=== PATIENT | male | born 1950 | race Caucasian/White ===

== ENCOUNTER 2020-05-04 22:19 | Emergency (ER) | payer MEDICARE, SELFPAY ==
[2020-05-04 22:25] VITALS: BP 181/92; PULSE 68; RESP 18; TEMP 36.5; O2SAT 94; BMI 33.0
--- NOTE | 2020-05-04 22:42 | XRR_ITS ---
PROCEDURE INFORMATION: Exam: XR Left Shoulder Exam date and time: 05/04/2020 11:21 PM Age: 69 years old Clinical indication: Injury or trauma; Injury history: Fell off horse; Initial encounter; Blunt trauma (contusions or hematomas; Shoulder; Left; Additional info: Trauma, pain TECHNIQUE: Imaging protocol: XR Left shoulder. Views: 2 or more views. COMPARISON: No relevant prior studies available. FINDINGS: Bones/joints: Moderate degenerative changes of the acromioclavicular joint. Glenohumeral joint normal Scapula normal Visualized ribs and visualized pulmonary parenchyma normal Coracoid process normal Fracture mid/distal aspect of the left clavicle with a full shaft with displacement. Soft tissues: Normal. XR/XR shoulder LT min 2V* [id number] IMPRESSION: 1. Moderate degenerative changes of the acromioclavicular joint. 2. Fracture mid/distal aspect of the left clavicle with a full shaft with displacement.
--- NOTE | 2020-05-04 22:43 | ED_ITS ---
HPI - Fall General: Chief Complaint: Fall Stated Complaint: fell off horse Time Seen by Provider: 05/04/20 22:37 Source: patient Mode of arrival: ambulatory Limitations: no limitations History of Present Illness: HPI Narrative: Patient is a very nice 69-year-old gentleman who presents to the ED today for evaluation following a fall from a horse that occurred just prior to arrival. Patient tells me he was trying to break a todd when it got spooked by a dog and bucked him off. Patient states he landed onto his left side. He reports abrasions and a laceration to his left elbow. He complains of pain to his left collarbone. He is also complaining of left-sided back and chest pains. He denies striking his head, LOC, or neck pain. Tetanus is UTD MD complaint: fall Onset (ago): hour(s) Fall from: other (from horse) Fall witnessed: yes, by bystander Place fall occurred: street Associated symptoms-after fall: Reports chest pain (pain to L posterior chest); Denies abdominal pain, headache(s), lightheadedness or neck pain Review of Systems Eyes: Denies: change in vision, blurry vision, photophobia, floaters or seeing flashes ENMT: Denies: throat pain or odynophagia Card: Reports: chest pain (pain to L posterior chest); Denies: palpitations, irregular heart rhythm, edema, lightheadedness, syncope, pre-syncope, dyspnea on exertion, orthopnea or acrocyanosis Resp: Denies: dyspnea, productive cough, non-productive cough, hemoptysis or chest congestion GI: Denies: abdominal pain, nausea or vomiting : Denies: flank pain Musc: Reports: back pain, extremity pain (L upper extremity ), joint pain (L shoulder) and joint swelling (L clavicle region); Denies: neck pain or extremity swelling Skin/Breast: Reports: other (abrasions) Neuro: Denies: headache(s), numbness in extremities, weakness in extremities or sensory changes PFSH ED PFSH: Social History Smoking and tobacco status: former smoker Physical Exam Const: COMMON NORMALS: no acute distress, patient oriented x3, no limitations and alert ORIENTATION/CONSCIOUSNESS: Yes oriented to person, Yes oriented to place and Yes oriented to time HENMT: COMMON NORMALS: normocephalic and atraumatic HEAD & SCALP: normocephalic and atraumatic FACE & SINUS: normal facial exam and sinuses nontender Eye: COMMON NORMALS: Equal, round and reactive pupils present and EOMs intact bilaterally PUPIL: Yes Equal, round and reactive pupils present Neck/C-Spine: COMMON NORMALS: full ROM CERVICAL SPINE: Yes cervical ROM normal, No pain with cervical ROM, No Cervical spine tenderness and No Paracervical muscle tenderness Chest: COMMONS NORMALS: normal inspection of the chest OTHER: TTP L posterior chest wall Resp: COMMON NORMALS: normal respiratory effort and clear to auscultation bilaterally AUSCULTATION: clear to auscultation bilaterally Cardio: COMMON NORMALS: regular rate and regular rhythm RATE: regular rate RHYTHM: regular rhythm GI: COMMON NORMALS: Normal to inspection, nondistended, normoactive bowel sounds present, Soft to palpation, non-tender, No hepatosplenomegaly present and no masses PALPATION: Yes Soft to palpation and Yes No hepatosplenomegaly present Back/Pelvis: THORACIC SPINE/UPPER BACK: Yes thoracic spinal tenderness (mid thoracic spine/between scapula and transverse processes) LUMBAR SPINE/LOWER BACK: Yes normal to inspection and Yes lumbar ROM normal Extremity: GENERAL: Yes normal exam except as noted OTHER: abrasions noted throughout L UE, 2.0 laceration to L elbow-full ROM, TTP/swelling/deformity noted over L midshaft clavicle Neuro: LORNA COMA SCALE: document GCS findings Lorna coma scale eye opening: Spontaneous Lorna coma scale verbal response: Orientated [place] coma scale motor response: Obey commands [place] coma scale total score: 15 COMMON NORMALS: patient oriented x3, CN's II-XII intact bilaterally, moves all extremities, no focal motor deficits, no sensory deficits noted and gait normal SENSORIUM/ORIENTATION: Yes alert, Yes oriented to person, Yes oriented to place and Yes oriented to time Skin: OTHER: superficial abrasions, L elbow laceration Procedures Laceration Laceration 1: Site: upper extremity (L elbow) Side (If applicable): left Size (cm): 2.0 Description: stellate and flap Depth: simple, single layer Local Anesthetic: lidocaine 1% and with epi Amount of anesthesia used (mL): 2.0 Pre-repair: wound explored and irrigated extensively Skin layer closed with: nylon Size (cm): 4-0 Number of sutures: 6 Technique: simple, interrupted Course Vital Signs: Vital signs: Vital Signs Temperature 97.7 F 05/04/20 22:25 Pulse Rate 69 05/05/20 00:53 Respiratory Rate 18 05/05/20 01:07 Blood Pressure 182/89 05/05/20 00:53 Pulse Oximetry 97 05/05/20 01:07 MDM - Fall MDM Narrative: Medical decision making narrative: laceration repaired as documented; XRs of elbow neg; L shoulder shows displaced clavicular fx; he will be placed in a sling and will have CM set him up with orthopedics; initially not complaining of much back/chest pain so plain films of thoracic spine were obtained and neg however while I was suturing him he tells me he was really starting to be in some discomfort throughout L posterior chest/ribs/back and seemingly did not wish to take deep breaths due to pain; due to high impact injury I did go ahead elect to CT his chest/t spine to rule out further injuries-these were negative. Imaging Data^: XR thoracic: Radiologist's impression: [address] [address] XRay Report Signed Patient: Zay Vaughan Unit #: [id number] : 1950 Age/Sex: 69 / M ADM Date: 05/04/20 Loc: ER Room/Bed: Attending Dr: Ordering Provider/Ordering MD: Kitty Acuna Date of Service: 05/04/20 Procedure(s): XR thoracic spine 3V* [id number] Accession Number(s): [id number] Report Number: [id number] PROCEDURE INFORMATION: Exam: XR Thoracic Spine, 3 Views Exam date and time: 05/04/2020 11:21 PM Age: 69 years old Clinical indication: Injury or trauma; Initial encounter; Blunt trauma (contusions or hematomas); Injury details: Fall off horse TECHNIQUE: Imaging protocol: XR of the thoracic spine, 3 views. COMPARISON: No relevant prior studies available. FINDINGS: Vertebrae: Multilevel productive degenerative endplate changes disc space narrowing throughout the spine without fracture or dislocation. Soft tissues: Unremarkable. XR/XR thoracic spine 3V* [id number] IMPRESSION: Multilevel productive degenerative endplate changes disc space narrowing throughout the spine without fracture or dislocation. Dictated By: Marquis Stevens MD Signed By: Marquis Stevens MD Signed Date/Time: 05/04/20 2337 XR L elbow: My impression: NAD XR L shoulder: My impression: displaced midshaft clavicular fracture CT thoracic: Radiologist's impression: [facility] [address] [facility] [place] [address] CT Scan Report Signed Patient: Zay Vaughan Unit #: [id number] : 1950 Age/Sex: 69 / M ADM Date: 05/04/20 Loc: ER Room/Bed: Attending Dr: Ordering Provider/Ordering MD: Kitty Acuna Date of Service: 05/04/20 Procedure(s): CT thoracic spin wo con* [id number] Accession Number(s): [id number] Report Number: [id number] PROCEDURE INFORMATION: Exam: CT Thoracic Spine Without Contrast Exam date and time: 05/04/2020 1:06 AM Age: 69 years old Clinical indication: Injury or trauma; Initial encounter; Blunt trauma (contusions or hematomas); Injury details: Fall off horse; Additional info: Fall from horse; Pain TECHNIQUE: Imaging protocol: Computed tomography images of the thoracic spine without contrast. Radiation optimization: All CT scans at this facility use at least one of these dose optimization techniques: automated exposure control; mA and/or kV adjustment per patient size (includes targeted exams where dose is matched to clinical indication); or iterative reconstruction. COMPARISON: CR XR thoracic spine 3V* [id number] 05/04/2020 10:50 PM RADIATION DOSE METRICS: Total DLP (mGy-cm): 2764.26 FINDINGS: Vertebrae: No acute fracture. Normal alignment. T1-T2: No significant disc protrusion. No severe spinal canal stenosis. No significant neural foraminal narrowing. T2-T3: No significant disc protrusion. No severe spinal canal stenosis. No significant neural foraminal narrowing. T3-T4: No significant disc protrusion. No severe spinal canal stenosis. No significant neural foraminal narrowing. T4-T5: No significant disc protrusion. No severe spinal canal stenosis. No significant neural foraminal narrowing. T5-T6: No significant disc protrusion. No severe spinal canal stenosis. No significant neural foraminal narrowing. T6-T7: No significant disc protrusion. No severe spinal canal stenosis. No significant neural foraminal narrowing. T7-T8: No significant disc protrusion. No severe spinal canal stenosis. No significant neural foraminal narrowing. T8-T9: No significant disc protrusion. No severe spinal canal stenosis. No significant neural foraminal narrowing. T9-T10: No significant disc protrusion. No severe spinal canal stenosis. No significant neural foraminal narrowing. T10-T11: No significant disc protrusion. No severe spinal canal stenosis. No significant neural foraminal narrowing. T11-T12: No significant disc protrusion. No severe spinal canal stenosis. No significant neural foraminal narrowing. T12-L1: No significant disc protrusion. No severe spinal canal stenosis. No significant neural foraminal narrowing. CT/CT thoracic spin wo con* [id number] IMPRESSION: Negative for fracture or dislocation. Radiation Dose CTDIVOL = (mGy): DLP = 2764.26 (mGy-cm) Dictated By: Marquis Stevens MD Signed By: Marquis Stevens MD Signed Date/Time: 05/05/20151 DD/ 9 Discharge Plan Discharge Patient Disposition: Home, Self-Care Clinical Impression: Fall from horse Qualifiers: Encounter type: initial encounter Qualified Code(s): V80.010A - Animal-rider injured by fall from or being thrown from horse in noncollision accident, initial encounter Laceration of elbow, left Qualifiers: Encounter type: initial encounter Qualified Code(s): S51.012A - Laceration without foreign body of left elbow, initial encounter Closed fracture of left clavicle Qualifiers: Encounter type: initial encounter Clavicle location: shaft Fracture alignment: displaced Qualified Code(s): S42.022A - Displaced fracture of shaft of left clavicle, initial encounter for closed fracture Condition: Stable Prescriptions: New hydrocodone-acetaminophen 5-325 mg tablet 1 tab PO Q4H PRN (Reason: pain) Qty: 15 RF: 0 Discharge Orders: Discharge Order (Routine); Ordered 05/05/20 Ordered By: Kitty Acuna Referrals: Eliu Shea [Primary Care Provider] - Patient Instructions: Fractures - Clavicle (Adult) Activity Restrictions/Additional Instructions: As discussed case management should contact you to set you up with orthopedic follow-up. He may return to the emergency department for any concerns you may have. I hope you begin to feel better soon. Keep your laceration clean with warm soapy water several times daily. Monitor for signs of infection such as redness, swelling, drainage. Sutures may be cut out in 7 to 10 days. Coding Level of Care Code ED Lot Porter for Israel Vitale Exam Comprehensive
--- NOTE | 2020-05-04 22:43 | XRR_ITS ---
PROCEDURE INFORMATION: Exam: XR Left Elbow Exam date and time: 05/04/2020 11:21 PM Age: 69 years old Clinical indication: Injury or trauma; Injury history: Fell off horse; Initial encounter; Blunt trauma (contusions or hematomas; Elbow; Left; Additional info: Injury, pain TECHNIQUE: Imaging protocol: XR Left elbow. Views: 3 or more views. COMPARISON: No relevant prior studies available. FINDINGS: Bones/joints: Radial head and proximal ulna are without fracture. No joint effusion. Degenerative changes within the olecranon. Degenerative changes at the radial capitellar articulation Soft tissues: Medial and lateral columns are without fracture. XR/XR elbow LT min 3V* [id number] IMPRESSION: 1. No acute process. 2. Degenerative changes within the olecranon. Moderate.
--- NOTE | 2020-05-04 23:43 | PC.NURSE ---
pt has abrasion on L arm extending from L shoulder to elbow. Pt has 2in lac on L elbow area and 1in lac below elbow. Pt tolerated irrigation procedure well
--- NOTE | 2020-05-04 23:54 | CTR_ITS ---
PROCEDURE INFORMATION: Exam: CT Chest With Contrast Exam date and time: 05/04/2020 1:06 AM Age: 69 years old Clinical indication: Injury or trauma; Initial encounter; Blunt trauma (contusions or hematomas); Injury details: Fall from horse; Additional info: Fall from horse; L sided back/chest pain TECHNIQUE: Imaging protocol: Computed tomography of the chest with intravenous contrast. Radiation optimization: All CT scans at this facility use at least one of these dose optimization techniques: automated exposure control; mA and/or kV adjustment per patient size (includes targeted exams where dose is matched to clinical indication); or iterative reconstruction. Contrast material: VISI; Contrast volume: 95 ml; Contrast route: INTRAVENOUS (IV); COMPARISON: No relevant prior studies available. RADIATION DOSE METRICS: Total DLP (mGy-cm): 1107.37 FINDINGS: Lungs: Unremarkable. No consolidation. No masses. Pleural space: Unremarkable. No pneumothorax. No pleural effusion. Heart: Unremarkable. No cardiomegaly. No pericardial effusion. Aorta: Unremarkable. No aortic aneurysm. Lymph nodes: Unremarkable. No enlarged lymph nodes. Kidneys and ureters: Left kidney demonstrates several parapelvic renal cysts. Bones/joints: Left mid clavicle displaced fracture. Soft tissues: Unremarkable. CT/CT chest w con* [id number] IMPRESSION: 1. Left mid clavicle displaced fracture. 2. Left kidney demonstrates several parapelvic renal cysts, no follow-up recommended. Radiation Dose CTDIVOL = (mGy): DLP = 1107.37 (mGy-cm)
--- NOTE | 2020-05-04 23:54 | CTR_ITS ---
PROCEDURE INFORMATION: Exam: CT Thoracic Spine Without Contrast Exam date and time: 05/04/2020 1:06 AM Age: 69 years old Clinical indication: Injury or trauma; Initial encounter; Blunt trauma (contusions or hematomas); Injury details: Fall off horse; Additional info: Fall from horse; Pain TECHNIQUE: Imaging protocol: Computed tomography images of the thoracic spine without contrast. Radiation optimization: All CT scans at this facility use at least one of these dose optimization techniques: automated exposure control; mA and/or kV adjustment per patient size (includes targeted exams where dose is matched to clinical indication); or iterative reconstruction. COMPARISON: CR XR thoracic spine 3V* [id number] 05/04/2020 10:50 PM RADIATION DOSE METRICS: Total DLP (mGy-cm): 2764.26 FINDINGS: Vertebrae: No acute fracture. Normal alignment. T1-T2: No significant disc protrusion. No severe spinal canal stenosis. No significant neural foraminal narrowing. T2-T3: No significant disc protrusion. No severe spinal canal stenosis. No significant neural foraminal narrowing. T3-T4: No significant disc protrusion. No severe spinal canal stenosis. No significant neural foraminal narrowing. T4-T5: No significant disc protrusion. No severe spinal canal stenosis. No significant neural foraminal narrowing. T5-T6: No significant disc protrusion. No severe spinal canal stenosis. No significant neural foraminal narrowing. T6-T7: No significant disc protrusion. No severe spinal canal stenosis. No significant neural foraminal narrowing. T7-T8: No significant disc protrusion. No severe spinal canal stenosis. No significant neural foraminal narrowing. T8-T9: No significant disc protrusion. No severe spinal canal stenosis. No significant neural foraminal narrowing. T9-T10: No significant disc protrusion. No severe spinal canal stenosis. No significant neural foraminal narrowing. T10-T11: No significant disc protrusion. No severe spinal canal stenosis. No significant neural foraminal narrowing. T11-T12: No significant disc protrusion. No severe spinal canal stenosis. No significant neural foraminal narrowing. T12-L1: No significant disc protrusion. No severe spinal canal stenosis. No significant neural foraminal narrowing. CT/CT thoracic spin wo con* [id number] IMPRESSION: Negative for fracture or dislocation. Radiation Dose CTDIVOL = (mGy): DLP = 2764.26 (mGy-cm)
[2020-05-05 00:53] VITALS: BP 182/89; PULSE 69; RESP 18; O2SAT 95
[2020-05-05 01:07] VITALS: RESP 18; O2SAT 97
[2020-05-05] MEDS: morphine 4 mg/mL SDV 1 mL IM (01:07)
[2020-05-05] MEDS: ondansetron 2 mg/ML SDV 2 mL 4 MG IM (01:07)
[2020-05-05] MEDS: iodixanol 320 mg/mL 100mL Btl IV (01:32)
[2020-05-05] MEDS: HYDROcodone-acetaminophen 5-325 mg Tablet 2 TAB PO (02:07)
[2020-05-05 02:29] VITALS: BP 175/106; PULSE 73; RESP 18; O2SAT 96
--- NOTE | 2020-05-05 10:18 | DCPLANNER ---
janitorial account manager had message to schedule a follow up appointment for patient with ortho. janitorial account manager called ortho, spoke with Phuong, gave clinic patients information. janitorial account manager was told that the patients information would be printed and reviewed. Clinic will call patient with appointment information.
--- NOTE | 2020-05-06 15:36 | DCPLANNER ---
Patient has a follow up appointment scheduled for Saturday, May 09, 2020 at 1:[address] Leblanc. Clinic will call patient with appointment information.
--- NOTE | 2020-05-11 14:43 | DCPLANNER ---
Patient did attend appointment scheduled for 05.09.20 with ortho.
== END 2020-05-05 02:10 | disposition home or self-care (01) ==
PROVIDERS: Emergency Provider Physician Assistant; PCP Physician Assistant Medical
DX: S51.012A Laceration without foreign body of left elbow, initial encounter (principal); S42.022A Displaced fracture of shaft of left clavicle, initial encounter for closed fracture; V80.010A Animal-rider injured by fall from or being thrown from horse in noncollision accident, initial encounter; Z87.891 Personal history of nicotine dependence
CPT/HCPCS: 12001; 12345; 71260; 72072; 72128; 73030; 73080; 96372; 99282; 99283; J2001; J2270; J2405; Q9967

== ENCOUNTER 2020-05-07 12:50 | Emergency (ER) | payer MEDICARE, SELFPAY ==
[2020-05-07 12:58] VITALS: BP 151/82; PULSE 69; RESP 16; TEMP 36.4; O2SAT 98; BMI 33.0
[2020-05-07 13:08] VITALS: RESP 18
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
[2020-05-07] MEDS: cephALEXin 500 mg Capsule PO (13:36)
[2020-05-07 13:41] VITALS: RESP 18; TEMP 36.4; O2SAT 98
== END 2020-05-07 13:42 | disposition home or self-care (01) ==
PROVIDERS: Emergency Provider Nurse Practitioner Family; PCP Physician Assistant Medical
DX: L98.9 Disorder of the skin and subcutaneous tissue, unspecified (principal)
CPT/HCPCS: 12345; 99281; 99283

== ENCOUNTER → 2020-05-09 13:27 | Outpatient (BNVA) | payer MEDICARE, SELFPAY | PROVIDERS: PCP Physician Assistant Medical; Visit Provider Specialist | DX: S42.022A Displaced fracture of shaft of left clavicle, initial encounter for closed fracture (principal); X58.XXXA Exposure to other specified factors, initial encounter | CPT/HCPCS: 73000 ==

== ENCOUNTER 2020-05-10 09:50 | Day surgery (SDC) | payer MEDICARE, SELFPAY ==
[2020-05-10] VITALS (10 sets, daily range): BP systolic 111–160; BP diastolic 65–87; PULSE 53–71; RESP 17–22; TEMP 36.3–36.6; O2SAT 93–98
--- NOTE | 2020-05-10 | SCC_ITS ---
Procedure Done: Open reduction internal fixation left clavicle fracture 25.8 seconds of fluoroscopic guidance, for a cumulative dose of 3.31 mGy, was provided to Dr. Leblanc by the radiology department. C-arm images of the LEFT clavicle were saved for the patient's permanent record. [facility]
--- NOTE | 2020-05-10 | XR_ITS ---
WS: [id number] LEFT CLAVICLE TECHNIQUE: 2 views of the left clavicle. CLINICAL INFORMATION: ORIF LT CLAVICLE Fluoroscopy time 25.8 seconds COMPARISON: None. FINDINGS: Intraoperative changes left clavicular fracture with plate and screw fixation. Normal alignment. Frac ture has been reduced. XR/[place] [id number] IMPRESSION: Images obtained for intraoperative purposes
--- NOTE | 2020-05-10 10:37 | P.HPUD_ITS ---
Surgery/Procedure H&P Update DATE OF PROCEDURE: May 10, 2020 DATE H&P PERFORMED: 05/09/20 H&P UPDATE INFORMATION: I have reviewed H&P completed within last 30 days, I have examined patient prior to procedure and H&P is in [facility] EMR on date indicated PREOP DIAGNOSIS: Displaced left clavicle fracture PLANNED PROCEDURE: Operation Date: 05/10/20 11:15 Proposed Procedures p ORIF Clavicle 01983 S42.022A(Left) - Sienna Leblanc MD Related Problem List Diagnoses (1) Closed fracture of left clavicle: Qualifiers: Clavicle location: shaft Encounter type: initial encounter Fracture alignment: displaced Qualified Code(s): S42.022A - Displaced fracture of shaft of left clavicle, initial encounter for closed fracture
--- NOTE | 2020-05-10 10:38 | ANES.PREANE2 ---
Pre-Anesthetic Assessment Pre-Anesthetic Assessment: Height/Weight: Height 1.78 m Temp Pulse Resp BP Pulse Ox 97.8 F 60 18 160/87 97 05/10/20 10:20 05/10/20 10:20 05/10/20 10:20 05/10/20 10:20 05/10/20 10:20 Preop Diagnosis: Displaced left clavicle fracture Proposed Procedure: Operation Date: 05/10/20 11:15 Proposed Procedures p ORIF Clavicle [id number] S42.022A(Left) - Sienna Leblanc MD Familial anesthetic complications: None Was Beta Mony taken within 24 hours: Yes Last intake: Intake Last Liquid Date 05/09/20 Last Liquid Time 19:00 Last Solid Date 05/09/20 Last Solid Time 19:00 Social: Social History: No alcohol and No tobacco Exam: Pre-Anes Outpt Exam: alert, oriented x 3, clear to auscultation bilaterally and regular rate & rhythm Airway: Cervical ROM: WNL MP: 3 Dentition: Full Pulmonary: Pulmonary: None reported CV/HEM: CV/HEM: HTN : : None reported Hepatic: Hepatic: None reported GI: GI: GERD and None reported Metabolic: Metabolic: Morbid obesity Musc/skel: Musc/skel: None reported Neuropsych: Neuropsych: None reported Anesthetic Plan: ASA status: 2 Anesthesia: General and Regional (specify below) Risk of > 500 ml blood loss (7ml/kg in children): No PFSH Anesthesia PFSH: Medical History Accelerated essential hypertension Arthritis Stomach ulcer Family History Denies family history of Diabetes CAD (coronary artery disease) Hypertension Stroke Social History Smoking and tobacco status: never smoked Alcohol intake: never Data Anesthesia Cardiac Studies: No Data to Display
[2020-05-10] MEDS: sodium chloride 0.9% 1,000 ML 30 ML IV (10:45)
--- NOTE | 2020-05-10 10:56 | PM.OP ---
Operative Report Date of procedure: May 10, 2020 Pre-op Diagnosis: Displaced left clavicle fracture Post-op diagnosis: same Post-op Findings: Anatomic reduction of midshaft clavicle fracture Procedure Done: Open reduction internal fixation left clavicle fracture with dressing change to left upper arm wounds Implants: Laurens reduced curvature clavicle plate, 8 holes Specimens removed/disposition: None Pathology: none sent Surgeon: Sienna Leblanc Industrial Refrigeration Mechanic: Radha Mackey Anesthesia: General (Intubated ASA 2 with interscalene block preoperatively) Estimated blood loss (mL): 25 IV fluids (mL): 1,000 Urine output: 0 cc, no Oden Complications: None Findings: Displaced midshaft clavicle fracture with anatomic reduction Condition: stable Disposition: PACU (Then home) Brief History: This 70-year-old gentleman was in his usual state of health when he was riding a 2-year-old quarter horse. The horse had been drained, his daughter had written it, and he was riding the horse when a dog frightened it and he went to the ground. He suffered significant abrasions and a laceration over his elbow. He also suffered this midshaft displaced clavicle fracture. Patient was seen in the office and discussion was undertaken regarding appropriate treatment. We elected to proceed with open reduction internal fixation. The patient was in agreement. Procedure: The patient was brought to the operating theater and underwent general intubated anesthesia with preoperative regional block, ASA 2. The patient was placed in a beachchair position and subsequently the left upper extremity was prepped and draped in the usual fashion utilizing DuraPrep. The arm was draped free. A surgical pause was performed prior to commencement of the surgical procedure. At the time of the surgical pause, we confirmed the site and side of surgery as well as administration of appropriate preoperative antibiotics Ancef 2 g. X-ray images were also reviewed at that time. Following the surgical pause, an incision was made centering over the midshaft clavicle fracture. Fluoroscopy was used throughout the procedure. The incision was marked on the skin based upon the findings on images. Additionally, a plate was chosen with 8 holes. The center 2 holes were to be over the oblique fracture. These were nonlocking holes. The plate is a Blossom reduced curvature plate. The plate was attached with standard technique utilizing both locking and nonlocking screws. Imaging demonstrated that the fracture was reduced anatomically and the plate was in excellent position. The wound was irrigated and closure was accomplished with 0 Vicryl in the fascial tissues. The wound was copiously irrigated prior to closure. We then used 2-0 Monocryl in the subcutaneous tissues after vancomycin powder was placed in the wound. The skin was closed with a running 3-0 Monocryl. This was followed by Exofin Steri-Strips. The wound was then covered with Telfa and a Tegaderm. Following this, the patient's wounds along his arm were cleaned and dressed. The elbow wound which has a laceration was dressed with an OpSite. Over the larger wounds on the superior lateral aspect of the patient's arm, a Telfa was utilized followed by a large Tegaderm. The patient was placed in a sling and was returned to the recovery room in satisfactory condition. The patient will be discharged to home to follow-up with me in the office as scheduled. There were no complications and no specimens. Associated Problem List Diagnoses (1) Closed fracture of left clavicle: Qualifiers: Clavicle location: shaft Encounter type: initial encounter Fracture alignment: displaced Qualified Code(s): S42.022A - Displaced fracture of shaft of left clavicle, initial encounter for closed fracture
[2020-05-10] MEDS: CELEcoxib 200 mg Capsule 400 MG PO (10:59)
[2020-05-10 11:01] LABS: Basophils % 0.4 %; Eosinophils # 0.3 10^3/uL (0.0-0.8); Eosinophils % 4.1 %; Hemoglobin 13.4 g/dL (11.7-16.6); Lymphocytes # 1.7 10^3/uL (0.8-4.8); Mean Corpuscular HGB Conc 32.7 g/dL (30.0-36.0); Mean Corpuscular Hemoglobin 29.7 pg (28.0-34.0); Mean Corpuscular Volume 90.9 fL (80-94); Mean Platelet Volume 9.6 fL (7.4-10.4); Monocytes # 0.9 10^3/uL (0.2-0.9); Monocytes % 10.5 %; Neutrophils # 5.2 10^3/uL (1.8-7.7); Neutrophils % 63.2 %; Nucleated Red Blood Cells % 0 %; Platelet Count 309 10^3/cmm (130-400); Red Blood Count 4.51 10^6/uL (4.1-5.3); Red Cell Distribution Width 13.5 % (12.1-15.1); White Blood Count 8.3 10^3/uL (4.0-10.0)
[2020-05-10 11:09] LABS: Alanine Aminotransferase 18 U/L (0-41); Albumin Level 3.9 g/dL (3.5-5.2); Alkaline Phosphatase 79 IU/L (40-130); Aspartate Amino Transferase 16 U/L (0-40); Blood Urea Nitrogen 13 mg/dL (8-23); Calcium 9.3 mg/dL (8.5-10.5); Carbon Dioxide 25 mmol/L (22-29); Chloride 102 mmol/L (98-107); Globulin 3.3 g/dL (1.3-4.6); Glomerular Filtration Rate 73.9 mL/min (90-130); Glucose 127 mg/dL (65-115); Osmolality Calculated 290 mOsm/kg (285-295); Sodium 141 mmol/L (136-145); Total Bilirubin 0.3 mg/dL (0.15-1.2); Total Protein 7.2 g/dL (6.6-8.7)
--- NOTE | 2020-05-10 11:37 | ANES.PROC ---
Anesthesia Procedures Procedure/Date: 05/10/20 Nerve Block ^: Nerve Block 1: Main Anesthesia: general anesthesia Time Out Performed: Yes Consent: requested by attending/covering physician, from patient, risks and benefits reviewed and patient agrees to proceed Nerve block location: interscalene (L) Anesthesia monitors applied: pulse oximetry, BP cuff and oxygen Nerve block position: semi sitting Anesthetic Used: ropivicaine 0.5% and with decadron (2 mg) Amount of anesthesia used (mL): 15 Ultrasound used to: visualize and ID interscalene groove Nerve Stimulator Used?: No Interscalene/Femoral BLK: 2 stimuplex 22 g needle used for position and inplane approach, visualize local anesthetic spread and no vascular puncture identified Injection: neg aspiration of heme and paresthesia +/- Patient Tolerated Procedure: well Complications: none Nerve Block 2: Main Anesthesia: general anesthesia Time Out Performed: Yes Consent: requested by attending/covering physician, from patient, risks and benefits reviewed and patient agrees to proceed Nerve block location: other (L superficial cervical plexus) Anesthesia monitors applied: pulse oximetry, BP cuff and oxygen Nerve block position: semi sitting Anesthetic Used: ropivicaine 0.5% and with decadron (2 mg) Amount of anesthesia used (mL): 15 Ultrasound used to: recognize landmarks Nerve Stimulator Used?: No Interscalene/Femoral BLK: 2 stimuplex 22 g needle used for position and inplane approach Injection: neg aspiration of heme and paresthesia +/- Patient Tolerated Procedure: well and no complications Complications: none
[2020-05-10] MEDS: ceFAZolin 1,000 mg SDV 1000 MG IRRIGATION (12:03)
--- NOTE | 2020-05-10 12:07 | SUR.OPER ---
1204 - Pt's family, Nicolette, notified of surgery start via her cell phone.
[2020-05-10] MEDS: vancomycin 1,000 MG SDV 1000 MG XX (12:46)
== END 2020-05-10 14:33 | disposition home or self-care (01) ==
PROVIDERS: PCP Physician Assistant Medical; Visit Provider Specialist
PROC: (CPT 23515; principal; 2020-05-10 11:15)
DX: S42.022A Displaced fracture of shaft of left clavicle, initial encounter for closed fracture (principal); V80.010A Animal-rider injured by fall from or being thrown from horse in noncollision accident, initial encounter; I10 Essential (primary) hypertension; K21.9 Gastro-esophageal reflux disease without esophagitis; E66.01 Morbid (severe) obesity due to excess calories; M19.90 Unspecified osteoarthritis, unspecified site
CPT/HCPCS: 23515; 12345; 36415; 73000; 76000; 80053; 85025; 96365; C1713; J0131; J0690; J1100; J2250; J2370; J2704; J2795; J3010; J3370; J3490; J7030

== ENCOUNTER 2020-05-25 14:40 | Outpatient (CLI) | payer MEDICARE, SELFPAY ==
--- NOTE | 2020-05-25 14:46 | XR_ITS ---
WS: [id number] Left clavicle, 05/25/2020 Clinical Data: post operative Comparison: Left clavicle, 05/10/2020. Findings: There is a plate in the superior portion of the mid shaft of the clavicle fixed with 8 orthopedic scr ews. This is reducing the mid shaft fracture left clavicle. The left sternoclavicular joint and AC erica int are unremarkable. XR/[place] [address] Impression: Internal fixation of left mid clavicular fracture.
== END 2020-05-25 14:41 | disposition home or self-care (01) ==
LOC: RAD 14:43
PROVIDERS: PCP Physician Assistant Medical; Visit Provider Specialist
DX: Z47.89 Encounter for other orthopedic aftercare (principal); S42.022D Displaced fracture of shaft of left clavicle, subsequent encounter for fracture with routine healing; X58.XXXD Exposure to other specified factors, subsequent encounter
CPT/HCPCS: 73000

== ENCOUNTER 2020-06-22 08:37 | Outpatient (CLI) | payer MEDICARE, SELFPAY ==
--- NOTE | 2020-06-22 08:46 | XR_ITS ---
WS: [id number] Left clavicle, 2 views, 06/22/2020 Clinical Data: PTOP Comparison: Left clavicle, 05/25/2020. Findings: The plate at the superior aspect of the midportion of left clavicle is fixed with 8 orthopedic screws . This is reducing a left mid clavicular fracture. The AC joint and left sternoclavicular joints are unremarkable XR/[place] [address] Impression: Internal fixation of mid left clavicular fracture.
== END 2020-06-22 08:38 | disposition home or self-care (01) ==
LOC: RAD 08:43
PROVIDERS: PCP Physician Assistant Medical; Visit Provider Specialist
DX: Z98.890 Other specified postprocedural states (principal); S42.002A Fracture of unspecified part of left clavicle, initial encounter for closed fracture; X58.XXXA Exposure to other specified factors, initial encounter
CPT/HCPCS: 73000; 87070

== ENCOUNTER 2020-07-12 06:25 | Outpatient (CLI) | payer MEDICARE, SELFPAY ==
[2020-07-12 06:35] VITALS: BMI 31.5
--- NOTE | 2020-07-12 06:36 | ECG_ITS ---
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 Interpretive Statements NAME OF STUDY: LEXISCAN SESTAMIBI STRESS TEST INDICATION: A fib; Htn PATIENT IN SINUS RHYTHM NOTE: Please note that this is the electrocardiogram portion of the Lexiscan/Sestamibi stress test. The perfusion scan will be documented separately. DATA: Baseline heart rate was 48 beats per minute. Baseline blood pressure was 172/92 millimeters of mercury. Target heart rate was 150. Maximum heart rate achieved was 69. which was 46% of the predicted target heart rate. Maximum blood pressure was 176/106 millimeters of mercury. The reason for ending the test was completion of the protocol. The patient did not experience any symptoms. ELECTROCARDIOGRAM: Baseline: Sinus bradycardia otherwise normal EKG. EXERCISE: After Lexiscan injection, no ST-T changes suggestive of ischemic noted. No arrhythmia noted. CONCLUSION: Please note due to baseline abnormality of the EKG specificity and sensitivity of the EKG portion of LexiScan MIBI stress test will be low 1. EKG not suggestive of ischemia 2. Lexiscan injection unremarkable. 3. Perfusion scan will be documented separately. Electronically Signed On 07-22-2020 16:34:54 CDT by Forrest Aguilar M.D. [email or web address]
--- NOTE | 2020-07-12 06:38 | NMCV_ITS ---
NM shekhar perf SPECT r/s* [id number] Zay Vaughan Age: 70 Gender: M : 1950 Exam Date: 07/12/2020 07:40 Ordering Phys: Eliu Shea PA-C XX Technologist: KRYSTEN Song Exam Location: [facility] Indications: Afib, HTN STRESS TEST Please [facility] IMAGE PROTOCOL Rest/Stress 1 Lexiscan Day Radiopharmaceutical Dose (mCi) Administration Site Administered by Rest: Tc-99m 10.9 IV KRYSTEN Song Sestamibi Stress:Tc-99m 32.4 IV KRYSTEN Riley Sestamibi Rest: 12-Jul-2020 60 Discovery 630 Stress: 12-Jul-2020 45 Discovery 630 0.4mg Lexiscan. Images obtained in supine and prone position. SPECT RESULTS Technical Quality: Good Raw Data Analysis: Normal Image Corrections: No attenuation or motion correction applied Summed Stress Score: 0 Summed Rest Score: 2 Summed Difference Score: 0 PERFUSION FINDINGS Medium-sized area of fixed perfusion defect noted in basal to mid inferior wall suggestive of old myocardial infarction versus scarring. FUNCTIONAL RESULTS (calculated via Gated SPECT) Stress Image LV EF (%): 52 Stress EDV (mL):95 TID: 1.18 Stress ESV (mL):46 Rest Image LV EF (%): 52 FUNCTIONAL FINDINGS: No wall motion abnormality noted IMPRESSIONS Old myocardial infarction versus scarring noted in basal to mid inferior wall without significant ischemia. This study is negative for ischemia.TID ratio is elevated which could be secondary to subendocardial ischemia/left ventricular hypertrophy in the absence of other parameters. EKG segment will be documented separately. Forrest Aguilar MD (Electronically Signed) Final Date: 12 July 2020 17:33 S
--- NOTE | 2020-07-12 08:28 | SUR.PREOP ---
Patient reports no pain or discomfort prior to the start of the procedure.
[2020-07-12] MEDS: regadenoson 0.4 Mg/5 ml Syringe IVP (08:34)
[2020-07-12 08:54] VITALS: BP 168/92; PULSE 61
== END 2020-07-12 06:26 | disposition home or self-care (01) ==
LOC: CDL 06:31
PROVIDERS: PCP Physician Assistant Medical; Visit Provider Physician Assistant Medical
DX: I48.0 Paroxysmal atrial fibrillation (principal); I10 Essential (primary) hypertension
CPT/HCPCS: 78452; 93017; A9500; J2785

== ENCOUNTER 2020-08-12 08:14 | Outpatient (CLI) | payer MEDICARE, SELFPAY ==
--- NOTE | 2020-08-12 08:19 | USCV_ITS ---
Zay Vaughan Age: 70 Gender: M : 1950 Exam Date: 08/12/2020 08:53 Ordering Phys: Eliu Shea PA-C XX Technologist: Rasheeda Bell Exam Location: [facility] [place] Indication: paroxysmal atrial fib BP: 156 / 82 HR: 50 Rhythm: Sinus Technical Quality: Adequate MEASUREMENTS (Male / Female) Normal Values 2D ECHO LV Diastolic Diameter PLAX 4.7 cm 4.2 - 5.9 / 3.9 - 5.3 cm LV Systolic Diameter PLAX 3.5 cm LV Chamber Size 2.7 cm IVS Diastolic Thickness 1.3 cm 0.6 - 1.0 / 0.6 - 0.9 cm IVS Systolic Thickness 1.6 cm LVPW Diastolic Thickness 1.7 cm 0.6 - 1.0 / 0.6 - 0.9 cm LVPW Systolic Thickness 2.2 cm RV Chamber Size 3.0 cm LVOT Diameter 2.0 cm LV Ejection Fraction 2D Teich 51.9 % LV Ejection Fraction MOD 2C 62.2 % LV Ejection Fraction 2C AL 60.8 % LA Diameter 3.6 cm LA Width 3.6 cm LA Height 6.0 cm RA Width 2.7 cm RA Height 4.0 cm Aorta at Sinotubular Diameter 2.6 cm M-MODE LV Diastolic Diameter MM 4.1 cm 4.2 - 5.9 / 3.9 - 5.3 cm LV Systolic Diameter MM 3.1 cm LV Ejection Fraction MM Teich 49.3 % IVS Diastolic Thickness MM 1.2 cm 0.6 - 1.0 / 0.6 - 0.9 cm IVS Systolic Thickness MM 1.2 cm LVPW Diastolic Thickness MM 1.4 cm 0.6 - 1.0 / 0.6 - 0.9 cm LVPW Systolic Thickness MM 1.7 cm Aortic Annulus Diameter 3.2 cm LA Ao Ratio MM 1.4 MV E Point Septal Separation 0.7 cm DOPPLER AV Peak Velocity 136.0 cm/s LVOT Peak Velocity 105.0 cm/s AV Area Cont Eq vti 2.6 cm squared AV Area Cont Eq pk 2.4 cm squared MV Area PHT 2.5 cm squared Mitral E to A Ratio 1.1 MV E' Velocity 34.5 cm/s Mitral E to MV E' Ratio 6.7 Mitral E to LV E' Lateral Ratio 6.2 Mitral E to LV E' Septal Ratio 7.3 TR Peak Velocity 202.5 cm/s TR Peak Gradient 16.4 mmHg TV Peak E Velocity 59.0 cm/s Right Atrial Pressure 3.0 mmHg Pulmonary Artery Systolic Pressu 19.4 mmHg PV Peak Velocity 70.0 cm/s RV Acceleration Time 0.1 s RV Ejection Time 0.4 s RV AcT/ET 0.3 FINDINGS Left Ventricle Normal left ventricular size, systolic function and wall thickness, with no regional wall motion abnormalities. LVEF is 55 to 60%. Normal left ventricular wall thickness. Normal diastolic filling pattern. Right Ventricle The right ventricle is normal in size and function. Right Atrium The right atrium is normal in size. Left Atrium The left atrium is normal in size. Mitral Valve Structurally normal mitral valve without significant stenosis or prolapse. There is no mitral regurgitation. Aortic Valve Structurally normal aortic valve without significant sclerosis or stenosis. There is no aortic regurgitation. Tricuspid Valve Structurally normal tricuspid valve without significant stenosis or regurgitation. Insufficient TR jet to calculate RVSP. Pulmonic Valve Structurally normal pulmonic valve without significant stenosis. There is no pulmonic regurgitation. Pericardium Normal pericardium without effusion. Aorta Normal ascending aorta dimension. CONCLUSIONS LV systolic function is normal with EF of 55 to 60%. Diastolic function is normal. No comparison studies are available. Jefe Brambila MD (Electronically Signed) Final Date: 20 August 2020 16:39 S
== END 2020-08-12 08:15 | disposition home or self-care (01) ==
PROVIDERS: PCP Physician Assistant Medical; Visit Provider Physician Assistant Medical
DX: I48.0 Paroxysmal atrial fibrillation (principal); I10 Essential (primary) hypertension
CPT/HCPCS: 93306

== ENCOUNTER 2021-12-03 10:09 | Outpatient (CLI) | payer MEDICARE, SELFPAY ==
[2021-12-03 10:30] VITALS: BP 166/87; PULSE 58; RESP 18; TEMP 36.5; O2SAT 98; BMI 28.7
[2021-12-03 11:02] VITALS: BP 126/72; PULSE 59; RESP 18; O2SAT 94
[2021-12-03 11:59] VITALS: BP 138/84; PULSE 55; RESP 17; TEMP 36.6; O2SAT 97
== END 2021-12-03 10:10 | disposition home or self-care (01) ==
LOC: OPS 10:10
PROVIDERS: PCP Physician Assistant Medical; Visit Provider Nurse Practitioner Family
DX: U07.1 COVID-19 (principal)
CPT/HCPCS: 96365

== ENCOUNTER → 2022-02-19 10:21 | Outpatient (BNVA) | payer MEDICARE, SELFPAY | PROVIDERS: PCP Nurse Practitioner Family; Visit Provider Internal Medicine Cardiovascular Disease | DX: R07.9 Chest pain, unspecified (principal); E78.5 Hyperlipidemia, unspecified; I10 Essential (primary) hypertension; Z79.82 Long term (current) use of aspirin; Z87.891 Personal history of nicotine dependence | CPT/HCPCS: 80048; 85025; 85610; 86850; 86900; 99215 ==

== ENCOUNTER 2022-02-22 07:50 | Observation (INO) | payer MEDICARE, SELFPAY ==
--- NOTE | 2022-02-22 06:14 | XACV_ITS ---
Exam Room: 2 Ht: 178 cm Wt: 101 kg BSA: 2.27 m2 Gender: Male : 1950 Any Known Allergies: Other Exam Priority: Routine Procedure(s): Procedure Description: Diagnostic procedure Procedure Description: Left Heart Catheterization Procedure Description: Coronary Angiography Jonathan FRANKS; Diagnostic Cath Status: Elective Diagnostic Findings * Left main is a medium caliber vessel with a minimal intimal irregularities. * The left anterior descending artery is a medium caliber vessel which appears to wrap around the LV apex. The proximal LAD was found to have a tubular stenosis of around 80%. The mid and distal LAD was found to have mild diffuse intimal irregularities. No significant stenotic lesions. The artery gives of a high diagonal branch which was found to have around 80% stenosis near to the ostium. The distal artery was found to have mild diffuse disease.. * The intermedius branch is a medium caliber vessel which was found to have proximal around 80% stenosis. The distal artery was found to have minimal intimal irregularities. * The circumflex artery gives of a high obtuse marginal branch. This vessel was found to have a 90% proximal segmental stenosis. Right after this branch, the circumflex proper runs in the AV groove as a rudimentary vessel. No significant stenotic lesions were noted.. * The right coronary artery is a medium caliber dominant vessel which was found to have around 30 to 40% tubular narrowing around the origin of the first RV branch. The distal vessel was found to have minimal intimal irregularities. The PDA and the PLV branches also were found to have minimal intimal irregularities. Conclusions 1. This is a 71-year-old white male with history of hypertension, intermittent atrial fibrillation and dyslipidemia presented with complaints of increasing episodes of chest tightness/heaviness and shortness of breath. He had a myocardial perfusion imaging in July 2020 which revealed elevated transient ischemic dilatation ratio. He was found to have bradycardic heart rate, 42% of the times, based on the event monitor. Because of his worsening symptoms, in order to further evaluate his coronary status, a cardiac catheterization was recommended. Patient underwent left heart catheterization with left and right coronary angiogram and LV angiogram today. The findings are as follows.. 2. 1. Minimal descent left main. #2 around 80% tubular stenosis of the proximal LAD. 70 to 80% stenosis near to the ostium of the first diagonal branch. Around 80% tubular lesion in the proximal segment of the intermedius artery. Around 95% stenosis of the first obtuse marginal branch. Mild diffuse disease in the right coronary artery. Borderline normal LV ejection fraction 50 to 55%. Elevated LVEDP 21 mmHg.. 3. Based on the above angiographic findings, it was thought be appropriate to consider a surgical revascularization for further management of his condition. Patient is agreeable for surgical revascularization. I consulted Dr. Ross to evaluate this patient for surgical revascularization. Patient was transferred to the medical floor in stable condition. Diagnostic RX Recommendation: CABG LV EDP: 21 mmHg Ventriculography Ejection Fraction: 50.0 % Left Ventriculography Findings: * The LV gram was performed in the ALBERTO projection. There is mild hypokinesia of the anteroapical region. Overall ejection fraction was 50 to 55%. There was no filling defects. No significant mitral valve prolapse or mitral regurgitation.. Pressures Phase:Rest AO : 89 / 59 ( 74 ) @ 8:21:00 AM 130 / 65 ( 93 ) @ 8:32:00 AM 129 / 65 ( 92 ) @ 8:32:00 AM LV : 129 / 3 / 21 @ 8:31:00 AM 131 / 9 / 26 @ 8:31:00 AM 131 / 7 / 24 @ 8:32:00 AM Valves Phase:DefaultPhase AV : 1.0 @ 7:47:45 AM AV Mean Gradient: 0.0 @ 7:47:45 AM Clinical Evaluation EBL: 5mL-10mL Procedural Details Procedure Consent Obtained. Admit Source: Out Patient. Pre-Procedure Time Out. Identified patient by full name and date of as verbalized by the patient/guarantor. Does the consent match the physician's order: Yes. Accurate & Complete Informed Consent: Yes. Inpatient/Outpatient History & Physical on Chart: Yes. If H&P is completed, is and addenduem needed: No; If yes, is the addendum complete: N/A. Visualize and Verify Site with Patient/Guarantor: N/A. Relevant Radiology Images available: N/A. The risks, benefits, and alternatives of sedation and/or procedure were discussed by physician. The patient agrees to continue. Procedure started. [facility] Clinical Fraility Score: 3: Managing Well. 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 Chest Pain Symptom Assessment: Typical Angina Symptoms. Correct patient, site and procedure confirmed by cath team. Current diagnosis: Chest Pain. PERRLA. Strong, equal hand board writer bilaterally. Lungs clear x 5 lobes. IV Site on Arrival: 20 gauge in the right anticubital. IV Fluids: 0.9% NaCl at KVO. 0 mL infused prior to laboratory tester. Pre Procedural Pulses: bilateral dorsalis pedis was Doppled. Pre Procedural Pulses: bilateral radial was 3+. Pre Procedural Pulses: bilateral posterior tibial was 3+. Oxygen started at 2liters/min via nasal canula. right radial was prepped with chloroprep then draped in the usual sterile fashion. right groin was prepped with chloroprep then draped in the usual sterile fashion. Physician notified. Baseline sample Acquired. HR: 56 BPM. Physician arrived. Barbara Cunha RN circulating with Shelton Hare RN GEOTECHNICAL ENGINEERING TECHNICIAN. Physician scrubbed in. Immediate Pre-Procedure Time Out. Correct Patient: No; Correct Procedure: N/A; Correct Site: Yes; Correct Patient Position: Yes; Correct Supplies: Yes; Dried Flammable Prep: Yes; Blood Products Available: No;. Lidocaine 1% infiltrated to the right groin. Arterial access obtained. A 5 japanese Joshua catheter in over wire. Multiple views taken of left coronary artery. Catheter redirected to the RCA. Catheter removed over the standard wire. A 5 japanese JR4 catheter in over wire. Wire out. Catheter directed to the RCA. Multiple views taken of right coronary artery. Catheter removed over the standard wire. Dr. Brambila called to laboratory tester. A 5 japanese Angled Pig catheter in over wire. EDP Sample taken: LV 129/3,21; HR: 54 BPM; SpO2: 98%. LV gram performed in ALBERTO @ 10 mL/second for a total of 30 mL. EDP Sample taken: LV 131/9,26; HR: 53 BPM; SpO2: 99%. Pullback taken: LV 131/7,24; AO 130/65(93); Mean: 0mmHg, Peak to Peak: 1mmHg, SEP: 5sec/min; HR: 55 BPM; SpO2: 99%. LV EDP: 21. Catheter removed over the standard wire. Patient's family updated. Post Procedure: Pulses reassessed and unchanged. PERRLA. Strong, equal hand board writer bilaterally. No VTE prophylaxis required. A TR Band was successful obtaining hemostatsis at the Right Radial artery insertion site. Medication's Wasted: Heparin = 1000 unit. Medication's Wasted: Nitro = 49.8 mg. Medication's Wasted: Lidocaine 1% = 7 mL. Total IV fluids: 270 mL. Complications: None. Estimated blood loss: 5mL-10mL. Responsiveness - Normal response to verbal stimuli; alert and oriented, PERRLA. Airway - Unaffected, no intervention required; spontaneous ventilation. Circulation: W/N/L, pulses unchanged. Nausea/Vomiting: N/A. Post-op diagnosis: Multivessel CAD, Surgical Consult. Procedure completed. Patient transferred by wheelchair to 1st floor. Access Site Site: Right Radial artery Sheath Size: 6 Fr Hemostasis Method: TR Band Hemostasis Success: Successful Procedure Medications Start: 7:09 AM Stop: 7:09 AM Medication: Versed Amount: 1 mg Route: I.V. Start: 7:10 AM Stop: 7:10 AM Medication: Fentanyl Amount: 50 mcg Route: I.V. Start: 7:16 AM Stop: 7:16 AM Medication: Verapamil Amount: 5 mg Route: I.A. Start: 7:17 AM Stop: 7:17 AM Medication: 0.9% Saline Amount: 250 ml Route: I.V. bolus Start: 7:17 AM Stop: 7:17 AM Medication: Nitrogylcerin Amount: 200 mcg Route: I.A. Start: 7:18 AM Stop: 7:18 AM Medication: Versed Amount: 1 mg Route: I.V. Start: 7:19 AM Stop: 7:19 AM Medication: Heparin Amount: 5000 units Route: I.V. Start: 7:35 AM Stop: 7:35 AM Medication: Fentanyl Amount: 25 mcg Route: I.V. Start: 7:25 AM Stop: 7:25 AM Medication: Fentanyl Amount: 25 mcg Route: I.V. I, the attending physician, have reviewed and verified all procedure medications. Yes, all medications given per verbal order History/Risk Factors Hypertension: Yes Dyslipidemia: Yes Peripheral Arterial Disease (PAD): No Myocardial Infarction (AZ): No Obesity: No Renal Disease: No Tobacco Use: Former Prior Interventions PCI: No CABG: No Valve Surgery: No Report Signatures Finalized by Dr Edy Castillo MD [facility] on 02/22/2022 06:26 PM
[2022-02-22 06:15] VITALS: BP 154/79; PULSE 56; RESP 16; TEMP 37; O2SAT 99; BMI 32.0
[2022-02-22] MEDS: diphenhydrAMINE 50 mg Capsule PO (06:46)
--- NOTE | 2022-02-22 06:51 | W.PM.OPSUD ---
Surgery/Procedure H&P Update DATE OF PROCEDURE: February 22, 2022 DATE H&P PERFORMED: 04/21/20 H&P UPDATE INFORMATION: I have reviewed H&P completed within last 30 days, I have examined patient prior to procedure and No changes to prior documentation PREOP DIAGNOSIS: Atherosclerotic heart disease PRIMARY INDICATION FOR PROCEDURE: Patient with multiple risk factors for coronary artery disease presenting with increasing episodes of chest pain and abnormal myocardial perfusion imaging PLANNED PROCEDURE: Left heart catheterization with left and right coronary angiogram, LV angiogram and possible PCI Operation Date: 02/22/22 07:00 Proposed Procedures p Cardiac Catheterization(Left) - Edy Castillo MD PATIENT REASSESSED PRIOR TO SEDATION, WITH NO CHANGE NOTED: Yes PHYSICAL EXAM: alert, oriented x 3, clear to auscultation bilaterally and regular rate & rhythm AIRWAY EVAL/ANESTHESIA PLAN: normal airway, see other exam findings, ASA II and ASA III
[2022-02-22 07:48] VITALS: BP 127/74; PULSE 51; RESP 20; TEMP 36.6; O2SAT 97
--- NOTE | 2022-02-22 09:18 | USCV_ITS ---
Alexus Zay Age: 71 Gender: M : 1950 Exam Date: 02/22/2022 10:09 Ordering Phys: Elio Ross MD (Andy) ([email or web address]) Technologist: Washington Yu Exam Location: [facility] [place] Indication: planned cabg RIGHT LEFT LOWER EXTREMITY Diameter Diameter (cm) (cm) 0.47 High Thigh 0.63 0.22 Mid Thigh 0.28 0.20 Above Knee 0.27 0.17 Below Knee 0.22 0.18 Mid Calf 0.21 0.14 Ankle 0.12 RIGHT LEFT Findings The veins were found to be easily compressible on both sides Diameter the greater saphenous vein was measuring o.17 -0.47 cm on the right side and 0.22 to 0.63 on the left side Conclusions Patent, relatively small caliber veins bilaterally The venous dimensions are as mentioned above Dr Edy Castillo MD FACC (Electronically Signed) Final Date: 22 February 2022 23:28 S
--- NOTE | 2022-02-22 10:11 | PC.CHAP ---
Pastoral Care Encounter/Spiritual Assessment Type of Contact [] Declined cathode builder visit [] Patient/Family/Request visit [] Outpatient visit [] Follow-up visit [] Physician referral [] Code/Alert [x] Routine visit [] Staff referral [] Actively dying [] Patient sleeping [] Family support [] [] Out of room [] Palliative care [] [x] Receiving care in room [] Pre-surgical visit [] Trauma [] Long length of stay [] ICU visit [] Other: Relational/Emotional Strength [] Patient feels connected with others/family/visitors/staff [] Distress [] Loneliness/isolation [] Abandonment Spirituality of Patient [] Person of Mary [] Attends Faith of their Mary [] Believes in Prayer [] Reads Bible or Anabaptism materials [] There are Spiritual issues to be addressed [employer] Rep[employer]r Interventions [] Prayer [] Active listening [] Non-anxious presence [] Spiritual/emotional support [] Crisis/trauma care [] Spiritual counseling [] Bereavement support [] Provided bereavement packet [] Provided Bible/devotional materials [] Provided toy/stuffed animal, coloring book to patient or family member [] Provided Communion [] Anointing/[place] [] Salvation [] Completed spiritual assessment [] Other: Impact on Illness or Injury [] Angry [] Fearful [x] Anxious [] Often cries [] Exhaustion [] Unable to work [] Unable to attend oriental orthodox [] Unable to walk/stand [] Unable to read [] Unable to drive [] Unable to eat/drink [] Unable to sleep [] Unable to be with family [] Patient intubated [] Other: Summary has had dy tests will need open heart surgery at some point has a good attitude + 1 Time spent with patient 10 mins
[2022-02-22 12:16] LABS: Basophils % 0.6 %; Eosinophils # 0.2 10^3/uL (0.0-0.8); Hemoglobin 10.9 g/dL (11.7-16.6); Lymphocytes # 1.3 10^3/uL (0.8-4.8); Lymphocytes % 27.5 %; Mean Corpuscular HGB Conc 30.3 g/dL (30.0-36.0); Mean Corpuscular Hemoglobin 25.2 pg (28.0-34.0); Mean Corpuscular Volume 83.1 fl (80-94); Mean Platelet Volume 8.8 fL (7.4-10.4); Monocytes # 0.6 10^3/uL (0.2-0.9); Monocytes % 12.4 %; Neutrophils # 2.64 10^3/uL (1.8-7.7); Neutrophils % 55.3 %; Nucleated Red Blood Cells % 0 %; Platelet Count 246 10^3/cmm (130-400); Red Blood Count 4.33 10^6/uL (4.1-5.3); Red Cell Distribution Width 16.2 % (12.1-15.1); White Blood Count 4.8 10^3/uL (4.0-10.0)
[2022-02-22 12:29] LABS: INR 1.01 (0.8-1.2); Partial Thromboplastin Time 29.6 SECONDS (23.9-36.7)
[2022-02-22 12:41] LABS: Alanine Aminotransferase 24 U/L (0-41); Albumin Level 3.9 g/dL (3.5-5.2); Alkaline Phosphatase 85 IU/L (40-130); Anion Gap 12.4 (5-19); Aspartate Amino Transferase 18 U/L (0-40); Blood Urea Nitrogen 19 mg/dL (8-23); Calcium 9.1 mg/dL (8.5-10.5); Carbon Dioxide 26 mmol/L (22-29); Chloride 104 mmol/L (98-107); Glucose 166 mg/dL (65-115); Osmolality Calculated 294 mOsm/kg (285-295); Potassium 3.4 mmol/L (3.5-5.1); Sodium 139 mmol/L (136-145); Thyroid Stimulating Hormone 1.94 uIU/mL (0.27-4.20); Total Bilirubin 0.3 mg/dL (0.15-1.2); Total Protein 6.9 g/dL (6.6-8.7)
[2022-02-22 13:15] LABS: Free T4 Free Thyroxine 1.06 ng/dL (0.82-1.77)
[2022-02-22 13:18] LABS: Add Urine Microscopic? NO; Charge for UA Resulting for Rev
[2022-02-22 13:32] LABS: Bilirubin Urine Neg (Negative); Blood Urine Neg (Negative); Glucose Urine UA Norm (Normal); Ketones Urine Negative (Negative); Leukocyte Esterase Urine Negative (Negative); Nitrate Urine Negative (Negative); Protein Urine Neg (Negative); Specific Gravity, Urine 1.015 (1.005-1.030); Urine Appearance Clear (CLEAR); Urine Color Yellow (Yellow); Urobilinogen Urine Norm (Negative); pH Urine 5 (5-7)
--- NOTE | 2022-02-22 14:03 | ANES.PREANE2 ---
Pre-Anesthetic Assessment Height/Weight: Height 1.78 m Weight 101.151 kg Temp Pulse Resp BP Pulse Ox 97.9 F 51 L 20 H 127/74 97 02/22/22 07:48 02/22/22 07:48 02/22/22 07:48 02/22/22 07:48 02/22/22 07:48 Preop Diagnosis: Coronary artery disease Operation Date: 02/22/22 07:00 Proposed Procedures p Cardiac Catheterization(Left) - Edy Castillo MD Familial anesthetic complications: none Social No alcohol and No tobacco Exam alert, oriented x 3, clear to auscultation bilaterally and regular rate & rhythm Airway Mallampati: Class III Dentition: chipped CV/HEM Atrial Fibrillation, Coronary Artery Disease and Hypertension GI Gastroesophageal Reflux Disease Metabolic Hyperlipidemia Anesthetic Plan ASA status: 4 Anesthesia: General Risk of > 500 ml blood loss (7ml/kg in children): Yes, adequate IV access and fluids planned Medications/Allergies Home Medications Medication Instructions Recorded Confirmed Last Taken Type amlodipine 10 mg tablet 10 mg PO DAILY 05/09/20 02/22/22 02/22/22 03:30 History famotidine 40 mg tablet See Rx Instructions PO .COMPLEX 05/09/20 02/22/22 02/22/22 03:30 History finasteride 5 mg tablet 5 mg PO DAILY 05/09/20 02/22/22 02/21/22 21:00 History montelukast 10 mg tablet 10 mg PO DAILY 05/09/20 02/22/22 02/21/22 21:00 History omeprazole 20 mg capsule,delayed 20 mg PO DAILY 05/09/20 02/22/22 02/21/22 21:00 History release tamsulosin 0.4 mg capsule 0.4 mg PO DAILY 05/09/20 02/22/22 02/21/22 21:00 History hydrochlorothiazide 25 mg tablet 25 mg PO DAILY #0 tab 05/10/20 02/22/22 02/22/22 03:30 Rx fluticasone propionate 50 2 spray INTRANASAL DAILY 10/10/20 02/22/22 02/21/22 21:00 History mcg/actuation nasal spray,suspension latanoprost 0.005 % eye drops 1 drp OPHTHALMIC (EYE) DAILY 10/10/20 02/22/22 02/21/22 21:00 History cetirizine 10 mg tablet 10 mg PO DAILY PRN 10/10/21 02/22/22 02/22/22 03:30 History benazepril 40 mg tablet See Rx Instructions .ROUTE 11/07/21 02/22/22 02/22/22 03:30 Rx .COMPLEX #90 tab metoprolol tartrate 50 mg tablet 50 mg PO BID #180 tab 11/20/21 02/22/22 02/22/22 03:30 Rx aspirin 81 mg tablet,delayed 81 mg PO DAILY #30 tab 02/19/22 02/22/22 02/22/22 03:30 Rx release (Adult Low Dose Aspirin) nitroglycerin 0.4 mg sublingual 0.4 mg SUBLINGUAL Q5M PRN #50 tab 02/20/22 02/22/22 Unknown Rx tablet atorvastatin 40 mg tablet See Rx Instructions .ROUTE 02/22/22 Unknown Rx .COMPLEX #90 tab Allergies Allergy/AdvReac Type Severity Reaction Status Date / Time erythromycin base Allergy Unknown unknown Verified 02/19/22 07:34 Current Medications Generic Name Dose Route Start Last Admin Trade Name Freq PRN Reason Stop Dose Admin Amlodipine Besylate 10 mg 02/22/22 09:00 02/22/22 10:16 Amlodipine 10 Mg Tablet PO Not Given DAILY [facility] Finasteride 5 mg 02/22/22 09:00 02/22/22 10:21 Finasteride 5 Mg Tablet PO Not Given DAILY [facility] Fluticasone Propionate 2 spray 02/22/22 09:00 02/22/22 10:16 Fluticasone Nasal [place] 16gm Btl INTRANASAL Not Given DAILY [facility] Hydrochlorothiazide 25 mg 02/22/22 09:00 02/22/22 10:17 Hydrochlorothiazide 25 Mg Tablet PO Not Given DAILY [facility] Sodium Chloride 1,000 mls @ 50 mls/hr 02/22/22 06:14 02/22/22 06:46 Sodium Chloride 0.9% IV 02/23/22 02:13 Not Given .Q20H ONE Metoprolol Tartrate 50 mg 02/22/22 09:00 02/22/22 10:17 Metoprolol Tartrate 50 Mg Tablet PO Not Given BID@0900,2100 [facility] Pantoprazole Sodium 40 mg 02/22/22 09:00 02/22/22 10:[address] 40 Mg Tablet PO Not Given DAILY [facility] Tamsulosin HCl 0.4 mg 02/22/22 09:00 02/22/22 10:18 Tamsulosin 0.4 Mg Capsule PO Not Given DAILY [facility] Anesthesia Medical History Accelerated essential hypertension Arthritis Atrial fibrillation Benign essential HTN BPH (benign prostatic hyperplasia) Bradycardia Chronic episodic atrial fibrillation Diverticulosis Dyslipidemia History of adenomatous polyp of colon Somnolence, daytime Was in the sleep lab but could not sleep. So he never had a sleep study Stomach ulcer Family History Mother CAD (coronary artery disease), Onset Age: 60 Father Cancer Sister Cancer Denies family history of Diabetes Clotting disorder Dementia Chronic kidney disease (CKD) Suicide Anesthesia complication Bleeding disorder Lung disease Hypertension Stroke Social History Smoking and tobacco status: former smoker Alcohol intake: never Data Anesthesia : 02/22/22 11:50 02/22/22 11:50 Short CBC 02/22/22 Range/Units 11:50 WBC 4.8 (4.0-10.0) 10^3/uL Hgb 10.9 L (11.7-16.6) g/dL Hct 36.0 L (42.0-52.0) % MCV 83.1 (80-94) fl Plt Count 246 (130-400) 10^3/cmm Neut % (Auto) 55.3 % Neut # (Auto) 2.64 (1.8-7.7) 10^3/uL BMP 02/22/22 11:50 Sodium 139 Potassium 3.4 L Chloride 104 Carbon Dioxide 26 BUN 19 Creatinine 1.0 Glucose 166 H Calcium 9.1 Liver Function 02/22/22 Range/Units 11:50 Total Bilirubin 0.3 (0.15-1.2) mg/dL Direct Bilirubin 0.20 (0.00-0.30) mg/dL AST 18 (0-40) U/L ALT 24 (0-41) U/L Alkaline Phosphatase 85 (40-130) IU/L Albumin 3.9 (3.5-5.2) g/dL Urine 02/22/22 Range/Units 12:49 Urine Color Yellow (Yellow) Urine Appearance Clear (CLEAR) Urine pH 5 (5-7) Ur Specific [place] 1.015 (1.005-1.030) Urine Protein Neg (Negative) Urine Glucose (UA) Norm (Normal) Urine Ketones Negative (Negative) Urine Nitrate Negative (Negative) Urine Bilirubin Neg (Negative) Ur Leukocyte Esterase Negative (Negative) Coags 02/22/22 11:50 PT 13.60 INR 1.01 APTT 29.6 Cardiac Studies: Echocardiogram Ultrasound 08/12/20 Sestamibi Stress Test (Cardiology) 07/12/20 Cardiac Event Monitor 10/10/21
[2022-02-22 14:15] VITALS: BP 127/74; PULSE 51; RESP 20; TEMP 36.6; O2SAT 97
--- NOTE | 2022-02-22 14:16 | PC.NURSE ---
Discharge Note Patient discharged to home via private vehicle accompanied by sister. Discharge instructions reviewed with patient and/or customer account representative. Mobile pharmacy medications and/or prescriptions provided. Belongings/home medications returned.
== END 2022-02-22 14:16 | disposition home or self-care (01) ==
LOC: CSU 07:51
PROVIDERS: Thoracic Surgery (Cardiothoracic Vascular Surgery); Admitting Provider Internal Medicine Cardiovascular Disease; PCP Nurse Practitioner Family; Visit Provider Internal Medicine Cardiovascular Disease
DX: I25.10 Atherosclerotic heart disease of native coronary artery without angina pectoris (principal); I48.20 Chronic atrial fibrillation, unspecified; T47.0X5A Adverse effect of histamine H2-receptor blockers, initial encounter; E78.5 Hyperlipidemia, unspecified; I10 Essential (primary) hypertension; Z79.82 Long term (current) use of aspirin; M19.90 Unspecified osteoarthritis, unspecified site; N40.0 Benign prostatic hyperplasia without lower urinary tract symptoms; Z87.891 Personal history of nicotine dependence; Z01.818 Encounter for other preprocedural examination
CPT/HCPCS: 36415; 80048; 80076; 81003; 84439; 84443; 85025; 85610; 85730; 93452; 93458; 93970; C1769; C1887; C1894; G0378; J1644; J2250; J3010; J3490; J7030; Q0163; Q9967

== ENCOUNTER 2022-02-24 04:47 | Emergency (ER) | payer MEDICARE, SELFPAY ==
[2022-02-24 04:49] VITALS: BP 167/107; PULSE 57; RESP 14; TEMP 37.1; O2SAT 99; BMI 32.0
--- NOTE | 2022-02-24 04:53 | XRR_ITS ---
PROCEDURE INFORMATION: Exam: XR Chest Exam date and time: 02/24/2022 4:56 AM Age: 71 years old Clinical indication: Pain; Chest pressure; Patient HX: C/O chest discomfort. Scheduled to have a cabg on 02/28/2022. ; Additional info: Cp TECHNIQUE: Imaging protocol: XR of the chest. Views: 1 view. COMPARISON: CT chest w con* [id number] 05/05/2020 1:20 AM FINDINGS: Lungs: Linear opacities are seen in the lower hemithoraces likely representing atelectasis. Pleural spaces: Unremarkable. No pleural effusion. No pneumothorax. Heart/Mediastinum: Unremarkable. No cardiomegaly. Bones/joints: A bone plate and bone screws transfix a healed fracture of left clavicle. There is evidence of healed right rib fractures. XR/XR chest 1V portable [id number] IMPRESSION: Linear opacity seen in the lower hemithoraces likely represents atelectasis.
--- NOTE | 2022-02-24 04:53 | ECG_ITS ---
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 Measurements Intervals [place] Rate: 55 P: 64 IL: 174 QRS: 44 QRSD: 95 T: 47 QT: 459 QTc: 439 Interpretive Statements SINUS BRADYCARDIA No previous ECG available for comparison Electronically Signed On 02-24-2022 15:00:40 CDT by Lisa Landa M.D. [id number]
--- NOTE | 2022-02-24 04:56 | ED_ITS ---
HPI - Chest Pain General: Chief Complaint: Dizziness Stated Complaint: Dizzy Time Seen by Provider: 02/24/22 04:50 Source: patient and EMS Mode of arrival: EMS Limitations: no limitations History of Present Illness: 71-year-old male has a history of coronary disease scheduled to have a CABG this Saturday. He states that this morning at 2 AM he started to feel lightheaded and felt a little dizzy. He denies ever having any chest pain or shortness of breath. He states he called EMS and took a nitro and his symptoms have completely resolved. He states he feels at his baseline currently has no complaints at this time. Denies any worsening factors. Associated symptoms: Deny abdominal pain, dyspnea, fever(s), nausea or vomiting Review of Systems Const: Denies: fever(s), chills, body aches or change in appetite Eyes: Denies: blurry vision or eye discomfort ENMT: Denies: throat pain or dental pain Card: Denies: chest pain Resp: Denies: dyspnea GI: Denies: abdominal pain, nausea, vomiting or diarrhea : Denies: dysuria Musc: Denies: neck pain or back pain Skin/Breast: Denies: rash Neuro: Reports: dizziness; Denies: headache(s) Psych: Denies: depression Justin/Lymph: Denies: easy bruising All/Imm: Denies: urticaria PFSH ED PFSH: Medical History Accelerated essential hypertension Arthritis Atrial fibrillation Benign essential HTN BPH (benign prostatic hyperplasia) Bradycardia Chronic episodic atrial fibrillation Diverticulosis Dyslipidemia History of adenomatous polyp of colon Somnolence, daytime Was in the sleep lab but could not sleep. So he never had a sleep study Stomach ulcer Family History Mother CAD (coronary artery disease), Onset Age: 60 Father Cancer Sister Cancer Denies family history of Diabetes Clotting disorder Dementia Chronic kidney disease (CKD) Suicide Anesthesia complication Bleeding disorder Lung disease Hypertension Stroke Social History Smoking and tobacco status: former smoker Alcohol intake: never Physical Exam Const: COMMON NORMALS: no acute distress, patient oriented x3 and healthy appearing HENMT: COMMON NORMALS: normocephalic and atraumatic HEAD & SCALP: normocephalic and atraumatic Eye: COMMON NORMALS: Equal, round and reactive pupils present and EOMs intact bilaterally PUPIL: Yes Equal, round and reactive pupils present Neck/C-Spine: COMMON NORMALS: full ROM and supple Chest: COMMONS NORMALS: normal inspection of the chest and normal palpation of entire chest wall Resp: COMMON NORMALS: normal respiratory effort, No retractions, No use of accessory muscles and clear to auscultation bilaterally AUSCULTATION: clear to auscultation bilaterally Cardio: COMMON NORMALS: regular rate, regular rhythm and No murmurs present (Cardio) RATE: regular rate RHYTHM: regular rhythm GI: COMMON NORMALS: Normal to inspection, nondistended, normoactive bowel so unds present, Soft to palpation, non-tender and no masses PALPATION: Yes Soft to palpation Extremity: COMMON NORMALS: normal to inspection and full ROM Neuro: COMMON NORMALS: patient oriented x3, moves all extremities and no focal motor deficits Psych: COMMON NORMALS: mental status grossly normal, Normal thought process present and cooperative THOUGHT PROCESS: Normal thought process present Skin: COMMON NORMALS: no rashes or lesions noted and no wounds GENERAL SKIN EXAM: no rashes or lesions noted Course Vital Signs: Vital signs: Vital Signs Temperature 98.7 F 02/24/22 04:49 Pulse Rate 57 L 02/24/22 04:49 Respiratory Rate 14 02/24/22 04:49 Blood Pressure 167/107 02/24/22 04:49 Pulse Oximetry 99 02/24/22 04:49 MDM - Chest Pain Medical Decision Making Patient presents with some lightheadedness that is since resolved. He states that he did work outside a lot today and was fixing fence. His troponins here are normal he has had no chest pain no signs of acute coronary syndrome. I did inform him he stable for discharge he is returned to his scheduled is Saturday for his CABG. I informed him no more strenuous activity until then he is to return if worsening he understands agrees to plan. Lab Data : 02/24/22 03:20 02/24/22 03:20 Radiology Impressions Chest X-Ray 02/24/22 04:53 IMPRESSION: Linear opacity seen in the lower hemithoraces likely represents atelectasis. Laboratory Results WBC 5.2 10^3/uL (4.0-10.0) 02/24/22 03:20 RBC 4.79 10^6/uL (4.1-5.3) 02/24/22 03:20 Hgb 11.9 g/dL (11.7-16.6) 02/24/22 03:20 Hct 39.3 % (42.0-52.0) L 02/24/22 03:20 MCV 82.0 fl (80-94) 02/24/22 03:20 MCH 24.8 pg (28.0-34.0) L 02/24/22 03:20 MCHC 30.3 g/dL (30.0-36.0) 02/24/22 03:20 RDW 16.2 % (12.1-15.1) H 02/24/22 03:20 Plt Count 318 10^3/cmm (130-400) 02/24/22 03:20 MPV 9.5 fL (7.4-10.4) 02/24/22 03:20 Neut % (Auto) 50.1 % 02/24/22 03:20 Lymph % (Auto) 31.1 % 02/24/22 03:20 [place] % (Auto) 14.3 % 02/24/22 03:20 Eos % (Auto) 3.7 % 02/24/22 03:20 Baso % (Auto) 0.6 % 02/24/22 03:20 Neut # (Auto) 2.59 10^3/uL (1.8-7.7) 02/24/22 03:20 Lymph # (Auto) 1.6 10^3/uL (0.8-4.8) 02/24/22 03:20 [place] # (Auto) 0.7 10^3/uL (0.2-0.9) 02/24/22 03:20 Eos # (Auto) 0.2 10^3/uL (0.0-0.8) 02/24/22 03:20 Baso # (Auto) 0.0 10^3/uL (0.0-0.1) 02/24/22 03:20 Nucleated RBC % (auto) 0 % 02/24/22 03:20 Nucleated RBCs # 0.0 /100WBC 02/24/22 03:20 Sodium 138 mmol/L (136-145) 02/24/22 03:20 Potassium 3.8 mmol/L (3.5-5.1) 02/24/22 03:20 Chloride 102 mmol/L (98-107) 02/24/22 03:20 Carbon Dioxide 26 mmol/L (22-29) 02/24/22 03:20 Anion Gap 13.8 (5-19) 02/24/22 03:20 BUN 17 mg/dL (8-23) 02/24/22 03:20 Creatinine 1.2 mg/dL (0.7-1.2) 02/24/22 03:20 GFR Calculation Not Reportable 02/24/22 03:20 Glucose 145 mg/dL (65-115) H 02/24/22 03:20 Calculated Osmolality 290 mOsm/kg (285-295) 02/24/22 03:20 Calcium 8.5 mg/dL (8.5-10.5) 02/24/22 03:20 Total Bilirubin 0.2 mg/dL (0.15-1.2) 02/24/22 03:20 AST 20 U/L (0-40) 02/24/22 03:20 ALT 24 U/L (0-41) 02/24/22 03:20 Alkaline Phosphatase 107 IU/L (40-130) 02/24/22 03:20 Troponin T Baseline 11 ng/L (0-15) 02/24/22 03:20 Troponin T 120 Minute 10.82 ng/L (0-15) 02/24/22 05:25 Total Protein 6.7 g/dL (6.6-8.7) 02/24/22 03:20 Albumin 4.6 g/dL (3.5-5.2) 02/24/22 03:20 Globulin 2.1 g/dL (1.3-4.6) 02/24/22 03:20 EKG Data EKG 1: I personally reviewed and interpreted this EKG as follows: EKG interpretation date: 02/24/22 EKG interpretation time: 04:54 Interpretation: sinus yenifer hr [address] or t wave abnormalities qrs 95 qtc 447 Discharge Plan Discharge Patient Disposition: Home Clinical Impression: Light-headedness Condition: Stable Prescriptions: No Action cetirizine 10 mg tablet 10 mg PO DAILY PRN (Reason: Allergy Symptoms) 0RF aspirin [Adult Low Dose Aspirin] 81 mg tablet,delayed release (DR/EC) 81 mg PO DAILY Qty: 30 3RF nitroglycerin 0.4 mg tablet, sublingual 0.4 mg sublingual Q5M PRN (Reason: chest pain) Qty: 50 3RF Rx Instructions: do not exceed 3 doses per episode omeprazole 20 mg capsule,delayed release(DR/EC) 20 mg PO DAILY 0RF montelukast 10 mg tablet 10 mg PO DAILY 0RF tamsulosin 0.4 mg capsule 0.4 mg PO DAILY 0RF finasteride 5 mg tablet 5 mg PO DAILY 0RF amlodipine 10 mg tablet 10 mg PO DAILY 0RF famotidine 40 mg tablet 40 mg PO DAILY 0RF latanoprost 0.005 % drops 1 drp ophthalmic (eye) DAILY 0RF fluticasone propionate 50 mcg/actuation spray,suspension 2 spray intranasal DAILY 0RF Rx Instructions: administer into each nostril metoprolol tartrate 50 mg tablet 50 mg PO BID Qty: 180 3RF hydrochlorothiazide 25 mg tablet 25 mg PO DAILY Qty: 0 0RF atorvastatin 40 mg tablet 40 mg PO DAILY 0RF benazepril 40 mg tablet 40 mg PO DAILY 0RF Discharge Orders: Discharge ED (Routine); Ordered 02/24/22 Ordered By: Marilia Malagon Referrals: Mireya Navarrete [Primary Care Provider] - Discharge Diet: Advance as tolerated Discharge Activity: Resume usual activity Patient Instructions: Lightheadedness (ED) Coding Level of Care Code 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
[2022-02-24 04:59] LABS: Basophils % 0.6 %; Eosinophils # 0.2 10^3/uL (0.0-0.8); Eosinophils % 3.7 %; Hematocrit 39.3 % (42.0-52.0); Hemoglobin 11.9 g/dL (11.7-16.6); Lymphocytes # 1.6 10^3/uL (0.8-4.8); Lymphocytes % 31.1 %; Mean Corpuscular HGB Conc 30.3 g/dL (30.0-36.0); Mean Corpuscular Hemoglobin 24.8 pg (28.0-34.0); Mean Platelet Volume 9.5 fL (7.4-10.4); Monocytes # 0.7 10^3/uL (0.2-0.9); Monocytes % 14.3 %; Neutrophils # 2.59 10^3/uL (1.8-7.7); Neutrophils % 50.1 %; Nucleated Red Blood Cells % 0 %; Platelet Count 318 10^3/cmm (130-400); Red Blood Count 4.79 10^6/uL (4.1-5.3); Red Cell Distribution Width 16.2 % (12.1-15.1); White Blood Count 5.2 10^3/uL (4.0-10.0)
[2022-02-24 05:20] LABS: Troponin(5th) Baseline 11 ng/L (0-15)
[2022-02-24 05:21] LABS: Alanine Aminotransferase 24 U/L (0-41); Albumin Level 4.6 g/dL (3.5-5.2); Alkaline Phosphatase 107 IU/L (40-130); Anion Gap 13.8 (5-19); Aspartate Amino Transferase 20 U/L (0-40); Blood Urea Nitrogen 17 mg/dL (8-23); Calcium 8.5 mg/dL (8.5-10.5); Carbon Dioxide 26 mmol/L (22-29); Chloride 102 mmol/L (98-107); Creatinine Clr Calc Pharmacy 67.2913; Globulin 2.1 g/dL (1.3-4.6); Glucose 145 mg/dL (65-115); Osmolality Calculated 290 mOsm/kg (285-295); Potassium 3.8 mmol/L (3.5-5.1); Sodium 138 mmol/L (136-145); Total Bilirubin 0.2 mg/dL (0.15-1.2); Total Protein 6.7 g/dL (6.6-8.7)
[2022-02-24 05:47] LABS: Troponin 5 2HR 10.82 ng/L (0-15)
[2022-02-24 05:57] VITALS: BP 171/82; PULSE 55; RESP 18; O2SAT 97
[2022-02-24 06:36] LABS: Troponin 5 2HR Delta -0.18 ABS# (0-10)
== END 2022-02-24 05:49 | disposition home or self-care (01) ==
PROVIDERS: Emergency Provider Emergency Medicine; PCP Nurse Practitioner Family
DX: R42 Dizziness and giddiness (principal); I10 Essential (primary) hypertension; I48.20 Chronic atrial fibrillation, unspecified; Z79.82 Long term (current) use of aspirin; Z82.49 Family history of ischemic heart disease and other diseases of the circulatory system; Z87.891 Personal history of nicotine dependence
CPT/HCPCS: 71045; 80053; 84484; 85025; 93005; 99283

== ENCOUNTER 2022-02-28 17:12 | Inpatient (IN) | payer MEDICARE, SELFPAY ==
[2022-02-22 13:31] VITALS: BMI 31.5
--- NOTE | 2022-02-22 14:15 | SUR.PREOP ---
bactroban and chlorhexidine mouthwash called into [facility] in [place].
[2022-02-28] VITALS (20 sets, daily range): BP systolic 100–165; BP diastolic 46–81; PULSE 54–72; RESP 13–22; TEMP 36.2–38.1; O2SAT 94–100
--- NOTE | 2022-02-28 | SCC_ITS ---
Procedure done: 1. Coronary artery bypass grafting x4 (1 artery and 3 veins) utilizing in situ left internal mammary artery to the left anterior descending artery, reverse saphenous vein graft aorta to the diagonal artery, reverse saphenous vein graft aorta to the ramus intermedius artery, and reverse saphenous vein graft aorta to the first obtuse marginal branch of the circumflex artery. 2. Endoscopic saphenous vein harvesting of the left greater saphenous vein from the thigh and leg and right greater saphenous vein from the thigh. 5.5 seconds of fluoroscopic guidance, for a cumulative dose of 2.22 mGy, was provided to Dr. Ross by the radiology department. C-arm images of the chest were saved for the patient's permanent record. MONICA
[2022-02-28 05:30] LABS: Glucose Point of Care 111 mg/dL (70-110)
--- NOTE | 2022-02-28 05:33 | PM.HP ---
Providers/Chief Complaint Admitting Physician: Dr. Ross/cardiothoracic surgery Primary Care Provider: Mireya Navarrete Chief Complaint: coronary artery disease History of Present Illness Zay Vaughan is a 71 year old obese male whom I saw originally on February 22 following left heart catheterization by Dr. Castillo for suspected coronary artery disease. He has been followed by Dr. Castillo with a history for chronic episodic atrial fibrillation, along with some bradycardia and dyslipidemia and benign essential hypertension. He was originally diagnosed with atrial fibrillation in 2019 and was treated with beta-blockade. Beta-blockade has been discontinued due to receiving injections for allergies. He has a history of labile blood pressure and has been followed closely by Dr. Castillo. He also had a prior episodes of dizziness, though not always associated with his atrial arrhythmia. He more recently began complaining of chest discomfort and was taking abyp-vnz-ehismdr reflux medication. His chest discomfort was usually associated with activities and resolved with rest. Myocardial perfusion scan of 2019 revealed areas of fixed defects with no significant reversibility. His transient ischemic dilatation ratio was found to be elevated however. Because of this left heart catheterization was performed on February 22. This study revealed a proximal LAD stenosis of 80% as well as 80% stenosis of the proximal high diagonal branch. The ramus intermedius was a medium caliber vessel with 80% proximal stenosis. Circumflex with remarry after a prominent high OMB which had a near ostial 90% stenosis. RCA had diffuse moderate disease of 30 to 40% and continued down to the PDA and PLV B with minimal luminal irregularities. Ejection fraction calculated at approximately 50%. Because of multisegment, multivessel disease, he was referred to consider surgery revascularization. I saw Mr. Vaughan on the day of his left heart catheterization and discussed the findings with him and his . We did review our educational materials and he did wish to proceed with plans for surgical revascularization. Preoperative evaluation has been completed including saphenous vein mapping which reveals adequate conduit. He presents back this morning for planned CABG. He did present to the emergency department on February 24 with an episode of lightheadedness which had resolved by the time of his presentation. This occurred around 2 AM. He was released from that ER visit. Troponin levels from that ER visit were unremarkable. He presents back this morning with no further episodes. Review of Systems Const: Reports: fatigue; Denies: fever(s) or chills Eyes: Denies: change in vision or blurry vision Card: Reports: chest pain, palpitations, irregular heart rhythm and dyspnea on exertion; Denies: orthopnea Resp: Denies: dyspnea, hemoptysis or chest congestion GI: Denies: abdominal pain, nausea, vomiting, hematemesis or coffee ground emesis : Denies: flank pain, difficulty urinating or dysuria Musc: Denies: neck pain or extremity pain Neuro: Reports: numbness in extremities, dizziness and vertigo; Denies: headache(s) or weakness in extremities Psych: Denies: anxiety or depression Justin/Lymph: Denies: easy bruising or easy bleeding Medications/Allergies Home Medications Medication Instructions Recorded Confirmed Last Taken Type amlodipine 10 mg tablet 10 mg PO DAILY 05/09/20 02/28/22 02/28/22 History famotidine 40 mg tablet 40 mg PO DAILY 05/09/20 02/28/22 02/27/22 History finasteride 5 mg tablet 5 mg PO DAILY 05/09/20 02/28/22 02/27/22 History montelukast 10 mg tablet 10 mg PO DAILY 05/09/20 02/28/22 02/27/22 History omeprazole 20 mg capsule,delayed 20 mg PO DAILY 05/09/20 02/28/22 02/27/22 History release tamsulosin 0.4 mg capsule 0.4 mg PO DAILY 05/09/20 02/28/22 02/27/22 History hydrochlorothiazide 25 mg tablet 25 mg PO DAILY #0 tab 05/10/20 02/28/22 02/27/22 Rx fluticasone propionate 50 2 spray INTRANASAL DAILY 10/10/20 02/28/22 02/27/22 History mcg/actuation nasal spray,suspension latanoprost 0.005 % eye drops 1 drp OPHTHALMIC (EYE) DAILY 10/10/20 02/28/22 02/27/22 History cetirizine 10 mg tablet 10 mg PO DAILY PRN 10/10/21 02/28/22 02/27/22 History metoprolol tartrate 50 mg tablet 50 mg PO BID #180 tab 11/20/21 02/28/22 02/28/22 03:30 Rx aspirin 81 mg tablet,delayed 81 mg PO DAILY #30 tab 02/19/22 02/28/22 02/25/22 Rx release (Adult Low Dose Aspirin) nitroglycerin 0.4 mg sublingual 0.4 mg SUBLINGUAL Q5M PRN #50 tab 02/20/22 02/22/22 Unknown Rx tablet atorvastatin 40 mg tablet 40 mg PO DAILY 02/23/22 02/28/22 02/27/22 History benazepril 40 mg tablet 40 mg PO DAILY 02/23/22 02/28/22 02/27/22 History Allergies Allergy/AdvReac Type Severity Reaction Status Date / Time erythromycin base Allergy Unknown unknown Verified 02/28/22 05:07 PFSH Acute PFSH: Medical History Accelerated essential hypertension Arthritis Atrial fibrillation Benign essential HTN BPH (benign prostatic hyperplasia) Bradycardia Chronic episodic atrial fibrillation Diverticulosis Dyslipidemia History of adenomatous polyp of colon Somnolence, daytime Was in the sleep lab but could not sleep. So he never had a sleep study Stomach ulcer Family History Mother CAD (coronary artery disease), Onset Age: 60 Father Cancer Sister Cancer Denies family history of Diabetes Clotting disorder Dementia Chronic kidney disease (CKD) Suicide Anesthesia complication Bleeding disorder Lung disease Hypertension Stroke Social History Smoking and tobacco status: former smoker Alcohol intake: never Vitals/I&O/Wt Last Vital Signs Temp 97.2 F L 02/28/22 05:13 Pulse 54 L 02/28/22 05:13 Resp 16 02/28/22 05:13 BP 165/81 02/28/22 05:13 Pulse Ox 100 02/28/22 05:13 Physical Exam Const: COMMON NORMALS: no acute distress, patient oriented x3, alert and well nourished HENMT: COMMON NORMALS: normocephalic, atraumatic, hearing grossly normal bilaterally and external ears normal Eye: COMMON NORMALS: Equal, round and reactive pupils present, EOMs intact bilaterally and conjunctivae normal Neck/C-Spine: COMMON NORMALS: full ROM, no lymphadenopathy, supple and No carotid bruits Chest: COMMONS NORMALS: normal inspection of the chest and normal palpation of entire chest wall Resp: COMMON NORMALS: normal respiratory effort, No use of accessory muscles and clear to auscultation bilaterally Cardio: COMMON NORMALS: no JVD, regular rate, regular rhythm, S1 normal heart sound present, No murmurs present (Cardio) and No rub (Cardio) GI: COMMON NORMALS: Normal to inspection, nondistended, normoactive bowel sounds present INSPECTION: Yes central obesity Extremity: COMMON NORMALS: normal to inspection, full ROM and no clubbing, cyanosis or edema Neuro: COMMON NORMALS: patient oriented x3, moves all extremities, no focal motor deficits, no sensory deficits noted and gait normal Psych: COMMON NORMALS: mental status grossly normal, Normal thought process present, cooperative and normal affect Skin: COMMON NORMALS: no rashes or lesions noted A&P Assessment and plan (1) CAD (coronary artery disease), grindstone coronary artery: 71-year-old gentleman with high-grade proximal coronary artery disease of the circumflex, LAD, and ramus intermedius vessels. Highly symptomatic and easily reproducible exertional angina. Also has a history of intermittent atrial fibrillation. I reviewed the left heart catheterization and confirmed with my colleague, Dr. Castillo. Preoperative evaluations and counseling has been completed with Mr. Vaughan and his . He presents today for planned CABG. Details and risks of CABG were carefully and frankly reviewed. Risks discussed include the possibility of , stroke, heart attack, major bleeding possibly requiring the need to reopen chest, infection, pneumonia, organ failure, failure to benefit, early closure of the bypass grafts, inability to complete the procedure, prolonged hospitalization, blood clots to lungs or other organs, need for further interventions, continued pain after surgery, need for future surgery, and possible long-term bleeding risk secondary to medication requirements. All questions were answered. He and his state understanding. Appropriate consents have been provided for review and signature. Status: Acute Attestations Medical Necessity Statement*: 71-year-old gentleman with severe, highly symptomatic coronary artery disease which has been reviewed by cardiology and felt to be more readily addressable through surgical revascularization. Time Spent in Patient Care: Greater than 35 minutes Coding Level of Care Code Acute Senior Analysis Specialist for g 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 Diagnoses CAD (coronary artery disease), grindstone coronary artery I25.10
[2022-02-28] MEDS: sodium chloride 0.9% 1,000 ML 30 ML IV (05:45)
[2022-02-28] MEDS: lidocaine 1% INJ 20 mL INTRADERMA (06:00)
[2022-02-28] MEDS: cefUROXime 1,500 MG in sodium chloride 0.9% (plus) 50 ML 100 MG IV ×2 (07:58→14:20)
[2022-02-28] MEDS: sodium bicarbonate 1 mEq/mL SDV 50mL 0.7 MEQ IRRIGATION (07:59)
[2022-02-28] MEDS: vancomycin 1,000 MG SDV 3000 MG IRRIGATION (07:59)
[2022-02-28] MEDS: heparin, porcine 1,000 unit/mL INJ 10 mL 1750 UNIT IRRIGATION (07:59)
--- NOTE | 2022-02-28 11:13 | P.ANESUD_ITS ---
Pre-Anesthetic Update Pre-Anesthetic Assessment: Date of Surgery/Procedure: 02/28/22 Preop Kendra gnosis: Coronary artery disease Proposed Procedure: Operation Date: 02/28/22 07:00 Proposed Procedures p CABG(Not Applicable) - Elio Ross MD Any changes to Pre-Anesthetic Assessment?: No Last Intake: Intake Last Liquid Date 02/27/22 Last Liquid Time 21:30 Last Solid Date 02/27/22 Last Solid Time 17:00 Labs Last 48hrs: Blood Bank 02/22/22 11:50 Blood Type O Positive Rho(D) Type Positive Antibody Screen Negative Vitals: Temperature 97.2 F L 02/28/22 05:13 Temperature Source Temporal Artery S can 02/28/22 05:13 Pulse Rate 54 L 02/28/22 05:13 Respiratory Rate 16 02/28/22 05:13 Blood Pressure 165/81 02/28/22 05:13 Blood Pressure Aury n 109 02/28/22 05:13 Pulse Oximetry 100 02/28/22 05:13 Oxygen Delivery Me thod 02/28/22 05:13 Exam: Pre-Anes Outpt Exam: alert, oriented x 3, clear to auscultation bilaterally and regular rate & rhythm Cardiac Studies: Echocardiogram Ultrasound 08/12/20 Sestamibi Stress Test (Cardiology) 07/12/20 Cardiac Event Monitor 10/10/21
--- NOTE | 2022-02-28 11:34 | ANES.PAUD2 ---
Pre-Anesthetic Update Pre-Anesthetic Assessment: Date of Surgery/Procedure: 02/28/22 Preop Diagnosis: Coronary artery disease Proposed Procedure: Operation Date: 02/28/22 07:00 Proposed Procedures p CABG(Not Applicable) - Elio Ross MD Any changes to Pre-Anesthetic Assessment?: No Last Intake: Intake Last Liquid Date 02/27/22 Last Liquid Time 21:30 Last Solid Date 02/27/22 Last Solid Time 17:00 Labs Last 48hrs: Blood Bank 02/22/22 11:50 Blood Type O Positive Rho(D) Type Positive Antibody Screen Negative Vitals: Temperature 97.2 F L 02/28/22 05:13 Temperature Source Temporal Artery S can 02/28/22 05:13 Pulse Rate 54 L 02/28/22 05:13 Respiratory Rate 16 02/28/22 05:13 Blood Pressure 165/81 02/28/22 05:13 Blood Pressure Aury n 109 02/28/22 05:13 Pulse Oximetry 100 02/28/22 05:13 Oxygen Delivery Me thod 02/28/22 05:13 Exam: Pre-Anes Outpt Exam: alert, oriented x 3, clear to auscultation bilaterally and regular rate & rhythm Cardiac Studies: Echocardiogram Ultrasound 08/12/20 Sestamibi Stress Test (Cardiology) 07/12/20 Cardiac Event Monitor 10/10/21
--- NOTE | 2022-02-28 14:01 | SC_ITS ---
WS: [id number] C-ARM RADIOGRAPHS LOWER THORAX.; 3 IMAGES HISTORY: FOREIGN BODY IN PT COMPARISON: None available. Intraoperative imaging during foreign body removal. SC/C-arm [place] CVA [id number] IMPRESSION: Intraoperative imaging during foreign body removal.
--- NOTE | 2022-02-28 14:32 | XR_ITS ---
WS: [id number] Exam: XR chest 1V portable [id number] Date/Time of Exam: 02/28/2022 4:09 PM Reason For Exam: OPEN HEART. IN ROOM 1. WILL CALL WHEN READY. Comparison 02/24/2022. The heart is enlarged. The lungs are fully expanded. Right-sided pleural thickening noted. There is w idening of the superior mediastinum. ET tube in place in satisfactory position ending at about the le alice of T3. There are 2 right-sided IJ catheters present. One catheter extends into the right atrium a nd the second catheter appears to end at the cavoatrial junction. An enteric tube is in place in the body of the stomach. Multiple old bilateral rib fractures. Hardware in the left clavicle secondary to prior fracture. Wire sternal sutures. Signs of CABG surgery. Right-sided chest tube in place ending in the lateral aspect of the right lower pleural cavity. Left-sided chest tube in place in the centra l lower left pleural cavity. XR/XR chest 1V portable [id number] IMPRESSION: 1. Cardiac enlargement. Widening of the superior mediastinum. 2. ET tube, enteric tube and IJ catheters in place as noted above. All appear t o be in the satisfactory location. 3. Right and left thoracostomy tubes in place in the lower pleural cavities.
--- NOTE | 2022-02-28 16:53 | ANE.PACU2 ---
Inpatient post-anesthesia follow up: Airway intact: Yes (ETT) Vital signs: Temperature 97.2 F Pulse Rate 54 Respiratory Rate 16 Blood Pressure 165/81 Pulse Oximetry 100 Oxygen Delivery Me thod Room Air Oxygen Flow Rate Fraction of Inspir ed Oxygen Hydration adequate: Yes Nausea and vomiting: No Pain level: 2 Mental status: Baseline Additional Comments: Intubated, sedated to ICU, stable on one pressor (norepi)
--- NOTE | 2022-02-28 17:03 | ECG_ITS ---
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 Measurements Intervals [place] Rate: 67 P: 46 MD: 173 QRS: 26 QRSD: 89 T: 11 QT: 413 QTc: 439 Interpretive Statements SINUS RHYTHM ST ELEVATION, PROBABLY EARLY REPOLARIZATION [ST ELEVATION WITH NORMALLY INFLECTED T-WAVE] Compared to ECG 02/24/2022 04:54:21 ST (T wave) deviation now present Early repolarization now present Sinus bradycardia no longer present Electronically Signed On 02-28-2022 22:22:18 CDT by Jefe Brambila M.D. [id number]
[2022-02-28 17:05] LABS: Basophils % 0.2 %; Eosinophils % 0.1 %; Hematocrit 32.3 % (42.0-52.0); Hemoglobin 10.2 g/dL (11.7-16.6); Lymphocytes # 0.7 10^3/uL (0.8-4.8); Mean Corpuscular HGB Conc 31.6 g/dL (30.0-36.0); Mean Corpuscular Volume 82.4 fl (80-94); Mean Platelet Volume 8.8 fL (7.4-10.4); Monocytes # 1.9 10^3/uL (0.2-0.9); Monocytes % 13.6 %; Neutrophils # 10.96 10^3/uL (1.8-7.7); Neutrophils % 80.1 %; Nucleated Red Blood Cells % 0 %; Platelet Count 181 10^3/cmm (130-400); Red Blood Count 3.92 10^6/uL (4.1-5.3); Red Cell Distribution Width 16.5 % (12.1-15.1); White Blood Count 13.7 10^3/uL (4.0-10.0)
[2022-02-28 17:22] LABS: Blood Urea Nitrogen 20 mg/dL (8-23); Calcium 7.8 mg/dL (8.5-10.5); Carbon Dioxide 22 mmol/L (22-29); Chloride 111 mmol/L (98-107); Glucose 176 mg/dL (65-115); Magnesium 2.8 mg/dL (1.7-2.3); Osmolality Calculated 305 mOsm/kg (285-295); Sodium 144 mmol/L (136-145)
[2022-02-28 17:24] LABS: INR 1.26 (0.8-1.2); Partial Thromboplastin Time 27.7 SECONDS (23.9-36.7)
[2022-02-28 17:30] LABS: Anion Gap 15.4 (5-19); Potassium 4.4 mmol/L (3.5-5.1)
--- NOTE | 2022-02-28 17:46 | PM.OP ---
Operative Report Date of procedure: February 28, 2022 Pre-op diagnosis: Preop Diagnosis Coronary artery disease Post-op diagnosis: same Procedure done: 1. Coronary artery bypass grafting x4 (1 artery and 3 veins) utilizing in situ left internal mammary artery to the left anterior descending artery, reverse saphenous vein graft aorta to the diagonal artery, reverse saphenous vein graft aorta to the ramus intermedius artery, and reverse saphenous vein graft aorta to the first obtuse marginal branch of the circumflex artery. 2. Endoscopic saphenous vein harvesting of the left greater saphenous vein from the thigh and leg and right greater saphenous vein from the thigh. Pathology: none sent Surgeon: Elio Ross Anesthesia: General Estimated blood loss (mL): 599 Condition: stable Disposition: ICU Brief History: Mr. Vaughan is a 71-year-old gentleman who was referred to our service by Dr. Castillo for evaluation and consideration of surgical revascularization for severe coronary artery disease. He has had a progressive history recently of exertional angina and angina with minimal symptoms. Subsequent evaluation led to a left heart catheterization which revealed high-grade proximal lesions of the LAD, diagonal artery, ramus intermedius proximally, and a prominent OMB 1 branch of the circumflex artery. Due to the proximal nature of these lesions, it was felt that he would be better served with consideration for surgical revascularization. He underwent outpatient evaluation and was subsequently scheduled for elective admission today for planned CABG. Details of risk of the procedure were carefully and frankly discussed with Mr. Vaughan and family. Appropriate consents have been reviewed and signed. Procedure: Particular risks of this surgery carefully reviewed with patient and family included the possibility of , stroke, heart attack, major bleeding, infection, pneumonia, pain, organ failure, failure to benefit, early closure of the bypass grafts, prolonged hospital stay and subsequent need for further procedures. Increased risks for complications secondary to progressive angina were carefully reviewed. Patient and family understand these increased risks. All questions were answered and appropriate consents were reviewed and signed. Preoperative education for the patient and the family included both written and video materials. Mr. Vaughan and his family wished to proceed with plans for attempted surgical revascularization for severe coronary artery bypass. PROCEDURE: Preoperative evaluation was obtained from our Anesthesia colleagues and adequate IVs were confirmed. He was then taken to the Operating Room Suite where general anesthesia was induced. Appropriate invasive monitoring lines were placed, including large bore peripheral IVs, central line, [place] catheter, Oden catheter and associated monitoring leads. After careful positioning on the Operating Room table, the patient was subsequently sterilely prepped and draped. Saphenous vein was harvested by endoscopic technique from the left thigh and leg as well as right thigh. Branches were secured with ligature and clips and the vein was extracted from the tunnel without tension. It was then flushed with a Heparin and albumin solution and prepared for grafting. Vein harvest sites were irrigated, platelet poor plasma infused into the tunnel and port sites closed with 3-0 and 4-0 Vicryl Plus suture. Simultaneously with vein harvesting, a median sternotomy was created utilizing a #10 scalpel blade with hemostasis controlled with cautery. After reaching the sternal table, the sternum was divided with a reciprocating saw. Bleeding was controlled with cautery and judicious use of bone wax. Following this, the left chest wall was elevated with a Rultract retractor. The left internal mammary artery was dissected free with branches being secured with clips and cautery. The distal end was left intact. After harvesting of the mammary artery, a left pleural chest tube was then placed. The left chest wall was then lowered and moistened antibiotic-soaked laparotomy pads were placed in the wound, followed by an Ankeney retractor. The sternum was then and the pericardium opened and secured with stay sutures. After inspection, 2-0 pledgeted Ethibond sutures were placed at cannulation sites, at which time the patient was fully heparinized. Following this, the left internal mammary artery was taken down from its distal attachment, flushed with Papaverine solution, prepared for grafting and brisk flow confirmed. A soft bulldog was applied distally. Next, the heart was cannulated with a 22-Burkinan aortic cannula, two-stage venous cannula and aortic root vent. The patient was subsequently placed on cardiopulmonary bypass and cooled systemically to 34 degrees. Aortic cross-clamp was then carefully placed and 4 degree Celsius cold blood cardioplegia was administered through the aortic root in antegrade fashion. Prompt diastolic arrest was obtained. Left ventricular decompression was confirmed. The heart was cooled systemically with iced saline with an insulation pad in place to protect the phrenic nerve. Throughout the cross-clamp period, at 20-30 minute intervals, antegrade blood cardioplegia was administered to maintain asystole. We then inspected the cardiac surface and coronary anatomy. Additionally, the first obtuse marginal branch of the circumflex artery was isolated and opened at 2 mm in size. Vein was anastomosed distally in a end-to-side fashion with running 7-0 Prolene suture and proximally to a 4 mm aortotomy with 5-0 Prolene suture. Next, we turned our attention to the ramus intermedius branch. It was approximately 1.5 mm in size. This vessel was opened and a second section of vein was anastomosed distally with running 7-0 Prolene suture in end-to-side fashion and proximally to a 4 mm aortotomy with 5-0 Prolene suture. We next inspected the diagonal branch of the LAD. This was the smallest of all targets though, indeed, was approximate 1.25 mm in size. We then did elect to proceed with revascularization to this vessel utilizing a third section of saphenous vein. Arteriotomy was created and an end-to-side anastomosis was created with running 7-0 Prolene suture distally and proximally with 5-0 Prolene suture to all 4 mm aortotomy. With the rewarming phase of bypass continuing, the left internal mammary artery was brought through a left anterior pericardial window into the field. The LAD was opened up in its mid one-third and was approximately 2 mm in size. The CHAVEZ was then anastomosed to the LAD with a running 7-0 Prolene suture. It should be noted that all distal coronary anastomoses were performed over the appropriate size coronary shunt which was removed prior to securing the distal suture line. Following this, aortic cross-clamp was released and de-airing maneuvers were performed through the aortic root vent, as well as being confirmed by transesophageal echocardiography. Dobutamine at 3 mcg per kilogram per minute was administered with good chronotropic and inotropic affect. Modest doses of Levophed were required due to low SVR. The heart returned to spontaneous sinus rhythm and did not require cardioversion or pacing. After adequate recovery from the cross-clamp period and confirmation of cardiac stability, the patient was weaned from bypass without difficulty. Venous cannula was removed. Heparin was reversed with Protamine and confirmed by measurement of activated clotting time. The heart was then decannulated and cannulation sites were oversewn as required. Pacing wires were placed and brought through the skin and secured. There was a fracture of 1 straight needle pacing wire during passage through the lower chest wall. Intraoperative fluoroscopy was utilized to locate this fractured needle and retrieved intact. Radiopaque markers were placed on the vein grafts at the level of aorta. Due to the proximal nature of the proximal anastomosis to the diagonal artery, radiopaque biomarker was not placed on this graft at the aortic level. Two mediastinal drains were placed and connected to Pleur-evac suction. Because the right pleura been entered with the saw during sternotomy, a right pleural drain was also placed. The wound was carefully irrigated and hemostasis was confirmed. Ankeney retractor was removed and sponge and needle count was incorrect as there was 6-0 Prolene needle missing. Intraoperative chest x-ray was obtained and no unexpected foreign bodies were identified. The sternum was then reapproximated very carefully with interrupted #7 stainless steel wire with Surgicel strips used beneath the sternal table. Fascia was closed with #1 Vicryl suture with the next layers being closed with 2-0 and 3-0 suture. The skin was reapproximated carefully in a subcuticular manner. Sterile dressings were applied, followed by a vacuum-assisted dressing. The patient was carefully removed from the operating room table and transferred to the Intensive Care Unit. The family was then counseled as to the details of the procedure. Dr. Castillo will be included as a recipient of this operative report and I will confer with him at his convenience as to Alexus's procedure and progress.
[2022-02-28] MEDS: fentaNYL 50 mcg/mL INJ 2mL IVP ×4 (18:11→23:24)
[2022-02-28] MEDS: sodium chloride 0.9% 1,000 ML 75 ML IV (18:12)
[2022-02-28] MEDS: aspirin 81 mg Chew Tablet PO (18:15)
[2022-02-28] MEDS: chlorhexidine gluconate 0.12% Btl 473 mL 15 ML MUCOUS MEM (19:41)
[2022-02-28 20:35] LABS: Basophils % 0.2 %; Hematocrit 31.2 % (42.0-52.0); Lymphocytes # 0.5 10^3/uL (0.8-4.8); Lymphocytes % 4.3 %; Mean Corpuscular HGB Conc 32.1 g/dL (30.0-36.0); Mean Corpuscular Hemoglobin 26.4 pg (28.0-34.0); Mean Corpuscular Volume 82.3 fl (80-94); Mean Platelet Volume 8.7 fL (7.4-10.4); Monocytes # 1.4 10^3/uL (0.2-0.9); Monocytes % 11.3 %; Neutrophils # 10.35 10^3/uL (1.8-7.7); Neutrophils % 83.7 %; Nucleated Red Blood Cells % 0 %; Platelet Count 163 10^3/cmm (130-400); Red Blood Count 3.79 10^6/uL (4.1-5.3); Red Cell Distribution Width 16.6 % (12.1-15.1); White Blood Count 12.4 10^3/uL (4.0-10.0)
[2022-02-28] MEDS: propofol 1,000 MG/100 ML INJ 14.97 MG IV (20:36)
[2022-02-28 20:52] LABS: Anion Gap 14.1 (5-19); Blood Urea Nitrogen 21 mg/dL (8-23); Calcium 7.9 mg/dL (8.5-10.5); Carbon Dioxide 21 mmol/L (22-29); Chloride 111 mmol/L (98-107); Creatinine Clr Calc Pharmacy 72.9344; Glucose 141 mg/dL (65-115); Magnesium 2.6 mg/dL (1.7-2.3); Osmolality Calculated 299 mOsm/kg (285-295); Potassium 4.1 mmol/L (3.5-5.1); Sodium 142 mmol/L (136-145)
[2022-02-28] MEDS: oxyCODONE-APAP 5-325 mg Tablet PO (21:56)
[2022-02-28 22:16] LABS: Glucose Point of Care 121 mg/dL (70-110)
[2022-02-28 22:16] LABS: Glucose Point of Care 141 mg/dL (70-110)
[2022-02-28 22:16] LABS: Glucose Point of Care 125 mg/dL (70-110)
[2022-02-28 22:16] LABS: Glucose Point of Care 185 mg/dL (70-110)
[2022-02-28 22:16] LABS: Glucose Point of Care 124 mg/dL (70-110)
[2022-02-28 22:16] LABS: Glucose Point of Care 132 mg/dL (70-110)
[2022-02-28 22:16] LABS: Glucose Point of Care 154 mg/dL (70-110)
[2022-03-01] VITALS (74 sets, daily range): BP systolic 99–148; BP diastolic 46–88; PULSE 65–144; RESP 12–42; TEMP 37.3–37.9; O2SAT 89–96
[2022-03-01 01:05] LABS: Basophils % 0.1 %; Hematocrit 30.1 % (42.0-52.0); Hemoglobin 9.4 g/dL (11.7-16.6); Lymphocytes # 0.6 10^3/uL (0.8-4.8); Lymphocytes % 4.5 %; Mean Corpuscular HGB Conc 31.2 g/dL (30.0-36.0); Mean Corpuscular Hemoglobin 25.7 pg (28.0-34.0); Mean Corpuscular Volume 82.2 fl (80-94); Mean Platelet Volume 9.5 fL (7.4-10.4); Monocytes # 1.5 10^3/uL (0.2-0.9); Monocytes % 11.9 %; Neutrophils # 10.55 10^3/uL (1.8-7.7); Neutrophils % 82.9 %; Nucleated Red Blood Cells % 0 %; Platelet Count 189 10^3/cmm (130-400); Red Blood Count 3.66 10^6/uL (4.1-5.3); Red Cell Distribution Width 16.9 % (12.1-15.1); White Blood Count 12.7 10^3/uL (4.0-10.0)
[2022-03-01 01:16] LABS: Anion Gap 13.2 (5-19); Blood Urea Nitrogen 23 mg/dL (8-23); Calcium 7.7 mg/dL (8.5-10.5); Carbon Dioxide 21 mmol/L (22-29); Chloride 113 mmol/L (98-107); Creatinine Clr Calc Pharmacy 72.9344; Glucose 138 mg/dL (65-115); Osmolality Calculated 302 mOsm/kg (285-295); Potassium 4.2 mmol/L (3.5-5.1); Sodium 143 mmol/L (136-145)
[2022-03-01] MEDS: fentaNYL 50 mcg/mL INJ 2mL IVP ×4 (02:43→23:06)
[2022-03-01] MEDS: oxyCODONE-APAP 5-325 mg Tablet PO ×3 (03:59→18:20)
[2022-03-01 04:00] LABS: ABG PCO2 32.3 mmHg (35-45); ABG PH Result 7.43 (7.35-7.45); Alveolar-Arterial Oxygen Gradi 24.6 mmHg (5-10); Arterial Blood Gas Hematocrit 30.3 % (42-52); Base Excess ABG -2.3 mmol/L (-2.0-2.0); Blood Gas Operator Identificat JB; Blood Gas Sample Site Not specified; Blood Gas Sample Type Arterial; Carboxyhemoglobin 1.2 %THgb (0.4-20.1); HCO3 ABG 21.4 mmol/L (22-26); HGB O2 Sat 89.5 % (95-100); Ionized Calcium Level - ABG 1.2 mmol/L (1.1-1.4); Methemoglobin 0.7 % (0.4-1.5); Oxygen Device VENT; Oxygen Saturation ABG 91.3; PO2 ABG 55.4 mmHg (80.0-100.0); Potassium Level - ABG 3.7 mmol/L (3.5-5.0); Total Hemoglobin 9.9 g/dL (14-18)
[2022-03-01] MEDS: midazolam 1 mg/mL INJ 2 mL IVP (04:08)
[2022-03-01] MEDS: morphine 4 mg/mL SDV 1 mL 2 MG IVP ×3 (04:39→20:21)
[2022-03-01 05:02] LABS: Basophils % 0.2 %; Hematocrit 30.6 % (42.0-52.0); Hemoglobin 9.4 g/dL (11.7-16.6); Lymphocytes # 0.7 10^3/uL (0.8-4.8); Lymphocytes % 5.8 %; Mean Corpuscular HGB Conc 30.7 g/dL (30.0-36.0); Mean Corpuscular Hemoglobin 25.8 pg (28.0-34.0); Mean Corpuscular Volume 84.1 fl (80-94); Mean Platelet Volume 9.8 fL (7.4-10.4); Monocytes # 1.6 10^3/uL (0.2-0.9); Monocytes % 13.1 %; Neutrophils # 9.53 10^3/uL (1.8-7.7); Neutrophils % 80.5 %; Nucleated Red Blood Cells % 0 %; Platelet Count 171 10^3/cmm (130-400); Red Blood Count 3.64 10^6/uL (4.1-5.3); Red Cell Distribution Width 17.1 % (12.1-15.1); White Blood Count 11.8 10^3/uL (4.0-10.0)
[2022-03-01 05:23] LABS: INR 1.11 (0.8-1.2); Partial Thromboplastin Time 25.9 SECONDS (23.9-36.7)
[2022-03-01 05:24] LABS: Blood Urea Nitrogen 22 mg/dL (8-23); Calcium 7.7 mg/dL (8.5-10.5); Carbon Dioxide 22 mmol/L (22-29); Chloride 112 mmol/L (98-107); Creatinine Clr Calc Pharmacy 72.9344; Glucose 135 mg/dL (65-115); Magnesium 2.4 mg/dL (1.7-2.3); Osmolality Calculated 301 mOsm/kg (285-295); Sodium 143 mmol/L (136-145)
[2022-03-01] MEDS: propofol 1,000 MG/100 ML INJ 26.94 MG IV (05:41)
--- NOTE | 2022-03-01 06:00 | ECG_ITS ---
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 Measurements Intervals [place] Rate: 65 P: 66 UT: 159 QRS: 37 QRSD: 85 T: 39 QT: 433 QTc: 451 Interpretive Statements SINUS RHYTHM EARLY REPOLARIZATION [ST ELEVATION WITH NORMALLY INFLECTED T-WAVE] Compared to ECG 02/28/2022 17:45:14 ST (T wave) deviation no longer present Electronically Signed On 03-02-2022 6:14:43 CDT by Lisa Landa M.D. [id number]
--- NOTE | 2022-03-01 06:00 | XR_ITS ---
WS: [id number] Exam: XR chest 1V portable [id number] Date/Time of Exam: 03/01/2022 3:57 AM Reason For Exam: Postop day #1 status post CABG x4 Comparison with the last exam 02/28/2022. The lungs are fully expanded. No infiltrates are seen. Decreased heart size since previous study. The re are still some mild prominence of the superior mediastinum. ET tube ends at about the level of the T3 in good position. Right IJ catheter ends at the cavoatrial junction. A second right IJ catheter i s noted and appears to be looped in the heart possibly in the right ventricle. Midline sternal suture s with signs of previous CABG surgery. Enteric tube extending into the stomach but the tip is not vis ible. There appear to be bilateral thoracostomy tubes in place ending in the lower right and left ple ural cavities. XR/XR chest 1V portable [id number] IMPRESSION: 1. Decreased heart size since prior study. 2. No acute infiltrate or pneumothorax. 3. ET tube and bilateral thoracostomy tubes in satisfactory location. 4. Right-sided IJ lines in place as noted above. Enteric tube in satisfactory p osition.
[2022-03-01] MEDS: sodium chloride 0.9% 1,000 ML 75 ML IV ×2 (06:25→19:26)
[2022-03-01] MEDS: FUROsemide 10 mg/mL SDV 2mL 20 MG IVP ×2 (06:25→12:02)
--- NOTE | 2022-03-01 06:34 | PM.PN ---
Subjective Subjective: Postop day #1 status post CABG x4. Uneventful night to though there was some difficulties in weaning the ventilator due to hypoxia. We did note this at the time of his intubation. His x-ray appears to be clear with a unremarkable mediastinum. No substantial fluid collections or infiltrates. Intake and output is up just under 1 L. Chest tube output approximately 100 cc since surgery. Otherwise, vital signs are stable. Cardiac index 3 L/min per metered squared. Filling pressures appear to be appropriate. Heart rate in the low to mid 70s. Patient has not been required. Amiodarone continues at 1/2 mg/min. Vitals/I&O/Wt Last Vital Signs Temp 99.5 F 03/01/22 05:23 Pulse 71 03/01/22 06:00 Resp 15 03/01/22 06:23 BP 130/51 03/01/22 06:00 Pulse Ox 95 03/01/22 06:23 02/28/22 02/28/22 03/01/22 14:59 22:59 06:59 Intake Total 490 / 490 1116.250 / 1606.250 Output Total 552 / 552 495 / 1047 Balance 490 / 490 -552 / -62 621.250 / 559.250 Weight last 48 hrs Weight 253 lb 2 oz Physical Exam Chest: OTHER: Wound VAC dressing and support lines are in good position. Resp: OTHER: Basilar crackles Cardio: COMMON NORMALS: regular rate, regular rhythm, S1 normal heart sound present and No murmurs present (Cardio) RATE: regular rate RHYTHM: regular rhythm HEART SOUNDS: S1 normal heart sound present Extremity: OTHER: 1+ peripheral edema. Urinary Catheter Management: Oden: Cath Placed During This Visit: yes Reason for Continuing Indwelling Catheter: Accurate Measurement of Urinary Output in Critically Ill Patients Urinary Catheter Date of Insertion: 02/28/22 Urinary Catheter Time of Insertion: 07:00 Data : 03/01/22 04:17 03/01/22 04:17 A&P Assessment and plan (1) Status post aorto-coronary artery bypass graft: POD #1 status post CABG x4 Plan: Lasix 20 mg IV now Aspirin 81 mg daily Lipitor 40 mg daily CBC, BMP, chest x-ray in a.m. I will confer with my pulmonary colleagues. Status: Acute Attestations Medical Necessity Statement*: Postop day #1 status post CABG x4 Coding Level of Care Code Acute [employer] Professional for Chg Fwd Diagnoses Status post aorto-coronary artery bypass graft Z95.1
[2022-03-01 08:28] LABS: Anion Gap 11.8 (5-19); Blood Urea Nitrogen 18 mg/dL (8-23); Calcium 8.2 mg/dL (8.5-10.5); Carbon Dioxide 24 mmol/L (22-29); Chloride 112 mmol/L (98-107); Glucose 121 mg/dL (65-115); Magnesium 2.4 mg/dL (1.7-2.3); Osmolality Calculated 301 mOsm/kg (285-295); Potassium 3.8 mmol/L (3.5-5.1); Sodium 144 mmol/L (136-145)
[2022-03-01] MEDS: albumin 12.5 GM/250 ML VIAL IV (08:57)
[2022-03-01] MEDS: aspirin 81 mg Chew Tablet PO (09:10)
[2022-03-01] MEDS: pantoprazole 40 mg SDV IVP (09:10)
[2022-03-01] MEDS: chlorhexidine gluconate 0.12% Btl 473 mL 15 ML MUCOUS MEM (09:10)
[2022-03-01] MEDS: propofol 1,000 MG/100 ML INJ 20.96 MG IV (10:16)
[2022-03-01 11:01] LABS: ABG PCO2 42.7 mmHg (35-45); ABG PCO2 43.9 mmHg (35-45); ABG PH Result 7.31 (7.35-7.45); ABG PH Result 7.34 (7.35-7.45); ABG PH Result 7.37 (7.35-7.45); Arterial Blood Gas Hematocrit 25.9 % (42-52); Arterial Blood Gas Hematocrit 26.3 % (42-52); Arterial Blood Gas Hematocrit 30.8 % (42-52); Base Excess ABG -1.2 mmol/L (-2.0-2.0); Base Excess ABG -1.9 mmol/L (-2.0-2.0); Base Excess ABG -4.4 mmol/L (-2.0-2.0); Blood Gas Sample Type Arterial; Carboxyhemoglobin 1.2 %THgb (0.4-20.1); Carboxyhemoglobin 1.3 %THgb (0.4-20.1); Carboxyhemoglobin 1.5 %THgb (0.4-20.1); HCO3 ABG 21.5 mmol/L (22-26); HCO3 ABG 23.8 mmol/L (22-26); HCO3 ABG 23.9 mmol/L (22-26); HGB O2 Sat 97.1 % (95-100); HGB O2 Sat 98.4 % (95-100); Ionized Calcium Level - ABG 1.1 mmol/L (1.1-1.4); Ionized Calcium Level - ABG 1.2 mmol/L (1.1-1.4); Methemoglobin 0.4 % (0.4-1.5); Methemoglobin 0.6 % (0.4-1.5); Oxygen Saturation ABG 98.9; Oxygen Saturation ABG > 100.0; Potassium Level - ABG 3.5 mmol/L (3.5-5.0); Potassium Level - ABG 4.4 mmol/L (3.5-5.0); Potassium Level - ABG 4.8 mmol/L (3.5-5.0); Total Hemoglobin 10.1 g/dL (14-18); Total Hemoglobin 8.5 g/dL (14-18); Total Hemoglobin 8.6 g/dL (14-18)
[2022-03-01 11:02] LABS: ABG PCO2 38.3 mmHg (35-45); ABG PCO2 40.6 mmHg (35-45); ABG PCO2 41.6 mmHg (35-45); ABG PCO2 45.9 mmHg (35-45); ABG PCO2 49.5 mmHg (35-45); ABG PH Result 7.29 (7.35-7.45); ABG PH Result 7.32 (7.35-7.45); ABG PH Result 7.34 (7.35-7.45); ABG PH Result 7.35 (7.35-7.45); ABG PH Result 7.41 (7.35-7.45); ABG PH Result 7.42 (7.35-7.45); Arterial Blood Gas Hematocrit 25.1 % (42-52); Arterial Blood Gas Hematocrit 26.1 % (42-52); Arterial Blood Gas Hematocrit 26.2 % (42-52); Arterial Blood Gas Hematocrit 29.5 % (42-52); Arterial Blood Gas Hematocrit 31.1 % (42-52); Base Excess ABG -0.6 mmol/L (-2.0-2.0); Base Excess ABG -0.8 mmol/L (-2.0-2.0); Base Excess ABG -2.4 mmol/L (-2.0-2.0); Base Excess ABG -4.2 mmol/L (-2.0-2.0); Base Excess ABG 1.4 mmol/L (-2.0-2.0); Blood Gas Sample Type Arterial; Carboxyhemoglobin 1.2 %THgb (0.4-20.1); Carboxyhemoglobin 1.3 %THgb (0.4-20.1); Carboxyhemoglobin 1.4 %THgb (0.4-20.1); Carboxyhemoglobin 1.5 %THgb (0.4-20.1); Carboxyhemoglobin 1.8 %THgb (0.4-20.1); HCO3 ABG 22.2 mmol/L (22-26); HCO3 ABG 23.3 mmol/L (22-26); HCO3 ABG 25.4 mmol/L (22-26); HCO3 ABG 26.1 mmol/L (22-26); HGB O2 Sat 97.5 % (95-100); HGB O2 Sat 97.7 % (95-100); HGB O2 Sat 98.4 % (95-100); HGB O2 Sat 98.8 % (95-100); Ionized Calcium Level - ABG 1.1 mmol/L (1.1-1.4); Ionized Calcium Level - ABG 1.3 mmol/L (1.1-1.4); Ionized Calcium Level - ABG 1.4 mmol/L (1.1-1.4); Methemoglobin 0.5 % (0.4-1.5); Methemoglobin 0.6 % (0.4-1.5); Methemoglobin 0.8 % (0.4-1.5); Methemoglobin 0.9 % (0.4-1.5); Methemoglobin 1.1 % (0.4-1.5); Oxygen Saturation ABG 84.1; Oxygen Saturation ABG 99.6; Oxygen Saturation ABG > 100.0; PO2 ABG 50.9 mmHg (80.0-100.0); Potassium Level - ABG 3.9 mmol/L (3.5-5.0); Potassium Level - ABG 4.4 mmol/L (3.5-5.0); Potassium Level - ABG 4.5 mmol/L (3.5-5.0); Potassium Level - ABG 4.9 mmol/L (3.5-5.0); Total Hemoglobin 10.1 g/dL (14-18); Total Hemoglobin 8.2 g/dL (14-18); Total Hemoglobin 8.5 g/dL (14-18); Total Hemoglobin 8.6 g/dL (14-18); Total Hemoglobin 9.6 g/dL (14-18)
[2022-03-01 11:04] LABS: Blood Gas Sample Site Not specified
[2022-03-01 11:06] LABS: Blood Gas Sample Site Not specified
[2022-03-01 11:11] LABS: Blood Gas Sample Site Not specified; Blood Gas Sample Type Venous
[2022-03-01 11:12] LABS: ABG PCO2 45.4 mmHg (35-45); ABG PH Result 7.29 (7.35-7.45); Arterial Blood Gas Hematocrit 24.9 % (42-52); Base Excess ABG -4.8 mmol/L (-2.0-2.0); Blood Gas Sample Type Arterial; Carboxyhemoglobin 1.2 %THgb (0.4-20.1); HCO3 ABG 21.6 mmol/L (22-26); HGB O2 Sat 98.8 % (95-100); Ionized Calcium Level - ABG 1.1 mmol/L (1.1-1.4); Methemoglobin 0.5 % (0.4-1.5); Oxygen Saturation ABG > 100.0; Potassium Level - ABG 4.5 mmol/L (3.5-5.0); Total Hemoglobin 8.1 g/dL (14-18)
[2022-03-01 11:14] LABS: Blood Gas Sample Site Not specified
[2022-03-01 11:15] LABS: Blood Gas Sample Site Not specified
[2022-03-01 11:17] LABS: Blood Gas Sample Site Not specified
[2022-03-01 11:18] LABS: Blood Gas Sample Site Not specified
[2022-03-01 11:20] LABS: Blood Gas Sample Site Not specified
[2022-03-01 11:21] LABS: Blood Gas Sample Site Not specified
[2022-03-01 11:23] LABS: ABG PH Result 7.38 (7.35-7.45); Alveolar-Arterial Oxygen Gradi 66.5 mmHg (5-10); Arterial Blood Gas Hematocrit 31.9 % (42-52); Base Excess ABG -1.5 mmol/L (-2.0-2.0); Blood Gas Allen Test Pos; Blood Gas Operator Identificat BD; Blood Gas Sample Site ALINE; Blood Gas Sample Type Arterial; Carboxyhemoglobin 1.6 %THgb (0.4-20.1); HCO3 ABG 23.6 mmol/L (22-26); HGB O2 Sat 97.2 % (95-100); Ionized Calcium Level - ABG 1.2 mmol/L (1.1-1.4); Oxygen Device VENT; Oxygen Saturation ABG 99.8; Potassium Level - ABG 4.3 mmol/L (3.5-5.0); Total Hemoglobin 10.4 g/dL (14-18)
[2022-03-01] MEDS: potassium chloride premix 100 ML 25 MEQ IV ×2 (12:02→23:07)
--- NOTE | 2022-03-01 12:14 | PC.OT ---
OT order received. OT eval held this date d/t pt still being extubated. Will attempt eval tomorrow.
[2022-03-01 12:50] LABS: Glucose Point of Care 121 mg/dL (70-110)
[2022-03-01 12:50] LABS: Glucose Point of Care 115 mg/dL (70-110)
[2022-03-01 12:50] LABS: Glucose Point of Care 114 mg/dL (70-110)
[2022-03-01 12:50] LABS: Glucose Point of Care 171 mg/dL (70-110)
[2022-03-01 12:50] LABS: Glucose Point of Care 129 mg/dL (70-110)
[2022-03-01 12:50] LABS: Glucose Point of Care 121 mg/dL (70-110)
[2022-03-01 12:50] LABS: Glucose Point of Care 107 mg/dL (70-110)
[2022-03-01 12:50] LABS: Glucose Point of Care 132 mg/dL (70-110)
[2022-03-01 12:50] LABS: Glucose Point of Care 132 mg/dL (70-110)
[2022-03-01 12:50] LABS: Glucose Point of Care 110 mg/dL (70-110)
[2022-03-01 12:50] LABS: Glucose Point of Care 113 mg/dL (70-110)
[2022-03-01 12:50] LABS: Glucose Point of Care 122 mg/dL (70-110)
[2022-03-01 12:50] LABS: Glucose Point of Care 111 mg/dL (70-110)
--- NOTE | 2022-03-01 13:39 | PC.NURSE ---
[place] Path-Kiik catheter removed at 1325 by MARIPOSA Bruce., this nurse assisting. No complications.
--- NOTE | 2022-03-01 14:02 | PC.OT ---
OT services withheld this date due to patient is intubated. To attempt OT evaluation on a later date.
--- NOTE | 2022-03-01 14:02 | PM.CONSULT ---
Providers/Reason For Consult Consulting Physician/Specialty*: ALESHIA Castillo MD/cardiology Reason for Consult*: Patient with coronary artery disease, s/p coronary artery bypass surgery Requesting Physician: Dr. Ross Attending Physician: Elio Ross MD Primary Care Provider: Mireya Navarrete History of Present Illness History of Present Illness Zay Vaughan is a 71 year old male with a history of hypertension, dyslipidemia and atrial fibrillation, had a cardiac catheterization on 02/22/2022. He was found to have high-grade stenosis in the proximal LAD, proximal segment of the first diagonal, intermedius and obtuse marginal arteries. Patient underwent a four-vessel coronary artery bypass surgery yesterday by Dr. Ross. He had a CHAVEZ to the LAD and saphenous venous graft to the diagonal, intermedius and obtuse marginal arteries. Postoperatively, he was found to be in atrial fibrillation. He was started on IV amiodarone. He also was given IV metoprolol today. The heart rate is still remains uncontrolled. The patient is mainly complaining about chest wall pain. The oxygen saturation 92%. No fever or chills. No cough. No evidence of any active bleeding. Vital signs remained stable. Medications/Allergies Home Medications Medication Instructions Recorded Confirmed Last Taken Type amlodipine 10 mg tablet 10 mg PO DAILY 05/09/20 02/28/22 02/28/22 History famotidine 40 mg tablet 40 mg PO DAILY 05/09/20 02/28/22 02/27/22 History finasteride 5 mg tablet 5 mg PO DAILY 05/09/20 02/28/22 02/27/22 History montelukast 10 mg tablet 10 mg PO DAILY 05/09/20 02/28/22 02/27/22 History omeprazole 20 mg capsule,delayed 20 mg PO DAILY 05/09/20 02/28/22 02/27/22 History release tamsulosin 0.4 mg capsule 0.4 mg PO DAILY 05/09/20 02/28/22 02/27/22 History hydrochlorothiazide 25 mg tablet 25 mg PO DAILY #0 tab 05/10/20 02/28/22 02/27/22 Rx fluticasone propionate 50 2 spray INTRANASAL DAILY 10/10/20 02/28/22 02/27/22 History mcg/actuation nasal spray,suspension latanoprost 0.005 % eye drops 1 drp OPHTHALMIC (EYE) DAILY 10/10/20 02/28/22 02/27/22 History cetirizine 10 mg tablet 10 mg PO DAILY PRN 10/10/21 02/28/22 02/27/22 History metoprolol tartrate 50 mg tablet 50 mg PO BID #180 tab 11/20/21 02/28/22 02/28/22 03:30 Rx aspirin 81 mg tablet,delayed 81 mg PO DAILY #30 tab 02/19/22 02/28/22 02/25/22 Rx release (Adult Low Dose Aspirin) nitroglycerin 0.4 mg sublingual 0.4 mg SUBLINGUAL Q5M PRN #50 tab 02/20/22 02/22/22 Unknown Rx tablet atorvastatin 40 mg tablet 40 mg PO DAILY 02/23/22 02/28/22 02/27/22 History benazepril 40 mg tablet 40 mg PO DAILY 02/23/22 02/28/22 02/27/22 History Allergies Allergy/AdvReac Type Severity Reaction Status Date / Time erythromycin base Allergy Unknown unknown Verified 02/28/22 05:07 Current Medications Generic Name Dose Route Start Last Admin Trade Name Freq PRN Reason Stop Dose Admin Aspirin 81 mg 03/01/22 09:00 03/01/22 09:10 Aspirin 81 Mg Chew Tablet PO 81 mg DAILY ABNER Administration Chlorhexidine Gluconate 15 ml 02/28/22 18:00 03/01/22 09:10 Chlorhexidine Gluconate 0.12% Btl 473 Ml MUCOUS MEM 15 ml BID ABNER Administration Fentanyl 50 mcg 02/28/22 17:03 03/01/22 02:43 Fentanyl 50 Mcg/Ml Inj 2ml IVP 50 mcg Q1H PRN Administration SEVERE PAIN Cefuroxime Sodium 1,500 mg/ 100 mls @ 200 mls/hr 02/28/22 17:03 03/01/22 03:23 Sodium Chloride IV 03/02/22 14:29 Infused Q12H ABNER Infusion Protocol Albumin Human 12.5 gm in 250 mls @ 600 mls/hr 02/28/22 17:03 03/01/22 10:14 Albumin IV Infused PRN PRN Infusion For CVP < 4 or SBP< 90 Norepinephrine Bitartrate 4 mg 254 mls @ 10.583 mls/hr 02/28/22 17:03 03/01/22 10:11 / Dextrose IV 0 mcg/min .Q24H PRN 0 mls/hr HYPOTENSION Titration Protocol Sodium Chloride 1,000 mls @ 75 mls/hr 02/28/22 17:03 03/01/22 06:25 Sodium Chloride 0.9% IV 75 mls/hr .[id number] ABNER Administration Propofol 1,000 mg in 100 mls @ 0 mls/hr 02/28/22 17:03 03/01/22 13:40 Diprivan IV 0 mcg/kg/min .Q0M ABNER 0 mls/hr Titration Protocol Per Protocol Potassium Chloride 100 mls @ 25 mls/hr 03/01/22 11:37 03/01/22 12:02 K-Lukas IV 03/01/22 15:36 25 mls/hr ONCE ONE Administration Midazolam HCl 1 mg 02/28/22 17:03 03/01/22 04:08 Midazolam 1 Mg/Ml Inj 2 Ml IVP 1 mg Q1H PRN Administration Sedation for Woody score < 4. Morphine Sulfate 2 mg 02/28/22 17:03 03/01/22 04:39 Morphine 4 Mg/Ml Sdv 1 Ml IVP 2 mg Q1H PRN Administration BREAKTHROUGH PAIN Mupirocin 1 applic 02/28/22 18:00 03/01/22 09:07 Mupirocin Oint 22 Gm NASAL Not Given BID ABNER Oxycodone/Acetaminophen 1 - 2 tab 02/28/22 17:03 03/01/22 12:40 Oxycodone-Apap 5-325 Mg Tablet PO 2 tab Q6H PRN Administration MILD TO MODERATE PAIN Pantoprazole Sodium 40 mg 03/01/22 09:00 03/01/22 09:10 Pantoprazole 40 Mg Sdv IVP 03/02/22 08:59 40 mg DAILY ABNER Administration PFSH Acute PFSH: Medical History Accelerated essential hypertension Arthritis Atrial fibrillation Benign essential HTN BPH (benign prostatic hyperplasia) Bradycardia Chronic episodic atrial fibrillation Diverticulosis Dyslipidemia History of adenomatous polyp of colon Somnolence, daytime Was in the sleep lab but could not sleep. So he never had a sleep study Stomach ulcer Family History Mother CAD (coronary artery disease), Onset Age: 60 Father Cancer Sister Cancer Denies family history of Diabetes Clotting disorder Dementia Chronic kidney disease (CKD) Suicide Anesthesia complication Bleeding disorder Lung disease Hypertension Stroke Social History Smoking and tobacco status: former smoker Alcohol intake: never Vitals/I&O/Wt Last Vital Signs Temp 99.5 F 03/01/22 05:23 Pulse 80 03/01/22 13:43 Resp 20 H 03/01/22 13:43 BP 122/71 03/01/22 13:43 Pulse Ox 91 03/01/22 13:43 02/28/22 03/01/22 03/01/22 22:59 06:59 14:59 Intake Total 1143.190 / 1633.190 397.494 / 397.494 Output Total 552 / 552 495 / 1047 1130 / 1130 Balance -552 / -62 648.190 / 586.190 -732.506 / -732.506 Weight last 48 hrs Weight 253 lb 2 oz Physical Exam Narrative: GENERAL: The patient is alert and oriented times three. Appears to be somewhat fluid overload-? 33 pound weight gain since hospital admission HEENT: Mild pallor. No icterus or lymphadenopathy. The pupils are reactant to light. Oral cavity: There are no mucous membrane lesions. Funduscopic examination: The disk margins appear to be sharp with no exudates or hemorrhages. NECK: Trachea appears to be central. No masses noted. No JVD or thyromegaly appreciated. No carotid bruit. RESPIRATORY: Chest is symmetrical. No intercostals muscle retraction or any accessory muscle activation. There is no chest wall tenderness. Breath sounds are heard bilaterally. No rales or rhonchi heard. No evidence of any consolidation. BREASTS: Deferred. HEART: The PMI is not palpated. No palpable precordial events. S1 and S2 are normal. No S3 or S4 heard. No pericardial rub. ABDOMEN: No vessel pulsations or distention. No tenderness. No organomegaly appreciated. No abdominal bruit. Bowel sounds are normally heard. : Deferred. RECTAL: Deferred. LYMPHATIC: No lymphadenopathy noted in the neck or groin. EXTREMITIES: Generalized edema present MUSCULOSKELETAL: No acute joint deformities or swelling SKIN: There are no significant rashes. NEUROPSYCHIATRIC: The patient is alert and oriented x3. . The higher functions are grossly within normal limits. No tremors or rigidity noted. Urinary Catheter Management: Oden: Cath Placed During This Visit: yes Reason for Continuing Indwelling Catheter: Accurate Measurement of Urinary Output in Critically Ill Patients Urinary Catheter Date of Insertion: 02/28/22 Urinary Catheter Time of Insertion: 07:00 Data : 03/01/22 04:17 03/01/22 08:05 Other Labs: Laboratory Last Values WBC 11.8 10^3/uL (4.0-10.0) H 03/01/22 04:17 RBC 3.64 10^6/uL (4.1-5.3) L 03/01/22 04:17 Hgb 9.4 g/dL (11.7-16.6) L 03/01/22 04:17 Hct 30.6 % (42.0-52.0) L 03/01/22 04:17 MCV 84.1 fl (80-94) 03/01/22 04:17 MCH 25.8 pg (28.0-34.0) L 03/01/22 04:17 MCHC 30.7 g/dL (30.0-36.0) 03/01/22 04:17 RDW 17.1 % (12.1-15.1) H 03/01/22 04:17 Plt Count 171 10^3/cmm (130-400) 03/01/22 04:17 MPV 9.8 fL (7.4-10.4) 03/01/22 04:17 Neut % (Auto) 80.5 % 03/01/22 04:17 Lymph % (Auto) 5.8 % 03/01/22 04:17 Towner % (Auto) 13.1 % 03/01/22 04:17 Eos % (Auto) 0.0 % 03/01/22 04:17 Baso % (Auto) 0.2 % 03/01/22 04:17 Neut # (Auto) 9.53 10^3/uL (1.8-7.7) H 03/01/22 04:17 Lymph # (Auto) 0.7 10^3/uL (0.8-4.8) L 03/01/22 04:17 Towner # (Auto) 1.6 10^3/uL (0.2-0.9) H 03/01/22 04:17 Eos # (Auto) 0.0 10^3/uL (0.0-0.8) 03/01/22 04:17 Baso # (Auto) 0.0 10^3/uL (0.0-0.1) 03/01/22 04:17 Nucleated RBC % (auto) 0 % 03/01/22 04:17 Nucleated RBCs # 0.0 /100WBC 03/01/22 04:17 PT 14.60 SECONDS (12.1-14.9) 03/01/22 04:17 INR 1.11 (0.8-1.2) 03/01/22 04:17 APTT 25.9 SECONDS (23.9-36.7) 03/01/22 04:17 Specimen Type Arterial 03/01/22 03:48 Sample Site Not specified 03/01/22 03:48 ABG pH 7.43 (7.35-7.45) 03/01/22 03:48 ABG pCO2 32.3 mmHg (35-45) L 03/01/22 03:48 ABG pO2 55.4 mmHg (80.0-100.0) L 03/01/22 03:48 ABG HCO3 21.4 mmol/L (22-26) L 03/01/22 03:48 ABG O2 Saturation 91.3 03/01/22 03:48 ABG Base Excess -2.3 mmol/L (-2.0-2.0) L 03/01/22 03:48 Perry Test N/a 03/01/22 03:48 A-a O2 Gradient 24.6 mmHg (5-10) H 03/01/22 03:48 Hematocrit 30.3 % (42-52) L 03/01/22 03:48 Hgb O2 Saturation 89.5 % (95-100) L 03/01/22 03:48 Carboxyhemoglobin 1.2 %THgb (0.4-20.1) 03/01/22 03:48 Methemoglobin 0.7 % (0.4-1.5) 03/01/22 03:48 Total Hemoglobin 9.9 g/dL (14-18) L 03/01/22 03:48 Sodium 153.0 mmol/L (131-143) H 03/01/22 03:48 Potassium 3.7 mmol/L (3.5-5.0) 03/01/22 03:48 Glucose 127.0 mg/dL (70-115) H 03/01/22 03:48 Ionized Calcium 1.2 mmol/L (1.1-1.4) 03/01/22 03:48 O2 Delivery Device Vent 03/01/22 03:48 FiO2 40.0 % 03/01/22 03:48 Tidal Volume 0.60 03/01/22 03:48 PEEP 8.0 cmH20 03/01/22 03:48 Honing Machine Set Up Operator ID Gray 03/01/22 03:48 Sodium 144 mmol/L (136-145) 03/01/22 08:05 Potassium 3.8 mmol/L (3.5-5.1) 03/01/22 08:05 Chloride 112 mmol/L (98-107) H 03/01/22 08:05 Carbon Dioxide 24 mmol/L (22-29) 03/01/22 08:05 Anion Gap 11.8 (5-19) 03/01/22 08:05 BUN 18 mg/dL (8-23) 03/01/22 08:05 Creatinine 1.2 mg/dL (0.7-1.2) 03/01/22 08:05 GFR Calculation Not Reportable 03/01/22 08:05 Glucose 121 mg/dL (65-115) H 03/01/22 08:05 POC Glucose 107 mg/dL (70-110) 03/01/22 12:45 Calculated Osmolality 301 mOsm/kg (285-295) H 03/01/22 08:05 Calcium 8.2 mg/dL (8.5-10.5) L 03/01/22 08:05 Magnesium 2.4 mg/dL (1.7-2.3) H 03/01/22 08:05 Blood Type O Positive 02/22/22 11:50 Rho(D) Type Positive 02/22/22 11:50 Antibody Screen Negative 02/22/22 11:50 Crossmatch See Detail 02/22/22 11:50 Cardiac catheterization done on 02/22/2022: My impression: * Left main is a medium caliber vessel with a minimal intimal irregularities. ? * The left anterior descending artery is a medium caliber vessel whichappears to wrap around the LV apex.? Te proximal LAD was found to have atubular stenosis of around 80%.? The mid and distal LAD was found to have mild diffuse intimal irregularities.? No significant stenotic lesions.? The arterygives of a high diagonal branch which was found to have around 80% stenosisnear to the ostium. The distal artery was found to have mild diffuse disease.. ? * The intermedius branch is a medium caliber vessel which was found to haveproximal around 80% stenosis.? The distal artery was found to have minimalintimal irregularities. ? * The circumflex artery gives of a high obtuse marginal branch. This vesselwas found to have a 90% proximal segmental stenosis. Right after this branch,the circumflex proper runs in the AV groove as a rudimentary vessel. No significant stenotic lesions were noted.. ? * The right coronary artery is a medium caliber dominant vessel which wasfound to have around 30 to 40% tubular narrowing around the origin of thefirst RV branch.? The distal vessel was found to have minimal intimalirregularities.? The PDA and the PLV branches also were found to have minimal intimal irregularities. Echo: My impression: Done on 08/30/2021 LV systolic function is normal with EF of 55 to 60%. ?Diastolic function is normal. ?No comparison studies are available. EKG 1: My Interpretation: The EKG shows sinus rhythm with a rate of 65/min. Diffuse ST elevation possibly from early repolarization Normal WA and QRS duration. EKG computer-generated impression: C-Arm Fluoroscopy 02/28/22 14:01 IMPRESSION: Intraoperative imaging during foreign body removal. Chest X-Ray 03/01/22 06:00 IMPRESSION: 1. Decreased heart size since prior study. 2. No acute infiltrate or pneumothorax. 3. ET tube and bilateral thoracostomy tubes in satisfactory location. 4. Right-sided IJ lines in place as noted above. Enteric tube in satisfactory position. A&P Assessment and plan (1) Status post aorto-coronary artery bypass graft: Patient is postop day #2; four-vessel coronary bypass surgery. Hemodynamically stable. May go ahead and give IV Lasix 40 mg now along with potassium 20 mill equivalent p.o. Patient CVP is around 10 this morning. However clinically he seems to be of fluid overload Status: Acute (2) Atrial fibrillation with rapid ventricular response: Currently on IV amiodarone. Restarted metoprolol. The dose of the metoprolol may be gradually increased as tolerated. Status: Acute (3) Atherosclerotic heart disease of [place] coronary artery with other forms of angina pectoris: Status post four-vessel bypass surgery, hemodynamically stable. Status: Acute (4) Benign essential HTN: Currently normotensive. May restart the lisinopril as the blood pressure tolerates. Status: Acute (5) Dyslipidemia: We will restart the Lipitor tomorrow. Status: Acute Plan Close monitoring in the ICU. Consult Attestations Medical Necessity Statement: Patient requires continued hospital stay for close monitoring and further management Coding Level of Care Code Acute Assistant Passenger Locomotive Engineer for [place] Vitale Medical Decision Making Moderate Complexity Diagnoses Status post aorto-coronary artery bypass graft Z95.1 Atherosclerotic heart disease of [place] coronary artery with other forms of angina pectoris I25.118 Benign essential HTN I10 Dyslipidemia E78.5 Atrial fibrillation with rapid ventricular response I48.91
--- NOTE | 2022-03-01 15:30 | PC.NURSE ---
Extubated at 1512 by RT to 8L HFNC. PT AAOx3.
[2022-03-01] MEDS: labetalol 5 mg/mL SDV 20mL 10 MG IVP (15:34)
--- NOTE | 2022-03-01 17:08 | PC.NURSE ---
AFib, rate 120s, Dr. Ross called and notified. See MAR for order.
[2022-03-01] MEDS: metoprolol tartrate 1 mg/1 mL SDV 5 mL 2.5 MG IVP (17:30)
[2022-03-01] MEDS: metoprolol tartrate 25 mg Tablet PO (19:04)
[2022-03-01] MEDS: FUROsemide 10 mg/mL SDV 4mL 40 MG IVP (19:25)
[2022-03-01] MEDS: potassium chloride ER 20 mEq Tablet PO (19:26)
[2022-03-01] MEDS: atorvastatin 40 mg Tablet PO (20:30)
[2022-03-01 20:32] LABS: Glucose Point of Care 111 mg/dL (70-110)
[2022-03-01 20:32] LABS: Glucose Point of Care 120 mg/dL (70-110)
[2022-03-01 20:32] LABS: Glucose Point of Care 117 mg/dL (70-110)
[2022-03-01 20:32] LABS: Glucose Point of Care 117 mg/dL (70-110)
[2022-03-01 20:32] LABS: Glucose Point of Care 118 mg/dL (70-110)
[2022-03-01 20:32] LABS: Glucose Point of Care 118 mg/dL (70-110)
--- NOTE | 2022-03-01 20:43 | PC.NURSE ---
Patient continues to be tachycardic with HR 130's to 140's. Dr. Castillo notified with new orders give for Digoxin 0.25mcg IVP now ONCE with a second dose ordered in 4 hours if heart rate continues above 130.
[2022-03-01] MEDS: digoxin 250 mcg/ml INJ 2 mL IVP (20:56)
[2022-03-01 22:06] LABS: Anion Gap 14.6 (5-19); Blood Urea Nitrogen 17 mg/dL (8-23); Calcium 7.9 mg/dL (8.5-10.5); Carbon Dioxide 23 mmol/L (22-29); Chloride 109 mmol/L (98-107); Glucose 177 mg/dL (65-115); Magnesium 2.2 mg/dL (1.7-2.3); Osmolality Calculated 302 mOsm/kg (285-295); Potassium 3.6 mmol/L (3.5-5.1); Sodium 143 mmol/L (136-145)
[2022-03-02] VITALS (110 sets, daily range): BP systolic 104–168; BP diastolic 53–107; PULSE 84–138; RESP 17–51; TEMP 37–37.7; O2SAT 82–100
[2022-03-02] MEDS: oxyCODONE-APAP 5-325 mg Tablet PO ×4 (00:25→20:20)
[2022-03-02] MEDS: digoxin 250 mcg/ml INJ 2 mL IVP (01:00)
[2022-03-02] MEDS: morphine 4 mg/mL SDV 1 mL 2 MG IVP ×8 (02:26→21:48)
[2022-03-02] MEDS: diphenhydrAMINE 25 mg Capsule PO (02:42)
[2022-03-02 03:13] LABS: Glucose Point of Care 114 mg/dL (70-110)
[2022-03-02 03:13] LABS: Glucose Point of Care 116 mg/dL (70-110)
[2022-03-02 03:13] LABS: Glucose Point of Care 120 mg/dL (70-110)
[2022-03-02 03:13] LABS: Glucose Point of Care 472 mg/dL (70-110)
[2022-03-02 03:13] LABS: Glucose Point of Care 119 mg/dL (70-110)
[2022-03-02 03:13] LABS: Glucose Point of Care 117 mg/dL (70-110)
[2022-03-02 03:13] LABS: Glucose Point of Care 113 mg/dL (70-110)
[2022-03-02 03:13] LABS: Glucose Point of Care 132 mg/dL (70-110)
[2022-03-02 03:14] LABS: Basophils % 0.1 %; Eosinophils % 0.1 %; Hematocrit 27.3 % (42.0-52.0); Hemoglobin 8.6 g/dL (11.7-16.6); Lymphocytes # 1.2 10^3/uL (0.8-4.8); Lymphocytes % 8.5 %; Mean Corpuscular HGB Conc 31.5 g/dL (30.0-36.0); Mean Corpuscular Hemoglobin 26.4 pg (28.0-34.0); Mean Corpuscular Volume 83.7 fl (80-94); Mean Platelet Volume 9.4 fL (7.4-10.4); Monocytes # 1.9 10^3/uL (0.2-0.9); Monocytes % 13.2 %; Neutrophils # 10.89 10^3/uL (1.8-7.7); Neutrophils % 77.5 %; Nucleated Red Blood Cells % 0 %; Platelet Count 170 10^3/cmm (130-400); Red Blood Count 3.26 10^6/uL (4.1-5.3); Red Cell Distribution Width 17.6 % (12.1-15.1); White Blood Count 14.1 10^3/uL (4.0-10.0)
[2022-03-02 03:35] LABS: Anion Gap 12.1 (5-19); Blood Urea Nitrogen 16 mg/dL (8-23); Carbon Dioxide 24 mmol/L (22-29); Chloride 108 mmol/L (98-107); Glucose 112 mg/dL (65-115); Magnesium 2.2 mg/dL (1.7-2.3); Osmolality Calculated 292 mOsm/kg (285-295); Potassium 4.1 mmol/L (3.5-5.1); Sodium 140 mmol/L (136-145)
--- NOTE | 2022-03-02 06:00 | XR_ITS ---
WS: [id number] Exam: XR chest 1V portable [id number] Date/Time of Exam: 03/02/2022 6:00 AM Reason For Exam: POD #2 status post CABG Comparison 03/01/2022. The lungs are fully expanded. Right chest tube remains in place ending in the lower right pleural cav ity. Left chest tube has been removed. ET tube and NG tube have been removed. Heart size is within no rmal limits for technique. The mediastinum is not widened. A right-sided IJ central line is noted in addition to a second IJ catheter which is looped in the heart. Trace left pleural effusion. Old bilat eral rib fractures. Hardware in the left clavicle. XR/XR chest 1V portable [id number] IMPRESSION: 1. No acute cardiopulmonary finding. 2. Trace left pleural effusion. 3. Right-sided IJ catheters remain in place. NG tube and ET tube have been landon juan. Right-sided thoracostomy tube remains in place.
[2022-03-02 06:21] LABS: Glucose Point of Care 99 mg/dL (70-110)
[2022-03-02 06:21] LABS: Glucose Point of Care 103 mg/dL (70-110)
--- NOTE | 2022-03-02 07:00 | PC.NURSE ---
Bedside rounding with Dr. Ross this am. Verbal order given to keep moy catheter in place for accurate output with lasix.
--- NOTE | 2022-03-02 07:07 | PM.PN ---
Subjective Subjective: Postop day #2 status post CABG. Patient was extubated late yesterday. Greatly appreciate the assistance expertise of my colleague, Dr. Holly. Not surprisingly, Mr. Vaughan has converted into atrial fibrillation with RVR. Rate has been brought under better control with the use of beta-blockade, continuing IV amiodarone, and IV digoxin as recommended by Dr. Castillo. Mr. Vaughan is having quite a bit of sternotomy discomfort this morning though overall looks reasonably good. Chest x-ray shows some mild mediastinal fullness after extubation and discontinuation of positive ventilation. No georgette infiltrates or effusion. There are some prominent vascular markings consistent with volume expansion. Chest tube output less than 300 cc past 24 hours. Nursing reports less than 70 cc overnight Vitals/I&O/Wt Last Vital Signs Temp 99.1 F 03/02/22 04:00 Pulse 97 03/02/22 06:00 Resp 22 H 03/02/22 06:44 BP 104/75 03/02/22 06:00 Pulse Ox 91 03/02/22 06:44 03/01/22 03/02/22 03/02/22 22:59 06:59 14:59 Intake Total 2476.25 / 2873.744 920 / 3793.744 Output Total 1134 / 2414 669 / 3083 Balance 1342.25 / 459.744 251 / 710.744 Weight last 48 hrs Weight 294 lb 4 oz Weight 253 lb 2 oz Physical Exam Const: COMMON NORMALS: patient oriented x3 Chest: OTHER: Wound VAC dressing and support lines remain in good position. Resp: EFFORT & INSPECTION: Yes symmetric chest movement, Yes tachypneic, Yes grunting, No audible wheezes and No tracheal deviation Cardio: RATE: tachycardic RHYTHM: abnormal rhythm irregularly irregular (Atrial fibrillation) GI: INSPECTION: Yes central obesity AUSCULTATION: Yes Hypoactive bowel sounds present Extremity: NARRATIVE EXTREMITY EXAM: Still with some peripheral edema Neuro: COMMON NORMALS: patient oriented x3 and no focal motor deficits Urinary Catheter Management: Oden: Cath Placed During This Visit: yes Reason for Continuing Indwelling Catheter: Accurate Measurement of Urinary Output in Critically Ill Patients Urinary Catheter Date of Insertion: 02/28/22 Urinary Catheter Time of Insertion: 07:00 Data : 03/02/22 02:55 03/02/22 02:55 A&P Assessment and plan (1) Status post aorto-coronary artery bypass graft: Postop day #2 status post CABG with postop atrial fibrillation Greatly appreciate the expertise and assistance of Dr. Castillo and Dr. Holly for Plan: Increase metoprolol to 50 mg twice daily Lasix 20 mg IV now transfused 2 units packed RBCs with Lasix in between transfusions. Out of bed in chair CBC, BMP, chest x-ray in a.m. Status: Acute Attestations Medical Necessity Statement*: Postop day #2 status post CABG Coding Level of Care Code Acute Search Strategist for Chg Fwd Diagnoses Status post aorto-coronary artery bypass graft Z95.1
[2022-03-02 07:10] LABS: Glucose Point of Care 99 mg/dL (70-110)
[2022-03-02] MEDS: metoprolol tartrate 25 mg Tablet 50 MG PO ×2 (08:04→19:27)
[2022-03-02] MEDS: chlorhexidine gluconate 0.12% Btl 473 mL 15 ML MUCOUS MEM ×2 (08:04→17:31)
[2022-03-02] MEDS: aspirin 81 mg Chew Tablet PO (08:04)
--- NOTE | 2022-03-02 09:59 | PC.CHAP ---
Pastoral Care Encounter/Spiritual Assessment Type of Contact [] Declined sales representative cash registers visit [] Patient/Family/Request visit [] Outpatient visit [] Follow-up visit [] Physician referral [] Code/Alert [x] Routine visit [] Staff referral [] Actively dying [] Patient sleeping [x] Family support [] [] Out of room [] Palliative care [] [] Receiving care in room [] Pre-surgical visit [] Trauma [] Long length of stay [x] ICU visit [] Other: Relational/Emotional Strength [] Patient feels connected with others/family/visitors/staff [] Distress [] Loneliness/isolation [] Abandonment Spirituality of Patient [] Person of Mary [] Attends Adventism of their Mary [] Believes in Prayer [] Reads Bible or Yazidism materials [] There are Spiritual issues to be addressed Woodenware Assembler Interventions [x] Prayer [x] Active listening [] Non-anxious presence [] Spiritual/emotional support [] Crisis/trauma care [] Spiritual counseling [] Bereavement support [] Provided bereavement packet [] Provided Bible/devotional materials [] Provided toy/stuffed animal, coloring book to patient or family member [] Provided Communion [] Anointing/[place] [] Salvation [x] Completed spiritual assessment [] Other: Impact on Illness or Injury [] Angry [] Fearful [] Anxious [] Often cries [] Exhaustion [] Unable to work [] Unable to attend taoism [] Unable to walk/stand [] Unable to read [] Unable to drive [] Unable to eat/drink [] Unable to sleep [] Unable to be with family [] Patient intubated [] Other: Summary experiencing pain... coloring good... Time spent with patient 5 min
[2022-03-02] MEDS: amiodarone 200 mg Tablet 400 MG PO ×3 (10:15→19:28)
[2022-03-02] MEDS: sodium chloride 0.9% (100 ml) 100 ML 25 ML (11:39)
[2022-03-02] MEDS: FUROsemide 10 mg/mL SDV 2mL 20 MG IVP ×2 (12:40→21:39)
--- NOTE | 2022-03-02 14:25 | PM.PN ---
Subjective Subjective: Patient with no new symptoms. Postop day #3. Telemetry shows atrial fibrillation with controlled ventricular response rate. No fever or chills. Mainly complaining of pain at the surgical incision sites. He was not found to be dropping hemoglobin. Currently he is getting 2 units of blood. Medications: Medication Review Details: Current Medications Al Hydrox/Mg Hydrox/Simethicone (Expl-Gnh-Ljjrfgpfa-Colleen 30 Ml Udc) 30 ml PO Q4H PRN PRN Reason: INDIGESTION Amiodarone HCl (Amiodarone 200 Mg Tablet) 400 mg PO TID [facility] Stop: 03/07/22 10:14 Last Admin: 03/02/22 10:15 Dose: 400 mg Documented by: Amiodarone HCl (Amiodarone 200 Mg Tablet) 400 mg PO BID [facility] Stop: 03/12/22 08:59 Aspirin (Aspirin 81 Mg Chew Tablet) 81 mg PO DAILY [facility] Last Admin: 03/02/22 08:04 Dose: 81 mg Documented by: Atorvastatin Calcium (Atorvastatin 40 Mg Tablet) 40 mg PO BEDTIME [facility] Last Admin: 03/01/22 20:30 Dose: 40 mg Documented by: Bisacodyl (Bisacodyl 5 Mg Tablet) 5 mg PO Q6H PRN PRN Reason: Constipation (Use 2nd) Bisacodyl (Bisacodyl 10 Mg Supp) 10 mg [place] Q6H PRN PRN Reason: Constipation (Use 5th) Bismuth Subsalicylate (Bismuth Subsalicylate 240 Ml Btl) 30 ml PO PRN PRN PRN Reason: DIARRHEA Chlorhexidine Gluconate (Chlorhexidine Gluconate 0.12% Btl 473 Ml) 15 ml MUCOUS MEM BID [facility] Last Admin: 03/02/22 08:04 Dose: 15 ml Documented by: Dextrose (Dextrose 50% Syringe 50 Ml) 25 ml IVP ONCE PRN; Protocol PRN Reason: hypoglycemia protocol Dextrose (Dextrose 50% Syringe 50 Ml) 50 ml IVP PRN PRN; Protocol PRN Reason: hypoglycemia protocol Diphenhydramine HCl (Diphenhydramine 25 Mg Capsule) 25 mg PO BEDTIME PRN PRN Reason: SLEEP Last Admin: 03/02/22 02:42 Dose: 25 mg Documented by: Docusate Sodium (Docusate Sodium 100 Mg Capsule) 100 mg PO BID PRN PRN Reason: Constipation (Use 1st) Epinephrine (Racepinephrine 0.5 Ml Neb) 0.5 ml INHALATION Q6H.RESPIRATORY PRN PRN Reason: Stridor Fentanyl (Fentanyl 50 Mcg/Ml Inj 2ml) 50 mcg IVP Q1H PRN PRN Reason: SEVERE PAIN Last Admin: 03/01/22 23:06 Dose: 50 mcg Documented by: Glucagon (Glucagon 1 Mg/Ml Inj 1 Ml) 1 mg IM ONCE PRN; Protocol PRN Reason: Adult Acute Hypoglycemia Prot Guaifenesin (Guaifenesin 100 Mg/5 Ml Udc 10 Ml) 200 mg PO Q4H PRN PRN Reason: COUGH Hydralazine HCl (Hydralazine 20 Mg/Ml Inj 1 Ml) 5 mg IVP ONCE PRN PRN Reason: Systolic BP > 140 mmHg Cefuroxime Sodium 1,500 mg/ (Sodium Chloride) 100 mls @ 200 mls/hr IV Q12H ABNER; Protocol Stop: 03/02/22 14:29 Last Infusion: 03/02/22 02:36 Dose: Infused Documented by: Dobutamine HCl/Dextrose (Dobutamine Drip) 500 mg in 250 mls @ 0 mls/hr IV .Q0M PRN; Protocol PRN Reason: Cardiac Output Dopamine HCl/Dextrose (Intropin Drip) 400 mg in 250 mls @ 18.711 mls/hr IV CONT PRN; Protocol PRN Reason: Hypotension Albumin Human (Albumin) 12.5 gm in 250 mls @ 600 mls/hr IV PRN PRN PRN Reason: For CVP < 4 or SBP< 90 Last Infusion: 03/01/22 10:14 Dose: Infused Documented by: Dextrose (D5w) 500 mls @ 100 mls/hr IV ONCE PRN; Protocol PRN Reason: Adult Acute Hypoglycemia Prot Norepinephrine Bitartrate 4 mg (/ Dextrose) 254 mls @ 10.583 mls/hr IV .Q24H PRN; Protocol PRN Reason: HYPOTENSION Last Titration: 03/01/22 10:11 Dose: 0 mcg/min, 0 mls/hr Documented by: Phenylephrine HCl 25 mg/ (Sodium Chloride) 252.5 mls @ 0 mls/hr IV .Q0M PRN; Protocol PRN Reason: HYPOTENSION Nitroglycerin/Dextrose (Nitroglycerin Drip) 50 mg in 250 mls @ 0 mls/hr IV .Q0M ABNER; Protocol Sodium Nitroprusside 50 mg/ (Dextrose) 252 mls @ 0 mls/hr IV .Q0M ABNER; Protocol Labetalol HCl 300 mg/ Sodium (Chloride) 300 mls @ 30 mls/hr IV .Q10H PRN; Protocol PRN Reason: Systolic BP > 140 mmHg Insulin Human Regular 250 unit (/ Sodium Chloride) 252.5 mls @ 0 mls/hr IV .Q0M ABNER; Protocol Propofol (Diprivan) 1,000 mg in 100 mls @ 0 mls/hr IV .Q0M ABNER; Protocol Last Titration: 03/01/22 19:41 Dose: Infused Documented by: Labetalol HCl (Labetalol 5 Mg/Ml Sdv 20ml) 10 mg IVP Q5M PRN PRN Reason: Systolic BP >140 mmHG Last Admin: 03/01/22 15:34 Dose: 10 mg Documented by: Lactulose (Lactulose Oral Liq 20 Gm/30 Ml Udc) 20 gm PO Q6H PRN PRN Reason: Constipation (Use 3rd) Magnesium Hydroxide (Magnesium Hydroxide 30 Ml Udc) 45 ml PO DAILY PRN PRN Reason: Constipation (use 4th) Metoprolol Tartrate (Metoprolol Tartrate 25 Mg Tablet) 50 mg PO BID@0900,2100 [facility] Last Admin: 03/02/22 08:04 Dose: 50 mg Documented by: Midazolam HCl (Midazolam 1 Mg/Ml Inj 2 Ml) 1 mg IVP Q1H PRN PRN Reason: Sedation for Woody score < 4. Last Admin: 03/01/22 04:08 Dose: 1 mg Documented by: Morphine Sulfate (Morphine 4 Mg/Ml Sdv 1 Ml) 2 mg IVP Q1H PRN PRN Reason: BREAKTHROUGH PAIN Last Admin: 03/02/22 10:15 Dose: 2 mg Documented by: Mupirocin (Mupirocin Oint 22 Gm) 1 applic NASAL BID [facility] Last Admin: 03/02/22 08:03 Dose: Not Given Documented by: Naloxone HCl (Naloxone 0.4 Mg/Ml Sdv) 0.1 mg IVP Q2M PRN PRN Reason: OPIATERV Ondansetron HCl (Ondansetron 2 Mg/Ml Sdv 2 Ml) 4 mg IVP Q6H PRN PRN Reason: NAUSEA Oxycodone/Acetaminophen (Oxycodone-Apap 5-325 Mg Tablet) 1 - 2 tab PO Q6H PRN PRN Reason: MILD TO MODERATE PAIN Last Admin: 03/02/22 13:57 Dose: 2 tab Documented by: Promethazine HCl (Promethazine 25 Mg Supp) 25 mg [place] Q6H PRN PRN Reason: NAUSEA AND VOMITING Vitals/I&O/Wt Last Vital Signs Temp 99.1 F 03/02/22 09:34 Pulse 103 H 03/02/22 13:37 Resp 24 H 03/02/22 13:57 BP 150/53 03/02/22 13:37 Pulse Ox 94 03/02/22 13:57 03/01/22 03/02/22 03/02/22 22:59 06:59 14:59 Intake Total 2476.25 / 2873.744 920 / 3793.744 1830 / 1830 Output Total 1134 / 2414 669 / 3083 1255 / 1255 Balance 1342.25 / 459.744 251 / 710.744 575 / 575 Weight last 48 hrs Weight 294 lb 4 oz Weight 253 lb 2 oz Physical Exam Narrative: GENERAL: The patient is alert and oriented times three.? Not in any distress. HEENT: Mild pallor.? No icterus or lymphadenopathy. The pupils are symmetrical. Oral cavity: There are no mucous membrane lesions. Funduscopic examination: The disk margins appear to be sharp with no exudates or hemorrhages. NECK: Trachea appears to be central. No masses noted. No JVD or thyromegaly appreciated. No carotid bruit. RESPIRATORY: Chest is symmetrical. No intercostals muscle retraction or any accessory muscle activation. There is no chest wall tenderness. Breath sounds are heard bilaterally. Breath sounds are slightly diminished in the bases. BREASTS: Deferred. HEART: The first heart sound is variable. Second heart sound is normal. No S3. No pericardial rub. No significant murmurs ABDOMEN: No vessel pulsations or distention. No tenderness. No organomegaly appreciated. No abdominal bruit. Bowel sounds are normally heard. : Deferred. RECTAL: Deferred. LYMPHATIC: No lymphadenopathy noted in the neck or groin. EXTREMITIES: Generalized edema present MUSCULOSKELETAL: No acute joint deformities or swelling SKIN: There are no significant rashes. NEUROPSYCHIATRIC: The patient is alert and oriented x3. . The higher functions are grossly within normal limits. No focal motor deficits. Urinary Catheter Management: Oden: Cath Placed During This Visit: yes Reason for Continuing Indwelling Catheter: Accurate Measurement of Urinary Output in Critically Ill Patients Urinary Catheter Date of Insertion: 02/28/22 Urinary Catheter Time of Insertion: 07:00 Data : 03/02/22 02:55 03/02/22 02:55 Other Labs: Laboratory Last Values WBC 14.1 10^3/uL (4.0-10.0) H 03/02/22 02:55 RBC 3.26 10^6/uL (4.1-5.3) L 03/02/22 02:55 Hgb 8.6 g/dL (11.7-16.6) L 03/02/22 02:55 Hct 27.3 % (42.0-52.0) L 03/02/22 02:55 MCV 83.7 fl (80-94) 03/02/22 02:55 MCH 26.4 pg (28.0-34.0) L 03/02/22 02:55 MCHC 31.5 g/dL (30.0-36.0) 03/02/22 02:55 RDW 17.6 % (12.1-15.1) H 03/02/22 02:55 Plt Count 170 10^3/cmm (130-400) 03/02/22 02:55 MPV 9.4 fL (7.4-10.4) 03/02/22 02:55 Neut % (Auto) 77.5 % 03/02/22 02:55 Lymph % (Auto) 8.5 % 03/02/22 02:55 [place] % (Auto) 13.2 % 03/02/22 02:55 Eos % (Auto) 0.1 % 03/02/22 02:55 Baso % (Auto) 0.1 % 03/02/22 02:55 Neut # (Auto) 10.89 10^3/uL (1.8-7.7) H 03/02/22 02:55 Lymph # (Auto) 1.2 10^3/uL (0.8-4.8) 03/02/22 02:55 [place] # (Auto) 1.9 10^3/uL (0.2-0.9) H 03/02/22 02:55 Eos # (Auto) 0.0 10^3/uL (0.0-0.8) 03/02/22 02:55 Baso # (Auto) 0.0 10^3/uL (0.0-0.1) 03/02/22 02:55 Nucleated RBC % (auto) 0 % 03/02/22 02:55 Nucleated RBCs # 0.0 /100WBC 03/02/22 02:55 PT 14.60 SECONDS (12.1-14.9) 03/01/22 04:17 INR 1.11 (0.8-1.2) 03/01/22 04:17 APTT 25.9 SECONDS (23.9-36.7) 03/01/22 04:17 Specimen Type Arterial 03/01/22 03:48 Sample Site Not specified 03/01/22 03:48 ABG pH 7.43 (7.35-7.45) 03/01/22 03:48 ABG pCO2 32.3 mmHg (35-45) L 03/01/22 03:48 ABG pO2 55.4 mmHg (80.0-100.0) L 03/01/22 03:48 ABG HCO3 21.4 mmol/L (22-26) L 03/01/22 03:48 ABG O2 Saturation 91.3 03/01/22 03:48 ABG Base Excess -2.3 mmol/L (-2.0-2.0) L 03/01/22 03:48 Perry Test N/a 03/01/22 03:48 A-a O2 Gradient 24.6 mmHg (5-10) H 03/01/22 03:48 Hematocrit 30.3 % (42-52) L 03/01/22 03:48 Hgb O2 Saturation 89.5 % (95-100) L 03/01/22 03:48 Carboxyhemoglobin 1.2 %THgb (0.4-20.1) 03/01/22 03:48 Methemoglobin 0.7 % (0.4-1.5) 03/01/22 03:48 Total Hemoglobin 9.9 g/dL (14-18) L 03/01/22 03:48 Sodium 153.0 mmol/L (131-143) H 03/01/22 03:48 Potassium 3.7 mmol/L (3.5-5.0) 03/01/22 03:48 Glucose 127.0 mg/dL (70-115) H 03/01/22 03:48 Ionized Calcium 1.2 mmol/L (1.1-1.4) 03/01/22 03:48 O2 Delivery Device Vent 03/01/22 03:48 FiO2 40.0 % 03/01/22 03:48 Tidal Volume 0.60 03/01/22 03:48 PEEP 8.0 cmH20 03/01/22 03:48 Loan Underwriter ID Gray 03/01/22 03:48 Sodium 140 mmol/L (136-145) 03/02/22 02:55 Potassium 4.1 mmol/L (3.5-5.1) 03/02/22 02:55 Chloride 108 mmol/L (98-107) H 03/02/22 02:55 Carbon Dioxide 24 mmol/L (22-29) 03/02/22 02:55 Anion Gap 12.1 (5-19) 03/02/22 02:55 BUN 16 mg/dL (8-23) 03/02/22 02:55 Creatinine 1.0 mg/dL (0.7-1.2) 03/02/22 02:55 GFR Calculation Not Reportable 03/02/22 02:55 Glucose 112 mg/dL (65-115) 03/02/22 02:55 POC Glucose 99 mg/dL (70-110) 03/02/22 07:03 Calculated Osmolality 292 mOsm/kg (285-295) 03/02/22 02:55 Calcium 8.0 mg/dL (8.5-10.5) L 03/02/22 02:55 Magnesium 2.2 mg/dL (1.7-2.3) 03/02/22 02:55 Blood Type O Positive 03/02/22 07:35 Rho(D) Type Positive 03/02/22 07:35 Antibody Screen Negative 03/02/22 07:35 Crossmatch See Detail 03/02/22 07:35 A&P Assessment and plan (1) Status post aorto-coronary artery bypass graft: Patient is postop day #3; four-vessel coronary bypass surgery. Hemodynamically stable. Continue the as needed Lasix. Status: Acute (2) Atrial fibrillation with rapid ventricular response: Started on p.o. amiodarone 400 mg 3 times daily for 5 days followed by twice daily for 5 days followed by 400 mg daily. May continue on the current dose of metoprolol. Continue monitor the telemetry. Status: Acute (3) Atherosclerotic heart disease of [place] coronary artery with other forms of angina pectoris: Status post four-vessel bypass surgery, hemodynamically stable. We will restart all the medications. Status: Acute (4) Benign essential HTN: Currently normotensive. Will restart the lisinopril today. Status: Acute (5) Dyslipidemia: Start the Lipitor today. Status: Acute Plan Based on the clinical progress, further management decisions will be made. Attestations Medical Necessity Statement*: Patient requires continued hospital stay for close monitoring and further management Coding Level of Care Code Acute [place] Hand for [place] Vitale Diagnoses Status post aorto-coronary artery bypass graft Z95.1 Atrial fibrillation with rapid ventricular response I48.91 Atherosclerotic heart disease of [place] coronary artery with other forms of angina pectoris I25.118 Benign essential HTN I10 Dyslipidemia E78.5
[2022-03-02] MEDS: lisinopril 10 mg Tablet PO (14:50)
[2022-03-02] MEDS: atorvastatin 40 mg Tablet PO (19:28)
[2022-03-02 20:14] LABS: Glucose Point of Care 110 mg/dL (70-110)
[2022-03-02 20:14] LABS: Glucose Point of Care 105 mg/dL (70-110)
[2022-03-02 20:14] LABS: Glucose Point of Care 131 mg/dL (70-110)
[2022-03-02 20:14] LABS: Glucose Point of Care 121 mg/dL (70-110)
[2022-03-02 20:14] LABS: Glucose Point of Care 115 mg/dL (70-110)
[2022-03-02 20:14] LABS: Glucose Point of Care 120 mg/dL (70-110)
[2022-03-02 20:14] LABS: Glucose Point of Care 101 mg/dL (70-110)
[2022-03-02 20:14] LABS: Glucose Point of Care 122 mg/dL (70-110)
[2022-03-02 20:14] LABS: Glucose Point of Care 136 mg/dL (70-110)
[2022-03-02 20:14] LABS: Glucose Point of Care 129 mg/dL (70-110)
[2022-03-02 20:14] LABS: Glucose Point of Care 153 mg/dL (70-110)
[2022-03-02 20:27] LABS: Glucose Point of Care 121 mg/dL (70-110)
--- NOTE | 2022-03-02 21:17 | XRR_ITS ---
PROCEDURE INFORMATION: Exam: XR Chest Exam date and time: 03/02/2022 9:21 PM Age: 71 years old Clinical indication: Shortness of breath; Prior surgery; Surgery date: Post-operative (0-2 days); Surgery type: Open heart; Additional info: Hypoxia TECHNIQUE: Imaging protocol: XR of the chest. Views: 1 view. COMPARISON: CR XR chest 1V portable [id number] 03/02/2022 4:34 AM FINDINGS: Tubes, catheters and devices: Double lumen right central line with the tip of the short catheter in the right brachiocephalic vein in the tip of the long catheter in the right cavoatrial junction, stable in position. Mediastinal tubes are stable in position. Lungs: Interval development of patchy atelectasis versus pneumonia in the right and left lower lobes, worse on the left. Pleural spaces: No pleural effusion. No pneumothorax. Heart/Mediastinum: Stable moderate enlargement of the cardiac silhouette. Mediastinal contours are unremarkable. Vasculature: Stable vascular calcifications in the aorta. Bones/joints: Poststernotomy changes in the chest. Multiple old right rib fractures. Bones are diffusely osteopenic. Degenerative changes in the spine and shoulders. Patient has had a previous left mid clavicular fracture repair.Osseous findings are stable. XR/XR chest 1V portable [id number] IMPRESSION: 1. Interval development of patchy atelectasis versus pneumonia in the right and left lower lobes, worse on the left. Recommend followup chest imaging to insure resolution of these findings. 2. Incidental/nonacute findings are listed in the report.
[2022-03-02 21:48] LABS: Glucose Point of Care 101 mg/dL (70-110)
--- NOTE | 2022-03-02 22:00 | PC.NURSE ---
Dr. Ross at bedside. Reviewed chest xray obtained for low O2 sats. IV Lasix ordered. Reviewed vital signs, heart rhythm, I&O, and medications. Discussed plan of care, keep pain under control, reassess medications in AM in consultation with cardiology to manage A Fib.
[2022-03-02 22:33] LABS: Glucose Point of Care 114 mg/dL (70-110)
[2022-03-03] VITALS (112 sets, daily range): BP systolic 114–160; BP diastolic 72–121; PULSE 82–125; RESP 10–39; TEMP 36.3–37.2; O2SAT 77–100
[2022-03-03] MEDS: morphine 4 mg/mL SDV 1 mL 2 MG IVP ×9 (00:02→22:56)
[2022-03-03] MEDS: diphenhydrAMINE 25 mg Capsule PO (00:08)
[2022-03-03 00:43] LABS: Glucose Point of Care 94 mg/dL (70-110)
[2022-03-03] MEDS: oxyCODONE-APAP 5-325 mg Tablet PO ×4 (01:46→19:50)
[2022-03-03 01:47] LABS: Glucose Point of Care 95 mg/dL (70-110)
[2022-03-03 02:49] LABS: Glucose Point of Care 97 mg/dL (70-110)
[2022-03-03 03:55] LABS: Glucose Point of Care 98 mg/dL (70-110)
[2022-03-03 04:58] LABS: Glucose Point of Care 95 mg/dL (70-110)
[2022-03-03 05:01] LABS: Basophils % 0.2 %; Eosinophils # 0.2 10^3/uL (0.0-0.8); Eosinophils % 1.2 %; Hematocrit 32.9 % (42.0-52.0); Hemoglobin 10.3 g/dL (11.7-16.6); Lymphocytes # 1.4 10^3/uL (0.8-4.8); Lymphocytes % 11.4 %; Mean Corpuscular HGB Conc 31.3 g/dL (30.0-36.0); Mean Corpuscular Volume 86.1 fl (80-94); Mean Platelet Volume 9.7 fL (7.4-10.4); Monocytes # 1.2 10^3/uL (0.2-0.9); Monocytes % 9.7 %; Neutrophils # 9.26 10^3/uL (1.8-7.7); Neutrophils % 76.8 %; Nucleated Red Blood Cells % 0 %; Platelet Count 185 10^3/cmm (130-400); Red Blood Count 3.82 10^6/uL (4.1-5.3); Red Cell Distribution Width 16.8 % (12.1-15.1); White Blood Count 12.1 10^3/uL (4.0-10.0)
[2022-03-03 05:21] LABS: Anion Gap 12.6 (5-19); Blood Urea Nitrogen 21 mg/dL (8-23); Calcium 7.8 mg/dL (8.5-10.5); Carbon Dioxide 24 mmol/L (22-29); Chloride 102 mmol/L (98-107); Glucose 99 mg/dL (65-115); Osmolality Calculated 283 mOsm/kg (285-295); Potassium 3.6 mmol/L (3.5-5.1); Sodium 135 mmol/L (136-145)
[2022-03-03 05:57] LABS: Glucose Point of Care 92 mg/dL (70-110)
--- NOTE | 2022-03-03 06:00 | XRR_ITS ---
PROCEDURE INFORMATION: Exam: XR Chest Exam date and time: 03/03/2022 5:43 AM Age: 71 years old Clinical indication: Other: F/u cabg; Prior surgery; Surgery date: 3-7 days post-operative; Surgery type: F/u post op day 3 for cabg. ; Additional info: Postop day #3 status post cabg TECHNIQUE: Imaging protocol: XR of the chest. Views: 1 view. COMPARISON: CR (CHEST, ) 03/02/2022 9:21 PM FINDINGS: Tubes, catheters and devices: Right IJ central line tip overlies the right atrium. Overlying support devices again obscure the left lower hemithorax. Lungs: Low lung volumes with central vascular congestion. Streaky left basilar opacities are unchanged. No focal consolidation is appreciated. Pleural spaces: There may be a small left pleural effusion. No pneumothorax. Heart/Mediastinum: Right chest and apparent mediastinal drains grossly unchanged. Cardiac silhouette mildly enlarged. Bones/joints: Median sternotomy wires. Left clavicle plate and screws again noted. Multiple old right rib fractures redemonstrated. XR/XR chest 1V portable [id number] IMPRESSION: Expected postsurgical changes following CABG with support devices as described.. Persistent streaky left basilar opacities may represent pneumonitis or edema. Small effusion not excluded.
[2022-03-03 07:03] LABS: Glucose Point of Care 90 mg/dL (70-110)
--- NOTE | 2022-03-03 07:12 | PM.PN ---
Subjective Subjective: Postop day #3 status post CABG x4. Rested better last night. Unfortunately, remains in A. fib though heart rate is under better control averaging around 100. Chest tube output approximate 290 cc past 24 hours. Chest x-ray shows some resolution of what was either localized infusion or infiltrate in the left lower lobe just above the diaphragm. H&H has responded well to a 2 unit transfusion along with diuresis. Intake and output is slightly negative. Vitals/I&O/Wt Last Vital Signs Temp 98.9 F 03/02/22 23:00 Pulse 100 03/03/22 02:45 Resp 34 H 03/03/22 05:49 BP 140/98 03/03/22 02:45 Pulse Ox 94 03/03/22 05:49 03/02/22 03/03/22 03/03/22 22:59 06:59 14:59 Intake Total 795 / 2625 300 / 2925 Output Total 774 / 2313 920 / 3233 Balance 21 / 312 -620 / -308 Weight last 48 hrs Weight 294 lb 4 oz Physical Exam Chest: COMMONS NORMALS: normal inspection of the chest and normal palpation of entire chest wall OTHER: Chest wall is stable. Wound VAC dressing remains in place. Pleural and mediastinal drains are in position. Cordis and A-line were removed yesterday. Resp: OTHER: Improving respiratory effort though still needs some work. Cardio: RATE: tachycardic RHYTHM: abnormal rhythm irregularly irregular GI: COMMON NORMALS: Soft to palpation and non-tender AUSCULTATION: Yes Hypoactive bowel sounds present PALPATION: Yes Soft to palpation Extremity: OTHER: Resolving peripheral edema Neuro: COMMON NORMALS: moves all extremities, no focal motor deficits and no sensory deficits noted Urinary Catheter Management: Oden: Cath Placed During This Visit: yes Reason for Continuing Indwelling Catheter: Accurate Measurement of Urinary Output in Critically Ill Patients Urinary Catheter Date of Insertion: 02/28/22 Urinary Catheter Time of Insertion: 07:00 Data : 03/03/22 04:10 03/03/22 04:10 A&P Assessment and plan (1) Status post aorto-coronary artery bypass graft: I will make Mr. Vaughan n.p.o. this morning in case our cardiology colleagues decide that he should be cardioverted. I will also initiate Lovenox 1 mg/kg every 12 hours. CBC, BMP, chest x-ray in a.m. Out of bed If our cardiology colleagues do not recommend cardioversion, we will plan to separately transition to an oral anticoagulant., Currently continue beta-blockade and loading with oral amiodarone per recommendations of Dr. Castillo. Status: Acute Attestations Medical Necessity Statement*: Postop day #3 status post CABG x4. Postoperative atrial fibrillation Coding Level of Care Code Acute [place] Operator for Chg Fwd Diagnoses Status post aorto-coronary artery bypass graft Z95.1
[2022-03-03] MEDS: enoxaparin 150 mg/mL Syringe 130 MG SUBCUT (07:31)
[2022-03-03] MEDS: lisinopril 10 mg Tablet PO (08:42)
[2022-03-03] MEDS: mupirocin oint 22 gm 1 APPLIC NASAL ×2 (08:43→18:46)
[2022-03-03] MEDS: amiodarone 200 mg Tablet 400 MG PO ×3 (08:43→20:02)
[2022-03-03] MEDS: aspirin 81 mg Chew Tablet PO (08:43)
[2022-03-03] MEDS: potassium chloride premix 100 ML 25 MEQ IV (08:44)
[2022-03-03] MEDS: metoprolol tartrate 25 mg Tablet 50 MG PO (08:54)
[2022-03-03] MEDS: chlorhexidine gluconate 0.12% Btl 473 mL 15 ML MUCOUS MEM ×2 (08:55→18:45)
--- NOTE | 2022-03-03 09:44 | P.PN_ITS ---
Subjective Subjective: Patient is doing well. No chest pain. Heart rate is still uncontrolled. Vitals/I&O/Wt Last Vital Signs Temp 98.8 F 03/03/22 09:00 Pulse 112 H 03/03/22 09:00 Resp 37 H 03/03/22 09:00 BP 154/100 03/03/22 09:00 Pulse Ox 90 03/03/22 09:00 03/02/22 03/03/22 03/03/22 22:59 06:59 14:59 Intake Total 795 / 2625 400 / 3025 Output Total 774 / 2313 920 / 3233 300 / 300 Balance 21 / 312 -520 / -208 -300 / -300 Weight last 48 hrs Weight 242 lb 8 oz Weight 294 lb 4 oz Physical Exam Narrative: GENERAL: The patient is alert and oriented x3 NECK: No JVD RESPIRATORY: Clear to auscultation HEART: S1, S2, irregularly irregular, tachycardia EXTREMITIES: Generalized edema present MUSCULOSKELETAL: No acute joint deformities or swelling SKIN: There are no significant rashes. NEUROPSYCHIATRIC: The patient is alert and oriented x3. . The higher functions are grossly within normal limits.? No focal motor deficits. Urinary Catheter Management: Oden: Cath Placed During This Visit: yes Reason for Continuing Indwelling Catheter: Accurate Measurement of Urinary Output in Critically Ill Patients Urinary Catheter Date of Insertion: 02/28/22 Urinary Catheter Time of Insertion: 07:00 Data : 03/03/22 04:10 03/03/22 04:10 A&P Assessment and plan (1) Status post aorto-coronary artery bypass graft: Patient is postop day #4; four-vessel coronary bypass surgery. Patient has afib with RVR. Continue the as needed Lasix. Status: Acute (2) Atrial fibrillation with rapid ventricular response: Started on p.o. amiodarone 400 mg 3 times daily for 5 days followed by twice daily for 5 days followed by 400 mg daily. Heart rate is not controlled. We will uptitrate metoprolol to 100mg bid. Patient started on anticoagulation Status: Acute (3) Atherosclerotic heart disease of [place] coronary artery with other forms of angina pectoris: Status post four-vessel bypass surgery, hemodynamically stable. Continue current medications Status: Acute (4) Benign essential HTN: Currently normotensive. Continue lisinopril. Today we uptitrated the metoprolol dose. Status: Acute (5) Dyslipidemia: Start the Lipitor today. Status: Acute Plan Based on the clinical progress, further management decisions will be made. Attestations Medical Necessity Statement*: Care expected to cross 2 midnights. Coding Level of Care Code Acute Volunteer Services Coordinator for [place] Vitale Diagnoses Status post aorto-coronary artery bypass graft Z95.1 Atrial fibrillation with rapid ventricular response I48.91 Atherosclerotic heart disease of [place] coronary artery with other forms of angina pectoris I25.118 Benign essential HTN I10 Dyslipidemia E78.5
[2022-03-03] MEDS: metoprolol tartrate 50 mg Tablet PO (10:17)
--- NOTE | 2022-03-03 10:29 | DCPLANNER ---
IMM completed with pt on 03/03/22 @ 0091. Pt was given a copy of rights and stated he understood his rights.
[2022-03-03 11:24] LABS: Glucose Point of Care 102 mg/dL (70-110)
[2022-03-03] MEDS: docusate sodium 100 mg Capsule PO (12:39)
[2022-03-03] MEDS: lanolin oint 7 gm 1 APPLIC TOPICAL (15:24)
[2022-03-03 17:58] LABS: Glucose Point of Care 121 mg/dL (70-110)
[2022-03-03] MEDS: enoxaparin 100 mg/mL Syringe SUBCUT (19:55)
[2022-03-03] MEDS: atorvastatin 40 mg Tablet PO (20:02)
[2022-03-03] MEDS: metoprolol tartrate 50 mg Tablet 100 MG PO (20:02)
[2022-03-03 21:05] LABS: Glucose Point of Care 123 mg/dL (70-110)
[2022-03-04] VITALS (45 sets, daily range): BP systolic 121–158; BP diastolic 74–114; PULSE 88–121; RESP 15–38; TEMP 36.4–37.4; O2SAT 87–99
[2022-03-04] MEDS: morphine 4 mg/mL SDV 1 mL 2 MG IVP ×3 (00:30→05:03)
[2022-03-04] MEDS: labetalol 5 mg/mL SDV 20mL 10 MG IVP (01:07)
[2022-03-04] MEDS: oxyCODONE-APAP 5-325 mg Tablet PO ×4 (01:46→19:41)
[2022-03-04 04:13] LABS: Basophils % 0.2 %; Eosinophils # 0.2 10^3/uL (0.0-0.8); Eosinophils % 1.9 %; Hematocrit 35.6 % (42.0-52.0); Hemoglobin 11.1 g/dL (11.7-16.6); Lymphocytes # 1.2 10^3/uL (0.8-4.8); Lymphocytes % 11.1 %; Mean Corpuscular HGB Conc 31.2 g/dL (30.0-36.0); Mean Corpuscular Hemoglobin 27.1 pg (28.0-34.0); Mean Corpuscular Volume 86.8 fl (80-94); Mean Platelet Volume 9.3 fL (7.4-10.4); Monocytes # 1.2 10^3/uL (0.2-0.9); Monocytes % 10.9 %; Neutrophils # 8.18 10^3/uL (1.8-7.7); Neutrophils % 75.1 %; Nucleated Red Blood Cells % 0.2 %; Platelet Count 216 10^3/cmm (130-400); Red Cell Distribution Width 16.9 % (12.1-15.1); White Blood Count 10.9 10^3/uL (4.0-10.0)
[2022-03-04 04:29] LABS: Anion Gap 12.8 (5-19); Blood Urea Nitrogen 19 mg/dL (8-23); Calcium 7.5 mg/dL (8.5-10.5); Carbon Dioxide 24 mmol/L (22-29); Chloride 104 mmol/L (98-107); Glucose 145 mg/dL (65-115); Osmolality Calculated 289 mOsm/kg (285-295); Potassium 3.8 mmol/L (3.5-5.1); Sodium 137 mmol/L (136-145)
--- NOTE | 2022-03-04 06:00 | XRR_ITS ---
PROCEDURE INFORMATION: Exam: XR Chest Exam date and time: 03/04/2022 4:34 AM Age: 71 years old Clinical indication: Other: Follow up; Prior surgery; Surgery date: 3-7 days post-operative; Surgery type: Cabg; Additional info: Pod#4 S/P cabg. . . Afib TECHNIQUE: Imaging protocol: XR of the chest. Views: 1 view. COMPARISON: CR (CHEST, ) 03/03/2022 5:43 AM FINDINGS: Tubes, catheters and devices: Previously seen right central venous catheter has been removed in the interval. Lungs: No definite CHF/pulmonary edema. Poor inspiration somewhat limits evaluation, especially of the lung bases. Mild left lower lung opacities may represent atelectasis and/or pneumonitis. The appearance is similar to the prior exam. Visible lungs otherwise appear essentially clear. Pleural spaces: No visible pneumothorax. There could be a small left pleural effusion, similar to prior exam. Heart/Mediastinum: Stable heart size, mildly prominent. Bones/joints: Prior median sternotomy. Old right rib fractures and left clavicle fracture again noted. XR/XR chest 1V portable [id number] IMPRESSION: 1. Mild left lower lung opacities, see above discussion 2. No definite CHF/pulmonary edema. 3. Other findings discussed above.
[2022-03-04 07:21] LABS: Glucose Point of Care 125 mg/dL (70-110)
[2022-03-04] MEDS: enoxaparin 100 mg/mL Syringe SUBCUT ×2 (08:07→19:54)
[2022-03-04] MEDS: mupirocin oint 22 gm 1 APPLIC NASAL ×3 (08:07→19:39)
[2022-03-04] MEDS: amiodarone 200 mg Tablet 400 MG PO ×3 (08:09→21:02)
[2022-03-04] MEDS: aspirin 81 mg Chew Tablet PO (08:09)
[2022-03-04] MEDS: chlorhexidine gluconate 0.12% Btl 473 mL 15 ML MUCOUS MEM ×2 (08:09→18:25)
[2022-03-04] MEDS: lisinopril 10 mg Tablet PO (08:09)
[2022-03-04] MEDS: metoprolol tartrate 50 mg Tablet 100 MG PO ×2 (08:11→21:02)
--- NOTE | 2022-03-04 09:34 | PM.PN ---
Subjective Subjective: Patient is feeling better. Heart rate is better controlled with increased dose of metoprolol Vitals/I&O/Wt Last Vital Signs Temp 97.7 F 03/04/22 09:00 Pulse 105 H 03/04/22 09:00 Resp 17 03/04/22 09:00 BP 149/79 03/04/22 09:00 Pulse Ox 95 03/04/22 09:00 03/03/22 03/04/22 03/04/22 22:59 06:59 14:59 Intake Total 310 / 810 120 / 930 240 / 240 Output Total 445 / 1290 5 / 1975 300 / 300 Balance -135 / -480 -565 / -1045 -60 / -60 Weight last 48 hrs Weight 242 lb 8 oz Physical Exam Narrative: GENERAL: The patient is alert and oriented x3 NECK: No JVD RESPIRATORY: Clear to auscultation HEART: S1, S2, irregularly irregular, tachycardia EXTREMITIES: Generalized edema present MUSCULOSKELETAL: No acute joint deformities or swelling SKIN: There are no significant rashes. NEUROPSYCHIATRIC: The patient is alert and oriented x3. . The higher functions are grossly within normal limits.? No focal motor deficits. Urinary Catheter Management: Oden: Cath Placed During This Visit: yes Reason for Continuing Indwelling Catheter: Accurate Measurement of Urinary Output in Critically Ill Patients Urinary Catheter Date of Insertion: 02/28/22 Urinary Catheter Time of Insertion: 07:00 Data : 03/04/22 03:43 03/04/22 03:43 A&P Assessment and plan (1) Status post aorto-coronary artery bypass graft: Patient is postop day #5; four-vessel coronary bypass surgery. Patient has afib with RVR. Heart rates are improved with increased dose of metoprolol at 100mg BID. Continue the as needed Lasix. Status: Acute (2) Atrial fibrillation with rapid ventricular response: Started on p.o. amiodarone 400 mg 3 times daily for 5 days followed by twice daily for 5 days followed by 400 mg daily. Heart rate is better controlled with metoprolol 100mg bid. Patient started on anticoagulation. If heart rates remain uncontrolled, can consider JACKLYN/ DCCV Status: Acute (3) Atherosclerotic heart disease of [place] coronary artery with other forms of angina pectoris: Status post four-vessel bypass surgery, hemodynamically stable. Continue current medications Status: Acute (4) Benign essential HTN: Currently normotensive. Continue lisinopril. Today we uptitrated the metoprolol dose. Status: Acute (5) Dyslipidemia: On Lipitor. Status: Acute Plan Based on the clinical progress, further management decisions will be made. Attestations Medical Necessity Statement*: Care expected to cross 2 midnights. Coding Level of Care Code Acute Hand Suture Winder for [place] Vitale Diagnoses Status post aorto-coronary artery bypass graft Z95.1 Atrial fibrillation with rapid ventricular response I48.91 Atherosclerotic heart disease of [place] coronary artery with other forms of angina pectoris I25.118 Benign essential HTN I10 Dyslipidemia E78.5
[2022-03-04 11:21] LABS: Glucose Point of Care 154 mg/dL (70-110)
[2022-03-04] MEDS: insulin lispro 100 unit/1 mL SUBCUT ×2 (11:37→21:02)
--- NOTE | 2022-03-04 12:06 | PM.PN ---
Subjective Subjective: Postop day #4 status post CABG x4. Up in chair on rounds, having lunch. Mr. Vaughan appears to be in very good spirits and is quite conversive this morning. He has ambulated in the ICU with assistance. He is passing flatus though no BM as of yet. Chest tube output does continue to decreased, though he remains in A. fib with heart rate under slowly improving control. Chest tube output is more serous over the past 24 hours. Intake and output past 24 hours is -1 L. Chest tube output did increase somewhat after anticoagulation added to 395 cc past 24 hours. Hemoglobin is stable. White count is down to 10.9 thousand. Platelet count is stable at 216,000. Chest x-ray again reveals some mild opacification in the left pleural space bed and lower for the costodiaphragmatic angle. Infiltrate versus retained effusion must be considered. Otherwise, mediastinum and cardiac silhouette are stable. Vitals/I&O/Wt Last Vital Signs Temp 97.7 F 03/04/22 11:00 Pulse 98 03/04/22 11:00 Resp 17 03/04/22 11:00 BP 122/80 03/04/22 11:00 Pulse Ox 99 03/04/22 11:00 03/03/22 03/04/22 03/04/22 22:59 06:59 14:59 Intake Total 310 / 810 120 / 930 240 / 240 Output Total 445 / 1290 685 / 1975 550 / 550 Balance -135 / -480 -565 / -1045 -310 / -310 Weight last 48 hrs Weight 242 lb 8 oz Physical Exam Const: COMMON NORMALS: patient oriented x3 Chest: OTHER: Wound VAC dressings remain in position. Pleural drains remain in position as well along with mediastinal drains. All central lines have been discontinued including Cordis. Arterial line has been discontinued. Resp: OTHER: Improving respiratory effort though still some decreased breath sounds in the bases Cardio: COMMON NORMALS: S1 normal heart sound present RHYTHM: abnormal rhythm irregularly irregular HEART SOUNDS: S1 normal heart sound present, no gallops and no murmurs GI: COMMON NORMALS: Normal to inspection, nondistended, normoactive bowel sounds present Extremity: OTHER: Resolving lower extremity edema Neuro: COMMON NORMALS: patient oriented x3, no focal motor deficits and no sensory deficits noted OTHER: Able to ambulate with assistance to protect support lines Urinary Catheter Management: Oden: Cath Placed During This Visit: yes Reason for Continuing Indwelling Catheter: Accurate Measurement of Urinary Output in Critically Ill Patients Urinary Catheter Date of Insertion: 02/28/22 Urinary Catheter Time of Insertion: 07:00 Data : 03/04/22 03:43 03/04/22 03:43 A&P Assessment and plan (1) Atherosclerotic heart disease of [place] coronary artery with other forms of angina pectoris: Status: Acute Plan Postop day #4 status post CABG x4 with postop A. fib with improving ventricular response Plan currently continuing full anticoagulation with Lovenox which will tend to keep the chest tube output higher than normal for this time a. Postop and will require longer need for drains. Continue ICU care Greatly appreciate expertise and oversight of Dr. Brambila. Attestations Medical Necessity Statement*: Postop day #4 status post CABG x4 with postop A. fib Coding Level of Care Code Acute Computed Tomography Technologist for [place] Vitale Diagnoses Atherosclerotic heart disease of [place] coronary artery with other forms of angina pectoris I25.118
[2022-03-04 17:09] LABS: Glucose Point of Care 117 mg/dL (70-110)
[2022-03-04] MEDS: morphine 4 mg/mL SDV 1 mL IVP ×2 (19:40→21:37)
[2022-03-04 20:32] LABS: Glucose Point of Care 146 mg/dL (70-110)
[2022-03-04] MEDS: atorvastatin 40 mg Tablet PO (21:02)
[2022-03-05] VITALS (40 sets, daily range): BP systolic 120–172; BP diastolic 31–115; PULSE 61–122; RESP 15–32; TEMP 36.6–37.4; O2SAT 89–98
[2022-03-05] MEDS: morphine 4 mg/mL SDV 1 mL IVP ×4 (00:33→14:22)
[2022-03-05] MEDS: oxyCODONE-APAP 5-325 mg Tablet PO ×4 (04:11→23:53)
[2022-03-05 05:01] LABS: Basophils % 0.3 %; Eosinophils # 0.2 10^3/uL (0.0-0.8); Eosinophils % 1.6 %; Hematocrit 36.1 % (42.0-52.0); Hemoglobin 11.2 g/dL (11.7-16.6); Lymphocytes # 1.2 10^3/uL (0.8-4.8); Lymphocytes % 10.4 %; Mean Corpuscular Hemoglobin 26.4 pg (28.0-34.0); Mean Corpuscular Volume 84.9 fl (80-94); Mean Platelet Volume 9.8 fL (7.4-10.4); Monocytes # 1.1 10^3/uL (0.2-0.9); Monocytes % 9.6 %; Neutrophils # 8.52 10^3/uL (1.8-7.7); Neutrophils % 77.2 %; Nucleated Red Blood Cells % 0.2 %; Platelet Count 295 10^3/cmm (130-400); Red Blood Count 4.25 10^6/uL (4.1-5.3); Red Cell Distribution Width 17.1 % (12.1-15.1)
[2022-03-05 05:16] LABS: Anion Gap 14.3 (5-19); Blood Urea Nitrogen 14 mg/dL (8-23); Carbon Dioxide 25 mmol/L (22-29); Chloride 99 mmol/L (98-107); Glucose 162 mg/dL (65-115); Osmolality Calculated 284 mOsm/kg (285-295); Potassium 3.3 mmol/L (3.5-5.1); Sodium 135 mmol/L (136-145)
--- NOTE | 2022-03-05 06:00 | XR_ITS ---
WS: [id number] Portable AP upright chest, 03/04/2022 Clinical Data: POD #5 status post CABG; postop A. fib; left effusion/infilt Comparison: Portable chest, 03/04/2022. Findings: No nodules, masses or effusions are seen. The heart is slightly enlarged. Midline sternotom y sutures are present. No pneumonia or pneumothorax is seen. Monitor wires overlying the left chest. Monitor leads are on the chest wall. There is internal fixation of an old left midclavicular fracture . The old posterior lateral right sixth and seventh rib fractures are seen. There is a right chest tu be overlying the inferior aspect of the right lung. XR/XR chest 1V portable [id number] Impression: No change from yesterday's portable chest.
[2022-03-05] MEDS: potassium chloride premix 100 ML 25 MEQ IV (06:47)
--- NOTE | 2022-03-05 07:00 | PM.PN ---
Subjective Subjective: Postop day #5 status post CABG x4. Up in chair and sleeping on rounds this morning. Chest tube output approximate 290 cc past 24 hours. Chest tube drainage has become substantially more serous. Chest x-ray reveals resolution of the opacification of the left costodiaphragmatic angle. Mediastinum and cardiac silhouette remains stable. Unfortunate, remains in A. fib with heart rate around 100. Otherwise, vital signs are stable. Lab was reviewed this morning. Hypokalemia at 3.3 is noted. Vitals/I&O/Wt Last Vital Signs Temp 98.6 F 03/05/22 00:00 Pulse 102 H 03/05/22 06:00 Resp 18 03/05/22 06:00 BP 124/77 03/05/22 06:00 Pulse Ox 93 03/05/22 06:00 03/04/22 03/05/22 03/05/22 22:59 06:59 14:59 Intake Total 675 / 1275 460 / 1735 Output Total 1125 / 1735 605 / 2340 Balance -450 / -460 -145 / -605 Physical Exam Chest: COMMONS NORMALS: normal inspection of the chest and normal palpation of the breasts OTHER: Chest wall is stable. Wound VAC dressings and drains remain in position. Resp: COMMON NORMALS: normal respiratory effort and clear to auscultation bilaterally AUSCULTATION: clear to auscultation bilaterally Cardio: RATE: tachycardic RHYTHM: abnormal rhythm irregularly irregular Urinary Catheter Management: Oden: Cath Placed During This Visit: yes Reason for Continuing Indwelling Catheter: Accurate Measurement of Urinary Output in Critically Ill Patients Urinary Catheter Date of Insertion: 02/28/22 Urinary Catheter Time of Insertion: 07:00 Data : 03/05/22 04:31 03/05/22 04:31 A&P Assessment and plan (1) Status post aorto-coronary artery bypass graft: Postop day #5 status post CABG x4 Plan: I will hold the next dose of Lovenox in preparation for planned chest tube and pacing wire removal this evening if chest tube output continues to decrease. Rhythm management per recommendation of our cardiology colleagues. Status: Acute Attestations Medical Necessity Statement*: Postop day #5 status post CABG with postoperative A. fib Coding Level of Care Code Acute Speech Therapist Technician for Chg Fwd Diagnoses Status post aorto-coronary artery bypass graft Z95.1
[2022-03-05 07:14] LABS: Glucose Point of Care 115 mg/dL (70-110)
[2022-03-05] MEDS: amiodarone 200 mg Tablet 400 MG PO ×3 (08:53→20:08)
[2022-03-05] MEDS: metoprolol tartrate 50 mg Tablet 100 MG PO ×2 (08:53→20:08)
[2022-03-05] MEDS: lisinopril 10 mg Tablet PO (08:54)
[2022-03-05] MEDS: aspirin 81 mg Chew Tablet PO (08:54)
--- NOTE | 2022-03-05 09:31 | PC.CHAP ---
Pastoral Care Encounter/Spiritual Assessment Type of Contact [] Declined technical services librarian visit [] Patient/Family/Request visit [] Outpatient visit [] Follow-up visit [] Physician referral [] Code/Alert [x] Routine visit [] Staff referral [] Actively dying [] Patient sleeping [] Family support [] [] Out of room [] Palliative care [] [] Receiving care in room [] Pre-surgical visit [] Trauma [] Long length of stay [x] ICU visit [x] Other: setting in chair... looking forward to some improvement Relational/Emotional Strength [] Patient feels connected with others/family/visitors/staff [] Distress [] Loneliness/isolation [] Abandonment Spirituality of Patient [] Person of Mary [] Attends Islam of their Mary [] Believes in Prayer [] Reads Bible or Mu-Ism materials [] There are Spiritual issues to be addressed Senior Occupational Therapist Interventions [x] Prayer [x] Active listening [x] Non-anxious presence [x] Spiritual/emotional support [] Crisis/trauma care [] Spiritual counseling [] Bereavement support [] Provided bereavement packet [] Provided Bible/devotional materials [] Provided toy/stuffed animal, coloring book to patient or family member [] Provided Communion [] Anointing/[place] [] Salvation [x] Completed spiritual assessment [] Other: Impact on Illness or Injury [] Angry [] Fearful [] Anxious [] Often cries [] Exhaustion [] Unable to work [] Unable to attend sikhism [] Unable to walk/stand [] Unable to read [] Unable to drive [] Unable to eat/drink [] Unable to sleep [] Unable to be with family [] Patient intubated [] Other: Summary Time spent with patient
[2022-03-05 11:00] LABS: Glucose Point of Care 171 mg/dL (70-110)
--- NOTE | 2022-03-05 11:16 | PC.SOCIAL ---
IMM Update Pg. 2 of IMM updated and reviewed with patient, who verbalized understanding. Copy provided.
--- NOTE | 2022-03-05 11:53 | P.PN_ITS ---
Subjective Subjective: Patient is feeling better.Heart rates staying around 100bpm Vitals/I&O/Wt Last Vital Signs Temp 97.8 F 03/05/22 07:00 Pulse 96 03/05/22 11:00 Resp 19 H 03/05/22 11:00 BP 136/31 03/05/22 11:00 Pulse Ox 90 03/05/22 11:00 03/04/22 03/05/22 03/05/22 22:59 06:59 14:59 Intake Total 675 / 1275 460 / 1735 325.417 / 325.417 Output Total 1125 / 1735 605 / 2340 270 / 270 Balance -450 / -460 -145 / -605 55.417 / 55.417 Physical Exam Narrative: GENERAL: The patient is alert and oriented x3 NECK: No JVD RESPIRATORY: Clear to auscultation HEART: S1, S2, irregularly irregular, tachycardia EXTREMITIES: Generalized edema present MUSCULOSKELETAL: No acute joint deformities or swelling SKIN: There are no significant rashes. NEUROPSYCHIATRIC: The patient is alert and oriented x3. . The higher functions are grossly within normal limits.? No focal motor deficits. Urinary Catheter Management: Oden: Cath Placed During This Visit: yes, but has since been removed by the nurse Reason for Continuing Indwelling Catheter: Decision to DC Catheter Urinary Catheter Date of Insertion: 02/28/22 Urinary Catheter Time of Insertion: 07:00 Date Urinary Catheter Removed: 03/05/22 Time Urinary Catheter Discontinued: 09:00 Data : 03/05/22 04:31 03/05/22 15:18 A&P Assessment and plan (1) Status post aorto-coronary artery bypass graft: Patient is postop day #6; four-vessel coronary bypass surgery. Patient has afib with RVR. Heart rates are improved with increased dose of metoprolol at 100mg BID. Will add digoxin tomorrow if heart rates are still uncontrolled. Continue the as needed Lasix. Status: Acute (2) Atrial fibrillation with rapid ventricular response: Started on p.o. amiodarone 400 mg 3 times daily for 5 days followed by twice daily for 5 days followed by 400 mg daily. Heart rate is better controlled with metoprolol 100mg bid. Anticoagulation held for now per CT surgery team.Will start digoxin tomorrow if heart rates remain uncontrolled. DCCV can be considered when anticoagulation can be continued uninterrupted for atleast 4 weeks Status: Acute (3) Atherosclerotic heart disease of [place] coronary artery with other forms of angina pectoris: Status post four-vessel bypass surgery, hemodynamically stable. Continue current medications Status: Acute (4) Benign essential HTN: Currently normotensive. Continue lisinopril. Continue current metoprolol dose Status: Acute (5) Dyslipidemia: On Lipitor. Status: Acute Plan Based on the clinical progress, further management decisions will be made. Attestations Medical Necessity Statement*: Care expected to cross 2 midnights. Coding Level of Care Code Acute Hospital Ward Clerk for Rosalindg Fwd Diagnoses Status post aorto-coronary artery bypass graft Z95.1 Atrial fibrillation with rapid ventricular response I48.91 Atherosclerotic heart disease of [place] coronary artery with other forms of angina pectoris I25.118 Benign essential HTN I10 Dyslipidemia E78.5
[2022-03-05] MEDS: insulin lispro 100 unit/1 mL SUBCUT ×2 (11:54→17:12)
[2022-03-05 15:48] LABS: Potassium 3.5 mmol/L (3.5-5.1)
[2022-03-05 16:44] LABS: Glucose Point of Care 175 mg/dL (70-110)
--- NOTE | 2022-03-05 16:49 | PM.MISC ---
Miscellaneous Note Purpose of Documentation: Remains in atrial fibrillation with heart rate between 100-110. Blood pressure is stable. He is in very good spirits. Less sternotomy discomfort. Chest tube output appears to be approximate 150 cc since shift change this morning at 6:30 AM. Drainage is considerably more serous now. I would continue to hold Lovenox and will either consideration for removal of the drains and pacing wires later today or tomorrow pending chest tube output. I recommended to continue holding Lovenox for now. Patient has been seen by Dr. Brambila. Awaiting decision concerning whether to proceed with plans for chronic coagulation for atrial fibrillation or consideration for possible cardioversion. If cardioversion is considered, I would like to delay removing chest tubes until after this occurs related to the intense muscle contraction across the chest wall associated with electrocardioversion.
[2022-03-05] MEDS: mupirocin oint 22 gm 1 APPLIC NASAL (17:12)
[2022-03-05] MEDS: atorvastatin 40 mg Tablet PO (20:08)
[2022-03-05 20:17] LABS: Glucose Point of Care 131 mg/dL (70-110)
[2022-03-06] VITALS (55 sets, daily range): BP systolic 115–180; BP diastolic 56–111; PULSE 57–128; RESP 2–35; TEMP 36.8; O2SAT 80–98
[2022-03-06] MEDS: bisacodyl 5 mg Tablet PO (06:00)
[2022-03-06] MEDS: lactulose oral liq 20 gm/30 mL UDC 30 GM PO (06:00)
--- NOTE | 2022-03-06 06:00 | P.PN_ITS ---
Subjective Subjective: Postop day #6 status post CABG x4. Patient is sleeping on rounds up in a chair this morning. Chest tube output 220 cc reported over the past 24 hours. Drainage is now serous. Lovenox has been held for the past day. Current rhythm is still A. fib with a heart rate of up to 110 bpm. Nurses repor t that while he was sleeping overnight, his rhythm did briefly convert to sinus rhythm. While in sinus, he was bradycardic at 50 to 60 bpm. Nice diuresis spontaneously over the past 24 hours of -1.5 L. Vitals/I&O/Wt Last Vital Signs Temp 99.3 F 03/05/22 19:50 Pulse 116 H 03/06/22 05:30 Resp 21 H 03/06/22 05:30 BP 149/111 03/06/22 05:13 Pulse Ox 95 03/06/22 05:30 03/05/22 03/05/22 03/06/22 14:59 22:59 06:59 Intake Total 670.000 / 670.000 480 / 1150.000 Output Total 545 / 545 770 / 1315 1160 / 2475 Balance 125.000 / 125.000 -770 / -645.000 -680 / -1325.000 Physical Exam Chest: OTHER: Wound VAC dressing and support lines remain in position. Urinary Catheter Management: Oden: Cath Placed During This Visit: yes, but has since been removed by the nurse Reason for Continuing Indwelling Catheter: Decision to DC Catheter Urinary Catheter Date of Insertion: 02/28/22 Urinary Catheter Time of Insertion: 07:00 Date Urinary Catheter Removed: 03/05/22 Time Urinary Catheter Discontinued: 09:00 Data : 03/05/22 04:31 03/05/22 15:18 A&P Assessment and plan (1) Atherosclerotic heart disease of [place] coronary artery with other forms of angina pectoris: Postop day #6 that is post CABG Plan: After breakfast and the patient has ambulated this morning, I will plan to remove all drains, pacing wires, and wound VAC. Rhythm management per our cardiology colleagues. Status: Acute Attestations Medical Necessity Statement*: Postop day #6 status post CABG Coding Level of Care Code Acute Crm System Administrator for [place] Vitale Diagnoses Atherosclerotic heart disease of [place] coronary artery with other forms of angina pectoris I25.118
[2022-03-06 07:38] LABS: Glucose Point of Care 127 mg/dL (70-110)
--- NOTE | 2022-03-06 07:47 | P.PN_ITS ---
Subjective Subjective: Patient converted to Normal sinus rhythm today. Chest tubes removed Vitals/I&O/Wt Last Vital Signs Temp 99.3 F 03/05/22 19:50 Pulse 110 H 03/06/22 06:00 Resp 20 H 03/06/22 06:00 BP 151/87 03/06/22 06:00 Pulse Ox 93 03/06/22 06:00 03/05/22 03/06/22 03/06/22 22:59 06:59 14:59 Intake Total 960 / 1630.000 Output Total 770 / 1315 1510 / 2825 Balance -770 / -645.000 -550 / -1195.000 Physical Exam Narrative: GENERAL: The patient is alert and oriented x3 NECK: No JVD RESPIRATORY: Clear to auscultation HEART: S1, S2, irregularly irregular, tachycardia EXTREMITIES: Generalized edema present MUSCULOSKELETAL: No acute joint deformities or swelling SKIN: There are no significant rashes. NEUROPSYCHIATRIC: The patient is alert and oriented x3. . The higher functions are grossly within normal limits.? No focal motor deficits. Urinary Catheter Management: Oden: Cath Placed During This Visit: yes, but has since been removed by the nurse Reason for Continuing Indwelling Catheter: Decision to DC Catheter Urinary Catheter Date of Insertion: 02/28/22 Urinary Catheter Time of Insertion: 07:00 Date Urinary Catheter Removed: 03/05/22 Time Urinary Catheter Discontinued: 09:00 Data : 03/05/22 04:31 03/05/22 15:18 A&P Assessment and plan (1) Status post aorto-coronary artery bypass graft: Patient is postop day #7; four-vessel coronary bypass surgery. Patient has afib with RVR. Heart rates are improved with increased dose of metoprolol at 100mg BID. Plan for digoxin in case he does not stay in NS R Status: Acute (2) Atrial fibrillation with rapid ventricular response: Started on p.o. amiodarone 400 mg 3 times daily for 5 days followed by twice daily for 5 days followed by 400 mg daily. Heart rate is better controlled with metoprolol 100mg bid. Anticoagulation held for now per CT surgery team.Will start digoxin if heart rates remain uncontrolled. DCCV can be considered when anticoagulation can be continued uninterrupted for atleast 4 weeks Status: Acute (3) Atherosclerotic heart disease of [place] coronary artery with other forms of angina pectoris: Status post four-vessel bypass surgery, hemodynamically stable. Continue current medications Status: Acute (4) Benign essential HTN: Currently normotensive. Continue lisinopril. Continue current metoprolol dose Status: Acute (5) Dyslipidemia: On Lipitor. Status: Acute Plan Based on the clinical progress, further management decisions will be made. Attestations Medical Necessity Statement*: Care expected to cross 2 midnights, Coding Level of Care Code Acute Recording Studio Setup Worker for [place] Vitale Diagnoses Status post aorto-coronary artery bypass graft Z95.1 Atrial fibrillation with rapid ventricular response I48.91 Atherosclerotic heart disease of [place] coronary artery with other forms of angina pectoris I25.118 Benign essential HTN I10 Dyslipidemia E78.5
[2022-03-06] MEDS: mupirocin oint 22 gm 1 APPLIC NASAL (08:10)
[2022-03-06] MEDS: amiodarone 200 mg Tablet 400 MG PO ×3 (08:10→20:19)
[2022-03-06] MEDS: aspirin 81 mg Chew Tablet PO (08:10)
[2022-03-06] MEDS: lisinopril 10 mg Tablet PO (08:10)
[2022-03-06] MEDS: metoprolol tartrate 50 mg Tablet 100 MG PO (08:10)
[2022-03-06] MEDS: bismuth subsalicylate 240 mL Btl 30 ML PO (08:23)
--- NOTE | 2022-03-06 08:44 | PC.NURSE ---
Patient reliant on staff for minor needs. Patient did get up and walk around unit with staff. Patient's heart rate is NSR while resting in chair. With movement such as walking or transferring to [facility] patient does go into afib. Dr. Brambila and Dr. Ross aware.
--- NOTE | 2022-03-06 08:46 | PC.NURSE ---
Dr. Ross rounded this morning and discussed possible removal of all drains today.
--- NOTE | 2022-03-06 08:46 | PC.NURSE ---
Patient requesting Equate 50mg of sleeping medication that is a blue pill. Nurse asked patient about what the actual medication was called and patient couldn't remember. Just called it equate which is the brand. Will inform customer success representative later, due to patient seemed irritated that staff didn't know what specific medication he was requesting.
--- NOTE | 2022-03-06 11:37 | PC.NURSE ---
Arrived from dental laboratory technology teacher approximately 1115, bilateral groin access site clean dry, covered with gauze and tega derm
[2022-03-06 11:56] LABS: Glucose Point of Care 165 mg/dL (70-110)
[2022-03-06] MEDS: insulin lispro 100 unit/1 mL SUBCUT ×3 (11:59→20:19)
[2022-03-06] MEDS: oxyCODONE-APAP 5-325 mg Tablet PO ×2 (13:49→20:21)
[2022-03-06 17:06] LABS: Glucose Point of Care 152 mg/dL (70-110)
[2022-03-06] MEDS: morphine 4 mg/mL SDV 1 mL IVP (17:41)
--- NOTE | 2022-03-06 18:02 | PC.NURSE ---
All tubes and wound vac removed by Dr. Ross.
--- NOTE | 2022-03-06 19:35 | PC.NURSE ---
Dr. Ross at bedside. Asked to hold lovenox tonight. Also patient wants 2 of his sleeping pills, not just one. Orders have been confirmed.
[2022-03-06 20:12] LABS: Glucose Point of Care 154 mg/dL (70-110)
[2022-03-06] MEDS: atorvastatin 40 mg Tablet PO (20:19)
[2022-03-07] VITALS (29 sets, daily range): BP systolic 110–174; BP diastolic 57–91; PULSE 62–126; RESP 7–39; TEMP 36.6–37.1; O2SAT 89–98
[2022-03-07] MEDS: oxyCODONE-APAP 5-325 mg Tablet PO ×4 (02:10→20:17)
[2022-03-07] MEDS: labetalol 5 mg/mL SDV 20mL 10 MG IVP (06:25)
[2022-03-07 07:26] LABS: Glucose Point of Care 147 mg/dL (70-110)
--- NOTE | 2022-03-07 07:34 | PM.PN ---
Subjective Subjective: LargePostop day #7. Plan drains removed yesterday. Wound VAC dressing removed. Sternotomy incision is clean, dry, and intact. While he was in sinus rhythm late yesterday, unfortunately, he has now returned to atrial fibrillation with a heart rate of over 100. He had several formed bowel movements yesterday. No diarrhea. Vitals/I&O/Wt Last Vital Signs Temp 98 F 03/07/22 04:00 Pulse 105 H 03/07/22 07:00 Resp 25 H 03/07/22 07:00 BP 123/84 03/07/22 07:00 Pulse Ox 94 03/07/22 07:00 03/06/22 03/07/22 03/07/22 22:59 06:59 14:59 Intake Total 600 / 1320 300 / 1620 Balance 600 / 1320 300 / 1620 Physical Exam Chest: OTHER: Chest wall is stable. Resp: COMMON NORMALS: No use of accessory muscles and clear to auscultation bilaterally AUSCULTATION: clear to auscultation bilaterally Cardio: RHYTHM: abnormal rhythm irregularly irregular Extremity: COMMON NORMALS: no clubbing, cyanosis or edema Urinary Catheter Management: Oden: Cath Placed During This Visit: yes, but has since been removed by the nurse Reason for Continuing Indwelling Catheter: Decision to DC Catheter Urinary Catheter Date of Insertion: 02/28/22 Urinary Catheter Time of Insertion: 07:00 Date Urinary Catheter Removed: 03/05/22 Time Urinary Catheter Discontinued: 09:00 Data : 03/05/22 04:31 03/05/22 15:18 A&P Assessment and plan (1) Status post aorto-coronary artery bypass graft: Postop day #7 status post CABG with intermittent atrial fibrillation. Plan: Will transfer to medical surgical [facility]. Discharge planning. Home health referral. Rhythm management per my cardiology colleagues. Betasept shower today. Hopefully discharge in the next 1 to 2 days. May resume chronic anticoagulation per recommendation of our cardiology colleagues. Status: Acute Attestations Medical Necessity Statement*: Status post CABG with postop A. fib Coding Level of Care Code Acute Account Installation Specialist for Rosalindg Fwd Diagnoses Status post aorto-coronary artery bypass graft Z95.1
[2022-03-07] MEDS: aspirin 81 mg Chew Tablet PO (07:52)
[2022-03-07] MEDS: amiodarone 200 mg Tablet 400 MG PO ×2 (07:52→17:15)
[2022-03-07] MEDS: metoprolol tartrate 50 mg Tablet 100 MG PO ×2 (07:53→20:16)
[2022-03-07] MEDS: insulin lispro 100 unit/1 mL SUBCUT (07:53)
[2022-03-07] MEDS: lisinopril 10 mg Tablet PO (07:53)
[2022-03-07] MEDS: digoxin 250 mcg/ml INJ 2 mL 500 MCG IVP (09:40)
[2022-03-07] MEDS: apixaban 5 mg Tablet PO ×2 (09:40→20:16)
--- NOTE | 2022-03-07 10:04 | PC.CHAP ---
Pastoral Care Encounter/Spiritual Assessment Type of Contact [] Declined technologist infectious disease visit [] Patient/Family/Request visit [] Outpatient visit [] Follow-up visit [] Physician referral [] Code/Alert [x] Routine visit [] Staff referral [] Actively dying [] Patient sleeping [] Family support [] [] Out of room [] Palliative care [] [] Receiving care in room [] Pre-surgical visit [] Trauma [] Long length of stay [x] ICU visit [] Other: Relational/Emotional Strength [] Patient feels connected with others/family/visitors/staff [] Distress [] Loneliness/isolation [] Abandonment Spirituality of Patient [] Person of Mary [] Attends Latter-Day of their Mary [] Believes in Prayer [] Reads Bible or Adventist materials [] There are Spiritual issues to be addressed Furnace Attendant Interventions [x] Prayer [x] Active listening [x] Non-anxious presence [x] Spiritual/emotional support [] Crisis/trauma care [] Spiritual counseling [] Bereavement support [] Provided bereavement packet [] Provided Bible/devotional materials [] Provided toy/stuffed animal, coloring book to patient or family member [] Provided Communion [] Anointing/[place] [] Salvation [x] Completed spiritual assessment [] Other: Impact on Illness or Injury [] Angry [] Fearful [] Anxious [] Often cries [] Exhaustion [] Unable to work [] Unable to attend zoroastrian [] Unable to walk/stand [] Unable to read [] Unable to drive [] Unable to eat/drink [] Unable to sleep [] Unable to be with family [] Patient intubated [] Other: Summary patient excited about recovery... walkibg.. being transferred to med surg.. then home where family will assist in his recovery Time spent with patient 15 min
--- NOTE | 2022-03-07 11:25 | PC.SOCIAL ---
IMM update IMM updated with patient. Verbalized an understanding. Copy Pg 2 provided. Initialled, dated, timed, and placed in chart.
[2022-03-07 12:15] LABS: Glucose Point of Care 127 mg/dL (70-110)
--- NOTE | 2022-03-07 12:20 | PC.NURSE ---
Report called to MARIPOSA Bond. No further questions.
[2022-03-07] MEDS: digoxin 250 mcg/ml INJ 2 mL IVP ×2 (14:03→20:19)
--- NOTE | 2022-03-07 14:10 | PC.NURSE ---
PT SAFELY TRANSFERRED UP TO MED-SURG ROOM 268. PT IS SITTING COMFORTABLY IN THE CHAIR. HIS SISTER IS AT BEDSIDE. PT IS IN SOME PAIN. THIS NURSE DID ASSESSMENT. PT IS IN AFIB. LUNGS SOUND CLEAR. ACTIVE B/S IN ALL 4 QUADS. NO SKIN ISSUES OTHER THAN SURGICAL INCISIONS. PT IS ALERT AND ORIENTATED. PT HAS BEEN HOOKED UP TO TELEMETRY AND IS BEING MONITORED. THIS NURSE ALSO GOT PT SOME PAIN MEDICATION PER HIS REQUEST AND RATING OF PAIN 8/10. WILL CONTINUE TO MONITOR AND CARE FOR PT.
[2022-03-07] MEDS: chlorhexidine gluconate 4% Btl 118 mL 1 APPLIC TOPICAL (15:39)
[2022-03-07] MEDS: mupirocin oint 22 gm 1 APPLIC NASAL (17:16)
--- NOTE | 2022-03-07 17:23 | P.PN_ITS ---
Subjective Subjective: Patient is feeling better. Has been transferred out of ICU Vitals/I&O/Wt Last Vital Signs Temp 98 F 03/07/22 04:00 Pulse 103 H 03/07/22 13:00 Resp 35 H 03/07/22 14:02 BP 143/91 03/07/22 13:00 Pulse Ox 96 03/07/22 14:02 03/07/22 03/07/22 03/07/22 06:59 14:59 22:59 Intake Total 300 / 1620 720 / 720 Balance 300 / 1620 720 / 720 Physical Exam Narrative: GENERAL: The patient is alert and oriented x3 NECK: No JVD RESPIRATORY: Clear to auscultation HEART: S1, S2, irregularly irregular, tachycardia EXTREMITIES: Generalized edema present MUSCULOSKELETAL: No acute joint deformities or swelling SKIN: There are no significant rashes. NEUROPSYCHIATRIC: The patient is alert and oriented x3. . The higher functions are grossly within normal limits.? No focal motor deficits. Urinary Catheter Management: Oden: Cath Placed During This Visit: yes, but has since been removed by the nurse Reason for Continuing Indwelling Catheter: Decision to DC Catheter Urinary Catheter Date of Insertion: 02/28/22 Urinary Catheter Time of Insertion: 07:00 Date Urinary Catheter Removed: 03/05/22 Time Urinary Catheter Discontinued: 09:00 Data : 03/05/22 04:31 03/05/22 15:18 A&P Assessment and plan (1) Status post aorto-coronary artery bypass graft: Patient is postop day #7; four-vessel coronary bypass surgery. Patient has afib with RVR. Yesterday he converted back to normal sinus rhythm. Again went into afib with RVR. Heart rates are improved with increased dose of metoprolol at 100mg BID. We will initiate digoxin today. Will be put on 125mcg daily starting tomorrow. Start eliquis 5 mg BID Status: Acute (2) Atrial fibrillation with rapid ventricular response: Started on p.o. amiodarone 400 mg 3 times daily for 5 days followed by twice daily for 5 days followed by 400 mg daily. Heart rate is better controlled with metoprolol 100mg bid. Anticoagulation held for now per CT surgery team.Will start digoxin if heart rates remain uncontrolled. DCCV can be considered when anticoagulation can be continued uninterrupted for atleast 4 weeks Status: Acute (3) Atherosclerotic heart disease of [place] coronary artery with other forms of angina pectoris: Status post four-vessel bypass surgery, hemodynamically stable. Continue current medications Status: Acute (4) Benign essential HTN: Currently normotensive. Continue lisinopril. Continue current metoprolol dose Status: Acute (5) Dyslipidemia: On Lipitor. Status: Acute Plan Based on the clinical progress, further management decisions will be made. Attestations Medical Necessity Statement*: Care expected to cross 2 midnights. Coding Level of Care Code Acute Trial Consultant for [place] Vitale Diagnoses Status post aorto-coronary artery bypass graft Z95.1 Atrial fibrillation with rapid ventricular response I48.91 Atherosclerotic heart disease of [place] coronary artery with other forms of angina pectoris I25.118 Benign essential HTN I10 Dyslipidemia E78.5
[2022-03-07] MEDS: diphenhydrAMINE 25 mg Capsule PO (20:16)
[2022-03-07] MEDS: atorvastatin 40 mg Tablet PO (20:16)
[2022-03-08] VITALS (10 sets, daily range): BP systolic 120–161; BP diastolic 65–73; PULSE 57–108; RESP 16–22; TEMP 36.7–37; O2SAT 93–96
[2022-03-08] MEDS: oxyCODONE-APAP 5-325 mg Tablet PO ×2 (01:54→09:21)
--- NOTE | 2022-03-08 08:38 | PM.PN ---
Subjective Subjective: Patient is doing well. Ambulating without symptoms Vitals/I&O/Wt Last Vital Signs Temp 98.1 F 03/08/22 08:19 Pulse 63 03/08/22 08:19 Resp 16 03/08/22 08:19 BP 153/73 03/08/22 08:19 Pulse Ox 95 03/08/22 08:19 03/07/22 03/08/22 03/08/22 22:59 06:59 14:59 Intake Total 480 / 1200 Balance 480 / 1200 Weight last 48 hrs Weight 237 lb 6.4 oz Physical Exam Narrative: GENERAL: The patient is alert and oriented x3 NECK: No JVD RESPIRATORY: Clear to auscultation HEART: S1, S2, irregularly irregular, tachycardia EXTREMITIES: Generalized edema present MUSCULOSKELETAL: No acute joint deformities or swelling SKIN: There are no significant rashes. NEUROPSYCHIATRIC: The patient is alert and oriented x3. . The higher functions are grossly within normal limits.? No focal motor deficits. Urinary Catheter Management: Oden: Cath Placed During This Visit: yes, but has since been removed by the nurse Reason for Continuing Indwelling Catheter: Decision to DC Catheter Urinary Catheter Date of Insertion: 02/28/22 Urinary Catheter Time of Insertion: 07:00 Date Urinary Catheter Removed: 03/05/22 Time Urinary Catheter Discontinued: 09:00 Data : 03/05/22 04:31 03/05/22 15:18 A&P Assessment and plan (1) Status post aorto-coronary artery bypass graft: Patient is postop day #8; four-vessel coronary bypass surgery. Heart rate is well controlled. Currently he is in normal sinus rhythm. Heart rates are improved with increased dose of metoprolol at 100mg BID. Continue eliquis. Continue amiodarone and metoprolol. Was put on digoxin that may be stopped later Status: Acute (2) Atrial fibrillation with rapid ventricular response: Started on p.o. amiodarone 400 mg 3 times daily for 5 days followed by twice daily for 5 days followed by 400 mg daily. Heart rate is better controlled with metoprolol 100mg bid. Anticoagulation started with eliquis Status: Resolved (3) Atherosclerotic heart disease of [place] coronary artery with other forms of angina pectoris: Status post four-vessel bypass surgery, hemodynamically stable. Continue current medications Status: Acute (4) Benign essential HTN: Currently normotensive. Continue lisinopril. Continue current metoprolol dose Status: Acute (5) Dyslipidemia: On Lipitor. Status: Acute Plan Based on the clinical progress, further management decisions will be made. Attestations Medical Necessity Statement*: Care expected to cross 2 midnights. Coding Level of Care Code Acute Adult Protective Caseworker for [place] Fwd Diagnoses Status post aorto-coronary artery bypass graft Z95.1 Atrial fibrillation with rapid ventricular response I48.91 Atherosclerotic heart disease of [place] coronary artery with other forms of angina pectoris I25.118 Benign essential HTN I10 Dyslipidemia E78.5
--- NOTE | 2022-03-08 08:39 | P.PN_ITS ---
Subjective Subjective: POD #8 status post CABG. Currently in sinus rhythm. Up in chair for breakfast. States he feels well, and is eager for discharge. Nurses report no concerns. Vitals/I&O/Wt Last Vital Signs Temp 98.1 F 03/08/22 08:19 Pulse 63 03/08/22 08:19 Resp 16 03/08/22 08:19 BP 153/73 03/08/22 08:19 Pulse Ox 95 03/08/22 08:19 03/07/22 03/08/22 03/08/22 22:59 06:59 14:59 Intake Total 480 / 1200 Balance 480 / 1200 Weight last 48 hrs Weight 237 lb 6.4 oz Physical Exam Resp: COMMON NORMALS: normal respiratory effort and clear to auscultation bilaterally AUSCULTATION: clear to auscultation bilaterally Cardio: COMMON NORMALS: regular rate, regular rhythm, S1 normal heart sound present and No murmurs present (Cardio) RATE: regular rate RHYTHM: regular rhythm HEART SOUNDS: S1 normal heart sound present Extremity: COMMON NORMALS: no clubbing, cyanosis or edema Urinary Catheter Management: Oden: Cath Placed During This Visit: yes, but has since been removed by the nurse Reason for Continuing Indwelling Catheter: Decision to DC Catheter Urinary Catheter Date of Insertion: 02/28/22 Urinary Catheter Time of Insertion: 07:00 Date Urinary Catheter Removed: 03/05/22 Time Urinary Catheter Discontinued: 09:00 Data : 03/05/22 04:31 03/05/22 15:18 A&P Assessment and plan (1) Status post aorto-coronary artery bypass graft: POD #8 status post CABG, currently in sinus rhythm Plan: Will plan to discharge to home today with home health services. Another Betasept shower this morning. Will plan to continue amiodarone for at least 1 month the patient remains in sinus rhythm. Will continue beta-blockade as recommended by Dr. Brambila. Status: Acute Attestations Medical Necessity Statement*: Status post CABG with postop A. fib, now resolved. Coding Level of Care Code Acute Speech Pathology Supervisor for [place] Fwd Diagnoses Status post aorto-coronary artery bypass graft Z95.1
[2022-03-08] MEDS: digoxin 125 mcg Tablet PO (09:15)
[2022-03-08] MEDS: metoprolol tartrate 50 mg Tablet PO (09:15)
[2022-03-08] MEDS: lisinopril 10 mg Tablet PO (09:15)
[2022-03-08] MEDS: amiodarone 200 mg Tablet 400 MG PO (09:16)
[2022-03-08] MEDS: aspirin 81 mg Chew Tablet PO (09:16)
[2022-03-08] MEDS: apixaban 5 mg Tablet PO (09:21)
[2022-03-08] MEDS: chlorhexidine gluconate 4% Btl 118 mL 1 APPLIC TOPICAL (09:22)
[2022-03-08] MEDS: mupirocin oint 22 gm 1 APPLIC NASAL (09:26)
--- NOTE | 2022-03-08 12:36 | P.DS_ITS ---
Discharge Providers Date of Admission: 02/28/22 17:12 Date of Discharge: March 08, 2022 Attending Provider at Admission: Elio Ross MD Attending Provider at Discharge: Elio Ross MD Consults: Dr. Brambila/cardiology Primary Care Provider: Mireya Navarrete Diagnoses at Discharge Discharge Diagnosis (1) Status post aorto-coronary artery bypass graft: Details from hospital stay: Mr. Vaughan is a pleasant 71-year-old gentleman who is been a patient of Dr. Castillo with labile hypertension, intermittent atrial fibrillation, and suspected coronary artery disease. He underwent left heart catheterization on February 22 which revealed 80% stenosis of the LAD, diagonal, ramus intermedius arteries as well as 90% ostial circumflex artery stenosis. He had noncritical disease of the RCA. Because of multisegment, multivessel disease as well as ostial circumflex lesion, he was referred for surgical revascularization. He underwent careful outpatient preoperative evaluation he was electively admitted on February 28 and underwent CABG x4. This included CHAVEZ to LAD, vein graft to the diagonal, ramus intermedius, and OMB branch of the circumflex arteries. Postop week, he convalesced in the ICU where he progressed well, though not surprisingly, he did develop episodes of atrial fibrillation. This slowly improved throughout his hospital stay. He was anticoagulated for at least 48 hours, which did delay drain removal. Subsequent, he has now remained mostly in sinus rhythm. He has been placed on amiodarone and continues on beta-blockade. Original anticoagulation has now been discontinued. Sternotomy incision is healing well. Sternum is stable. Drain sites are well approximated. He is tolerating a cardiac diet. Bowel and bladder function have returned to normal. He is ambulating without assistance. He has had Betasept showers. He will be discharged home today with home health services. Currently of discharge, he is in stable condition. He will follow-up with me in 1 week. Discharge instructions have been carefully reviewed and our contact information has been provided so they may reach out for any concerns or questions. Status: Acute Reason for Visit Reason for Visit: coronary artery disease Physical Exam Chest: OTHER: Chest wall is stable. Sternotomy incision is healing well. Drain sites are well approximated. Resp: COMMON NORMALS: normal respiratory effort, No use of accessory muscles and clear to auscultation bilaterally AUSCULTATION: clear to auscultation bilaterally Cardio: COMMON NORMALS: regular rate, regular rhythm, S1 normal heart sound present and No murmurs present (Cardio) RATE: regular rate RHYTHM: regular rhythm HEART SOUNDS: S1 normal heart sound present GI: COMMON NORMALS: Normal to inspection, nondistended, normoactive bowel sounds present Extremity: COMMON NORMALS: no clubbing, cyanosis or edema Urinary Catheter Management: Oden: Cath Placed During This Visit: yes, but has since been removed by the nurse Reason for Continuing Indwelling Catheter: Decision to DC Catheter Urinary Catheter Date of Insertion: 02/28/22 Urinary Catheter Time of Insertion: 07:00 Date Urinary Catheter Removed: 03/05/22 Time Urinary Catheter Discontinued: 09:00 Discharge Data Studies Completed and Pending Completed Studies During Hospitalization Category Date Time Status XR chest 1V portable [id number] NOW Exams 03/02/22 21:17 Completed XR chest 1V portable [id number] Routine Exams 02/28/22 14:32 Completed XR chest 1V portable [id number] Routine Exams 03/01/22 06:00 Completed XR chest 1V portable [id number] Routine Exams 03/02/22 06:00 Completed XR chest 1V portable [id number] Routine Exams 03/03/22 06:00 Completed XR chest 1V portable [id number] Routine Exams 03/04/22 06:00 Completed XR chest 1V portable [id number] Routine Exams 03/05/22 06:00 Completed Pending at discharge Category Date Time Status ABG FULL [Arterial Blood Gas Full] Stat Lab 02/28/22 06:50 Ordered Radiology Impressions C-Arm Fluoroscopy 02/28/22 14:01 IMPRESSION: Intraoperative imaging during foreign body removal. Chest X-Ray 03/05/22 06:00 Impression: No change from yesterday's portable chest. Laboratory Results WBC 11.0 10^3/uL (4.0-10.0) H 03/05/22 04:31 RBC 4.25 10^6/uL (4.1-5.3) 03/05/22 04:31 Hgb 11.2 g/dL (11.7-16.6) L 03/05/22 04:31 Hct 36.1 % (42.0-52.0) L 03/05/22 04:31 MCV 84.9 fl (80-94) 03/05/22 04:31 MCH 26.4 pg (28.0-34.0) L 03/05/22 04:31 MCHC 31.0 g/dL (30.0-36.0) 03/05/22 04:31 RDW 17.1 % (12.1-15.1) H 03/05/22 04:31 Plt Count 295 10^3/cmm (130-400) D 03/05/22 04:31 MPV 9.8 fL (7.4-10.4) 03/05/22 04:31 Neut % (Auto) 77.2 % 03/05/22 04:31 Lymph % (Auto) 10.4 % 03/05/22 04:31 [place] % (Auto) 9.6 % 03/05/22 04:31 Eos % (Auto) 1.6 % 03/05/22 04:31 Baso % (Auto) 0.3 % 03/05/22 04:31 Neut # (Auto) 8.52 10^3/uL (1.8-7.7) H 03/05/22 04:31 Lymph # (Auto) 1.2 10^3/uL (0.8-4.8) 03/05/22 04:31 [place] # (Auto) 1.1 10^3/uL (0.2-0.9) H 03/05/22 04:31 Eos # (Auto) 0.2 10^3/uL (0.0-0.8) 03/05/22 04:31 Baso # (Auto) 0.0 10^3/uL (0.0-0.1) 03/05/22 04:31 Nucleated RBC % (auto) 0.2 % 03/05/22 04:31 Nucleated RBCs # 0.0 /100WBC 03/05/22 04:31 PT 14.60 SECONDS (12.1-14.9) 03/01/22 04:17 INR 1.11 (0.8-1.2) 03/01/22 04:17 APTT 25.9 SECONDS (23.9-36.7) 03/01/22 04:17 Specimen Type Arterial 03/01/22 03:48 Sample Site Not specified 03/01/22 03:48 ABG pH 7.43 (7.35-7.45) 03/01/22 03:48 ABG pCO2 32.3 mmHg (35-45) L 03/01/22 03:48 ABG pO2 55.4 mmHg (80.0-100.0) L 03/01/22 03:48 ABG HCO3 21.4 mmol/L (22-26) L 03/01/22 03:48 ABG O2 Saturation 91.3 03/01/22 03:48 ABG Base Excess -2.3 mmol/L (-2.0-2.0) L 03/01/22 03:48 Perry Test N/a 03/01/22 03:48 A-a O2 Gradient 24.6 mmHg (5-10) H 03/01/22 03:48 Hematocrit 30.3 % (42-52) L 03/01/22 03:48 Hgb O2 Saturation 89.5 % (95-100) L 03/01/22 03:48 Carboxyhemoglobin 1.2 %THgb (0.4-20.1) 03/01/22 03:48 Methemoglobin 0.7 % (0.4-1.5) 03/01/22 03:48 Total Hemoglobin 9.9 g/dL (14-18) L 03/01/22 03:48 Sodium 153.0 mmol/L (131-143) H 03/01/22 03:48 Potassium 3.7 mmol/L (3.5-5.0) 03/01/22 03:48 Glucose 127.0 mg/dL (70-115) H 03/01/22 03:48 Ionized Calcium 1.2 mmol/L (1.1-1.4) 03/01/22 03:48 O2 Delivery Device Vent 03/01/22 03:48 FiO2 40.0 % 03/01/22 03:48 Tidal Volume 0.60 03/01/22 03:48 PEEP 8.0 cmH20 03/01/22 03:48 Manager Assessment ID Gray 03/01/22 03:48 Sodium 135 mmol/L (136-145) L 03/05/22 04:31 Potassium 3.5 mmol/L (3.5-5.1) 03/05/22 15:18 Chloride 99 mmol/L (98-107) 03/05/22 04:31 Carbon Dioxide 25 mmol/L (22-29) 03/05/22 04:31 Anion Gap 14.3 (5-19) 03/05/22 04:31 BUN 14 mg/dL (8-23) 03/05/22 04:31 Creatinine 0.7 mg/dL (0.7-1.2) 03/05/22 04:31 GFR Calculation Not Reportable 03/05/22 04:31 Glucose 162 mg/dL (65-115) H 03/05/22 04:31 POC Glucose 127 mg/dL (70-110) H 03/07/22 12:05 Calculated Osmolality 284 mOsm/kg (285-295) L 03/05/22 04:31 Calcium 8.0 mg/dL (8.5-10.5) L 03/05/22 04:31 Magnesium 2.2 mg/dL (1.7-2.3) 03/02/22 02:55 Blood Type O Positive 03/02/22 07:35 Rho(D) Type Positive 03/02/22 07:35 Antibody Screen Negative 03/02/22 07:35 Crossmatch See Detail 03/02/22 07:35 Procedures Performed CABG x4 on February 28, 2022 Vitals Last Vital Signs Temp 98.6 F 03/08/22 11:48 Pulse 57 L 03/08/22 11:51 Resp 18 03/08/22 11:51 BP 161/70 03/08/22 11:48 Pulse Ox 95 03/08/22 11:51 Discharge Plan Discharge Patient Disposition: Home Health Service Condition: Stable Prescriptions: New Pacerone 200 mg Tablet 400 mg PO BID Qty: 120 0RF lisinopril 10 mg Tablet 10 mg PO DAILY Qty: 60 0RF digoxin 125 mcg (0.125 mg) Tablet 125 mcg PO DAILY Qty: 60 0RF aspirin [Children's Aspirin] 81 mg Tablet,Chewable 81 mg PO DAILY Qty: 100 4RF hydrocodone-acetaminophen 5-325 mg tablet 1 tab PO Q6H PRN (Reason: pain) Qty: 30 0RF amiodarone 200 mg tablet 200 mg PO BID Qty: 60 0RF amiodarone 200 mg tablet 200 mg PO BID Qty: 60 0RF aspirin [Children's Aspirin] 81 mg Tablet,Chewable 81 mg PO DAILY Qty: 100 4RF cephalexin 500 mg capsule 500 mg PO Q8H Qty: 10 0RF Continued cetirizine 10 mg tablet 10 mg PO DAILY PRN (Reason: Allergy Symptoms) 0RF aspirin [Adult Low Dose Aspirin] 81 mg tablet,delayed release (DR/EC) 81 mg PO DAILY Qty: 30 3RF nitroglycerin 0.4 mg tablet, sublingual 0.4 mg sublingual Q5M PRN (Reason: chest pain) Qty: 50 3RF Rx Instructions: do not exceed 3 doses per episode omeprazole 20 mg capsule,delayed release(DR/EC) 20 mg PO DAILY 0RF montelukast 10 mg tablet 10 mg PO DAILY 0RF tamsulosin 0.4 mg capsule 0.4 mg PO DAILY 0RF finasteride 5 mg tablet 5 mg PO DAILY 0RF amlodipine 10 mg tablet 10 mg PO DAILY 0RF famotidine 40 mg tablet 40 mg PO DAILY 0RF latanoprost 0.005 % drops 1 drp ophthalmic (eye) DAILY 0RF fluticasone propionate 50 mcg/actuation spray,suspension 2 spray intranasal DAILY 0RF Rx Instructions: administer into each nostril metoprolol tartrate 50 mg tablet 50 mg PO BID Qty: 180 3RF hydrochlorothiazide 25 mg tablet 25 mg PO DAILY Qty: 0 0RF atorvastatin 40 mg tablet 40 mg PO DAILY 0RF benazepril 40 mg tablet 40 mg PO DAILY 0RF Sleep Aid (diphenhydramine) 50 mg Capsule 50 mg PO BEDTIME PRN (Reason: Sleep) 0RF Discharge Orders: Discharge Order (Routine); Ordered 03/08/22 Ordered By: Elio Ross Other Ambulatory Orders: DME: Shower Chair (Order) Location: None Selected Ordered By: Elio Ross Referrals: Elio Ross MD [Physician] - 03/14/22 1:15 pm Discharge Diet: Cardiac Discharge Activity: Limit activity as instructed Patient Instructions: Sternal Precautions (GEN), CABG (Coronary Artery Bypass Graft) (GEN), Opioid Safety Activity Restrictions/Additional Instructions: May shower with dressings off Dry incisions completely after showering. May recover if desired to prevent irritation from clothing. No swimming or tub baths x2 weeks No lifting, pulling, or pushing with upper extremities more than 5 pounds for the next 6 weeks Report any fever, incisional redness, swelling, drainage, or increasing pain. Report any increasing shortness of breath or weight gain over 10 pounds Use incentive spirometer frequently Keep heart pillow readily available to assist with coughing, deep breathing, or sneezing Discharge Attestations Time Spent in Discharge Care*: less than 30 min Specific Discharge Activities: educating patient, discussing with rn case management/social workers/dc planners, documenting/other paperwork and evaluating patient/reviewing data Status at Discharge: Cognitive status at discharge: cognitively intact , Behavioral status at discharge: cooperative , Functional status at discharge: independent ambulation , Overall status at discharge: patient is progressing back to baseline Quality Metrics Clinical Quality Measures [ No reported AMI, CVA or VTE this stay] Coding Level of Care Code Acute Chg FW DC note Diagnoses Status post aorto-coronary artery bypass graft Z95.1
== END 2022-03-08 14:45 | disposition home health service (06) | DRG 236 ==
LOC: ICU 17:13 → MEDSURG 03-07 13:37
PROVIDERS: Admitting Provider Thoracic Surgery (Cardiothoracic Vascular Surgery); PCP Nurse Practitioner Family; Visit Provider Thoracic Surgery (Cardiothoracic Vascular Surgery)
PROC: 02100Z9 Bypass Coronary Artery, One Artery from Left Internal Mammary, Open Approach (ICD-10-PCS; principal; 2022-02-28 07:00)
DX: I25.10 Atherosclerotic heart disease of native coronary artery without angina pectoris (principal); I48.20 Chronic atrial fibrillation, unspecified; E78.5 Hyperlipidemia, unspecified; I10 Essential (primary) hypertension; N40.0 Benign prostatic hyperplasia without lower urinary tract symptoms; Z87.891 Personal history of nicotine dependence; E87.6 Hypokalemia; Z79.82 Long term (current) use of aspirin
CPT/HCPCS: 36415; 36416; 36430; 36592; 36600; 51702; 71045; 76000; 77001; 80048; 80051; 82330; 82805; 82962; 83735; 84132; 85025; 85347; 85610; 85730; 86850; 86900; 86920; 93005; 94002; 94003; 94640; 94799; 96372; 97110; 97116; 97161; 97165; 97530; 97535; C9113; J0171; J0330; J0697; J1100; J1160; J1170; J1250; J1644; J1650; J1815; J1940; J2001; J2150; J2250; J2270; J2370; J2440; J2704; J2720; J3010; J3370; J3475; J3480; J3490; J7030; J7040; J7050; P9016; P9041; P9047

== ENCOUNTER → 2022-03-15 13:07 | Outpatient (BNVA) | payer MEDICARE, SELFPAY | PROVIDERS: PCP Nurse Practitioner Family; Visit Provider Thoracic Surgery (Cardiothoracic Vascular Surgery) | DX: Z98.890 Other specified postprocedural states (principal) | CPT/HCPCS: 99024 ==

== ENCOUNTER → 2022-03-22 11:16 | Outpatient (BNVA) | payer MEDICARE, SELFPAY | PROVIDERS: PCP Nurse Practitioner Family; Visit Provider Internal Medicine Cardiovascular Disease | DX: I25.118 Atherosclerotic heart disease of native coronary artery with other forms of angina pectoris (principal); I11.0 Hypertensive heart disease with heart failure; I50.33 Acute on chronic diastolic (congestive) heart failure; Z95.1 Presence of aortocoronary bypass graft; I48.20 Chronic atrial fibrillation, unspecified; Z79.01 Long term (current) use of anticoagulants; Z87.891 Personal history of nicotine dependence | CPT/HCPCS: 36415; 80048; 83880; 85025; 99024; 99214 ==

== ENCOUNTER → 2022-03-26 09:51 | Outpatient (BNVA) | payer MEDICARE, SELFPAY | PROVIDERS: PCP Nurse Practitioner Family; Visit Provider Internal Medicine Cardiovascular Disease | DX: R00.1 Bradycardia, unspecified (principal); R94.31 Abnormal electrocardiogram [ECG] [EKG] | CPT/HCPCS: 93005 ==

== ENCOUNTER 2022-04-05 17:29 | Emergency (ER) | payer MEDICARE, SELFPAY ==
[2022-04-05 17:38] VITALS: BP 161/72; PULSE 59; RESP 16; TEMP 36.7; O2SAT 97
--- NOTE | 2022-04-05 18:16 | ED_ITS ---
HPI - General Adult General: Chief complaint: General Medical Stated complaint: Right side swelling and under arm Pain Time Seen by Provider: 04/05/22 18:00 History of Present Illness: 71-year-old male patient was referred to the ER for concerns of right side chest wall pain and swelling. Patient had had a CABG on February 20. No shortness of breath or fever has been noted. Patient appears nontoxic. Patient appears in no pain. Associated symptoms: Deny chest pain, dyspnea, nausea, rash or vomiting Review of Systems General: Reports: 10 or more systems reviewed and unremarkable except in HPI and below Const: Denies: fever(s) Card: Denies: chest pain Resp: Denies: dyspnea GI: Denies: nausea or vomiting : Denies: difficulty urinating Musc: Reports: other (Anterior chest wall pain) Skin/Breast: Denies: rash PFSH ED PFSH: Medical History Accelerated essential hypertension Arthritis Atrial fibrillation Benign essential HTN BPH (benign prostatic hyperplasia) Bradycardia Chronic episodic atrial fibrillation Diverticulosis Dyslipidemia History of adenomatous polyp of colon Somnolence, daytime Was in the sleep lab but could not sleep. So he never had a sleep study Stomach ulcer Family History Mother CAD (coronary artery disease), Onset Age: 60 Father Cancer Sister Cancer Denies family history of Diabetes Clotting disorder Dementia Chronic kidney disease (CKD) Suicide Anesthesia complication Bleeding disorder Lung disease Hypertension Stroke Social History Smoking and tobacco status: former smoker Alcohol intake: never Physical Exam Const: COMMON NORMALS: alert HENMT: COMMON NORMALS: normocephalic HEAD & SCALP: normocephalic Neck/C-Spine: COMMON NORMALS: full ROM Chest: COMMONS NORMALS: normal inspection of the chest CHEST: Yes tenderness (Right pectoralis) Resp: COMMON NORMALS: normal respiratory effort Cardio: COMMON NORMALS: regular rate and regular rhythm RATE: regular rate RHYTHM: regular rhythm GI: COMMON NORMALS: non-tender Extremity: COMMON NORMALS: normal to inspection Neuro: SENSORIUM/ORIENTATION: Yes alert Skin: COMMON NORMALS: no rashes or lesions noted GENERAL SKIN EXAM: no ra shes or lesions noted Course Vital Signs: Vital signs: Vital Signs Temperature 98.1 F 04/05/22 17:38 Pulse Rate 59 L 04/05/22 17:38 Respiratory Rate 16 04/05/22 17:38 Blood Pressure 161/72 04/05/22 17:38 Pulse Oximetry 97 04/05/22 17:38 [facility] - General Adult Medical Decision Making 71-year-old male patient comes in today for concerns of right-sided chest wall tenderness and possible swelling. On exam there is no sign of swelling or redness to the right side chest wall. Patient does have some mild tenderness with palpation. No crepitus or subcu emphysema is noted. Respirations even lungs are clear to auscultation. Heart rates regular in the 60s. Vital signs are normal. Differential diagnosis includes but not limited to pneumonia, wound infection, normal healing from thoracic surgery. Chest x-ray noted no fluid on the lungs and no significant abnormality. I reviewed exam with patient and spouse with recommendations for treatment and follow-up with thoracic surgeon. Patient and spouse reported understanding agreed to plan. Discharge Plan Discharge Patient Disposition: Home Clinical Impression: Chest wall pain Condition: Stable Prescriptions: No Action cetirizine 10 mg tablet 10 mg PO DAILY PRN (Reason: Allergy Symptoms) 0RF nitroglycerin 0.4 mg tablet, sublingual 0.4 mg sublingual Q5M PRN (Reason: chest pain) Qty: 50 3RF Rx Instructions: do not exceed 3 doses per episode omeprazole 20 mg capsule,delayed release(DR/EC) 20 mg PO DAILY 0RF montelukast 10 mg tablet 10 mg PO DAILY 0RF tamsulosin 0.4 mg capsule 0.4 mg PO DAILY 0RF finasteride 5 mg tablet 5 mg PO DAILY 0RF amlodipine 10 mg tablet 10 mg PO DAILY 0RF famotidine 40 mg tablet 40 mg PO DAILY 0RF latanoprost 0.005 % drops 1 drp ophthalmic (eye) DAILY 0RF fluticasone propionate 50 mcg/actuation spray,suspension 2 spray intranasal DAILY 0RF Rx Instructions: administer into each nostril Eliquis 5 mg tablet 5 mg PO BID Qty: 60 5RF metoprolol tartrate 100 mg tablet 100 mg PO BID Qty: 180 3RF hydrochlorothiazide 25 mg tablet 25 mg PO DAILY Qty: 0 0RF atorvastatin 40 mg tablet 40 mg PO DAILY 0RF benazepril 40 mg tablet 40 mg PO DAILY 0RF Sleep Aid (diphenhydramine) 50 mg Capsule 50 mg PO BEDTIME PRN (Reason: Sleep) 0RF Children's Aspirin 81 mg Tablet,Chewable 81 mg PO DAILY Qty: 100 4RF hydrocodone-acetaminophen 5-325 mg tablet 1 tab PO Q6H PRN (Reason: pain) Qty: 30 0RF amiodarone 200 mg tablet 200 mg PO BID Qty: 60 0RF Discharge Orders: Discharge ED (Routine); Ordered 04/05/22 Ordered By: Elio Frost Referrals: Mireya Navarrete [Primary Care Provider] - Discharge Diet: Usual diet Discharge Activity: Increase activity as tolerated Patient Instructions: Musculoskeletal Pain (ED) Activity Restrictions/Additional Instructions: Activity as tolerated. Continue with routine care. Use acetaminophen as needed for pain. Follow-up with surgeon for further instruction regarding activity lev el. Monitor for fever greater than 100.4. Return to the ER for fever, shortness of breath, or worsening chest pain. Coding Level of Care Code ED Multimedia Author for Israel Vitale
--- NOTE | 2022-04-05 18:27 | XRR_ITS ---
PROCEDURE INFORMATION: Exam: XR Chest Exam date and time: 04/05/2022 6:56 PM Age: 71 years old Clinical indication: Chest wall pain; Prior surgery; Surgery date: <1 month; Surgery type: Open heart TECHNIQUE: Imaging protocol: XR of the chest. Views: 2 views. COMPARISON: CR XR chest 1V portable [id number] 03/05/2022 5:09 AM FINDINGS: Lungs: Unremarkable. No consolidation. Pleural spaces: No pleural effusion or pneumothorax noted. Heart/Mediastinum: Mediastinal surgical clips are noted, consistent with previous CABG. No cardiomegaly noted. Vasculature: Mildly tortuous thoracic aorta. Bones/joints: Median sternotomy noted. Status post ORIF left clavicle. Old healed right rib fractures. Degenerative spine changes are noted. XR/XR chest 2V* [id number] IMPRESSION: No acute abnormality demonstrated.
== END 2022-04-05 19:18 | disposition home or self-care (01) ==
PROVIDERS: Emergency Provider Nurse Practitioner Family; PCP Nurse Practitioner Family
DX: R07.89 Other chest pain (principal)
CPT/HCPCS: 71046; 99283

== ENCOUNTER → 2022-04-12 11:00 | Outpatient (BNVA) | payer MEDICARE, SELFPAY | PROVIDERS: PCP Nurse Practitioner Family; Visit Provider Thoracic Surgery (Cardiothoracic Vascular Surgery) | DX: Z98.890 Other specified postprocedural states (principal) | CPT/HCPCS: 99024 ==

== ENCOUNTER → 2022-05-17 09:04 | Outpatient (BNVA) | payer MEDICARE, SELFPAY | PROVIDERS: PCP Nurse Practitioner Family; Visit Provider Internal Medicine Cardiovascular Disease | DX: I25.708 Atherosclerosis of coronary artery bypass graft(s), unspecified, with other forms of angina pectoris (principal); R40.0 Somnolence; E78.5 Hyperlipidemia, unspecified; I10 Essential (primary) hypertension; Z86.79 Personal history of other diseases of the circulatory system; Z87.891 Personal history of nicotine dependence | CPT/HCPCS: 99024; 99214 ==

== ENCOUNTER → 2022-10-24 08:35 | Outpatient (BNVA) | payer MEDICARE, SELFPAY | PROVIDERS: PCP Nurse Practitioner Family; Visit Provider Nurse Practitioner Family | DX: S46.002A Unspecified injury of muscle(s) and tendon(s) of the rotator cuff of left shoulder, initial encounter (principal); X58.XXXA Exposure to other specified factors, initial encounter | CPT/HCPCS: 73030; 99214 ==

== ENCOUNTER → 2022-11-15 11:27 | Outpatient (BNVA) | payer MEDICARE, SELFPAY | PROVIDERS: PCP Nurse Practitioner Family; Visit Provider Internal Medicine Cardiovascular Disease | DX: I25.118 Atherosclerotic heart disease of native coronary artery with other forms of angina pectoris (principal); Z95.1 Presence of aortocoronary bypass graft; R06.02 Shortness of breath; I48.20 Chronic atrial fibrillation, unspecified; E78.5 Hyperlipidemia, unspecified; I10 Essential (primary) hypertension; Z87.891 Personal history of nicotine dependence; Z79.01 Long term (current) use of anticoagulants | CPT/HCPCS: 99213 ==

== ENCOUNTER → 2023-06-03 13:35 | Outpatient (BNVA) | payer MEDICARE, SELFPAY | PROVIDERS: PCP Nurse Practitioner Family; Visit Provider Internal Medicine Cardiovascular Disease | DX: I25.118 Atherosclerotic heart disease of native coronary artery with other forms of angina pectoris (principal); Z95.1 Presence of aortocoronary bypass graft; I10 Essential (primary) hypertension; E78.5 Hyperlipidemia, unspecified; I48.20 Chronic atrial fibrillation, unspecified; Z87.891 Personal history of nicotine dependence | CPT/HCPCS: 99214 ==

== ENCOUNTER → 2023-12-09 13:04 | Outpatient (BNVA) | payer MEDICARE, SELFPAY | PROVIDERS: PCP Nurse Practitioner Family; Visit Provider Internal Medicine Cardiovascular Disease | DX: I48.91 Unspecified atrial fibrillation (principal); Z79.01 Long term (current) use of anticoagulants; Z79.82 Long term (current) use of aspirin; E78.5 Hyperlipidemia, unspecified; I10 Essential (primary) hypertension; I25.118 Atherosclerotic heart disease of native coronary artery with other forms of angina pectoris; Z95.1 Presence of aortocoronary bypass graft | CPT/HCPCS: 99214 ==

== ENCOUNTER → 2024-06-11 11:18 | Outpatient (BNVA) | payer MEDICARE, SELFPAY | PROVIDERS: PCP Nurse Practitioner Family; Visit Provider Nurse Practitioner Family | DX: R07.9 Chest pain, unspecified (principal); I25.10 Atherosclerotic heart disease of native coronary artery without angina pectoris; Z95.1 Presence of aortocoronary bypass graft; I25.118 Atherosclerotic heart disease of native coronary artery with other forms of angina pectoris; I10 Essential (primary) hypertension; I48.20 Chronic atrial fibrillation, unspecified; Z87.891 Personal history of nicotine dependence | CPT/HCPCS: 93005; 99214 ==

== ENCOUNTER 2024-07-28 08:54 | Outpatient (CLI) | payer MEDICARE, SELFPAY ==
--- NOTE | 2024-07-28 | ECG_ITS ---
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 Interpretive Statements NAME OF STUDY: LEXISCAN SESTAMIBI STRESS TEST INDICATION: [WORSENING FATIGUE/ANGINA EQUIVALANT, ] Procedure: At the baseline, the blood pressure was 137/71 mmHg with a heart rate of 48 bpm. The electrocardiogram showed sinus bradycardia, normal axis with normal ST and T's. The Lexiscan was infused over a period of 20 seconds. A total of 0.4 mg of Lexiscan was infused. The stress phase was continued for a total of 5 minutes. Heart rate was at the end of stress phase was 57 bpm and a blood pressure of 119/61 mmHg. The EKG at the peak infusion revealed normal sinus rhythm with no significant ST-T wave changes. Sestamibi was injected 20 seconds after the Lexiscan infusion. Blood pressure at the end of recovery phase was 126/60 mmHg with a heart rate of 56 bpm. Conclusion: 1. Normal EKG response to Lexiscan infusion 2. No Lexiscan induced chest pain or cardiac arrhythmia. 3. Normal blood pressure and heart rate response. 4. Sestamibi/sestamibi perfusion scan pending; see separate report. Electronically Signed On 08-08-2024 17:43:30 CDT by Jefe Brambila M.D. [email or web address]
[2024-07-28 09:27] VITALS: BMI 31.5
--- NOTE | 2024-07-28 09:27 | NMCV_ITS ---
NM shekhar perf SPECT r/s* [id number] Zay Vaughan Age: 74 Gender: M : 1950 Exam Date: 07/28/2024 10:10 Ordering Phys: Ivanna Melendrez Technologist: KRYSTEN Burroughs Exam Location: [facility] Indications: cp STRESS TEST Please see separate stress test report in [facility] for full findings IMAGE PROTOCOL Rest/Stress 1 Lexiscan Day Radiopharmaceutical Dose (mCi) Administration Site Administered by Rest: Tc-99m 11 IV May Hurst, CREDIT CHARGE AUTHORIZER Sestamibi Stress:Tc-99m 33 IV May Aris, CREDIT CHARGE AUTHORIZER Sestamibi Rest: 28-Jul-2024 60 Discovery 630 Stress: 28-Jul-2024 30 Discovery 630 0.4mg Lexiscan. Images obtained in supine and prone position. SPECT RESULTS Technical Quality: Good Raw Data Analysis: Normal Image Corrections: No attenuation or motion correction applied Summed Stress Score: 2 Summed Rest Score: 1 Summed Difference Score: 1 PERFUSION FINDINGS There is a small sized area of partially reversible, perfusion defect seen in inferolateral wall. This is consistent with small sized area of prior infarct with some cristine-infarct ischemia seen in the left circumflex artery territory. FUNCTIONAL RESULTS (calculated via Gated SPECT) Stress Image LV EF (%): 71 Stress EDV (mL):93 TID: 1.06 Stress ESV (mL):27 FUNCTIONAL FINDINGS: There is normal left ventricular systolic function. IMPRESSIONS 1. Small sized area of prior infarct with some cristine-infarct ischemia seen in the left circumflex artery territory. 2. LV systolic function is normal Jefe Brambila MD (Electronically Signed) Final Date: 28 July 2024 12:35 S
[2024-07-28] MEDS: regadenoson 0.4 Mg/5 ml Syringe IVP (10:48)
[2024-07-28 11:01] VITALS: BP 125/57; PULSE 60
== END 2024-07-28 08:55 | disposition home or self-care (01) ==
LOC: CDL 08:55
PROVIDERS: PCP Nurse Practitioner Family; Visit Provider Nurse Practitioner Family
DX: I25.10 Atherosclerotic heart disease of native coronary artery without angina pectoris (principal); Z95.1 Presence of aortocoronary bypass graft; R94.39 Abnormal result of other cardiovascular function study; R06.02 Shortness of breath
CPT/HCPCS: 36415; 78452; 93017; 96374; A9500; J2785

== ENCOUNTER 2024-08-20 09:22 | Outpatient (CLI) | payer MEDICARE, SELFPAY ==
[2024-08-20 10:43] LABS: Basophils % 0.7 %; Eosinophils # 0.1 10^3/uL (0.0-0.8); Eosinophils % 2.6 %; Lymphocytes # 1.1 10^3/uL (0.8-4.8); Lymphocytes % 23.7 %; Mean Corpuscular HGB Conc 32.6 g/dL (30-55); Mean Corpuscular Hemoglobin 29.7 pg (27-33); Mean Corpuscular Volume 90.9 fl (82-101); Mean Platelet Volume 9.3 fL (7.4-10.4); Monocytes # 0.6 10^3/uL (0.2-0.9); Monocytes % 13.7 %; Neutrophils # 2.71 10^3/uL (1.8-7.7); Neutrophils % 58.9 %; Nucleated Red Blood Cells % 0 %; Platelet Count 214 10^3/cmm (157-399); Red Blood Count 4.62 10^6/uL (3.85-5.65); Red Cell Distribution Width 14.1 % (12.1-15.1)
[2024-08-20 10:59] LABS: INR 1.83 (0.83-1.21); Prothrombin Time (Patient) 21.8 Seconds (12.0-15.1)
[2024-08-20 11:15] LABS: Anion Gap 13.3 (5-19); Blood Urea Nitrogen 20 mg/dL (8-23); Calcium 8.9 mg/dL (8.5-10.5); Carbon Dioxide 27 mmol/L (22-29); Chloride 103 mmol/L (98-107); Glucose 159 mg/dL (65-115); NT Pro B Type Natriuretic Pept 43 pg/mL (0-125); Osmolality Calculated 296 mOsm/kg (285-295); Potassium 3.3 mmol/L (3.5-5.1); Sodium 140 mmol/L (136-145)
== END 2024-08-20 09:23 | disposition home or self-care (01) ==
LOC: LAB 09:22
PROVIDERS: PCP Nurse Practitioner Family; Visit Provider Nurse Practitioner Family
DX: R94.39 Abnormal result of other cardiovascular function study (principal); Z95.1 Presence of aortocoronary bypass graft; I25.118 Atherosclerotic heart disease of native coronary artery with other forms of angina pectoris; R07.9 Chest pain, unspecified
CPT/HCPCS: 80048; 83880; 85025; 85610; 86850; 86900

== ENCOUNTER 2024-09-02 07:15 | Outpatient (CLI) | payer MEDICARE, SELFPAY ==
[2024-09-02] VITALS (69 sets, daily range): BP systolic 110–155; BP diastolic 52–89; PULSE 46–68; RESP 12–27; TEMP 36.7; O2SAT 91–99; BMI 31.5
--- NOTE | 2024-09-02 06:04 | XACV_ITS ---
Exam Room: 2 Ht: 178 cm Wt: 100 kg BSA: 2.25 m2 Gender: Male : 1950 Any Known Allergies: Other Exam Priority: Routine Procedure(s): Procedure Description: Diagnostic procedure Procedure Description: Left Heart Catheterization Procedure Description: Aortogram Procedure Description: Venous Graft Catheterization Procedure Description: CHAVEZ Graft Catheterization Procedure Description: Coronary Angiography Jonathan FRANKS; Diagnostic Cath Status: Elective Diagnostic Findings * The left main is a medium caliber vessel with mild diffuse disease. * The left upper descending artery was found to have severe diffuse disease proximally. The mid segment was found to have moderate diffuse disease. Competitive flow was noted in the distal vessel. The proximal segment of the intermedius artery was found to have moderate diffuse disease. Competitive flow also was noted in the intermedius artery. No graft to the diagonal was noted. * The left circumflex artery is a medium caliber vessel which was found to have diffuse disease proximally. The artery appears to be totally occluded after giving of an atrial branch.. * The right coronary artery is a medium caliber dominant vessel which was found to have mild diffuse disease in the proximal and mid segment. No significant stenotic lesions were noted. * The venous graft to the obtuse marginal artery was found to be widely patent with no significant lesions. * The venous graft to the intermedius artery also was found to be patent with no significant stenotic lesions. * The venous graft to the diagonal artery was not visualized. * Left internal mammary artery graft to the LAD was found to be widely patent with no significant stenotic lesions. The distal LAD was found to have mild diffuse irregularities. * Aortogram was performed in the shallow TAJIK view. Only 2 venous grafts are visualized. Conclusions 1. 74-year-old white male with history of atherosclerotic heart diseas, status post four-vessel bypass surgery, presenting with episodes of shortness of breath/dizziness. Symptoms similar to what he had before the coronary bypass surgery. He had a Myocardial perfusion imaging which revealed a small area of fixed and reversible defects in the distribution of the left circumflex artery. Because of his ongoing worsening of the symptoms, in order to further evaluate the coronary status, a cardiac catheterization was recommended. Patient underwent a left heart catheterization with coronary angiogram, graft angiogram and aortogram today. The findings are as follows. 2. Mild diffuse disease in the left main artery. Severe diffuse disease in the proximal LAD and proximal segment of the intermedius artery. Total occlusion of the left circumflex artery after a small atrial branch. Mild disease in the dominant right coronary artery. Patent CHAVEZ to the LAD, venous graft to the intermedius and obtuse marginal arteries. The venous graft to the diagonal was not visualized. Aortogram was performed to evaluate for any patent grafts. No other grafts were visualized. The LVEDP was 11 mmHg. Diagnostic RX Recommendation: medical therapy and/or counseling LV EDP: 11 mmHg Left Ventriculography Findings: * The LV gram was not performed because of the concern about dye overload. Pressures Phase:Rest AO : 124 / 54 ( 82 ) @ 9:56:00 AM 109 / 58 ( 81 ) @ 10:05:00 AM 117 / 35 ( 64 ) @ 10:18:00 AM LV : 121 / -9 / 11 @ 10:18:00 AM Clinical Evaluation EBL: 5mL-10mL Procedural Details Procedure Consent Obtained. Pre-Procedure Time Out. Identified patient by full name and date of as verbalized by the patient/guarantor. Does the consent match the physician's order: Yes. Accurate & Complete Informed Consent: Yes. Inpatient/Outpatient History & Physical on Chart: Yes. If H&P is completed, is and addenduem needed: No. Visualize and Verify Site with Patient/Guarantor: N/A. Relevant Radiology Images available: Yes. The risks, benefits, and alternatives of sedation and/or procedure were discussed by physician. The patient agrees to continue. Procedure started. [facility] Clinical Fraility Score: 3: Managing Well. 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 Chest Pain Symptom Assessment: Typical Angina Symptoms. Cardiovascular Instability: No. Correct patient, site and procedure confirmed by cath team. PERRLA. Strong, equal hand roller skates assembler bilaterally. Lungs clear x 5 lobes. IV Site on Arrival: 20 gauge in the left anticubital. IV Fluids: 0.9% NaCl at KVO. 0 mL infused prior to labor relations specialist. Pre Procedural Pulses: bilateral dorsalis pedis was Doppled. Pre Procedural Pulses: bilateral posterior tibial was Doppled. Pre Procedural Pulses: bilateral radial was 2+. Oxygen started at 2liters/min via nasal canula. right groin was prepped with chloroprep then draped in the usual sterile fashion. right radial was prepped with chloroprep then draped in the usual sterile fashion. Physician notified. Patient's family in CPRU room 3. Dr. Castillo will update at the completion of the procedure. Equipment: 6F - Femoral. Cardiac Cath Pack. ACIST Manifold Kit Model BT 2000. Heparinized Saline (2 units/mL), 1000 mL bag. Kit, Micropuncture. Physician arrived. Baseline sample Acquired. HR: 49 BPM. Physician scrubbed in. Immediate Pre-Procedure Time Out. Correct Patient: Yes; Correct Procedure: Yes; Correct Site: Yes; Correct Patient Position: Yes; Correct Supplies: Yes; Dried Flammable Prep: Yes; Blood Products Available: N/A. Lidocaine 1% infiltrated to the right groin. Arterial access obtained with micropuncture set. A 5 english JL4 catheter in over the standard wire. Multiple views taken of left coronary artery. Catheter removed over the standard wire. A 5 english JR4 catheter in over the standard wire. Multiple views taken of right coronary artery. Catheter redirected to the SVG --> OM. SVG's to OM visualized. Catheter redirected to the CHAVEZ. CHAVEZ to LAD visualized. Catheter removed over the standard wire. A 5 english LCB catheter in over the standard wire. SVG's to Ramus Intermedius visualized and patent. Catheter removed over the standard wire. A 5 english Angled Pig catheter in over the standard wire. EDP Sample taken: LV 121/-10,11; HR: 49 BPM; SpO2: 94%. Pullback taken: LV Off; AO Off; Mean: , Peak to Peak: , SEP: ; HR: 49 BPM; SpO2: 96%. Aortogram performed in TAJIK @ 10 mL/second for a total of 30 mL. Side port of sheath attached to Normal Saline flush at KVO to maintain patency. Dr. Aguilar here to view cineography. Catheter removed over the standard wire. Physician scrubbed out. Sheath upsized to a 6 Fr. A Suture was successful obtaining hemostatsis at the Right Femoral artery insertion site. Sheath(s) sutured into position with 2-0 silk and sterile 4x4's and Op-site applied over the site. No oozing or signs and symptoms of hematoma noted. Arterial sheath flushed and connected to tranducer and pressure bag with heparinized saline. Post Procedure: Pulses reassessed and unchanged. PERRLA. Strong, equal hand roller skates assembler bilaterally. No VTE prophylaxis required. Medication's Wasted: Lidocaine 1% = 10 mL. Medication's Wasted: Heparin = 2500 units. Total IV fluids: 50 mL. Post-op diagnosis: Non obstructive CAD. Complications: none. Estimated blood loss: 5mL-10mL. Responsiveness - Normal response to verbal stimuli; alert and oriented, PERRLA. Airway - Unaffected, no intervention required; spontaneous ventilation. Circulation: W/N/L, pulses unchanged. Nausea/Vomiting: No. Medication's Wasted: Other = Versed 1 mg. Procedure completed. Patient transferred by bed to CPRU. Vital chart was stopped. Access Site Site: Right Femoral artery Sheath Size: 6 Fr Hemostasis Method: Suture Hemostasis Success: Successful Procedure Medications Start: 8:40 AM Stop: 8:40 AM Medication: Versed Amount: 1 mg Route: I.V. Start: 8:40 AM Stop: 8:40 AM Medication: Fentanyl Amount: 50 mcg Route: I.V. Start: 8:52 AM Stop: 8:52 AM Medication: Fentanyl Amount: 25 mcg Route: I.V. Start: 8:53 AM Stop: 8:53 AM Medication: Versed Amount: 1 mg Route: I.V. Start: 9:07 AM Stop: 9:07 AM Medication: Heparin Amount: 1500 units Route: I.V. Start: 9:10 AM Stop: 9:10 AM Medication: Versed Amount: 1 mg Route: I.V. Start: 9:16 AM Stop: 9:16 AM Medication: Fentanyl Amount: 25 mcg Route: I.V. I, the attending physician, have reviewed and verified all procedure medications. Yes, all medications given per verbal order History/Risk Factors Hypertension: Yes Dyslipidemia: Yes Peripheral Arterial Disease (PAD): No Myocardial Infarction (WI): No Obesity: Yes Renal Disease: No Tobacco Use: Former Prior Interventions PCI: No CABG: Yes Valve Surgery: No Report Signatures Finalized by Dr Edy Castillo MD [facility] on 09/02/2024 09:36 PM
[2024-09-02 07:44] LABS: Basophils % 0.5 %; Eosinophils # 0.1 10^3/uL (0.0-0.8); Eosinophils % 2.3 %; Lymphocytes # 1.3 10^3/uL (0.8-4.8); Lymphocytes % 21.2 %; Mean Corpuscular HGB Conc 33.6 g/dL (30-55); Mean Corpuscular Hemoglobin 30.3 pg (27-33); Mean Corpuscular Volume 90.3 fl (82-101); Monocytes # 0.9 10^3/uL (0.2-0.9); Monocytes % 14.7 %; Neutrophils # 3.77 10^3/uL (1.8-7.7); Nucleated Red Blood Cells % 0 %; Platelet Count 204 10^3/cmm (157-399); Red Blood Count 4.65 10^6/uL (3.85-5.65); Red Cell Distribution Width 14.5 % (12.1-15.1); White Blood Count 6.18 10^3/uL (3.29-11.43)
[2024-09-02] MEDS: diphenhydrAMINE 50 mg Capsule PO (07:45)
[2024-09-02] MEDS: aspirin 325 mg Tablet PO (07:45)
[2024-09-02 08:01] LABS: Blood Urea Nitrogen 18 mg/dL (8-23); Calcium 8.8 mg/dL (8.5-10.5); Carbon Dioxide 26 mmol/L (22-29); Chloride 103 mmol/L (98-107); Glucose 169 mg/dL (65-115); Osmolality Calculated 294 mOsm/kg (285-295); Sodium 139 mmol/L (136-145)
--- NOTE | 2024-09-02 08:35 | P.HP_ITS ---
Providers/Chief Complaint 2 Admitting Physician: ALESHIA Castillo MD Primary Care Provider: Sangeeta Vaughan NP Chief Complaint: R07.9 History of Present Illness Zay Vaughan is a 74 year old male with a history of atherosclerotic heart diseas, status post four-vessel coronary bypass surgery [place] [address] Ross. He had a CHAVEZ to the LAD, venous graft to the diagonal, obtuse marginal and right coronary artery. He has been having episodes of shortness of breath where he gets extremely tired and weak. This may last for 2 to 3 days and then subside spontaneously. He also has episodes of dizziness. According to the patient, the symptoms are similar to what he had prior to the coronary artery bypass surgery. But it may not be that intense as it used to be. He is seems to be remains concerned about this. He had a Myocardial perfusion imaging which revealed a small area of reversible and reversible defect in the inferolateral wall region, suggesting myocardial scarring with ischemia in the distribution of the left circumflex artery. I discussed in detail the implication of the test findings. Looking at the Perfusion scan alone, it may not be bad enough to go after this. However if the patient has significant symptoms affecting his function, it would be appropriate to do an angiogram to reevaluate his coronary arteries as well as the graft vessels to decide on further management. This was explained in detail with the patient and his which he understood well. They wanted to go ahead with the angiogram. Review of Systems 2 Narrative: CONSTITUTIONAL: No fever or chills. Episodes of shortness of breath and dizziness as mentioned above EYES: No blurring of vision or other visual disturbances lately. ENT: No hoarseness of voice, auditory disturbances or sore throat. CARDIOVASCULAR: As mentioned above. RESPIRATORY: No significant cough. GASTROINTESTINAL: No hematemesis or melena. GENITOURINARY: No dysuria or hematuria. INTEGUMENTARY: No skin rashes or history of skin cancer. NEURO: No transient ischemic attacks or amaurosis. PSYCHIATRIC: No history of psychosis or major depression. HEMATOLOGIC: No bleeding disorders or significant anemia. ENDOCRINE: No history of polyuria or polydipsia. MUSCULOSKELETAL: No recent joint pain or swelling. ALLERGY/IMMUNOLOGY: As mentioned above. Medications/Allergies Home Medications Medication Instructions Recorded Confirmed Last Taken Type amlodipine 10 mg tablet 10 mg PO DAILY 05/09/20 09/02/2424 05:30 History famotidine 40 mg tablet 40 mg PO DAILY 05/09/20 09/02/24 02/27/22 History finasteride 5 mg tablet 5 mg PO DAILY 05/09/20 09/02/24 09/01/24 20:30 History montelukast 10 mg tablet 10 mg PO DAILY 05/09/20 09/02/24 09/01/24 20:30 History omeprazole 20 mg capsule,delayed 20 mg PO DAILY 05/09/20 09/02/24 02/27/22 History release hydrochlorothiazide 25 mg tablet 25 mg PO DAILY #0 tabs 05/10/20 09/02/24 09/01/24 20:30 Rx latanoprost 0.005 % eye drops 1 drp ophthalmic (eye) DAILY 10/10/20 09/02/24 02/27/22 History diphenhydramine HCl 50 mg capsule 50 mg PO BEDTIME PRN Sleep 03/06/22 09/02/24 Unknown History (Sleep Aid (diphenhydramine)) aspirin 81 mg chewable tablet 81 mg PO DAILY #100 tabs 03/08/22 09/02/24 09/01/24 Rx (Children's Aspirin) benazepril 40 mg tablet 40 mg PO DAILY #90 tabs 10/29/22 09/02/24 09/02/24 05:30 Rx rivaroxaban 20 mg tablet 20 mg PO DAILY #180 tabs 01/23/23 09/02/24 08/31/24 06:30 Rx metoprolol tartrate 100 mg tablet 100 mg PO BID #180 tabs 03/26/23 09/02/24 09/02/24 05:30 Rx levocetirizine 5 mg tablet 5 mg PO DAILY 06/03/23 09/02/24 09/01/24 20:30 History atorvastatin 40 mg tablet 40 mg PO DAILY #90 tabs 03/03/24 09/02/24 09/02/24 05:30 Rx tamsulosin 0.4 mg capsule 0.4 mg PO BEDTIME 09/02/24 09/02/24 09/01/24 20:30 History Allergies Allergy/AdvReac Type Severity Reaction Status Date / Time erythromycin base Allergy Unknown unknown Verified 06/11/24 10:38 PFSH Acute 2 PFSH: Medical History Chronic episodic atrial fibrillation Bradycardia Somnolence, daytime Was in the sleep lab but could not sleep. So he never had a sleep study Atrial fibrillation BPH (benign prostatic hyperplasia) History of adenomatous polyp of colon Diverticulosis Dyslipidemia Benign essential HTN Accelerated essential hypertension Stomach ulcer Arthritis Surgical History S/P CABG x 4 Family History Mother CAD (coronary artery disease), Onset Age: 60 Father Cancer Sister Cancer Denies family history of Diabetes Clotting disorder Dementia Chronic kidney disease (CKD) Suicide Anesthesia complication Bleeding disorder Lung disease Hypertension Stroke Social History Smoking and tobacco/nicotine status: former use of tobacco/nicotine Alcohol intake: never Substance/Drug Use: never Vitals/I&O/Wt Last Vital Signs Temp 98.1 F 09/02/24 07:56 Pulse 51 L 09/02/24 07:56 Resp 20 H 09/02/24 07:56 BP 155/89 09/02/24 07:56 Pulse Ox 97 09/02/24 07:56 O2 Del Method Room Air 09/02/24 07:56 Weight last 48 hrs Weight 220 lb Physical Exam 2 Narrative: GENERAL: The patient is alert and oriented times three. Not in any acute distress. HEENT: No significant pallor, icterus or lymphadenopathy.Oral cavity: There are no mucous membrane lesions. NECK: Trachea appears to be central. No masses noted. No JVD or thyromegaly appreciated. RESPIRATORY: Chest is symmetrical. No intercostals muscle retraction or any accessory muscle activation. There is no chest wall tenderness. Breath sounds are heard bilaterally. No rales or rhonchi heard. No evidence of any consolidation. BREASTS: Deferred. HEART: The heart sounds are normal. No S3 or S4. No significant murmurs. No pericardial rub ABDOMEN: No vessel pulsations or distention. No tenderness. No organomegaly appreciated. Bowel sounds are normally heard. : Deferred. RECTAL: Deferred. LYMPHATIC: No lymphadenopathy noted in the neck. EXTREMITIES: No edema or cyanosis. No clubbing. MUSCULOSKELETAL: No acute joint deformities or swelling SKIN: There are no significant rashes or ecchymosis NEUROPSYCHIATRIC: The patient is alert and oriented x3. Appears to be in a good mood. No tremors or rigidity noted. Data 09/02/24 07:35 09/02/24 07:35 Other Labs: Laboratory Last Values WBC 6.18 10^3/uL (3.29-11.43) 09/02/24 07:35 RBC 4.65 10^6/uL (3.85-5.65) 09/02/24 07:35 Hgb 14.10 g/dL (11.27-16.99) 09/02/24 07:35 Hct 42.0 % (37-53) 09/02/24 07:35 MCV 90.3 fl (82-101) 09/02/24 07:35 MCH 30.3 pg (27-33) 09/02/24 07:35 MCHC 33.6 g/dL (30-55) 09/02/24 07:35 RDW 14.5 % (12.1-15.1) 09/02/24 07:35 Plt Count 204 10^3/cmm (157-399) 09/02/24 07:35 MPV 9.0 fL (7.4-10.4) 09/02/24 07:35 Neut % (Auto) 61.0 % 09/02/24 07:35 Lymph % (Auto) 21.2 % 09/02/24 07:35 [place] % (Auto) 14.7 % 09/02/24 07:35 Eos % (Auto) 2.3 % 09/02/24 07:35 Baso % (Auto) 0.5 % 09/02/24 07:35 Neut # (Auto) 3.77 10^3/uL (1.8-7.7) 09/02/24 07:35 Lymph # (Auto) 1.3 10^3/uL (0.8-4.8) 09/02/24 07:35 [place] # (Auto) 0.9 10^3/uL (0.2-0.9) 09/02/24 07:35 Eos # (Auto) 0.1 10^3/uL (0.0-0.8) 09/02/24 07:35 Baso # (Auto) 0.0 10^3/uL (0.0-0.1) 09/02/24 07:35 Nucleated RBC % (auto) 0 % 09/02/24 07:35 Nucleated RBCs # 0.0 /100WBC 09/02/24 07:35 Sodium 139 mmol/L (136-145) 09/02/24 07:35 Potassium 4.0 mmol/L (3.5-5.1) 09/02/24 07:35 Chloride 103 mmol/L (98-107) 09/02/24 07:35 Carbon Dioxide 26 mmol/L (22-29) 09/02/24 07:35 Anion Gap 14.0 (5-19) 09/02/24 07:35 BUN 18 mg/dL (8-23) 09/02/24 07:35 Creatinine 1.1 mg/dL (0.7-1.2) 09/02/24 07:35 GFR Calculation Not Reportable 09/02/24 07:35 Glucose 169 mg/dL (65-115) H 09/02/24 07:35 Calculated Osmolality 294 mOsm/kg (285-295) 09/02/24 07:35 Calcium 8.8 mg/dL (8.5-10.5) 09/02/24 07:35 A&P Assessment and plan (1) Atherosclerotic heart disease of [place] coronary artery with other forms of angina pectoris: In view of the patient's ongoing symptoms, in order to further evaluate the coronary status, a cardiac catheterization was recommended. The risk of bleeding, hematoma, vascular injury, myocardial infarction, myocardial perforation, malignant cardiac arrhythmias ,CVA, renal failure and other concomitant complications were explained in detail. Patient understood this well and consented to proceed. (2) Chronic episodic atrial fibrillation: Patient was on Eliquis which was held for 2 days. (3) Dyslipidemia: May continue on the current management (4) Benign essential HTN: Slightly elevated this morning. He has been under control at home. Plan Patient angiogram findings, further recommendations will be made. Attestations 2 Medical Necessity Statement*: Patient may require 1 midnight stay after the procedure, if he has to undergo PCI. Coding Level of Care Code 61602 Diagnoses Atherosclerotic heart disease of [place] coronary artery with other forms of angina pectoris I25.118 Chronic episodic atrial fibrillation I48.20 Dyslipidemia E78.5 Benign essential HTN I10
--- NOTE | 2024-09-02 08:42 | W.PM.OPSUD ---
Surgery/Procedure H&P Update DATE OF PROCEDURE: September 02, 2024 DATE H&P PERFORMED: 09/02/24 H&P UPDATE INFORMATION: I have reviewed H&P completed within last 30 days, I have examined patient prior to procedure and No changes to prior documentation PREOP DIAGNOSIS: ASHD PRIMARY INDICATION FOR PROCEDURE: Episodes of shortness of breath/dizziness, abnormal Myocardial perfusion imaging, history of coronary bypass grafting PLANNED PROCEDURE: Operation Date: 09/02/24 07:30 Proposed Procedures p Cardiac Catheterization(Not Applicable) - Edy Castillo MD Operation Date: 09/02/24 08:30 Proposed Procedures p Cardiac Catheterization(Left) - Edy Castillo MD PATIENT REASSESSED PRIOR TO SEDATION, WITH NO CHANGE NOTED: Yes PHYSICAL EXAM: alert, oriented x 3, clear to auscultation bilaterally and regular rate & rhythm AIRWAY EVAL/ANESTHESIA PLAN: normal airway, see other exam findings, ASA III, Monitored Anesthesia, Local Anesthesia, Risks, benefits & alternatives of sedation and/or procedure discussed and Patient agrees to continue as planned
--- NOTE | 2024-09-02 09:43 | PC.NURSE ---
Recovery Note Received patient from construction laborer. Pt alert and oriented to person and place. Breathing even and non-labored on room air. Denies pain. Right femoral artery has sutured in 6 fr sheath to pressure bag. Site asymptomatic. No signs of bleeding or hematoma. Dressing clean dry and intact. Pt place on bedside paper winder. Pt and visitor educated on activity restrictions and bed rest status. Verbalized understanding. Call light in reach.
--- NOTE | 2024-09-02 11:16 | PC.NURSE ---
received from cardiac tin can laborer at 1025 via bed.report received.pt is alert and awake and oriented x 4.denies pain at present.sb on monitor.right femoral arterial sheath is intact to pressurized system.right groin drsg is dry and intact.no hematoma noted.right leg is warm to touch and with brisk capillry refill.palpable dp/pt pulses noted by palpation.pt instructed in activity restrictions s/p femoral artery procedure..and instructed to notify staff for any bleeding,pain,numbness,sob..or for any concerns at all.pt verb understanding of instructions.
[2024-09-02 12:37] LABS: Partial Thromboplastin Time 28.5 SECONDS (23.9-36.7)
--- NOTE | 2024-09-02 13:43 | PC.NURSE ---
right femoral arterial sheath pulled at 1300.manual pressure applied x 20 min.vss through-out procedure.no hematoma formation noted.right leg remains warm to touch and with brisk capillary refill.palpable dp/pt pulses noted.site dressed with 2x2 gauze and secured with biocclusive drsg.pt instructed in activity restrictions s/p femoral artery sheath pull...and instructed to notify staff for any bleeding,pain,numbness,sob... or for any concerns at all.pt verb understanding of instructions.
--- NOTE | 2024-09-02 18:51 | PC.NURSE ---
discharge instructions given and explained.pt verb understanding of instructions.discharged via w/c to exit at this time
== END 2024-09-02 18:52 | disposition home or self-care (01) ==
LOC: CCL 07:24 → CSU 10:32
PROVIDERS: PCP Nurse Practitioner Family; Visit Provider Internal Medicine Cardiovascular Disease
DX: I25.118 Atherosclerotic heart disease of native coronary artery with other forms of angina pectoris (principal); I48.20 Chronic atrial fibrillation, unspecified; E78.5 Hyperlipidemia, unspecified; I10 Essential (primary) hypertension; Z98.890 Other specified postprocedural states; Z95.1 Presence of aortocoronary bypass graft; Z87.891 Personal history of nicotine dependence; E66.9 Obesity, unspecified; Z68.31 Body mass index [BMI] 31.0-31.9, adult; Z79.82 Long term (current) use of aspirin; N40.0 Benign prostatic hyperplasia without lower urinary tract symptoms
CPT/HCPCS: 36415; 80048; 85025; 85730; 93459; 96365; 96374; 99152; 99153; C1769; C1887; C1894; J1644; J2250; J3010; J7050; Q0163; Q9967

== ENCOUNTER 2025-01-29 17:18 | Emergency (ER) | payer MEDICARE, SELFPAY ==
[2025-01-29 17:32] VITALS: BP 136/75; PULSE 117; RESP 17; TEMP 37.1; O2SAT 97; BMI 32.3
[2025-01-29] MEDS: metoprolol tartrate 50 mg Tablet PO (17:41)
[2025-01-29 18:13] VITALS: PULSE 77; O2SAT 98
[2025-01-29 18:44] VITALS: PULSE 85; O2SAT 94
--- NOTE | 2025-01-29 18:51 | XRR_ITS ---
PROCEDURE INFORMATION: Exam: XR Chest Exam date and time: 01/29/2025 9:56 PM Age: 74 years old Clinical indication: Chest pressure; Prior surgery; Surgery date: 6+ months; Surgery type: Cabg. Clavicular fixation; C/O chest pain with tachycardia; Additional info: Cp/arrythmia TECHNIQUE: Imaging protocol: Radiologic exam of the chest. Views: 1 view. COMPARISON: CR XR chest 2V* [id number] 04/05/2022 6:56 PM FINDINGS: Lungs: Unremarkable. No consolidation. Pleural spaces: Unremarkable. No pleural effusion. No pneumothorax. Heart/Mediastinum: Unremarkable. No cardiomegaly. Bones/joints: Sternotomy wires. Metal plate and screws in the left clavicle. Old healed bilateral rib fractures. No acute fracture. Degenerative endplate changes in the spine. XR/XR chest 1V portable [id number] IMPRESSION: No acute findings.
[2025-01-29 19:32] LABS: Basophils % 0.3 %; Eosinophils # 0.1 10^3/uL (0.0-0.8); Eosinophils % 1.7 %; Hematocrit 43.8 % (37-53); Lymphocytes # 1.6 10^3/uL (0.8-4.8); Lymphocytes % 22.2 %; Mean Corpuscular Hemoglobin 30.3 pg (27-33); Mean Corpuscular Volume 89.2 fl (82-101); Mean Platelet Volume 9.1 fL (7.4-10.4); Monocytes # 0.8 10^3/uL (0.2-0.9); Monocytes % 11.8 %; Neutrophils # 4.52 10^3/uL (1.8-7.7); Neutrophils % 63.6 %; Nucleated Red Blood Cells % 0 %; Platelet Count 231 10^3/cmm (157-399); Red Blood Count 4.91 10^6/uL (3.85-5.65); Red Cell Distribution Width 14.2 % (12.1-15.1); White Blood Count 7.11 10^3/uL (3.29-11.43)
[2025-01-29 19:43] LABS: Troponin(5th) Baseline 20 ng/L (0-15)
[2025-01-29 19:46] LABS: Anion Gap 18.4 (5-19); Blood Urea Nitrogen 22 mg/dL (8-23); Calcium 9.4 mg/dL (8.5-10.5); Carbon Dioxide 23 mmol/L (22-29); Chloride 103 mmol/L (98-107); Creatinine Clr Calc Pharmacy 77.5713; Glucose 133 mg/dL (65-115); Osmolality Calculated 297 mOsm/kg (285-295); Potassium 3.4 mmol/L (3.5-5.1); Sodium 141 mmol/L (136-145)
[2025-01-29 21:23] LABS: Troponin 5 2HR 19.26 ng/L (0-15); Troponin 5 2HR Delta -0.74 ABS# (0-10)
--- NOTE | 2025-01-29 22:54 | W.ED.ARRPALP ---
HPI - Arrhythmia/Palpitations General: Chief Complaint: Arrhythmia/Palpitations Stated Complaint: elevated heart rate Time Seen by Provider: 01/29/25 22:06 Source: patient and family Mode of arrival: EMS Limitations: no limitations History of Present Illness: Patient arrives for persistent tachycardia that would not improve despite him being at rest. He is initially on the yard doing things and then started resting and being short of breath and just could not get better even sitting still. Has a history of bypass surgery as well as atrial fibs. Heart rate was consistently in the 130s per patient. Once EMS arrived his heart rate improvement settled down and patient is currently at a rate of 60 and sinus and has been that way for several hours now. Related Data Home Medications ?Medication ?Instructions ?Recorded ?Confirmed amlodipine 10 mg tablet 10 mg PO DAILY 05/09/20 09/02/24 famotidine 40 mg tablet 40 mg PO DAILY 05/09/20 09/02/24 finasteride 5 mg tablet 5 mg PO DAILY 05/09/20 09/02/24 montelukast 10 mg tablet 10 mg PO DAILY 05/09/20 09/02/24 omeprazole 20 mg capsule,delayed 20 mg PO DAILY 05/09/20 09/02/24 release latanoprost 0.005 % eye drops 1 drp ophthalmic (eye) DAILY 10/10/20 09/02/24 diphenhydramine HCl 50 mg capsule 50 mg PO BEDTIME PRN Sleep 03/06/22 09/02/24 (Sleep Aid (diphenhydramine)) levocetirizine 5 mg tablet 5 mg PO DAILY 06/03/23 09/02/24 tamsulosin 0.4 mg capsule 0.4 mg PO BEDTIME 09/02/24 09/02/24 Previous Rx's ?Medication ?Instructions ?Recorded hydrochlorothiazide 25 mg tablet 25 mg PO DAILY #0 tabs 05/10/20 aspirin 81 mg chewable tablet 81 mg PO DAILY #100 tabs 03/08/22 (Children's Aspirin) benazepril 40 mg tablet 40 mg PO DAILY #90 tabs 10/29/22 rivaroxaban 20 mg tablet 20 mg PO DAILY #180 tabs 01/23/23 Held on 09/02/24. Instructions: Resume on 09/04/24. atorvastatin 40 mg tablet 40 mg PO DAILY #90 tabs 03/03/24 metoprolol tartrate 50 mg tablet 50 mg PO BID #60 tabs 10/12/24 Allergies Allergy/AdvReac Type Severity Reaction Status Date / Time erythromycin base Allergy Unknown unknown Verified 06/11/24 10:38 Review of Systems General: Reports: 10 or more systems reviewed and unremarkable except in HPI and below PFSH ED PFSH: Medical History Chronic episodic atrial fibrillation Bradycardia Somnolence, daytime Was in the sleep lab but could not sleep. So he never had a sleep study Atrial fibrillation BPH (benign prostatic hyperplasia) History of adenomatous polyp of colon Diverticulosis Dyslipidemia Benign essential HTN Accelerated essential hypertension Stomach ulcer Arthritis Surgical History S/P CABG x 4 Family History Mother CAD (coronary artery disease), Onset Age: 60 Father Cancer Sister Cancer Denies family history of Diabetes Clotting disorder Dementia Chronic kidney disease (CKD) Suicide Anesthesia complication Bleeding disorder Lung disease Hypertension Stroke Social History Smoking and tobacco/nicotine status: former use of tobacco/nicotine Alcohol intake: never Substance/Drug Use: never Physical Exam Const: COMMON NORMALS: no acute distress, patient oriented x3, healthy appearing, alert and well nourished GENERAL APPEARANCE: well kempt and well developed NUTRITIONAL APPEARANCE: overweight HENMT: COMMON NORMALS: normocephalic, atraumatic, external ears normal and moist oral mucous membranes HEAD & SCALP: normocephalic and atraumatic EXTERNAL EAR: Yes external ears normal Eye: COMMON NORMALS: Equal, round and reactive pupils present, EOMs intact bilaterally and conjunctivae normal CONJUNCTIVA: Yes conjunctivae normal PUPIL: Yes Equal, round and reactive pupils present Neck/C-Spine: COMMON NORMALS: full ROM, no lymphadenopathy and supple Chest: CHEST: Yes Symmetrical chest wall rise and No Surgical scars present (Chest) Resp: COMMON NORMALS: normal respiratory effort, No retractions, No use of accessory muscles and clear to auscultation bilaterally AUSCULTATION: clear to auscultation bilaterally Cardio: COMMON NORMALS: regular rate, regular rhythm, S1 normal heart sound present, S2 normal heart sound present, No gallops present (Cardio), No clicks present (Cardio), No murmurs present (Cardio) and No rub (Cardio) RATE: regular rate RHYTHM: regular rhythm HEART SOUNDS: S1 normal heart sound present, S2 normal heart sound present and no murmurs PERIPHERAL PULSES: other (Radial pulses 2+ and symmetric) GI: COMMON NORMALS: Soft to palpation, non-tender and no masses INSPECTION: No abdominal distension PALPATION: Yes Soft to palpation, No Guarding due to palpation present (GI) and No Rebound tenderness present : COMMON NORMALS: Yes no CVA tenderness BLADDER/KIDNEY EXAM: Yes no CVA tenderness Back/Pelvis: COMMON NORMALS: no CVA tenderness Extremity: COMMON NORMALS: normal to inspection, full ROM, capillary refill normal and no clubbing, cyanosis or edema Neuro: COMMON NORMALS: patient oriented x3 SENSORIUM/ORIENTATION: Yes alert Psych: APPEARANCE: Yes well kempt Skin: COMMON NORMALS: no rashes or lesions noted, no wounds, turgor normal and no jaundice GENERAL SKIN EXAM: no rashes or lesions noted and turgor normal Course Vital Signs: Vital signs: Vital Signs Temperature 98.7 F 01/29/25 17:32 Pulse Rate 85 01/29/25 18:44 Respiratory Rate 17 01/29/25 17:32 Blood Pressure 136/75 01/29/25 17:32 Pulse Oximetry 94 01/29/25 18:44 Oxygen Delivery Me thod Room Air 01/29/25 18:44 MDM - Arrhythmia/Palpitations Medical Decision Making Patient with history of atrial fibrillation who is having rapid heart rate at home. Had it for several hours then called the ambulance. Once EMS got there things were already settling down. When he arrived here it has been stable. He is currently sinus rhythm at a rate of 60. He is asymptomatic and has been since arrival. Differential Diagnosis Likely palpitations, sinus tachycardia, artial fibrillation, artial flutter, supraventricular tachycardia and ventricular tachycardia Medical Records I reviewed the patient's medical records. Lab Data I reviewed the patient's lab results. 01/29/25 19:06 01/29/25 19:06 Laboratory Results WBC 7.11 10^3/uL (3.29-11.43) 01/29/25 19:06 RBC 4.91 10^6/uL (3.85-5.65) 01/29/25 19:06 Hgb 14.90 g/dL (11.27-16.99) 01/29/25 19:06 Hct 43.8 % (37-53) 01/29/25 19:06 MCV 89.2 fl (82-101) 01/29/25 19:06 MCH 30.3 pg (27-33) 01/29/25 19:06 MCHC 34.0 g/dL (30-55) 01/29/25 19:06 RDW 14.2 % (12.1-15.1) 01/29/25 19:06 Plt Count 231 10^3/cmm (157-399) 01/29/25 19:06 MPV 9.1 fL (7.4-10.4) 01/29/25 19:06 Neut % (Auto) 63.6 % 01/29/25 19:06 Lymph % (Auto) 22.2 % 01/29/25 19:06 [place] % (Auto) 11.8 % 01/29/25 19:06 Eos % (Auto) 1.7 % 01/29/25 19:06 Baso % (Auto) 0.3 % 01/29/25 19:06 Neut # (Auto) 4.52 10^3/uL (1.8-7.7) 01/29/25 19:06 Lymph # (Auto) 1.6 10^3/uL (0.8-4.8) 01/29/25 19:06 [place] # (Auto) 0.8 10^3/uL (0.2-0.9) 01/29/25 19:06 Eos # (Auto) 0.1 10^3/uL (0.0-0.8) 01/29/25 19:06 Baso # (Auto) 0.0 10^3/uL (0.0-0.1) 01/29/25 19:06 Nucleated RBC % (auto) 0 % 01/29/25 19:06 Nucleated RBCs # 0.0 /100WBC 01/29/25 19:06 Sodium 141 mmol/L (136-145) 01/29/25 19:06 Potassium 3.4 mmol/L (3.5-5.1) L 01/29/25 19:06 Chloride 103 mmol/L (98-107) 01/29/25 19:06 Carbon Dioxide 23 mmol/L (22-29) 01/29/25 19:06 Anion Gap 18.4 (5-19) 01/29/25 19:06 BUN 22 mg/dL (8-23) 01/29/25 19:06 Creatinine 1.0 mg/dL (0.7-1.2) 01/29/25 19:06 GFR Calculation Not Reportable 01/29/25 19:06 Glucose 133 mg/dL (65-115) H 01/29/25 19:06 Calculated Osmolality 297 mOsm/kg (285-295) H 01/29/25 19:06 Calcium 9.4 mg/dL (8.5-10.5) 01/29/25 19:06 Troponin T Baseline 20 ng/L (0-15) H 01/29/25 19:06 Troponin T 120 Minute 19.26 ng/L (0-15) H 01/29/25 20:42 Delta Troponin T -0.74 ABS# (0-10) L 01/29/25 20:42 XR interpretation done by ED provider, pending radiology final review ED provider radiology interpretation(s): X-ray chest unremarkable EKG Data EKG 1: I personally reviewed and interpreted this EKG as follows: EKG interpretation date: 01/29/25 EKG interpretation time: 17:30 (By Dr. Moseley) Prior EKG tracings: not available for review Interpretation: Atrial fib RVR rate of 116, no significant ST changes. QTc 416 Discharge Plan Discharge Patient Disposition: Home Clinical Impression: Palpitations, History of atrial dilatation Condition: Stable Prescriptions: No Action omeprazole 20 mg capsule,delayed release(DR/EC) 20 mg PO DAILY montelukast 10 mg tablet 10 mg PO DAILY finasteride 5 mg tablet 5 mg PO DAILY amlodipine 10 mg tablet 10 mg PO DAILY famotidine 40 mg tablet 40 mg PO DAILY latanoprost 0.005 % drops 1 drp ophthalmic (eye) DAILY levocetirizine 5 mg tablet 5 mg PO DAILY benazepril 40 mg tablet 40 mg PO DAILY Qty: 90 3RF rivaroxaban 20 mg tablet 20 mg PO DAILY Qty: 180 3RF atorvastatin 40 mg tablet 40 mg PO DAILY Qty: 90 3RF metoprolol tartrate 50 mg tablet 50 mg PO BID Qty: 60 5RF hydrochlorothiazide 25 mg tablet 25 mg PO DAILY Qty: 0 0RF diphenhydramine HCl [Sleep Aid (diphenhydramine)] 50 mg Capsule 50 mg PO BEDTIME PRN (Reason: Sleep) aspirin [Children's Aspirin] 81 mg Tablet,Chewable 81 mg PO DAILY Qty: 100 4RF tamsulosin 0.4 mg Capsule 0.4 mg PO BEDTIME Discharge Orders: Discharge ED (Routine); Ordered 01/29/25 Ordered By: Domingo Boggs Referrals: Sangeeta Vaughan NP [Primary Care Provider] - Patient Instructions: Tachycardia (ED) Activity Restrictions/Additional Instructions: If your heart rate is staying consistently above 100 when you are at rest please evaluate. Or if you feel like you need to ER for any other reason please feel free to return. Your lab work is looking like your normal. Please follow-up with cardiology within your scheduled appointment or sooner if these episodes recur. Continue current medications. Print Language: Greek Coding Level of Care Code ED Anesthesia Assistant for Israel Vitale
[2025-01-29 23:07] VITALS: BP 134/72; PULSE 58; RESP 18; O2SAT 95
== END 2025-01-29 23:08 | disposition home or self-care (01) ==
PROVIDERS: Emergency Provider Emergency Medicine; PCP Nurse Practitioner Family
DX: R00.2 Palpitations (principal); Z86.79 Personal history of other diseases of the circulatory system; Z79.82 Long term (current) use of aspirin; Z87.891 Personal history of nicotine dependence; Z95.1 Presence of aortocoronary bypass graft; E78.5 Hyperlipidemia, unspecified; I10 Essential (primary) hypertension
CPT/HCPCS: 36415; 71045; 80048; 84484; 85025; 99284; J9999

== ENCOUNTER → 2025-03-29 09:37 | Outpatient (BNVA) | payer MEDICARE, SELFPAY | PROVIDERS: PCP Nurse Practitioner Family; Visit Provider Internal Medicine Cardiovascular Disease | DX: I25.118 Atherosclerotic heart disease of native coronary artery with other forms of angina pectoris (principal); I10 Essential (primary) hypertension; E78.5 Hyperlipidemia, unspecified; I48.20 Chronic atrial fibrillation, unspecified; Z79.01 Long term (current) use of anticoagulants; Z79.82 Long term (current) use of aspirin; R06.09 Other forms of dyspnea; Z95.1 Presence of aortocoronary bypass graft; Z87.891 Personal history of nicotine dependence | CPT/HCPCS: 99214 ==

== ENCOUNTER → 2025-04-21 12:52 | Outpatient (BNVA) | payer MEDICARE, SELFPAY | PROVIDERS: PCP Nurse Practitioner Family; Visit Provider Specialist | DX: S46.002A Unspecified injury of muscle(s) and tendon(s) of the rotator cuff of left shoulder, initial encounter (principal); M19.012 Primary osteoarthritis, left shoulder; M25.812 Other specified joint disorders, left shoulder; X58.XXXA Exposure to other specified factors, initial encounter | CPT/HCPCS: 20610; 73030; 99204; J1100; J2795; J3301; J9999 ==

== ENCOUNTER 2025-05-18 09:19 | Outpatient (CLI) | payer MEDICARE, SELFPAY ==
--- NOTE | 2025-05-18 09:25 | US_ITS ---
WS: [id number] Exam: US abdomen complete* [id number] Date/Time of Exam: 05/18/2025 9:37 AM Reason For Exam: ABDOMINAL PAIN There is hepatic enlargement noted. The liver measures about 20 cm in greatest dimension. The liver is echodense which likely represents hepatic steatosis. There appears to be 2 tiny polyps in the gallbladder both measuring in the range of 2 to 3 mm each.. No shadowing stones. No sign of acute cholecystitis. Small area of fatty sparing in the region of the gallbladder fossa. No biliary dilatation noted. The common bile duct measures 5 mm in greatest diameter. The spleen is not enlarged. The IVC is unremarkable. 1.3 cm cyst seen at the upper pole of the LEFT kidney. No solid renal masses were noted. No sign of renal obstruction. The RIGHT kidney measures 13.2 x 5 x 5.4 cm. The LEFT kidney measures 12.7 x 5.3 x 6.2 cm. The kidneys are somewhat lobulated in contour. The abdominal aorta is normal in caliber as visualized. No abdominal mass or free fluid. The pancreas was partially obscured by bowel gas. US/US abdomen complete* [id number] IMPRESSION: 1. Hepatomegaly with probable hepatic steatosis. 2. 2 tiny nonshadowing densities in the gallbladder most likely small polyps. T hese measure about 3 mm in diameter each. 3. 1.3 cm cyst seen at the upper pole of the LEFT kidney. 4. No abdominal mass, ascites or other significant finding.
== END 2025-05-18 09:20 | disposition home or self-care (01) ==
LOC: RAD 09:20
PROVIDERS: PCP Nurse Practitioner Family; Visit Provider Nurse Practitioner Family
DX: N28.1 Cyst of kidney, acquired (principal); R16.0 Hepatomegaly, not elsewhere classified
CPT/HCPCS: 76700

== ENCOUNTER 2025-09-19 10:49 | Emergency (ER) | payer MEDICARE, SELFPAY ==
[2025-09-19 10:51] VITALS: BP 111/70; PULSE 74; RESP 16; TEMP 36.8; O2SAT 97; BMI 30.1
--- OUTSIDE RECORDS SUMMARY | 2025-09-19 10:52 | XMS_ITS | Encounter Summary ---
Author Organization [facility] Address [address] [address] Phone Care Team Providers Care Lithograph Operator Name Role Phone Unavailable Primary Care Provider Unavailabl e Encounter Details Date Type Department Care Team (Late st Contact Info) Description 07/27/2020 Orders Only [facility] [address] [place] [address] Calli Marinelli, FAGOTER [address] [place] [address] Social History Tobacco Use Types Packs/Day Years Used Date Smoking Tobacco: Never Assessed Sex and Gender Information Value Date Recorded Sex Assigned at Not on file Legal Sex Male 11:35 AM CDT Gender Identity Not on file Sexual Orientation Not on file documented as of this encounter Plan of Treatment Not on file documented as of this encounter Visit Diagnoses Not on filedocumented in this encounter
--- OUTSIDE RECORDS SUMMARY | 2025-09-19 10:52 | XMS_ITS | Clinical Summary ---
Author Organization [facility] Address [address] [place] [address] Care Team Providers Care Metal Machine Operator Name Role Phone Unavailable Primary Care Provider Unavailabl e Allergies Active Allergy Reactions Criticality Noted Date Comments Erythromycin Diarrhea Low 01/16/2013 Medications azelastine (OPTIVAR) 0.05 % solution 1 Drop 2 times daily. 07/05/20 20 Active EPINEPHrine (EPIPEN) 0.3 mg/0.3 mL Auto-Injector INJECT ONE PEN INTRAMUSCULARLY DIRECTED. for 30 Active latanoprost (XALATAN) 0.005 % solution 1 (one) time each day at the same time. Active atorvastatin (LIPITOR) 40 mg tablet 02/23/20 22 Active nitroglycerin (NITROSTAT) 0.4 mg Tablet, Sublingual 02/21/20 22 Active mupirocin (BACTROBAN) 2 % Ointment 02/23/20 22 Active benazepriL (LOTENSIN) 40 mg tablet 02/05/20 22 Active metoprolol tartrate (LOPRESSOR) 100 mg tablet 03/14/20 22 Active aspirin (ECOTRIN EC) 81 mg Tablet, Delayed Release (E.C.) Take 1 Tablet (81 mg) by mouth daily. 100 Tablet 1 09/13/20 22 Active fluticasone propionate (FLONASE) 50 mcg/spray Orange, Suspension nasal inhalerIndicatio ns:Subacute maxillary sinusitis Administer 1 Orange in each nostril daily. 48 Gram 1 09/13/20 22 Active baclofen (LIORESAL) 10 mg tabletIndication s:Muscle spasm of back TAKE 1 TABLET(10 MG) BY MOUTH TWICE DAILY NEEDED FOR PAIN 60 Tablet 12/03/19 Active pseudoephedrine (SUDAFED) 30 mg tabletIndication s:Chronic pansinusitis Take 1 Tablet (30 mg) by mouth every 4 hours as needed for Congestion. 30 Tablet 1 12/12/19 Active montelukast (SINGULAIR) 10 mg tablet TAKE 1 TABLET(10 MG) BY MOUTH DAILY 90 Tablet 1 02/21/20 Active finasteride (PROSCAR) 5 mg tablet TAKE 1 TABLET(5 MG) BY MOUTH DAILY 90 Tablet 1 02/21/20 Active peg 3350-electrolyte s (GOLYTELY) 236-22.74-6.74 -5.86 gram Recon Soln Take 1 Each (4,000 mL) by mouth one time for 1 dose. Use as directed the day prior to your procedure. 4000 mL 02/28/20 Active omega-3 acid ethyl esters (LOVAZA) 1 gram Capsule 01/29/20 Active Ozempic 0.25 mg or 0.5 mg(2 mg/1.5 mL) Pen Injector INJECT 0.25MG SUB-Q ONCE A WEEK FOR 4 WEEKS THEN INCREASE TO 0.5MG SUB-Q ONCE WEEK 01/29/20 Active rivaroxaban (Xarelto) 2.5 mg Tablet Take 2.5 mg by mouth daily. Active cetirizine (ZyrTEC) 10 mg tabletIndication s:Seasonal allergic rhinitis, unspecified trigger Take 1 Tablet (10 mg) by mouth daily. 90 Tablet 05/09/20 Active omeprazole (PriLOSEC) 20 mg Capsule, Delayed Release(E.C.) TAKE 1 CAPSULE(20 MG) BY MOUTH DAILY 90 Capsule 07/08/20 Active amLODIPine (NORVASC) 10 mg tablet TAKE 1 TABLET(10 MG) BY MOUTH DAILY 30 Tablet 08/06/20 Active famotidine (PEPCID) 20 mg tablet Take 1 Tablet (20 mg) by mouth 2 times daily. Needs appt prior to next refill 60 Tablet 08/28/20 Active hydroCHLOROthiaz deni 25 mg tablet Take 1 Tablet (25 mg) by mouth daily. Needs appt prior to next refill 30 Tablet 08/28/20 Active tamsulosin (FLOMAX) 0.4 mg capsule TAKE 1 CAPSULE(0.4 MG) BY MOUTH DAILY 90 Capsule 12/26/19 24 Active Active Problems Problem Noted Date Diagnosed Date Paroxysmal atrial fibrillati on with rapid ventricular response 06/21/2020 Traumatic hematoma of buttock right 05/17/2019 Animal-rider injured by fall from or being thrown from horse in noncollision accident, initial encounter 05/17/2019 Peptic ulcer disease 12/26/2016 Overview (03/09/2021): With hemorrhage in the past, healing at present. Hx of adenomatous polyp of colon 12/18/2016 Diverticulosis of large intestine without hemorr ivette 12/18/2016 Overview (03/09/2021): Mild disease, and limited to the sigmoid. Dysphagia 11/06/2016 Hypertension 10/20/2014 BPH (benign prostatic hyperplasia) 10/20/2014 Enlarged prostate Resolved Problems Problem Noted Date Diagnosed Date Resolved Date Peptic ulcer disease with hemorrhage 11/06/2016 12/26/2016 Overview (03/08/2021): There was a fairly extensive amount of hemorrhagic residue in his stomach. No active bleeding noted at the time of endoscopy. Encounters Date Type Department Care Team Description 08/10/2025 Orders Only [facility] Admitting [address] [address] Sangeeta Vaughan FNP Screening for osteoporosis (Primary Dx) 08/06/2025 8:44 AM CDT - 08/06/2025 11:59 PM CDT Hospital Encounter [facility] [address] [address] Sangeeta Vaughan FNP Discharge Disposition: Home or Self Care 08/06/2025 8:43 AM CDT - 08/06/2025 11:59 PM CDT Hospital Encounter [facility] [address] [facility] [address] [place] [address] Sangeeta Vaughan FNP Discharge Disposition: Home or Self Care 08/06/2025 8:42 AM CDT - 08/06/2025 11:59 PM CDT Hospital Encounter [facility] [address] [facility] [address] [place] [phone] Sangeeta Vaughan FNP Discharge Disposition: Home or Self Care 08/04/2025 2:28 PM CDT - 08/04/2025 11:59 PM [facility] Hospital Encounter [facility] [address] [facility] [address] [place] [phone] Sangeeta Vaughan FNP Discharge Disposition: Home or Self Care 08/02/2025 Orders Only [facility] Admitting [address] [facility] [address] [place] [phone] Sangeeta Vaughan FNP Left hip pain (Primary Dx); Other specified disorders of bone, thigh; Pain in left leg; Left low back pain, unspecified chronicity, unspecified whether sciatica present 07/29/2025 Orders Only [facility] [address] [facility] [address] [place] [phone] Sangeeta Vaughan FNP Encounter for screening for osteoporosis (Primary Dx) 07/13/2025 External Device Data [facility] ABSTRACTION Provider, Abstract from Last 3 Months Immunizations Immunization Administration Dates Next Due (Moderna Bivalent)(6 Mos Up) COVID-19 Vaccine - Emergency Use Authorization, MRNA(Pf) 50 Mcg/0.5 Ml Im Susp 08/21/2022 (PNEUMOVAX 23)(50 YRS UP) PN EUMOCOCCAL POLYSACCHARIDE (PPV23) 0.5 ML, IM 10/24/2004 (PREVNAR 13)(6 WKS UP) PNEUM OCOCCAL CONJUGATE (PCV13) 0.5 ML, IM 02/04/2017 (SPIKEVAX) (12 YRS UP PRIMAR Y SERIES) COVID-19 VACCINE - MRNA-1273(PF) 100 MCG/0.5 ML IM SUSP 02/07/2021,02/07/2021 (TDVAX)(7 YRS UP) TETANUS AN D DIPHTHERIA TOXOIDS, ADSORBED (2 LF OF TETANUS TOXOID AND 2 LF OF DIPHTHERIA TOXOID), 0.5ML (PF), IM 08/21/2005,03/16/1991 INFLUENZA VACCINE HIGH DOSE QUADRIVALENT 65 YR UP PF IM 08/21/2022,09/11/2021,09/29/2020 Influenza Seasonal Unspecifi ed Formulation IM 08/03/2016 Influenza Vaccine High Dose 65+ Yrs IM 9,10/01/2018 PNEUMOVAX (PPSV23) pneumococ nika polysaccharide 23-valent Vaccine 10/01/2018 PREVNAR (PCV13) pneumococcal 13-valent conjugate Vaccine 02/04/2017 Pneumococcal conjugate, unsp ecified formulation 10/01/2018 Family History Medical History Relation Name Comments Lung Cancer Father Other Father arthritis Unknown Maternal Grandfather Unknown Maternal Grandmother Other Mother arthritis Unknown Paternal Grandfather Unknown Paternal Grandmother Breast Cancer Neg Hx Colon Cancer Neg Hx Heart Disease Neg Hx Relation Name Status Comments Father Maternal Grandfather Maternal Grandmother Mother Paternal Grandfather Paternal Grandmother Social History Tobacco Use Types Packs/Day Years Used Date Smoking Tobacco: Former Cigarettes Q uit: 11/11/1986 Smokeless Tobacco: Never Tobacco Cessation:Counseling Given: No Alcohol Use Standard Drinks/Week Comments Not Currently 0 (1 standard drink = 0.6 oz pur e alcohol) Feeling Safe Answer Date Recorded Are you in a relationship wi th someone who hurts you emotionally and/or physically? 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 Gender Identity Not on file Sexual Orientation Not on file Last Filed Vital Signs Vital Sign Reading Time Taken Comments Blood Pressure 122/69 04/03/2023 10:59 AM CDT Pulse 63 04/03/2023 10:59 AM CDT Temperature 36.6 C (97.8 F) 04/03/2023 10:59 AM CDT Respiratory Rate 18 04/03/2023 10:59 AM CDT Oxygen Saturation 98% 04/03/2023 10:59 AM CDT Inhaled Oxygen Concentration - - Weight 98.4 kg (217 lb) 03/21/2023 8:17 AM CDT Height 177.8 cm (5' 10 ) 03/21/2023 8:17 AM CDT Body Mass Index 31.14 03/21/2023 8:17 AM CDT Plan of Treatment Health Maintenance Due Date Last Done Comments DIABETES ANNUAL FOOT EXAM 1968 DIABETES MICROALBUMIN ANNUAL SCREEN 1968 FIT-DNA Q 3 years 1995 FIT/FOBT Q 1 year 1995 Flex Sig/CT Colonography Q 5 years 1995 ZOSTER VACCINE (1 of 2) 2000 LDL CHOLESTEROL ANNUAL 06/20/2022 , 06/23/2020, 06/10/2020, Additional history exists RSV VACCINE (60+ or ) (1 - 1-dose 75+ series) 2025 COVID-19 Vaccine (5 - 2024-2 6 season) 2025 08/21/2022, 09/18/2021, 02/07/2021, Additional history exists DIABETES ANNUAL RETINAL EXAM 09/04/2025, 08/23/2023, 04/05/2023, Additional history exists DIABETES HBA1C Q 6 MONTHS 11/17/20252024, 10/29/2024, 05/27/2024, Additional history exists COLORECTAL SCREENING 03/21/2033 03/21/2023, 12/18/19 17 Colorectal Cancer Screening 03/21/2033 DTAP/TDAP/TD VACCINES (2 - T d or Tdap) 02/23/2034 02/24/2024, 08/21/2005, 03/16/1991 PNEUMOCOCCAL VACCINE 50+ YEARS Completed 1 12/01/2017, 10/01/2018, 02/04/2017, Additional history exists INFLUENZA VACCINE Completed 07/29/2025, , 08/21/2022, Additional history exists Procedures Procedure Name Priority Date/Time Associated Diagnosis Comments XR HIP 2 OR 3 VIEWS LT Stat 08/06/2025 9:00 AM CDT Left hip pain Other specified disorders of bone, thigh XR FEMUR 2 VW LEFT Stat 08/06/2025 9: 00 AM CDT Left hip pain Other specified disorders of bone, thigh XR LUMBAR SPINE 2 OR 3 VW Routine 08/06/2025 9:00 AM CDT Left low back pain, unspecified chronicity, unspecified whether sciatica present US VENOUS DOPPLER LEG BILATERAL Stat 08/04/2025 3:56 PM CDT Pain in left leg LIPID PANEL Routine 06/20/2021 8:16 AM CDT Hyperlipidemia, unspecified hyperlipidemia type HEMOGLOBIN A1C Routine 04/28/2015 10:56 AM CDT from Last 3 Months or Most Recently Relevant to Health Maintenance Results * XR HIP 2 OR 3 VIEWS LT (08/06/2025 9:00 AM CDT) Anatomical Region Laterality Modality Lower Extremity Left Computed Radiogr aphy 08/06/2025 9:00 AM CDT Impressions 08/06/2025 9:47 AM CDT IMPRESSION: There is no evidence of an acute fracture or dislocation. There are moderate degenerative changes. The soft tissues appear grossly unremarkable. Narrative 08/06/2025 9:47 AM CDT Exam: XR HIP 2 OR 3 VIEWS LT Date/Time of Exam: 08/06/2025 9:00 AM Reason For Exam: See Diagnosis. Diagnosis: Left hip pain; Other specified disorders of bone, thigh. Comparison: None. Procedure Note Adan Woodson MD - 08/06/2025 Exam: XR HIP 2 OR 3 VIEWS LT Date/Time of Exam: 08/06/2025 9:00 AM Reason For Exam: See Diagnosis. Diagnosis: Left hip pain; Other specified disorders of bone, thigh. Comparison: None. IMPRESSION: There is no evidence of an acute fracture or dislocation. There are moderate degenerative changes. The soft tissues appear grossly unremarkable. Sangeeta Vaughan [facility] ORDE LUIS DANIEL Final Result * XR FEMUR 2 VW LEFT (08/06/2025 9:00 AM CDT) Anatomical Region Laterality Modality Lower Extremity Computed Radiogr aphy 08/06/2025 9:00 AM CDT Impressions 08/06/2025 9:41 AM CDT IMPRESSION: No acute osseous abnormality is noted. Narrative 08/06/2025 9:41 AM CDT XR FEMUR 2 VW LEFT 08/06/2025 9:00 AM Reason For Exam: See Diagnosis. Diagnosis: Left hip pain; Other specified disorders of bone, thigh. COMPARISON: None FINDINGS: No acute fracture, subluxation, dislocation, or destructive osseous lesion is seen. Joint spaces are preserved. Soft tissues are grossly unremarkable. Procedure Note Soy Vargas MD - 08/06/2025 XR FEMUR 2 VW LEFT 08/06/2025 9:00 AM Reason For Exam: See Diagnosis. Diagnosis: Left hip pain; Other specified disorders of bone, thigh. COMPARISON: None FINDINGS: No acute fracture, subluxation, dislocation, or destructive osseous lesion is seen. Joint spaces are preserved. Soft tissues are grossly unremarkable. IMPRESSION: No acute osseous abnormality is noted. Sangeeta Vaughan [facility] ORDAlvino CARY Final Result * XR LUMBAR SPINE 2 OR 3 VW (08/06/2025 9:00 AM CDT) Anatomical Region Laterality Modality Spine Computed Radiogr aphy 08/06/2025 9:00 AM CDT Impressions 08/06/2025 9:45 AM CDT IMPRESSION: Please see below. Exam: XR LUMBAR SPINE 2 OR 3 VW Date/Time of Exam: 08/06/2025 9:00 AM Reason For Exam: See Diagnosis. Diagnosis: Left low back pain, unspecified chronicity, unspecified whether sciatica present. Findings: There are no comparisons. There is straightening of the lumbar curvature on the lateral view without subluxation. The vertebral body heights are adequately maintained. No fractures are suspected. There is mild narrowing of the L4-5 and L5-S1 disc spaces. There is moderate anterior osteophyte formation from L3-4 through L5-S1. There is facet arthropathy at L5-S1. No lytic or blastic lesion is noted. There is an 8 mm calcification over the tip of the right L2 transverse process. There is mild osteoarthritic change of the bilateral hip joints. IMPRESSION: 1. Straightening of the lumbar curvature secondary to patient positioning or muscle spasm. Mild multilevel degenerative change. 2. 8 mm calcification over the tip of the right L2 transverse process most consistent with the calculus previously noted in the right renal pelvis from a CT of 02/20/2024. Narrative Procedure Note Ivanna Camara MD - 08/06/2025 IMPRESSION: Please see below. Exam: XR LUMBAR SPINE 2 OR 3 VW Date/Time of Exam: 08/06/2025 9:00 AM Reason For Exam: See Diagnosis. Diagnosis: Left low back pain, unspecified chronicity, unspecified whether sciatica present. Findings: There are no comparisons. There is straightening of the lumbar curvature on the lateral view without subluxation. The vertebral body heights are adequately maintained. No fractures are suspected. There is mild narrowing of the L4-5 and L5-S1 disc spaces. There is moderate anterior osteophyte formation from L3-4 through L5-S1. There is facet arthropathy at L5-S1. No lytic or blastic lesion is noted. There is an 8 mm calcification over the tip of the right L2 transverse process. There is mild osteoarthritic change of the bilateral hip joints. IMPRESSION: 1. Straightening of the lumbar curvature secondary to patient positioning or muscle spasm. Mild multilevel degenerative change. 2. 8 mm calcification over the tip of the right L2 transverse process most consistent with the calculus previously noted in the right renal pelvis from a CT of 02/20/2024. Sangeeta Vaughan [facility] STERLING CARY Final Result * US VENOUS DOPPLER LEG BILATERAL (08/04/2025 3:56 PM CDT) Anatomical Region Laterality Modality Lower Extremity Ultrasound 08/04/2025 3:56 PM CDT Impressions 08/04/2025 4:08 PM CDT IMPRESSION: No evidence of deep venous thrombosis in the right or left legs. Narrative 08/04/2025 4:08 PM CDT Exam: US VENOUS DOPPLER LEG BILATERAL Date/Time of Exam: 08/04/2025 3:56 PM Reason For Exam: See Diagnosis Diagnosis: Pain in left leg Bilateral LE Venous US Real-time ultrasound and color-flow Doppler studies were performed on the deep venous systems of the right and left leg. Widely patent blood flow with good compressibility and no filling defects were seen throughout the common femoral veins, femoral veins, popliteal veins and through the peroneal tibial trunks and the posterior tibial and peroneal veins in the right and left legs. Procedure Note Bryan Salinas MD - 08/04/2025 Exam: US VENOUS DOPPLER LEG BILATERAL Date/Time of Exam: 08/04/2025 3:56 PM Reason For Exam: See Diagnosis Diagnosis: Pain in left leg Bilateral LE Venous US Real-time ultrasound and color-flow Doppler studies were performed on the deep venous systems of the right and left leg. Widely patent blood flow with good compressibility and no filling defects were seen throughout the common femoral veins, femoral veins, popliteal veins and through the peroneal tibial trunks and the posterior tibial and peroneal veins in the right and left legs. IMPRESSION: No evidence of deep venous thrombosis in the right or left legs. us Sangeeta Vaughan [facility] US ORDERABLES Final R esult * (ABNORMAL) LIPID PANEL (06/20/2021 8:16 AM CDT) CHOLESTEROL 200(H) <200 mg/dL [facility] HDL 42 > OR = 40 mg/dL [facility] TRIGLYCERIDE 129 <150 mg/dL [facility] LDL CALCULATED 134(H) mg/dL (calc) [facility] Comment: Reference range: <100 Desirable range <100 mg/dL for primary prevention; <70 mg/dL for patients with CHD or diabetic patients with > or = 2 CHD risk factors. LDL-C is now calculated using the Shayne-Michelle calculation, which is a validated novel method providing better accuracy than the Friedewald equation in the estimation of LDL-C. Shayne SS et al. GUICHO. 2013;310(19): 3850-2678 (http://education.[employer].KAI Square/faq/HKQ711) CHOL/HDL RATIO 4.8 <5.0 (calc) [facility] TOTAL NON-HDL CHOL(LDL+VLDL) 158(H) <130 mg/dL (calc) [facility] Comment: For patients with diabetes plus 1 major ASCVD risk factor, treating to a non-HDL-C goal of <100 mg/dL (LDL-C of <70 mg/dL) is considered a therapeutic option. Test [facility]formed [facility]: [facility] [address] [facility] [place] [address] Elio Tomlin D.O., MPH Blood 06/20/2021 8:16 AM CDT 06/21/2021 2:48 AM CDT us Eliu PINO CHEMISTRY ORDERABLES Final Re sult [facility] [address] [place] [address] * HEMOGLOBIN A1C (04/28/2015 10:56 AM CDT) HEMOGLOBIN A1C 5.7 4.0 - 6.0 % 04/28/2015 9:[address] [facility] Comment: Falsely low A1C measurements can occur when: 1. Anemia and/or hemolytic anemia is present. 2. Hemoglobin variants present. 3. Renal failure. 4. Transfusion of blood product in the last 120 days. We recommend ordering a fructosamine test([id number]) to more accurately assess glycemic status if any of the above conditions are present. Blood 04/28/2015 10:5 6 AM CDT 04/28/2015 10:57 AM CDT Sangeeta Vaughan PHARMACEUTICAL SPECIALTY REPRESENTATIVE CHEMISTRY ORDERABLES Fi nal Result Performing Organization Address City/[facility] Co de Phone Number [facility] CLIA# [id number] [address] [place] [address] from Last 3 Months or Most Recently Relevant to Health Maintenance Insurance MEDICARE PART A AND B [facility] [id number] Advance Directives For more information, please contact: [phone] * Full Code (Latest Code Status on File) Date Activated Date Inactivated Comments 03/21/2023 10:07 AM 03/21/2023 12:43 PM Care Teams Metal Machine Operator Relationship Specialty Start Date End Date Sangeeta Vaughan [id number] [facility] [id number] Nurse Practitioner 12/26/23
--- OUTSIDE RECORDS SUMMARY | 2025-09-19 10:52 | XMS_ITS | Data Portability ---
Author Organization [place] - [facility], Formerly [facility] Address [address] [place] [address] Assessment No assessment recorded. Plan of Treatment Reminders Order Date Submit Date Provider Last Modified By Organization Details Last Modified Time Details Appointments FOLLOW UP 20 2024 02:00P Tricia Vaughan NP Not available Not available Not available Lab drug of abuse panel, urine [address], [address] [place] [address], [address], 08/26/2025 09:21:31 influenza virus A + B + SARS-CoV- 2 (COVID19) Ag panel, rapid IA, upper respirato ry specimen [address], [address], 08/16/2025 17:18:55 rapid SARS CoV 2 Ag, QL IA, respirato ry specimen [address], [address] [place] [address], [address], 08/09/2025 10:28:38 rapid strep group A, throat [address], [address], 08/09/2025 10:31:52 lyme disease igg+igm, serum, reflex western blot 2024 025 [facility], [address], [place], [address], 06/17/2025 03:06:16 ehrlichia chaffeens is IgG + IgM panel, titer, unspecifi ed specimen [address] [facility], [address], [place], [address], 06/17/2025 14:18:46 ehrlichia chaffeens is Ab, titer, IFA, serum 2024 025 [facility], [address], [place], [address], 06/17/2025 03:06:18 unlisted lab - valentina la anamariaensi s antibody, serum [address] [facility] Lab, [address], [place], [address], 06/17/2025 14:20:06 pork ige, serum 2024 025 [facility], [address], [place], [address], 06/17/2025 03:06:14 unlisted lab - allergen, food, beef IgE 2024 025 [facility], [address], [place], [address], 06/17/2025 03:06:17 rincon IgG Ab, QN, serum 2024 025 [facility], [address], [place], [address], 06/17/2025 03:06:13 alpha-gal ige, serum 2024 025 [facility], [address] [place], [address], 06/17/2025 03:06:15 babesia microti igg+igm Ab, serum 2024 025 [email or web address], [address] [facility] [place], [address], 06/17/2025 14:21:07 Referral None recorded. Procedures None recorded. Surgeries cryothera py (SURG) 2024 [email or web address] Not available 08/09/2025 11:23:13 Imaging XR, cervical spine 2024 [facility], [address], [facility] [address], [place], [address], 08/27/2025 07:58:59 bone density [address], [address] [place], [place] [id number], [place], [address], 09/07/2025 14:28:44 Medication Orders tramadol 50 mg tablet 2024 025 [facility], [address] [facility] [address], [place], [address], 09/06/2025 15:25:09 Depo-Medr ol 40 mg/mL suspensio n for injection 2024 025 Not available 08/25/2025 11:50:13 doxycycli ne hyclate 100 mg capsule 2024 025 [facility], [address] [facility] [address], [place], [address], 08/25/2025 11:55:18 dexametha sone sodium phosphate 4 mg/mL injection solution 2024 025 [email or web address] Not available 08/25/2025 11:50:16 prednison e 20 mg tablet 2024 025 [facility], [address], [address], 08/10/2025 05:02:19 Depo-Medr ol 40 mg/mL suspensio n for injection 2024 025 [email or web address] Not available 08/25/2025 11:50:13 dexametha sone sodium phosphate 4 mg/mL injection solution 2024 025 [email or web address] Not available 08/25/2025 11:50:16 tramadol 50 mg tablet [email or web address] [facility], [address] [place] [address], [address], 09/06/2025 15:13:36 Depo-Medr ol 40 mg/mL suspensio n for injection 2024 025 Not available 08/25/2025 11:50:13 dexametha sone sodium phosphate 4 mg/mL injection solution 2024 025 [email or web address] Not available 08/25/2025 11:50:16 doxycycli ne hyclate 100 mg tablet 2024 025 [facility], [facility] [address], [address], 06/24/2025 05:02:07 Patient TargetsNo targets recorded. Patient Instructions Encounter Date Encounter Id Patient Instructions Last Modified By Organization Details Last Modified Time 06/07/2025 [id number] heart-healthy diet: care instructions ambar Not available 06/07/2025 17:32:50 walking for exercise: care instructions ambar Not available 06/07/2025 17:32:50 07/29/2025 [id number] heart-healthy diet: care instructions Not available 07/29/2025 14:27:13 walking for exercise: care instructions Not available 07/29/2025 14:27:13 08/16/2025 [id number] heart-healthy diet: care instructions Not available 08/16/2025 17:18:55 walking for exercise: care instructions Not available 08/16/2025 17:18:55 Reason for Referral None Reported. Results Created Date Observation Date Name Description Value Unit Range Abnormal Flag Note LastModifiedBy Organization Detail LastModifiedTime 05/17/2005/17/2025 HGBA1 C % HGBA1C 6.8 % 4.0 - 6.0 high non-d iabet ic range : 4-6% ADA Targe t:<7% Above Targe t: 8-12% Not Available [facility] [address] [place], [address], 05/17/2025 17:13:31 05/17/2005/17/2025 CBC WBC 7.04 x10(3 )/uL 4.23 - 9.07 Not Available [facility] [address] [place], [address], 05/17/2025 18:50:43 05/17/2005/17/2025 CBC RBC 4.46 x10(6 )/uL 4.63 - 6.08 low Not Available [facility] [address] [place], [address], 05/17/2025 18:50:43 05/17/20 25 05/17/2025 CBC HGB 13.8 g/dL 13.7 - 17.5 Not Available [facility] [address] [place], [address], 05/17/2025 18:50:43 05/17/20 25 05/17/2025 CBC HCT 40.7 % 40.1 - 51.0 Not Available [facility] [address] [place], [address], 05/17/2025 18:50:43 05/17/20 25 05/17/2025 CBC MCV 91.3 fL 79.0 - 92.2 Not Available [facility] [address] [place], [address], 05/17/2025 18:50:43 05/17/20 25 05/17/2025 CBC MCH 30.9 pg 25.7 - 32.2 Not Available [facility] [address] [place], [address], 05/17/2025 18:50:43 05/17/20 25 05/17/2025 CBC MCHC 33.9 g/dL 32.3 - 36.5 Not Available [facility] [address] [place], [address], 05/17/2025 18:50:43 05/17/20 25 05/17/2025 CBC platelet count 235 x10(3 )/uL 163 - 337 Not Available [facility] [address] [place], [address], 05/17/2025 18:50:43 05/17/20 25 05/17/2025 CBC neut% 70.5 % 34.0 - 67.9 high Not Available [facility] [address] [place], [address], 05/17/2025 18:50:43 05/17/20 25 05/17/2025 CBC lymph% 16.9 % 21.8 - 53.1 low Not Available [facility] [address] [place], [address], 05/17/2025 18:50:43 05/17/20 25 05/17/2025 CBC mono% 10.5 % 5.3 - 12.2 Not Available [facility] [address] [place], [address], 05/17/2025 18:50:43 05/17/20 25 05/17/2025 CBC baso% 0.3 % 0.2 - 1.2 Not Available [facility] [address] [place] [place], [address], 05/17/2025 18:50:43 05/17/20 25 05/17/2025 CBC eo% 1.1 % 0.8 - 7.0 Not Available [facility] [address] [place] [place], [address], 05/17/2025 18:50:43 05/17/20 25 05/17/2025 CBC Ig% 0.7 % 0.0 - 0.4 high Not Available [facility] [address] [place], [address], 05/17/2025 18:50:43 05/17/20 25 05/17/2025 CBC neut# 4.96 x10(3 )/uL 1.78 - 5.38 Not Available [facility] [address] [place], [address], 05/17/2025 18:50:43 05/17/20 25 05/17/2025 CBC lymph# 1.19 x10(3 )/uL 1.32 - 3.57 low Not Available [facility] [address] [place], [address], 05/17/2025 18:50:43 05/17/20 25 05/17/2025 CBC mono# 0.74 x10(3 )/uL 0.30 - 0.82 Not Available [facility] [address], [place], [place], [address], 05/17/2025 18:50:43 05/17/20 25 05/17/2025 CBC baso# 0.02 x10(3 )/uL 0.01 - 0.08 Not Available [facility] [address], [place], [place], [address], 05/17/2025 18:50:43 05/17/20 25 05/17/2025 CBC eo# 0.08 x10(3 )/uL 0.04 - 0.54 Not Available [facility] [address], [place], [place], [address], 05/17/2025 18:50:43 05/17/20 25 05/17/2025 CBC Ig# 0.05 x10(3 )/uL 0.00 - 0.03 high Not Available [facility] [address], [place], [place], [address], 05/17/2025 18:50:43 05/17/20 25 05/17/2025 CBC RDW-CV 14.5 % 11.6 - 14.4 high Not Available [facility] [address], [place], [place], [address], 05/17/2025 18:50:43 05/17/20 25 05/17/2025 CBC RDW-SD 48.0 fL 35.1 - 43.9 high Not Available [facility] [address], [place], [place], [address], 05/17/2025 18:50:43 05/17/20 25 05/17/2025 CBC MPV 9.3 fL 9.4 - 12.4 low Not Available [facility] [address], [place], [address], 05/17/2025 18:50:43 05/17/20 25 05/17/2025 CBC NRBC# 0.00 x10(3 )/uL 0.00 - 0.01 Not Available [facility] [address] [place], [address], 05/17/2025 18:50:43 05/17/20 25 05/17/2025 CBC NRBC% 0.0 % 0.0 - 0.2 Not Available [facility] [address] [place], [address], 05/17/2025 18:50:43 05/17/20 25 05/17/2025 H. PYLOR I H. pylori Negati ve Not Available [facility] [address] [place], [address], 05/17/2025 18:50:45 05/17/20 25 05/17/2025 TSH TSH 1.060 mIU/L 0.465 - 4.680 Not Available [facility] [address] [place], [address], 05/17/2025 18:50:45 05/17/20 25 05/17/2025 COMPR EHENS MAHIN METAB OLIC PANEL (CMP) albumin 3.9 g/dL 3.5 - 5.0 Not Available [facility] [address] [place], [address], 05/17/2025 18:50:47 05/17/20 25 05/17/2025 COMPR EHENS MAHIN METAB OLIC PANEL (CMP) chloride 108 mmol/ L 98 - 107 high Not Available [facility] [address] [place], [address], 05/17/2025 18:50:47 05/17/20 25 05/17/2025 COMPR EHENS MAHIN METAB OLIC PANEL (CMP) creatinine 1.00 mg/dL 0.66 - 1.25 Not Available [facility] [address] [place], [address], 05/17/2025 18:50:47 05/17/20 25 05/17/2025 COMPR EHENS MAHIN METAB OLIC PANEL (CMP) eco2 27 mmol/ L 22 - 30 Not Available [facility] [address] [place], [address], 05/17/2025 18:50:47 05/17/20 25 05/17/2025 COMPR EHENS MAHIN METAB OLIC PANEL (CMP) glucose 205 mg/dL 74 - 106 high Not Available [facility] [address] [place], [address], 05/17/2025 18:50:47 05/17/20 25 05/17/2025 COMPR EHENS MAHIN METAB OLIC PANEL (CMP) potassium 3.60 mmol/ L 3.50 - 5.10 Not Available [facility] [address] [place], [address], 05/17/2025 18:50:47 05/17/20 25 05/17/2025 COMPR EHENS MAHIN METAB OLIC PANEL (CMP) alkaline phos 90 U/L 38 - 126 Not Available [facility] [address] [place], [address], 05/17/2025 18:50:47 05/17/20 25 05/17/2025 COMPR EHENS MAHIN METAB OLIC PANEL (CMP) sodium 142 mmol/ L 137 - 145 Not Available [facility] [address] [place], [address], 05/17/2025 18:50:47 05/17/20 25 05/17/2025 COMPR EHENS MAHIN METAB OLIC PANEL (CMP) total bilirubin 0.7 mg/dL 0.2 - 1.3 Not Available [facility] [address] [place], [address], 05/17/2025 18:50:47 05/17/20 25 05/17/2025 COMPR EHENS MAHIN METAB OLIC PANEL (CMP) total protein 6.6 g/dL 6.3 - 8.2 Not Available [facility] [address] [place], [address], 05/17/2025 18:50:47 05/17/20 25 05/17/2025 COMPR EHENS MAHIN METAB OLIC PANEL (CMP) ALT 62 U/L 0 - 50 high Not Available [facility] [address] [place], [address], 05/17/2025 18:50:47 05/17/20 25 05/17/2025 COMPR EHENS MAHIN METAB OLIC PANEL (CMP) BUN/urea 21 mg/dL 9 - 20 high Not Available [facility] [address] [place], [address], 05/17/2025 18:50:47 05/17/20 25 05/17/2025 COMPR EHENS MAHIN METAB OLIC PANEL (CMP) eGFR 78 mL/mi n/1.7 3m2 >60 *eGFR Refer ence Value s Abimbola l: >60 mL/mi n/1.7 3m2 Abnor mal: < 60 mL/mi n/1.7 3m2 Not Available [facility] [address] [place], [address], 05/17/2025 18:50:47 05/17/20 25 05/17/2025 COMPR EHENS MAHIN METAB OLIC PANEL (CMP) A/G ratio 1.4 (calc ) 1.0 - 2.5 Not Available [facility] [address] [place], [address], 05/17/2025 18:50:47 05/17/20 25 05/17/2025 COMPR EHENS MAHIN METAB OLIC PANEL (CMP) globulin 2.7 g/dL_ (calc ) 1.9 - 3.7 Not Available [facility] [address] [place], [address], 05/17/2025 18:50:47 05/17/20 25 05/17/2025 COMPR EHENS MAHIN METAB OLIC PANEL (CMP) calcium 9.9 mg/dL 8.4 - 10.2 Not Available [facility] [address] [place], [address], 05/17/2025 18:50:47 05/17/20 25 05/17/2025 COMPR EHENS MAHIN METAB OLIC PANEL (CMP) AST 41 U/L 17 - 59 Not Available [facility] [address] [place], [address], 05/17/2025 18:50:47 05/17/20 25 05/17/2025 COMPR EHENS MAHIN METAB OLIC PANEL (CMP) BUN/crea ratio 21 (calc ) 6 - 22 Not Available [facility] [address] [place], [address], 05/17/2025 18:50:47 05/17/20 25 05/17/2025 LIPID PANEL VLDL (calculated) 38 mg/dL (calc ) 0 - 30 high Not Available [facility] [address] [place], [address], 05/17/2025 18:50:48 05/17/20 25 05/17/2025 LIPID PANEL direct HDL 38 mg/dL 40 - 60 low Not Available [facility] [address] [place], [address], 05/17/2025 18:50:48 05/17/20 25 05/17/2025 LIPID PANEL triglyceride s 190 mg/dL 0 - 199 Not Available [facility] [address] [place], [address], 05/17/2025 18:50:48 05/17/20 25 05/17/2025 LIPID PANEL cholesterol 119 mg/dL <200 Not Available [facility] [address] [place], [address], 05/17/2025 18:50:48 05/17/20 25 05/17/2025 LIPID PANEL chol/DHDL ratio 3 %_(ca lc) 0 - 5 Not Available [facility] [address] [place], [address], 05/17/2025 18:50:48 05/17/20 25 05/17/2025 LIPID PANEL LDL (calculated) 43 mg/dL 0 - 100 Not Available [facility] [address] [place], [address], 05/17/2025 18:50:48 05/17/20 25 05/17/2025 H pylor i Ab, serum H. Pylori AB negati ve Not Available [address], [address], 05/17/2025 11:18:56 05/17/20 25 05/17/2025 album in/cr eatin ine, ratio , urine Albumin 30 mg/L (abnor mal) Not Available [address], [address], 05/17/2025 10:59:49 05/17/20 25 05/17/2025 album in/cr eatin ine, ratio , urine Creatinine 200 mg/dL (abimbola l) Not Available [address], [address], 05/17/2025 10:59:49 05/17/20 25 05/17/2025 album in/cr eatin ine, ratio , urine A:C Ratio <30 mg/g (abimbola l) Not Available [address] [place], [address], 05/17/2025 10:59:49 05/17/20 25 05/17/2025 urina lysis panel , auto RACHAEL negati ve Not Available [address] [place], [address], 05/17/2025 10:40:05 05/17/20 25 05/17/2025 urina lysis panel , auto NIT negati ve Not Available [address] [place], [address], 05/17/2025 10:40:05 05/17/20 25 05/17/2025 urina lysis panel , auto URO 0.2 Not Available [address] [place], [address], 05/17/2025 10:40:05 05/17/20 25 05/17/2025 urina lysis panel , auto PRO negati ve Not Available [address] [place], [address], 05/17/2025 10:40:05 05/17/20 25 05/17/2025 urina lysis panel , auto pH 5.5 Not Available [address] [place], [address], 05/17/2025 10:40:05 05/17/20 25 05/17/2025 urina lysis panel , auto BLO negati ve Not Available [address] [place], [address], 05/17/2025 10:40:05 05/17/20 25 05/17/2025 urina lysis panel , auto SG 1.030 Not Available [address], [address], 05/17/2025 10:40:05 05/17/20 25 05/17/2025 urina lysis panel , auto KET negati ve Not Available [address], [address], 05/17/2025 10:40:05 05/17/20 25 05/17/2025 urina lysis panel , auto GLENYS negati ve Not Available [address], [address], 05/17/2025 10:40:05 05/17/20 25 05/17/2025 urina lysis panel , auto GLU negati ve Not Available [address], [address], 05/17/2025 10:40:05 06/07/20 25 06/17/2025 RINCON IGE ALLER GEN allergen, food, rincon IgE <0.10 kU/L <0.10- 0.34 This test was devmarcelino [facility]aiser and its perfo rmanc e jovany cteri stics were deter mined by [facility]. It has not been clear ed or appro juan by the FDA. The labor atory is regul ated under CLIA as quali fied to perfo rm high- compl exity testi ng. This test is used for clini nika purpo ses and shoul d not be regar ded as inves tigat ional or for resea rc. Not Available [facility] [address], [place], [address], 06/17/2025 03:06:13 06/07/20 25 06/17/2025 ALLER GEN, PORK, IGE allergen, food, pork IgE <0.10 kU/L <0.10- 0.34 Not Available [facility] [address] [place], [address], 06/17/2025 03:06:14 06/07/20 25 06/17/2025 GALAC TOSE- ALPHA -1,3- GALAC TOSE (ALPH A-GAL ) IGE allergen, food, alpha galactose (alpha-gal) IgE 0.22 kU/L <0.10- 0.34 Not Available [facility] [address] [place], [address], 06/17/2025 03:06:15 06/07/2006/17/2025 LYME DISEA SE, ANTIB MOJGAN SCREE N, RFLX TO IMMUN OBLOT , SERUM B burgdorferi (lyme disease) IgG NEGATI VE negati ve Not Available [facility] [address] [place], [address], 06/17/2025 03:06:16 06/07/20 25 06/17/2025 LYME DISEA SE, ANTIB MOJGAN SCREE N, RFLX TO IMMUN OBLOT , SERUM B burgdorferi (lyme disease) IgM NEGATI VE negati ve Not Available [facility] [address] [place], [address], 06/17/2025 03:06:16 06/07/20 25 06/17/2025 ALLER GEN, FOOD, BEEF IGE allergen, food, beef IgE 0.13 kU/L <0.10- 0.34 Not Available [facility] [address] [place], [address], 06/17/2025 03:06:17 06/07/20 25 06/17/2025 BABES IA MICRO TI ANTIB ODIES , IGG/I GM BY IFA babesia microti IgM <1:20 <1:20 INTER PRETI VE INFOR MATIO N: Babes ia micro ti Antib mojgan, IgM Less than 1:20 ..... ... Negat mahin - No signi fican t level of detec table Babes ia IgM antib odies . 1:20 ..... ..... ..... ... Equiv ocal - Repea t testi ng in 10-14 days may be helpf ul. Great er than 1:20 ..... Posit mahin - IgM antib odies to Babes ia detec quintin which may indic ate a curre nt or recen t infec tion. This test was devel oped and its perfo rmanc e jovany cteri stics deter mined by [employer]. It has not been clear ed or appro juan by the [place] Food and Drug Admin istra tion. This test was perfo rmed in a CLIA certi fied labor atory and is inten ded for clini nika purpo ses. Perfo rmed By: [employer] [address] [place] [address] Applikay Direc tor: Shelbi quan MD, PhD CLIA [place] r: [id number] Not Available [facility] [address] [place], [address], 06/17/2025 03:06:18 06/07/20 25 06/17/2025 BABES IA MICRO TI ANTIB ODIES , IGG/I GM BY IFA babesia microti IgG < 1:16 < 1:16 INTER PRETI VE INFOR MATIO N: Babes ia micro ti Antib mojgan, IgG Less than 1:16 ..... ... Negat mahin - No signi fican t level of detec table Babes ia IgG antib odies . 1:16 ..... ..... ..... ... Equiv ocal - Repea t testi ng in 10-14 days may be helpf ul. Great er than 1:16 ..... Posit mahin - IgG antib odies to Babes ia detec quintin which may indic ate a curre nt or previ ous infec tion. This test was devel oped and its perfo rmanc e jovany cteri stics deter mined by [facility] atori es. It has not been clear ed or appro juan by the US Food and Drug Admin istra tion. This test was perfo rmed in a CLIA certi fied labor atory and is inten ded for clini nika purpo ses. Not Available [facility] [address] [facility], [place], [place], [address], 06/17/2025 03:06:18 06/07/2006/17/2025 EHRLI DEONNA CHAFF EENSI S ANTIB ODIES , IGG/I GM BY IFA ehrlichia chaffeensis antibody, IgG 1:64 <1:64 INTER PRETI VE INFOR MATIO N: Ehrli deonna Chaff eensi s IgG Ab Less than 1:64 ..... .. Negat mahin: No signi fican t level of Ehrli deonna chaff eensi s IgG antib mojgan detec quintin. 1:64- 1:128 ..... ..... . Equiv ocal: [facility] ionab le prese nce of Ehrli deonna chaff eensi s IgG antib mojgan detec quintin. Repea t testi ng in 10-14 days may be helpf ul. 1:256 or great er ..... Posit mahin: Prese nce of IgG antib mojgan to Ehrli deonna chaff eensi s detec quintin, sugge stive of curre nt or past infec tion. Seroc onver milaan betwe en acute and conva lesce nt sera is consi malvin gardner evide nce of recen t infec tion. The best evide nce for infec tion is a signi fican t so e (four fold diffe rence in titer ) on two appro priat james timed speci mens, where both tests are done in the same labor atory at the same time. This test was devel oped and its perfo rmanc e jovany cteri stics deter mined by [employer]. It has not been clear ed or appro juan by the US Food and Drug Admin istra tion. This test was perfo rmed in a CLIA certi fied labor atory and is inten ded for clini nika purpo ses. Not Available [facility] [address], [place], [address], 06/17/2025 03:06:18 06/07/20 25 06/17/2025 EHRLI DEONNA CHAFF EENSI S ANTIB ODIES , IGG/I GM BY IFA ehrlichia chaffeensis antibody, IgM < 1:16 < 1:16 INTER PRETI VE INFOR MATIO N: Ehrli deonna Chaff eensi s IgM Ab Less than 1:16 ..... .. Negat mahin - No signi fican t level of Ehrli deonna chaff eensi s IgM antib mojgan detec quintin. 1:16 or great er ..... . Posit mahin - Prese nce of IgM antib mojgan to Ehrli deonna chaff eensi s detec quintin, sugge stive of curre nt or recen t infec tion. While the prese nce of IgM antib odies sugge st curre nt or recen t infec tion, low level s of IgM antib odies may occas ional ly persi st for more than 12 month s post- infec tion. A singl e IgM resul t shoul d be inter prete d with cauti on. This test was devel oped and its perfo rmanc e jovany cteri stics deter mined by [employer]. It has not been clear ed or appro juan by the US Food and Drug Admin istra tion. This test was perfo rmed in a CLIA certi fied labor atory and is inten ded for clini nika purpo ses. Perfo rmed By: [employer] [address] [place] [address] Labor atory Direc tor: Shelbi quan MD, PhD DC sánchez: [id number] Not Available [facility] [address] [place], [id number], 06/17/2025 03:06:18 06/07/20 25 06/17/2025 EHRMABEL GONZALEZ S ANTIB ODIES , IGG/I GM BY IFA A. phagocytophi lum Ab IgM < 1:16 < 1:16 INTER PRETI VE INFOR MATIO N: A. phago cytop hilum (HGA) Antib mojgan, IgM Less than 1:16 - No signi fican t level of IgM antib odies to A. phago cytop hilum detec quintin. Great er than or equal to 1:16 - Sugge stive of a curre nt or recen t infec tion with A. phago cytop hilum . This test was devel oped and its perfo rmanc e jovany cteri stics deter mined by [employer]. It has not been clear ed or appro juan by the [place] Food and Drug Admin istra tion. This test was perfo rmed in a CLIA certi fied labor Opternative and is inten ded for clini nika purpo ses. Perfo rmed By: [employer] [facility] [address] [place] [address] [employer] Direc tor: Shelbi quan MD, PhD DC Aguilar r: [id number] Not Available [facility] [address] [place], [id number], 06/17/2025 03:06:18 06/07/20 25 06/17/2025 EHRMABEL GONZALEZ S ANTIB ODIES , IGG/I GM BY IFA A. phagocytophi lum Ab IgG <1:80 <1:80 INTER PRETI VE INFOR MATIO N: A. phago cytop hilum (HGA) Antib mojgan, IgG Less than 1:80 - No signi fican t level of IgG antib odies to A. phago cytop hilum detec quintin. Great er than or equal to 1:80 - Sugge stive of a recen t or past infec tion with A. phago cytop hilum . This test was devel oped and its perfo rmanc e jovany cteri stics deter mined by [facility]. It has not been clear ed or appro juan by the [place] Food and Drug Admin istra tion. This test was perfo rmed in a CLIA certi fied michael wren and is inten ded for clini nika purpo ses. Not Available [facility] [address] [place], [address], 06/17/2025 03:06:18 06/07/2006/17/2025 ALLER GY FOOTN OTES allergy footnotes SEE COMMEN T Refer ence Range s and Clini nika Impli catio ns of Speci fic IgE Class 0 <0.10 kU/L No signi fican t level detec quintin Class 1 0.10- 0.34 kU/L Clini nika relev ance undet ermin ed Class 2 0.35- 0.69 kU/L Low level , ongoi ng sensi tizat ion Class 3 0.70- 3.49 kU/L Moder ate level , stron julia ongoi ng sensi tizat ion Class 4 3.50- 17.49 kU/L High level of sensi tizat ion Class 5 17.50 -49.9 9 kU/L Very high level of sensi tizat ion Class 6 >=50. 00 kU/L Very high level of sensi tizat ion Not Available [facility] [address] [place], [address], 06/17/2025 03:06:19 06/07/2006/17/2025 TRENT Kirby TULAR ENSIS ANTIB ODIES , IGG AND IGM francisella tularensis antibody, IgG Negati ve negati ve Not Available [facility] [address] [place], [address], 06/17/2025 03:06:20 06/07/20 25 06/17/2025 TRENT Kirby TULAR ENSIS ANTIB ODIES , IGG AND IGM francisella tularensis antibody, IgM Negati ve negati ve Not Available [facility] [address] [place], [address], 06/17/2025 03:06:20 06/07/20 25 06/17/2025 TRENT Kirby TULAR ENSIS ANTIB ODIES , IGG AND IGM fracisella tularensis antibody interpretati on See Note Clini nika Inter preta tion: No signi fican t level of IgG or IgM antib mojgan to Trent kirby tular ensis detec quintin. INTER PRETI VE INFOR MATIO N: F. tular ensis Antib mojgan Inter preta tion Cross -reac tivit y with Kirk lla and Yersi rissa antib odies may occur . False -posi tive resul ts are possi ble, there fore resul ts shoul d be inter prete d with cauti on and corre lated with clini nika infor matio n. Confi rmati on by anoth er metho d, such as agglu tinat ion may be helpf ul. This test was devel oped and its perfo rmanc e jovany cteri stics deter mined by [facility]. It has not been clear ed or appro juan by the U.S. Food and Drug Admin istra tion. This test was perfo rmed in a CLIA- certi fied labor atory and is inten ded for clini nika purpo ses. Perfo rmed By: [facility] [address] [place] [address] [employer]: Shelbi quan MD, PhD CLIA Numbe r: [id number] Not Available [facility] [address], [address], 06/17/2025 03:06:20 08/09/20 25 08/09/2025 rapid strep group A, throa t Strep negati ve Not Available [address] [place], [address], 08/09/2025 09:56:45 08/09/2008/09/2025 rapid SARS CoV 2 Ag, QL IA, respi rator y speci men Rapid COVID Antigen positi ve Not Available [address], [address], 08/09/2025 09:56:34 08/16/20 25 08/16/2025 influ mike virus A + B + SARS- CoV-2 (COVI D19) Ag panel , rapid IA, upper respi rator y speci men flu A n Not Available [address], [address], 08/16/2025 12:50:22 08/16/20 25 08/16/2025 influ mike virus A + B + SARS- CoV-2 (COVI D19) Ag panel , rapid IA, upper respi rator y speci men flu B n Not Available [address], [address], 08/16/2025 12:50:22 08/16/20 25 08/16/2025 influ mike virus A + B + SARS- CoV-2 (COVI D19) Ag panel , rapid IA, upper respi rator y speci men covid n Not Available [address], [address], 08/16/2025 12:50:22 08/25/20 25 08/25/2025 drug of abuse panel , urine Unknown Analyte negati ve Not Available [address], [address], 08/25/2025 12:40:50 08/25/20 25 08/25/2025 drug of abuse panel , urine Unknown Analyte negati ve Not Available [facility] [address] [place], [address], 08/25/2025 12:40:50 08/25/2008/25/2025 drug of abuse panel , urine Unknown Analyte negati ve Not Available [facility] [address] [place], [address], 08/25/2025 12:40:50 08/25/2008/25/2025 drug of abuse panel , urine Unknown Analyte negati ve Not Available [facility] [address] [place], [address], 08/25/2025 12:40:50 08/25/2008/25/2025 drug of abuse panel , urine Unknown Analyte negati ve Not Available [facility] [address] [place], [address], 08/25/2025 12:40:50 08/25/2008/25/2025 drug of abuse panel , urine Unknown Analyte negati ve Not Available [facility] [address] [place], [address], 08/25/2025 12:40:50 08/25/2008/25/2025 drug of abuse panel , urine Unknown Analyte negati ve Not Available [facility] [address] [place], [address], 08/25/2025 12:40:50 08/25/2008/25/2025 drug of abuse panel , urine Unknown Analyte negati ve Not Available [facility] [address] [place], [address], 08/25/2025 12:40:50 08/25/20 25 08/25/2025 drug of abuse panel , urine Unknown Analyte negati ve Not Available [facility] [address] [place], [address], 08/25/2025 12:40:50 08/25/2008/25/2025 drug of abuse panel , urine Unknown Analyte negati ve Not Available [facility] [address] [place], [address], 08/25/2025 12:40:50 05/18/20 25 05/18/2025 US, abdom en, compl ete No observ ation record ed. [email or web address] [place], [address], 05/19/2025 10:24:38 08/04/20 25 08/04/2025 US, duple x, venou s, lower extre mity, unila teral No observ ation record ed. [email or web address] [facility] [address] [address], [place], [address], 08/05/2025 17:24:43 08/06/20 25 08/06/2025 XR, femur No observ ation record ed. [email or web address] [facility] [address] [address], [place], [address], 08/09/2025 12:18:59 08/06/20 25 08/06/2025 XR, lumbo sacra l spine , 2 or 3 view No observ ation record ed. [email or web address] [facility] [address] [facility] [address], [place], [address], 08/09/2025 12:57:10 08/06/20 25 08/06/2025 XR, hip, unila teral No observ ation record ed. [email or web address] [facility] [address] [facility] [address], [place], [address], 08/09/2025 10:34:02 08/27/20 08/25/2025 XR, cervi nika spine No observ ation record ed. [email or web address] Not Available 2024 09:42:07 Result Notes None recorded. Problems Name Problem SNOMED Code Status Onset Date Resolution Date Notes Provider Name and Address Organization Details Recorded Time Hypertensive disorder 25424783 Active 2022 Not Available [facility] 4 17:14:00 Hyperlipidemi a 03203374 Active 2022 Not Available [facility] 4 17:14:00 Allergic rhinitis 88430867 Active 2022 Not Available [facility] 4 17:14:00 Type 2 diabetes mellitus without complication 683827558 Active 2022 Not Available [facility] 4 17:14:00 Arthritis 2320577 Active 2022 Not Available [facility] 4 17:14:00 Long-term current use of anticoagulant 780187867 Active 2022 Not Available [facility] 4 17:14:00 History of coronary artery bypass grafting 192574246 Active 2022 Not Available [facility] 4 17:14:00 Atrial fibrillation 45139875 Active 2024 [facility] 5 15:41:07 Notes:Some problems listed i n Documents: #[id number], #[id number] could not be added to this patient's chart. Please review these documents and add these problems to the patient's chart manually as needed. Problem Notes None recorded. Procedures Surgical History Date Name Laterality Status Provider Name and Address Organization Details Recorded Time 025 Joint Injection hip knee shoulder completed [facility] 08/25/2025 12:13:17 025 Cryosurgery Warts/Skin Tags completed Sangeeta Vaughan NP [address] [place] [address], [address], [facility] 08/09/2025 11:12:29 025 Flu vaccine Screening completed [facility] 07/29/2025 11:27:20 025 Cryosurgery Warts/Skin Tags completed [facility] 03/31/2025 12:15:09 023 Skin Tag Removal completed [facility] 05/07/2023 10:56:33 022 cardiac revascularization with bypass anastomosis completed [facility] 01/28/2023 16:18:08 colonoscopy completed [facility] 10/29/2024 09:29:23 Cataract Surgery completed [facility] 10/29/2024 09:29:35 procedure on clavicle completed [facility] 10/29/2024 09:30:02 Imaging Results None recorded. Procedure Notes None recorded. Medical Equipment None Reported. Allergies Allergen ID Allergen Name Allergen Category Reaction Reaction Severity Criticality Documentation Date Start Date Code Code System Note Provider Name and Address Organization Details Recorded Time 34784 erythromy francoise medicatio n Not available Not available Not available 09/23/2023 4053 RxNorm Sangeeta Vaughan NP [address], [address] [place] [address] 13:05:32 Medications Name Sig Start Date Stop Date Status Note LastModified by Organization Details LastModified Time latanopro st 0.005 % eye drops INSTILL 1 DROP INTO EACH EYE AT BEDTIME active Not Available Not Available No t Available atorvasta tin 40 mg tablet TAKE 1 TABLET BY MOUTH ONCE DAILY active Not Available Not Available No t Available Augmentin 875 mg-125 mg tablet Take 1 tablet every 12 hours by oral route for 10 days. 11/18 completed Not Available Not Available Not Available promethaz ine-DM 6.25 mg-15 mg/5 mL oral syrup TAKE 5 ML BY MOUTH EVERY 4 HOURS NEEDED 04/06 completed Not Available Not Available Not Available prednison e 10 mg tablet 40 mg daily for 3 days, 30 mg daily for 3 days, 20 mg daily for 3 days, 10 mg daily for 3 days, 5 mg daily for 3 days then stop 05/30 completed Not Available Not Available Not Available doxycycli ne hyclate 100 mg capsule TAKE 1 CAPSULE BY MOUTH TWICE DAILY FOR 10 DAYS 08/25 completed Not Available Not Available Not Available Depo-Medr ol 40 mg/mL suspensio n for injection Take 40 mg by injectio n route. 08/25 completed Not Available Not Available Not Available cetirizin e 10 mg tablet take 1 tablet daily 12/24 completed Not Available Not Available Not Available diphenhyd ramine 50 mg tablet Take 2 tablets by oral route. 06/06 completed Not Available Not Available Not Available azithromy francoise 250 mg tablet TAKE 2 TABLETS BY MOUTH ON DAY 1, AND THEN TAKE 1 TABLET BY MOUTH ONCE A DAY ON DAY 2 THROUGH DAY 5 02/04 completed Not Available Not Available Not Available metoprolo l tartrate 100 mg tablet TAKE 1 TABLET BY MOUTH TWICE DAILY 10/29 completed dosage decrease d to 50mg Not Available Not Available Not Available amiodaron e 200 mg tablet 01/28 completed Not Available Not Available Not Available hydrocodo ne 5 mg-acetam inophen 325 mg tablet TAKE 1 TABLET BY MOUTH TWICE DAILY FOR 19 DAYS active Not Available Not Available No t Available meloxicam 15 mg tablet Take 1 tablet every day by oral route. 07/10 completed Not Available Not Available Not Available prednison e 20 mg tablet Take 1 tablet every day by oral route for 5 days. 08/10 completed Not Available Not Available Not Available penicilli n V potassium 500 mg tablet 02/04 completed Not Available Not Available Not Available tramadol 50 mg tablet TAKE 1 TO 2 TABLETS BY MOUTH EVERY 6 HOURS NEEDED FOR PAIN 09/06 completed Not Available Not Available Not Available amoxicill in 500 mg tablet Take 1 tablet twice a day by oral route for 10 days. 05/29 completed Not Available Not Available Not Available Depo-Medr ol 80 mg/mL suspensio n for injection Take 80 mg by injectio n route. 03/31 completed Not Available Not Available Not Available terbinafi ne HCl 250 mg tablet Take 1 tablet every day by oral route for 90 days. 10/29 completed Not Available Not Available Not Available ceftriaxo ne 1 gram solution for injection Take 1 g by injectio n route. 09/26 completed Not Available Not Available Not Available famotidin e 20 mg tablet TAKE 1 TABLET BY MOUTH TWICE DAILY active Not Available Not Available No t Available prednisol one acetate 1 % eye drops,yuliana pension 06/06 completed Not Available Not Available Not Available tamsulosi n 0.4 mg capsule TAKE 1 CAPSULE BY MOUTH ONCE DAILY active Not Available Not Available No t Available baclofen 10 mg tablet 01/28 completed Not Available Not Available Not Available amlodipin e 10 mg tablet TAKE 1 TABLET BY MOUTH ONCE DAILY active Not Available Not Available No t Available benzonata te 100 mg capsule TAKE 1 CAPSULE BY MOUTH THREE TIMES DAILY NEEDED FOR 10 DAYS 04/06 completed Not Available Not Available Not Available cephalexi n 500 mg capsule 01/28 completed Not Available Not Available Not Available oseltamiv ir 75 mg capsule TAKE 1 CAPSULE BY MOUTH TWICE DAILY FOR 5 DAYS 03/31 completed Not Available Not Available Not Available lisinopri l 10 mg tablet 01/28 completed Not Available Not Available Not Available metoprolo l tartrate 50 mg tablet TAKE 1/2 (ONE-RAFFY F) TABLET BY MOUTH TWICE DAILY active Not Available Not Available No t Available nitroglyc mickey 0.4 mg sublingua l tablet 02/04 completed Not Available Not Available Not Available omeprazol e 20 mg capsule,d elayed release TAKE 1 CAPSULE BY MOUTH ONCE DAILY active Not Available Not Available No t Available monteluka st 10 mg tablet TAKE 1 TABLET BY MOUTH ONCE DAILY active Not Available Not Available No t Available hydrochlo rothiazid e 25 mg tablet TAKE 1 TABLET BY MOUTH ONCE DAILY active Not Available Not Available No t Available mupirocin 2 % topical ointment 01/28 completed Not Available Not Available Not Available digoxin 125 mcg (0.125 mg) tablet 01/28 completed Not Available Not Available Not Available dexametha sone sodium phosphate 4 mg/mL injection solution Inject 4 mg by intramus cular route. 08/25 completed Not Available Not Available Not Available benazepri l 40 mg tablet TAKE 1 TABLET BY MOUTH ONCE DAILY active Not Available Not Available No t Available fluticaso ne propionat e 50 mcg/actua tion nasal spray,yuliana pension 08/22 completed Not Available Not Available Not Available doxycycli ne hyclate 100 mg tablet Take 1 tablet twice a day by oral route for 10 days. 06/24 completed Not Available Not Available Not Available finasteri de 5 mg tablet TAKE 1 TABLET BY MOUTH ONCE DAILY active Not Available Not Available No t Available amoxicill in 500 mg-potass ium clavulana te 125 mg tablet TAKE 1 TABLET BY MOUTH EVERY 12 HOURS FOR 10 DAYS 02/04 completed Not Available Not Available Not Available omega-3 acid ethyl esters 1 gram capsule TAKE 2 CAPSULES BY MOUTH TWICE DAILY active Not Available Not Available No t Available chlorhexi dine gluconate 0.12 % mouthwash 01/28 completed Not Available Not Available Not Available levocetir izine 5 mg tablet TAKE 1 TABLET BY MOUTH ONCE DAILY active Not Available Not Available No t Available GaviLyte- G 236 gram-22.7 4 gram-6.74 gram-5.86 gram oral solution 06/06 completed Not Available Not Available Not Available Xarelto 20 mg tablet TAKE 1 TABLET BY MOUTH DAILY active Not Available Not Available No t Available Eliquis 5 mg tablet TAKE ONE TABLET BY MOUTH TWICE DAILY 01/28 completed Not Available Not Available Not Available Trulicity 0.75 mg/0.5 mL subcutane ous pen injector 0.75 mg SC qwk, 06/22 completed Not Available Not Available Not Available naloxone 4 mg/actuat ion nasal spray active Not Available Not Available Not Available Ozempic 0.25 mg or 0.5 mg (2 mg/1.5 mL) subcutane ous pen injector INJECT 0.25MG SUB-Q ONCE A WEEK FOR 4 WEEKS THEN INCREASE TO 0.5MG SUB-Q ONCE WEEK 06/06 completed Not Available Not Available Not Available Xarelto 2.5 mg tablet Take 1 tablet twice a day by oral route for 90 days. 01/07 completed Not Available Not Available Not Available Ozempic 1 mg/dose (4 mg/3 mL) subcutane ous pen injector Inject 1 mg every week by subcutan eous route for 30 days. 07/28 completed Not Available Not Available Not Available Alive Men's [facility] Plus Multivit active Not Available Not Available Not Available Ozempic 2 mg/dose (8 mg/3 mL) subcutane ous pen injector Inject 2 mg weekly 2024 active Not Available Not Available Not Avai lable Lagevrio 200 mg capsule (EUA) 01/28 completed Not Available Not Available Not Available Ozempic 0.25 mg or 0.5 mg (2 mg/3 mL) subcutane ous pen injector Inject by subcutan eous route for 56 days. 2024 active Not Available Not Available Not Avai maddie Vitals Date Recorded Body height Body mass index (BMI) Body weight Body temperature Respiratory rate Heart rate Oxygen saturation Oxygen saturation in Arterial blood by Pulse oximetry Systolic And Diastolic Provider Name and Address Organization Details Last Updated DateTime 5 177.8 cm 33 kg/m2 292324. 6 g 98.2 [degF] 18 /min 74 /min 98 % 98 % 136/80 mm[Hg] [facility] 5 12:15:21 Date Recorded Body height Body mass index (BMI) Body weight Body temperature Respiratory rate Heart rate Oxygen saturation Oxygen saturation in Arterial blood by Pulse oximetry Systolic And Diastolic Provider Name and Address Organization Details Last Updated DateTime 5 177.8 cm 32.6 kg/m2 822646. 22 g 97.9 [degF] 18 /min 78 /min 98 % 98 % 114/70 mm[Hg] [facility] 5 10:55:18 Date Recorded Body height Body mass index (BMI) Body weight Body temperature Heart rate Oxygen saturation Oxygen saturation in Arterial blood by Pulse oximetry Respiratory rate Systolic And Diastolic Provider Name and Address Organization Details Last Updated DateTime 5 177.8 cm 32.2 kg/m2 009158. 14 g 98.3 [degF] 80 /min 96 % 96 % 18 /min 100/60 mm[Hg] [facility] 5 10:23:58 Date Recorded Body height Body mass index (BMI) Body weight Body temperature Heart rate Oxygen saturation Oxygen saturation in Arterial blood by Pulse oximetry Respiratory rate Systolic And Diastolic Provider Name and Address Organization Details Last Updated DateTime 5 177.8 cm 31.9 kg/m2 940000. 31 g 98.2 [degF] 77 /min 99 % 99 % 16 /min 125/78 mm[Hg] [facility] 5 12:45:37 Date Recorded Body height Body mass index (BMI) Body weight Body temperature Respiratory rate Heart rate Oxygen saturation Oxygen saturation in Arterial blood by Pulse oximetry Systolic And Diastolic Provider Name and Address Organization Details Last Updated DateTime 5 177.8 cm 31.8 kg/m2 113179. 01 g 98.5 [degF] 18 /min 77 /min 98 % 98 % 132/82 mm[Hg] [facility] 5 11:52:00 Social History Question Answer Notes LastModified by Organizat ion Details LastModified Time Tobacco Smoking Status [facility]/28/2023 16:15:35 Do You Have An Advance Directive? No Information not available 01/28/2023 Are You Blind Or Do You Have Difficulty Seeing? No Information not available 01/28/2023 Is Blood Transfusion Acceptable In An Emergency? Yes Information not available 01/28/2023 What Is Your Level Of Caffeine Consumption? Occasional Information not available 10/29/2024 In The 14 Days Before Symptom Onset, Have You Had Close Contact With A Laboratory-confir med COVID-19 While That Case Was Ill? No Information not available 01/28/2023 In The 14 Days Before Symptom Onset, Have You Had Close Contact With A Person Who Is Under Investigation For COVID-19 While That Person Was Ill? No Information not available 01/28/2023 Have You Been To An Area Known To Be High Risk For COVID-19? No Information not available 01/28/2023 Are You Deaf Or Do You Have Serious Difficulty Hearing? No Information not available 01/28/2023 What Type Of Diet Are You Following? REGULAR Information not available 01/28/2023 Have You Processed Blood Or Body Fluids From An Ebola Virus Disease Patient Without Appropriate PPE? No Information not available 01/28/2023 What Is The Highest Grade Or Level Of School You Have Completed Or The Highest Degree You Have Received? [id number] Information not available 01/28/2023 How Many Days Of Moderate To Strenuous Exercise, Like A Brisk Walk, Did You Do In The Last 7 Days? 5 Information not available 01/28/2023 In The Past 6 Months Have You Fallen No Information not available 01/28/2023 Have You Ever Been Tested For Hepatitis C Yes Information not available 01/28/2023 Have You Had A Blood Transfusion Before 1991? No Information not available 01/28/2023 Have You Had Guide Rail Cleaner Dialysis? No Information not available 01/28/2023 Have You Ever Used Injectable Drugs, Even Once? No Information no t available 01/28/2023 Do You Have Tattoos Or Body Piercings? No Information not available 01/28/2023 Have You Had Close Contact With An Individual With Hepatitis C? No Information not available 01/28/2023 Have You Ever Had Sex For Drugs Or Money? No Information not available 01/28/2023 Have You Ever Had Unprotected Sex? No Information not available 01/28/2023 Have You Been Incarcerated For Longer Than 6 Months? No Information not available 01/28/2023 Have You Tested Positive For HIV? No Information no t available 01/28/2023 Do You Have A History Of Fist Fighting Or Combat Experience? No Information not available 01/28/2023 Medication List Reconciled Yes Information not available 01/28/2023 What Number (0-10) Best Describes How, During The Past Week, Has Interfered With Your General Activity? 4 Information not available 10/29/2024 What Number (0-10) Best Describes How, During The Past Week, Pain Has Interfered With Your Enjoyment In The Past Week 4 Information not available 10/29/2024 What Number (0-10) Best Describes Your Pain On Average In The Past Week 4 Information not available 10/29/2024 Total PEG Score 12 Informati on not available 10/29/2024 Sexual Orientation Straight Or Heterosexual Information not available 01/28/2023 Gender Identity Male Informati on not available 01/28/2023 Do You Feel Safe Yes Informat ion not available 01/28/2023 What Was The Date Of Your Most Recent Tobacco Screening? 08/25/2025 [id number] Information not available 08/25/2025 How Many Children Do You Have? 2 Information not available 01/28/2023 What Is Your Relationship Status? Information not available 01/28/2023 Do You Use Your Seat Belt Or Car Seat Routinely? Yes Information not available 01/28/2023 Are You Sexually Active? No Information not available 01/28/2023 Do You Have Difficulty Walking Or Climbing Stairs? Yes Information not available 01/28/2023 Sex: Male Functional Status Question Answer Note LastModified by Organizat ion Details LastModified Time Do you use any illicit or recreational drugs? No Information not available 01/28/2023 Do you or have you ever used any other forms of tobacco or nicotine? No Information not available 01/28/2023 What is your level of alcohol consumption? None Information not available 01/28/2023 Are you currently employed? No Information not available 01/28/2023 Do you have transportation difficulties? No Information not available 01/28/2023 Are you able to walk independently without assistance or assistive devices? YESWOREST Information not available 01/28/2023 Do you have difficulty doing errands alone? No Information not available 01/28/2023 Are you able to care for yourself independently? Yes Information not available 01/28/2023 Do you have difficulty dressing, bathing, grooming, or toileting? No Information not available 01/28/2023 What is your exercise level? Moderate Information not available 01/28/2023 Mental Status Question Answer Note LastModified by Organizat ion Details LastModified Time Do you feel stressed (tense, restless, nervous, or anxious, or unable to sleep at night)? [id number] Information not available 01/28/2023 Do you have difficulty concentrating, remembering or making decisions? No Information no t available 01/28/2023 Family History Nothing Reported. Medical History Condition Response Gout N Other N Blood Diseases N Kidney Stones N Hyperthyroidism N Blood Transfusion N Depression N COPD N Incontinence N Edema N Endocrine Disorders N Anxiety Disorder N Muscle, Joint, or Bone Problems N Obesity N Vision or Eye Problems N Arthritis N Auditory Hallucinations N Infertility N Cancer N Varicosities N Stroke N Fibromyalgia N Headaches N Kidney Disease N Abnormal Bleeding N Reproductive System Problems N Ear or Hearing Problems N Hospitalizations N Learning Disorder N Skin Problems N Eating Disorder N MRSA exposure N Urinary Problems N Constipation N Brain Injury N Visual Hallucinations N AIDS/HIV N Tuberculosis N Back Problems N Asthma N GERD/Reflux N Hepatitis N Pulmonary Embolism N Chronic Ear Infections N Chicken Pox N Autism Spectrum Disorder (ASD) N Thrombophilias N Thyroid Disease N Breast Cancer N Hypothyroidism N Lung Disease N Developmental or Behavioral Disorders N Defects or Inherited Disease N Breast Problem N Difficulty Swallowing N Anesthesia Complications N Deep Vein Thrombosis N Meniere's disease N Hearing Loss N Head Injury/Concussion N Congenital Anomalies N Abnormal Pap Smear N Endometriosis N Bladder or Kidney Problems N High Cholesterol Y Nervous System Disorder N Liver Disease N Psychiatric/Mental Health Condition N Schizophrenia N Allergies/Hayfever N Parkinson's Disease N GI Problems N ADD/ADHD N Anemia N Colon Polyps N Heart Attack ([place]) N Diabetes N Ovarian Cancer N Bedwetting N Seizures/Epilepsy N Amnesia N Congestive Heart Failure (CHF) N Eczema N Dementia N Diverticulitis N Abuse/Domestic Violence N Cardiovascular N Tourette Syndrome N Hypertension Y Pre-Eclampsia N Osteoporosis N Immunizations Vaccine Type Date Status Note Provider Nam e and Address Organization Details Recorded Time Influenza, high-dose, quadrivalent, PF 2 completed Not Available [facility] 11/21/2023 17:14:00 Influenza, high-dose, quadrivalent, PF 1 completed Not Available [facility] 11/21/2023 17:14:00 COVID-19, mRNA, LNP-S, PF, 100 mcg/0.5mL dose or 50 mcg/0.25mL dose 1 completed Not Available [facility] 11/21/2023 17:14:00 COVID-19, mRNA, LNP-S, PF, 100 mcg/0.5mL dose or 50 mcg/0.25mL dose 1 completed Not Available [facility] 11/21/2023 17:14:00 COVID-19, mRNA, LNP-S, bivalent, PF, 50 mcg/0.5 mL or 25mcg/0.25 mL dose 2 completed Not Available [facility] 11/21/2023 17:14:00 pneumococcal polysaccharide PPV23 8 completed Not Available [facility] 11/21/2023 17:14:00 Pneumococcal conjugate PCV 13 7 completed Not Available [facility] 11/21/2023 17:14:00 Influenza, high-dose, trivalent, PF 6 completed Not Available [facility] 11/21/2023 17:14:00 Influenza, high-dose, trivalent, PF 7 completed Not Available [facility] 11/21/2023 17:14:00 Influenza, high-dose, trivalent, PF 9 completed Not Available [facility] 11/21/2023 17:14:00 Influenza, high-dose, trivalent, PF 8 completed Not Available [facility] 11/21/2023 17:14:00 Td (adult), 2 Lf tetanus toxoid, preservative free, adsorbed 1 completed Not Available [facility] 11/21/2023 17:14:00 Td (adult), 2 Lf tetanus toxoid, preservative free, adsorbed 5 completed Not Available [facility] 11/21/2023 17:14:01 Influenza, adjuvanted, quadrivalent, PF 3 completed Tiana Quezada [facility] 08/23/2023 16:13:28 Tdap 4 completed Carley Hearn [facility] 02/24/2024 16:47:16 Influenza, adjuvanted, trivalent, PF 5 completed Carley lo [place] [facility] 07/29/2025 12:16:58 Past Encounters Encounter ID Performer Location Encounter Start Date Encounter Closed Date Diagnosis/Indication Diagnosis SNOMED-CT Code Diagnosis ICD10 Code Diagnosis IMO Codes Diagnosis Note [id number] [facility] [address] [place] [address] 01/28/2023 15:08:30 01/28/2023 16:57:45 Long-term drug therapy 402547872 Z79.899 Other labs are pending; Will contact patient one results are reviewed. Hyperlipidemia 44403840 E78.5 Screening for malignant neoplasm of prostate 909272925 Z12.5 Hypertensive disorder 38 994616 I10 His blood pressure is elevated today. Will continue to monitor. Body mass index 30+ - obesity 925494510 Z68.33 Will start Ozempic. Counseled patient on proper medication administra tion and side effects. Advised to stop the medication if side effects occur and notify provider. 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 Questions encouraged and answered, verbalized understand ing. Diet education 44338720 Z71.3 Exercises education, guidance, and counseling 404860924 Z71.89 Allergic rhinitis 391639 04 J30.9 Hypertriglyceridemia 302 954849 E78.1 His TRG is elevated at 401. Recommende d to start on fish oil. Type 2 shun betes mellitus without complication 984554751 E11.9 His glucose 140, A1C 6.6%; Discussed he is a diabetic.D iscussed importance of limiting carbohydra kezia and eating a diabetic diet.Quest ions encouraged and answered, verbalized understand ing.Follow up in 3 months to check A1C. History of coronary artery bypass grafting 959844227 Z95.1 Pain of le ft shoulder joint [id number] 4907372 M25.[address] Leblanc(orth opedist) tomorrow [id number] DESIRAE VIRGEN DO [facility] [place] [address] [place] [address] 04/30/2023 10:45:37 05/01/2023 09:15:43 Body mass index 30+ - obesity 394856588 Z68.33 BMI 31.5 Diet education 47973647 Z71.3 Exercises education, guidance, and counseling 423690868 Z71.89 Type 2 shun betes mellitus without complication 829370644 E11.9 Her previous A1C 6.6% and it has improved to 6.0% since starting the ozempic and he has lost 13 lbs. Will increase his ozempic to 1 mg weekly if insurance will cover. Allergic rhinitis 149081 04 J30.9 He will switch his allergy medication to levocetiri zine. Depomedrol 80 mg and dex 4 mg given IM. Arthritis 1527411 M19 Will start on meloxicam 15 mg daily for his arthritis pain: mainly in his hands. Acute sinusitis 82503238 J01.90 Course of antibiotic s given and steroids. If not improving let provider know. Skin tag 735483357 L91.8 He will return next week to have removed. [id number] DESIRAE VIRGEN DO [facility] [address] [place] [address] 05/07/2023 10:22:04 05/08/2023 08:28:27 Skin tag [id number] L91.8 Skin tag was removed. The patient tolerated the procedure well, and wound care instructio ns were given. The patient was instructed to return as needed. [id number] DESIRAE VIRGEN DO [facility] [address] [place] [address] 05/30/2023 09:20:01 05/31/2023 15:56:19 Long-term current use of anticoagulant 710248161 Z79.01 Discussed the increased risk of bleeding with taking NSAIDS and xarelto. He is scheduled to see the cardiologi st Dr. Castillo in [place] next week. Recommende d to notify his cardiologi st and to have him recheck his urine. Pt voiced understand ing. Arthritis 3691940 M1990 Body mass index 30+ - obesity 605940250 Z68.32 BMI 32.1 Type 2 shun betes mellitus without complication 382199982 E11.9 His previous A1C 6.0 on 04-30-2023 sample of ozempic was given to patient. History of coronary artery bypass grafting 057944060 Z95.1 Blood in urine 74379108 R31.9 UA showed blood. Discussed he needs to stop the meloxicam. Drink lots of water. If not improving or worsening let provider know. [id number] DESIRAE VIRGEN [facility] [address] [place] [address] 06/06/2023 09:38:34 06/07/2023 11:24:37 Blood in urine 33609261 R31.9 His UA is still showing postive for 3+ blood. Discussed with patient will need to referral to urologist. If bleeding gets worse let provider know. Pt voiced understand ing Arthritis 9931284 M19.90 Due to blood in the urine unable to prescribe the meloxicam at this time. History of coronary artery bypass grafting 696855332 Z95.1 Will notify his cardiologi st about his blood in his urine. [id number] DESIRAE VIRGEN [facility] [address] [place] [address] 06/19/2023 09:05:20 06/19/2023 16:40:43 Chronic urinary tract infection 536910051 N39.0 [id number] DESIRAE VIRGEN [facility] [address] [place] [address] 06/27/2023 09:08:25 06/27/2023 13:58:12 Blood in urine 54712857 R31.9 His UA is still showing postive for 3+ blood. Discussed with patient will need to referral to urologist. If bleeding gets worse let provider know. Pt voiced understand ing [id number] DESIRAE VIRGEN [facility] [address] [place] [address] 07/10/2023 10:08:38 07/10/2023 17:24:12 Low back pain 900215704 M54.50 Will prescribe tramadol tablets; Take 1-2 tablets every 6 hours as needed for pain. And may take tylenol with the tramadol to help with pain.Depo- Medrol 80 mg and Dex 4 mg IM given in clinic.If pain not improving let provider know. Allergic rhinitis 093300 04 J30.9 Osteoarthritis 845894031 M19.90 Multiples sites including hands and shoulder Type 2 shun betes mellitus without complication 797062786 E11.9 His previous A1C 6.0% Will attempt to get coverage on ozempic. [id number] DESIRAE VIRGEN DO [facility] [place] [address] [place] [address] 08/22/2023 14:58:59 08/23/2023 12:06:43 Low back pain 214462509 M54.50 Patient is still having pain in back while active, he states the pain stops after he lays down for a while. Tramadol controllin g pain. PDMP patient not found. Local pharmacies do not report. History of coronary artery bypass grafting 124006008 Z95.[address] [facility]. he believes his next appointmen t is in November or December. Hypertensive disorder 38 406285 I10 His blood pressure is 104/66 standing. Will continue to monitor. Hyperlipidemia 02154923 E78.5 Labs checked, will advise patient when results are received. Type 2 shun betes mellitus without complication 672716250 E11.9 A1C 6.4%; Unable to get coverage on ozempic. Discussed victoza as an option. Rheumatoid arthritis 698 07824 M06.9 Checking labs for RA, will advise patient of results. Administra tion of influenza vaccine 07767168 Z23 flu vaccine administer ed [id number] DESIRAE VIRGEN DO [facility] [address] [place] [address] 09/17/2023 10:24:45 09/18/2023 15:51:09 Body mass index 30+ - obesity 332063720 Z68.32 BMI 32.3 Counseled on importance of healthy diet and 20-30 minutes of exercise 3-5 times per week. Advance di rective discussed with patient 498828389 Z71.89 Patient would like informatio n on AD. Kidney stone 00742343 N2 0.0 Patient has a known kidney stone approx 7-8mm. Patient is still controllin g pain with tramadol, does not need a refill at this time. Patient is going to start drinking cranberry juice. Patient will try to pass stone on his own. Would like referral to urology if stone does not pass by [facility]. [id number] DESIRAE VIRGEN DO [facility] [address] [place] [address] 09/23/2023 11:58:20 09/24/2023 11:40:01 Acute sinusitis 11323127 J01.90 Will treat with course of antibiotic s and steroid shot in officePt instructed to complete antibiotic s even if he feels better. Pt voiced understand ing Diet education 70669668 Z71.3 Exercises education, guidance, and counseling 805073211 Z71.82 Finding of body mass index 727315254 Z68.32 Body mass index 30+ - obesity 147902284 Z68.32 BMI 32.8 Counseled on importance of healthy diet and 20-30 minutes of exercise 3-5 times per week. [id number] DESIRAE VIRGEN DO [facility] [address] [place] [address] 10/07/2023 10:45:05 10/08/2023 09:36:16 Diet education 35899760 Z71.3 Exercises education, guidance, and counseling 386870586 Z71.82 Kidney stone 22943190 N2 0.0 Will arrange for appointmen t with urologist. Pt voiced understand ing. Acute sinusitis 18227988 J01.90 Pt recommende d to use flonase daily, Course of antibotics given. If not improving let provider know. Low back pain 158806175 M54.50 Patient is still having pain in back while active, he states the pain stops after he lays down for a while. Tramadol controllin g pain. PDMP patient not found. Local pharmacies do not report. Patient signed pain contract today. His last UDS was 08/23/2023 . Discussed with patient controlled substance policy. Pt voiced understand ing. [id number] DESIRAE VIRGEN [facility] [address] [place] [address] 11/05/2023 09:38:22 11/06/2023 14:16:20 Body mass index 30+ - obesity 355293120 Z68.32 BMI 31.9 Counseled on importance of healthy diet and 20-30 minutes of exercise 3-5 times per week. Diet education 08102437 Z71.3 Exercises education, guidance, and counseling 342305290 Z71.82 Influenza caused by Influenza B virus 81245836 J10.1 In house Flu swab was positive. Treat with Tamiflu, continue OTC medication s for symptom management such as motrin and tylenol. Supportive care: rest, good nutrition and avoiding spread of illness discussed. If new worsening or prolonged symptoms get rechecked [id number] DESIRAE VIRGEN DO [facility] [address] [place] [address] 11/21/2023 10:01:01 11/22/2023 14:00:16 Type 2 diabetes mellitus without complication 457638205 E11.9 His previous A1C 6.4%. Today it is 6.8%Ozempi c not covered by insurance. Discussed started on trulicity; Pt agreed will start on trulicity at 0.75 mg weekly.Fol low up x3 months or sooner if needed. Hyperlipidemia 67068290 E78.5 Currently on atorvastat in 40 mg daily.Labs checked, will advise patient when results are received. Hypertensive disorder 38 415988 I10 Body mass index 30+ - obesity 592452293 Z68.32 BMI 31.9Counse led on importance of healthy diet and 20-30 minutes of exercise 3-5 times per week. Diet education 38742024 Z71.3 Exercises education, guidance, and counseling 095070937 Z71.89 History of coronary artery bypass grafting 828946954 Z95.[address] [facility] He has an appointmen t with Dr. Castillo next month. Long-term current use of anticoagulant 208757704 Z79.01 discussed with patient if his xarelto is every $400 again do not picker feeder and let provider know. Low back pain 214527130 M54.50 His back pain has improved; May continue the tramadol PRN for back and hand pain. Kidney stone 08621254 N2 0.0 Encouraged to keep appointmen t with urologist. [id number] DESIRAE VIRGEN DO [facility] [address] [place] [address] 12/24/2023 10:34:43 12/25/2023 16:20:00 Acute sinusitis 40370745 J01.90 His flu and covid swab negative. Will treat with course of antibiotic s. If symptoms not improving let provider know. Patient voiced understand ing. History of coronary artery bypass grafting 120471663 Z95.[address] Castillo, cardiologi , every 6 months. He reports he is going to be scheduled for a holter monitor soon. History of calculus of kidney 618450413 Z87.442 Has upcoming appointmen t with urologist. Long-term current use of anticoagulant 686102978 Z79.01 Currently on xarelto Body mass index 30+ - obesity 616557461 Z68.32 BMI 31.7Counse led on importance of healthy diet and 20-30 minutes of exercise 3-5 times per week. Diet education 03970450 Z71.3 Exercises education, guidance, and counseling 845873407 Z71.89 [id number] DESIRAE VIRGEN DO [facility] [address] [place] [address] 01/07/2024 11:22:28 01/08/2024 10:01:29 History of coronary artery bypass grafting 532170671 Z95.[address] [facility]. Allergic rhinitis 974042 04 J30.9 Low back pain 619400017 M54.50 His back pain has improved; May continue the tramadol PRN for back and hand pain. His is unable to take anti-infla mmatories due to being on anticoagul ant therapy. No medication history noted on PDMP. Last refilled on 10/07/2023 [id number] DESIRAE VIRGEN DO [facility] [address] [place] [address] 02/05/2024 09:32:16 02/07/2024 09:56:03 Low back pain 121970175 M54.50 May continue the tramadol PRN for back and hand pain. His is unable to take anti-infla mmatories due to being on anticoagul ant therapy. No medication history noted on PDMP.[facility]. Acute sinusitis 69947590 J01.90 Course of antibiotic s given. f not improving let provider know. History of coronary artery bypass grafting 683877789 Z95.[address] Castillo, cardiologi , every 6 months. Scheduled for follow up June 10, 2024 Allergic rhinitis 627410 04 J30.9 Recommende d to continue flonase and symptomati c care. Long-term current use of anticoagulant 743853940 Z79.01 Currently on xarelto Fatigue 59700106 R53.83 Scheduled for labs on 02/20/2024 and will check vitamin b12 and vitamin d Body mass index 30+ - obesity 561320962 Z68.32 BMI 31.6Counse led on importance of healthy diet and 20-30 minutes of exercise 3-5 times per week. Diet education 23488284 Z71.3 Exercises education, guidance, and counseling 894209279 Z71.89 Obese 884832854 E66.9 [id number] DESIRAE VIRGEN DO [address] [address] 02/24/2024 13:43:25 02/25/2024 11:19:33 Type 2 diabetes mellitus without complication 201138115 E11.9 Last hba1c was 6.8%; Today 6.0%Last eye exam was in [facility] Dr. Parikh labs are pending and will contact patient with results.Moo llow up x3 months or sooner if needed. Kidney stone 78162860 N2 0.0 Had follow up with urologist and CT scan was ordered. Will contact [facility] for copy of report Body mass index 30+ - obesity 681744339 Z68.32 BMI 31.5Counse led on importance of healthy diet and 20-30 minutes of exercise 3-5 times per week. Diet education 09165936 Z71.3 Exercises education, guidance, and counseling 748883267 Z71.89 Administra tion of diphtheria, pertussis, and tetanus vaccine 767473040 Z23 [id number] DESIRAE VIRGEN [address] [address] 03/19/2024 15:25:09 03/20/2024 10:23:12 Hypertriglyceridemia 935630438 E78.1 Low back pain 118038366 M54.50 Mixed hyperlipidemia 267 108340 E78.2 Hypertensive disorder 38 772787 I10 Calculus o f kidney and ureter 971435198 N20.2 Reviewed his urology note from 02/13/2024. Urology - urine collected for cytology, continue flomax, will order PSA, CTR of abd/pelvis (completed will obtain results). Will need cystoscopy due to blood in urine. Pt is unsure if he is going to complete the cystoscopy . Body mass index 30+ - obesity 801795503 Z68.32 BMI 31.5Counse led on importance of healthy diet and 20-30 minutes of exercise 3-5 times per week. History of coronary artery bypass grafting 513785562 Z95.[address] [facility]. Scheduled for follow up June 10, 2024[facility] Type 2 shun betes mellitus without complication 333274879 E11.9 His previous A1C 6.0%; Due to cost of trulicity pt is wanting to stop. Discussed with patient will discontinu e and recheck his sugar in three months. [id number] DESIRAE VIRGEN DO [facility] [address] [place] [address] 04/21/2024 11:11:40 04/22/2024 08:11:47 Body mass index 30+ - obesity 406743245 Z68.32 BMI 32.1Counse led on importance of healthy diet and 20-30 minutes of exercise 3-5 times per week. Diet education 61672789 Z71.3 Exercises education, guidance, and counseling 081545466 Z71.89 Abdominal pain 39253879 R10.9 Discuss obtaining an US to r/o a hernia. He would like to watch at this time; Discussed with patient if pain arises again will need to get imaging or other symptoms arise let provider know. Suspect hernia. Allergic rhinitis 860369 04 J30.9 Recommende d to continue flonase and symptomati c care. Low back pain 733257726 M54.50 May continue the tramadol PRN for back and hand pain. His is unable to take anti-infla mmatories due to being on anticoagul ant therapy. No medication history noted on PDMP.[facility] to [facility]. [id number] DESIRAE VIRGEN DO [facility] [address] [place] [address] 05/27/2024 10:01:54 05/28/2024 07:44:52 Type 2 diabetes mellitus without complication 165477401 E11.9 His previous A1C 6.0%; Will recheck labs today.HIs last eye exam was with Dr. Pickering; Will call for report Hypertensive disorder 38 168659 I10 Hyperlipidemia 71232312 E78.5 Currently on atorvastat in 40 mg daily.Labs checked, will advise patient when results are received. Hepatitis C screening 41 9956109 Z11.59 Body mass index 30+ - obesity 560953776 Z68.32 BMI 32Counsele d on importance of healthy diet and 20-30 minutes of exercise 3-5 times per week. Diet education 37682635 Z71.3 Exercises education, guidance, and counseling 312990308 Z71.82 Adult heal th examination 838900338 Z00.00 Patient presented to office today for their Medicare Annual Wellness Visit. Low back pain 798812468 M54.50 Currently taking tramadol PRN for back and hand pain. Pt states he does not need a refill.His is unable to take anti-infla mmatories due to being on anticoagul ant therapy. Calculus o f kidney and ureter 906734623 N20.2 Hx of kidney stone; UA is negative Onychomyco sis of toenails 670114455 B35.1 Screening for malignant neoplasm of prostate 013525959 Z12.5 [id number] DESIRAE VIRGEN DO [facility] [address] [place] [address] 06/22/2024 09:33:10 06/23/2024 13:44:34 Body mass index 30+ - obesity 594687497 Z68.32 BMI 32.9Counse led on importance of healthy diet and 20-30 minutes of exercise 3-5 times per week. Diet education 10949299 Z71.3 Exercises education, guidance, and counseling 135186109 Z71.82 Type 2 shun betes mellitus without complication 341085812 E11.9 Will restart trulicity to see if coverage is better. Previously discontinu ed due to cost. Acute sinusitis 91603451 J01.90 Course of antibiotic s given. depomedrol 80 mg and dex 4 mg given If not improving let provider know. [id number] DESIRAE VIRGEN DO [facility] [address] [place] [address] 08/31/2024 09:46:56 09/01/2024 08:56:09 Type 2 diabetes mellitus without complication 722406311 E11.9 Will try to get patient assistance for ozempic. Hyperlipidemia 32075386 E78.5 Hypertensive disorder 38 856798 I10 Calculus o f kidney and ureter 554880587 N20.2 Hx of kidney stone; UA is negative Allergic rhinitis 380962 04 J30.9 Recommende d to continue flonase and symptomati c care. Benign pro static hyperplasia 459200266 N40.0 Gastroesop hageal reflux disease without esophagitis 664460499 K21.9 Onychomyco sis of toenails 164703576 B35.1 History of coronary artery bypass grafting 493722530 Z95.1 Patient is scheduled for cardiac catheteriz ation on Saturday09/02/2024 Diet education 39804890 Z71.3 Exercises education, guidance, and counseling 447814532 Z71.82 Finding of body mass index 103927369 Z68.32 [id number] DESIRAE VIRGEN DO [facility] [address] [place] [address] 09/30/2024 09:46:43 10/01/2024 14:41:51 Body mass index 30+ - obesity 817450901 Z68.32 BMI 32.7Counse led on importance of healthy diet and 20-30 minutes of exercise 3-5 times per week. Diet education 90577121 Z71.3 Exercises education, guidance, and counseling 025373638 Z71.82 Acute sinusitis 42994222 J01.90 His fluvid test is negative; Course of doxy BID for 7 days. Contusion of left knee 4064008731 8061340 S80.02XA If pain not improving let provider know. Pt voiced understand ing. Cellulitis of lower limb 968280778 L03.119 Recommende d to stop the terbinafin e Sebaceous cyst of skin 737360142 L72.3 Folliculitis 01899124 L7 3.9 monitor Generalized rash 1170686 06 R21 Type 2 shun betes mellitus without complication [id number] E11.9 Will try to get patient assistance for ozempic. There was a missing form that needed signed and we will refax today. [id number] DESIRAE VIRGEN DO [facility] [address] [place] [address] 10/19/2024 10:41:03 10/22/2024 11:33:37 Streptococcal sore throat 65255413 J02.0 Strep postive. Change toothbrush in 24 hours Salt water/ chlorasept ic spray/ tylenol or motrin as needed for pain. Emphasized need to finish antibiotic . Body mass index 30+ - obesity 900608380 Z68.32 BMI 32.8; Counseled on importance of healthy diet and 20-30 minutes of exercise 3-5 times per week. Diet education 90667336 Z71.3 Exercises education, guidance, and counseling 540395681 Z71.82 Sore throat 447386218 J0 2.9 [id number] DESIRAE VIRGEN [facility] [address] [place] [address] 10/29/2024 09:17:10 11/02/2024 07:49:28 Hyperlipidemia 29676823 E78.5 Type 2 shun betes mellitus without complication 253726633 E11.9 His previous A1C 6.4%. Labs obtained and will contact patient once results are reivewed. Body mass index 30+ - obesity 630770509 Z68.32 BMI 32.7 Diet education 48240978 Z71.3 Exercises education, guidance, and counseling 218170781 Z71.82 Bradycardia 36667843 R00 .1 EKG showed heart rate 46 BPM. Will cut the metoprolol in 11/[address] Castillo [id number] DESIRAE VIRGEN [facility] [address] [place] [address] 0 11/18/2024 15:17:21 11/19/2024 09:08:02 Body mass index 30+ - obesity 781057028 Z68.32 BMI 33.2 Diet education 26789008 Z71.3 Exercises education, guidance, and counseling 161377065 Z71.82 Acute sinusitis 07002602 J01.90 Course of antibiotic s given.Depo medrol 80 mg and dex 4 mgIf not improving let provider know. Atrial fibrillation 4943 6004 I48.91 Follows with cardiology . [id number] DESIRAE VIRGEN DO [facility] [address] [place] [address] 12/03/2024 10:22:26 12/07/2024 18:18:17 Body mass index 30+ - obesity 244402176 Z68.32 BMI 33 Diet education 18984713 Z71.3 Exercises education, guidance, and counseling 092623335 Z71.82 Recurrent sinusitis 1956 J32.9 Discussed seeing specialist ; Pt declined at this time.Depom edrol 80 mg and dex 4 mgIf not improving let provider know. [id number] DESIRAE VIRGEN DO [facility] [address] [place] [address] 12/07/2024 09:34:44 12/08/2024 08:29:26 Body mass index 30+ - obesity 007829851 Z68.32 BMI 32.8 Diet education 59590700 Z71.3 Exercises education, guidance, and counseling 609913139 Z71.82 Sore throat 073440369 J0 2.9 Recommende d to stop the augmentin and will start on zpack. His influenza and covid swab is negative. Allergic rhinitis 079226 04 J30.9 Recommende d to continue the montelukas t and levocetiri zine. Streptococ nika sore throat 25884632 J02.0 Strep postive. Change toothbrush in 24 hours Salt water/ chlorasept ic spray/ tylenol or motrin as needed for pain. Emphasized need to finish antibiotic . Cough 73091676 R05.9 [id number] DESIRAE VIRGEN DO [facility] [address] [place] [address] 12/10/2024 09:48:12 12/10/2024 18:08:54 Cough 68790279 R05.9 continue cough syrup as needed. Will obtain chest xray. Complete antibiotic s. [id number] DESIRAE VIRGEN DO [facility] [address] [place] [address] 02/04/2025 09:25:51 02/08/2025 10:07:00 Body mass index 30+ - obesity 226480507 Z68.32 BMI 32.7 Diet education 94938133 Z71.3 Exercises education, guidance, and counseling 653175283 Z71.82 Acute sinusitis 83816626 J01.90 Flu and covid swab negative.C ourse of antibiotic s given.Depo medrol 80 mg and dex 4 mgIf not improving let provider know. Follow-up visit 89013902 9 Z09 Reviewed ER record; He was evaluated on 01/29/2025 for tachycardi a. He was recommende d to continue his metoprolol and follow up with his cardiologi st. He has notified his cardiologi st. Atrial fibrillation 4943 6004 I48.91 Appointmen t scheduled with cardiologi st in March. Type 2 shun betes mellitus without complication 900892309 E11.9 His previous A1C 7.2; Labs obtain today and will reach out to patient once results are reviewed. [id number] DESIRAE VIRGEN DO [facility] [place] [address] [place] [address] 03/31/2025 11:48:16 04/01/2025 08:05:20 Body mass index 30+ - obesity 194268639 Z68.33 061146 BMI 33.1 Diet education 82712334 Z71.3 Exercises education, guidance, and counseling 822083755 Z71.82 Diabetes mellitus 306011 09 E11.9 72881 Recommende d after x4 weeks of 0.5 mg dose go up to 1 mg dose of ozempic. Hypersomnia 49105246 G47 .10 89281 Discussed home sleep study; Pt declined at this time. History of coronary artery bypass grafting 878125001 Z95.1 Had appointmen t with cardiologi st yesterday. Atrial fibrillation 4943 6004 I48.91 Acute bact erial sinusitis 49100284 J01.90 B96.89 58392 Depomedrol 80 mg and dex 4 mg given. Course of antibotics . If not improving let provider know. Neoplasm o f uncertain behavior of skin 29021174 D48.5 61272 Left arm .4 cm by .5 cm irregular border left arm; Discussed derm referral pt declined. [id number] DESIRAEMarli VIRGEN, [facility] [address] [place] [address] 04/06/2025 10:33:09 04/07/2025 12:18:32 Body mass index 30+ - obesity 639710422 Z68.32 501510 BMI 32.5 Diet education 88755222 Z71.3 Exercises education, guidance, and counseling 008337805 Z71.82 Dyspnea 929632052 R06.02 86352 CXR obtained and will send to radiologis t for review. CBC and BNP pending. Acute bact erial sinusitis 48304815 J01.90 B96.89 65122 Vikor respirator y swab is pending. He has two days left on doxycyline . Atrial fibrillation 4943 6004 I48.91 [id number] DESIRAE VIRGEN, [facility] [address] [place] [address] 04/14/2025 09:32:22 04/15/2025 08:25:39 Overweight in adulthood with body mass index of 25 or more but less than 30 621126589 E66.3 Z68.29 5641163928 Diet education 87624831 Z71.3 Exercises education, guidance, and counseling 191461664 Z71.82 Pain of le ft shoulder region 9066431325 M25.512 [id number] Will refer to orthopedis t for further evaluation . He is scheduled for April 21, 2025 at 1:15 PM and was notified while in clinic. History of fracture 3910 [address]163 Z87.81 2767042 X-ray obtained of clavicle and will send to radiologis t to review. Acute bact erial sinusitis 12850706 J01.90 B96.89 60306 Will treat with course of antibiotic s if not improving let us know. Allergic rhinitis 270711 04 J30.9 6197332 Depomedrol 40 mg and dex 4 mg give.Recom mending switch to zyrtec daily in place of xyzal. Samples provided. [id number] Eliu Freire [facility] [address] [place] [address] 05/03/2025 09:48:19 05/04/2025 08:04:10 Diet education 71063506 Z71.3 Exercises education, guidance, and counseling 767853903 Z71.82 Body mass index 30+ - obesity 312133638 Z68.32 919457 BMI is 32.4 Falling injury 716696039 W19.XXXA 3049341678 Clavicle pain 769644324 M89.8X1 54460482 Xray obtained, no fracture seen and hardware appeared intact. Will send to radiologis t for reading and notify patient when report is received. Advised ice/heat to area, continue pain medication as necessary and rest. Questions encouraged and answered, verbalized understand ing. Type 2 shun betes mellitus 13445549 E11.69 E78.5 18036029 Has labs and follow up scheduled next month. Low back pain 932367825 M54.50 G89.29 Discussed with PCP, take Tramadol as needed for chronic pain. Script sent to [facility] for review. Follow with PCP for ongoing management . [id number] DESIRAE VIRGEN DO [facility] [address] [place] [address] 05/17/2025 10:37:51 05/17/2025 17:53:38 Abdominal pain 00349302 R10.9 46881098 Avoid greasy, fatty foods for now. Ordering US of abdomen. Labs are pending. Type 2 shun betes mellitus 20048872 E11.9 39135639 We are waiting for ozempic 1 mg through patient assistance . Patient voiced understand ing. Hyperlipidemia 28175767 E78.5 Body mass index 30+ - obesity 332450459 Z68.32 616992 BMI 32.5 Diet education 43748426 Z71.3 Exercises education, guidance, and counseling 542751715 Z71.82 [id number] DESIRAE VIRGEN DO [facility] [address] [place] [address] 06/07/2025 12:09:28 06/08/2025 10:01:44 Tick bite 65607244 S30.860A W57.XXXA 47212678 Tick panel is pending. Doxycyline given to take BID for 10 days. Body mass index 30+ - obesity 219673693 Z68.33 015359 BMI 33 Diet education 18642754 Z71.3 Exercises education, guidance, and counseling 862753143 Z71.82 Allergic rhinitis 839400 04 J30.9 2999583 Depomedrol 40 mg and dex 4 mg give. [id number] DESIRAE VIRGEN [facility] [address] [place] [address] 07/29/2025 10:45:48 07/29/2025 14:50:26 History and physical examination, annual for health maintenance 09087103 Z00.00 6983276066 Patient presented to office today for their Medicare Annual Wellness Visit. Body mass index 30+ - obesity 464209342 Z68.32 684580 BMI 32.6 Diet education 01310401 Z71.3 Exercises education, guidance, and counseling 901044910 Z71.82 Low back pain 403403085 M54.50 Depo medrol 40 mg and dex 4 mg given in clinic.Wit h course of oral steroids.S cheduled to see pain management Dr. Luu on 10/05/25 at 10:00am. Screening for osteoporosis 527357990 Z13.820 124041 Influenza vaccination given 7053153436 9109 Z23 49736062 Flu vaccine administer ed Requires i nfluenza virus vaccination 707778894 Z23 8117656 Pain of le ft shoulder joint 1639816117 8511272 M25.512 917916 Received shoulder injection 3 months ago from ortho. Will return to this clinic in a couple of weeks for another injection. [id number] DESIRAE VIRGEN [facility] [address] [place] [address] 08/09/2025 09:51:19 08/09/2025 11:17:41 Acute cough 1079596029 00877529 R05.3 6646199129 Acute COVID-19 180506002 8 U07.4 7094320513 Treat symptomati shabnam Neoplasm of skin 4674117 04 D49.2 639375 [id number] DESIRAE VIRGEN [facility] [address] [place] [address] 08/16/2025 12:20:23 08/16/2025 17:29:18 Body mass index 30+ - obesity 460856841 Z68.31 051112 BMI 31.9 Diet education 52465245 Z71.3 Exercises education, guidance, and counseling 292286304 Z71.82 Acute bact erial sinusitis 03615932 J01.90 B96.89 09434 Depomedrol 40 mg and dexamethas one 4 mg given IM.Will treat with course of antibiotic s if not improving let us know. [id number] DESIRAE VIRGEN DO [facility] [address] [place] [address] 08/25/2025 11:38:27 08/25/2025 13:06:43 Low back pain 020489210 M54.50 Script for tramadol sent to Dr. Paige for review Pain of le ft shoulder joint 9713760210 8763083 M25.512 911131 Steriod injection into left shoulder. Body mass index 30+ - obesity 072646215 Z68.31 300028 BMI 31.9 Chronic neck pain 300722 9763 107 M54.2 G89.29 098219 X-ray obtained of left shoulder and will contact patient once reviewed. Long-term current use of drug therapy 561751366 Z79.899 37955864 Other labs are pending; Will contact patient one results are reviewed. Health Concerns Section Related Observation LastModified by Organization Detai ls LastModified Time None Recorded Concern Status LastModified by Organization Details LastModified Time None Recorded Advance Directives Directive N: Payers Insurance Date Sequence Insurance Name Policy Number Policy Schulte Covered Member ID Schulte Member ID Guarantor Name 09/19/2025 2 [employer] (MEDICARE SUPPLEMENT) Zay Vaughan [id number] Zay Vaughan 09/19/2025 1 [place] Zay Vaughan [id number] Zay Vaughan 09/19/2025 [employer] [place] - [place] A - RHC-FQHC (MEDICARE) Zay Vaughan [id number] Zay Vaughan Notes Date Note Type Note Provider Name and Address Organization Details Recorded Time 06/07/2025 text/html Patient complains of sneezing, sore throat, and chest congestion x2 days.Also had a tick bite to the left side of his mid back. Sangeeta Vaughan, MINI [address], [address], [place] [facility] 06/07/2025 14:49:11 07/29/2025 text/html Medicare Annual Wellness VisitReported by PatientSocial/Behavior al HistoryFor physical activity, patient reportsdecreased physical activitybut reportsexercises on a regular basisandgood physical condition. For diet and nutrition, patient reportshealthy diet. For fracture risk, patient reportsno history of fractures,no recent explained fracture,no sudden unexplained fractures, andno previous musculoskeletal injuries.Mental Status:For depression risk, patient reportsnever feels sad, empty, or tearful,no loss of interest in activities,no significant changes in weight,no sleep disturbances or insomnia,no agitation,no loss of energy,no feelings of worthlessness or guilt,no thoughts of suicide,no history of depression, andno history of mood disorders. For orientation, patient reportsno disorientation to time,no disorientation to date, andno disorientation to place. For concentration and memory, patient reportsno decreased concentrating ability,no memory lapses or loss, anddoes not forget words. For speech/motor difficulties, patient reportsno speech difficulties,no difficulty expressing formulated concepts,no difficulty with fine manipulative tasks,no difficulty writing/copying,no slowed reaction time, anddoes not knock things over when trying to pick them up.Functional AbilityFor vision, patient reportsworsening. For home safety, patient reportsfire armsanddoes not have hand bars in the bathroom/showerbut reportsno unsafe padmaja hazzards,no unsafe stairs,no unsafe gas appliances,working smoke/co detectors,wears protective head gear for biking/high velocity,use of seatbelts,practicing 'safer sex',no vision or hearing loss while driving, andgood lighting in the home. For hearing, patient reportsno loss of hearing. For activities of daily living, patient reportsable to bathe with limited or no assistance,able to contol urination and bowels,able to dress with limited or no assistance,able to feed self with limited or no assistance,able to get out of chair or bed with limited or no assistance,able to groom with limited or no assistance, andable to toilet with limited or no assistance. For instrumental activities of daily living, patient reportsable to do house work with limited or no assistance,able to grocery shop with limited or no assistance,able to manage medications with limited or no assistance,able to manage money with limited or no assistance,able to prepare meals with limited or no assistance, andable to use the phone with limited or no assistance. For falls risk assessment, patient reportsno frequent falls while walking,no fall since last visit,no dizziness/vertigo, andfall(s) in the past year 1. Patient is here for Medicare Wellness Exam. He complains of left hip and leg pain extending down to the ankle for the past three weeks. He states that he fell on that side about two months ago. He is also experiencing pain in his left shoulder. He is scheduled to see pain management Dr. Luu on 10/05/25 at 10:00am. DESIRAE VIRGEN, [address], [address], [facility] 07/29/2025 15:02:41 08/09/2025 text/html Patient presents with complaints of cough, congestion, and sore throat. No fever. He would also like a skin lesion on left forearm looked at. He had xrays of hip and lumbar region. States pain in hip has improved. Sangeeta Vaughan NP [address], [address], [facility] 08/09/2025 15:59:59 08/16/2025 text/html Patient complains of not feeling well for two weeks.He was diagnosed with covid about 10 days ago, still sneezing and coughing. Sangeeta Vaughan NP [address], [address], [facility] 08/16/2025 15:31:18 08/25/2025 text/html Patient is here for pain medication refill. He has upcoming appointment with [facility] chiropractor care for his lower back pain. He wants to cancel his appointment with pain clinic for the injection with Dr. Luu. He would like an injection in his left shoulder. Sangeeta Vaughan NP [address], [place], [address], [facility] 08/26/2025 09:21:40
--- OUTSIDE RECORDS SUMMARY | 2025-09-19 10:52 | XMS_ITS | Encounter Summary ---
Author Organization [facility] Address [address] [place] [address] Dr. 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 >35.0 Indicates Presences of Rheumatoid Factor 12/09/2006 2:15 PM DIRECTOR CLOUD TRANSFORMATION Ragini Cowan DO CHEMISTRY ORDERABLES Edited INTERFACE SYSTEM Refer to clinic/hospital department documented in this encounter Visit Diagnoses Not on filedocumented in this encounter Care Teams Corsets Salesperson Relationship Specialty Start Date End Date Shelley Browne MD [address] [phone] PCP - General Family Practice 08/15/16 documented as of this encounter
--- OUTSIDE RECORDS SUMMARY | 2025-09-19 10:52 | XMS_ITS | Encounter Summary ---
Author Organization [facility] Address [address] [place] [address] Care Team Providers Care Cloth Seconds Sorter Name Role Phone Shelley Browne MD Primary Care Provider Encounter Details Date Type Department Care Team (Late st Contact Info) Description 05/29/2019 Ancillary Orders [facility] Admitting [address] [address] Rhona Bang FNP [address] [facility] [address] [place] [address] Right hip pain; Right knee pain Social History Tobacco Use Types Packs/Day Years Used Date Smoking Tobacco: Former Cigarettes Q uit: 11/11/1986 Smokeless Tobacco: Never Alcohol Use Standard Drinks/Week Comments Yes 0 (1 standard drink = 0.6 oz pur e alcohol) Very little Sex and Gender Information Value Date Recorded Sex Assigned at Not on file Legal Sex Male 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 Exam: XR FEMUR 2 VW RIGHT Date/Time of Exam: 05/29/2019 4:46 PM Reason For Exam: See Diagnosis. Diagnosis: Right knee pain. Findings: There is subcutaneous edema lateral to the hip and proximal thigh. No fracture or bony destructive lesion. No gas in the soft tissues or osteomyelitis. Hip joint and knee joint are preserved. IMPRESSION: 1. Soft tissue edema. Otherwise unremarkable exam. [id number] Narrative Procedure Note Kimmie Dumont MD - 06/01/2019 IMPRESSION: Please see below. Exam: XR FEMUR 2 VW RIGHT Date/Time of Exam: 05/29/2019 4:46 PM Reason For Exam: See Diagnosis. Diagnosis: Right knee pain. Findings: There is subcutaneous edema lateral to the hip and proximal thigh. No fracture or bony destructive lesion. No gas in the soft tissues or osteomyelitis. Hip joint and knee joint are preserved. IMPRESSION: 1. Soft tissue edema. Otherwise unremarkable exam. [id number] Rhona Bang [facility] DIAGNOSTIC IMAGING ORDERABL ES Final Result * XR HIP 2 OR 3 VIEWS RT (05/29/2019 4:45 PM CDT) Anatomical Region Laterality Modality Lower Extremity Right Computed Radiogr aphy 05/29/2019 4:46 PM CDT Impressions 06/01/2019 10:07 AM CDT IMPRESSION: Please see below. Exam: XR HIP 2 OR 3 VIEWS RT Date/Time of Exam: 05/29/2019 4:45 PM Reason For Exam: See Diagnosis. Diagnosis: Right hip pain. Findings: Mild to moderate degenerative changes in the right sacroiliac joint and hip joint are noted unchanged compared to May 16, 2019. No evidence of avascular necrosis. No acute or healing fracture. There is soft tissue edema lateral to the hip. This appears mildly hyperdense and may reflect a soft tissue hematoma. IMPRESSION: 1. No acute bony abnormality. 2. Suspected hematoma lateral to the hip as above. [id number] Narrative Procedure Note Kimmie Dumont MD - 06/01/2019 IMPRESSION: Please see below. Exam: XR HIP 2 OR 3 VIEWS RT Date/Time of Exam: 05/29/2019 4:45 PM Reason For Exam: See Diagnosis. Diagnosis: Right hip pain. Findings: Mild to moderate degenerative changes in the right sacroiliac joint and hip joint are noted unchanged compared to May 16, 2019. No evidence of avascular necrosis. No acute or healing fracture. There is soft tissue edema lateral to the hip. This appears mildly hyperdense and may reflect a soft tissue hematoma. IMPRESSION: 1. No acute bony abnormality. 2. Suspected hematoma lateral to the hip as above. [id number] Rhona Bang RESOURCE DEVELOPMENT MANAGER DIAGNOSTIC IMAGING ORDERABL ES Final Result documented in this encounter Visit Diagnoses Diagnosis Right hip pain Pain in joint, pelvic region and thigh Right knee pain Pain in joint, lower leg Right hip pain Pain in joint, pelvic region and thigh Right knee pain Pain in joint, lower leg documented in this encounter Care Teams Cloth Seconds Sorter Relationship Specialty Start Date End Date Shelley Browne MD [address] [phone] PCP - General Family Practice 08/15/16 documented as of this encounter
--- OUTSIDE RECORDS SUMMARY | 2025-09-19 10:52 | XMS_ITS | Encounter Summary ---
Author Organization [facility] Address [address] [place] [address] Care Team Providers Care Kennel Attendant Name Role Phone Shelley Browne MD Primary Care Provider Encounter Details Date Type Department Care Team (Latest Contact Info) Description 11/03/2001 Outpatient Historical [facility] [address] [place] [address] Rosanne Sandoval, 3D ARTIST [address] [place] [phone] ACUTE MAXILLARY SINUSITIS (Primary Dx) Social History Tobacco Use Types Packs/Day Years Used Date Smoking Tobacco: Never Assessed Sex and Gender Information Value Date Recorded Sex Assigned at Not on file Legal Sex Male 4:44 AM CHAIN PERSON Gender Identity Not on file Sexual Orientation Not on file documented as of this encounter Plan of Treatment Not on file documented as of this encounter Visit Diagnoses Diagnosis Acute maxillary sinusitis- Primary documented in this encounter Care Teams Kennel Attendant Relationship Specialty Start Date End Date Shelley Browne MD [address] [facility] [address] [place] [phone] PCP - General Family Practice 08/15/16 documented as of this encounter
--- OUTSIDE RECORDS SUMMARY | 2025-09-19 10:52 | XMS_ITS | Encounter Summary ---
Author Organization [facility] Address [address] [place] [address] Care Team Providers Care Ammunition Storage Superintendent Name Role Phone Shelley Browne MD Primary Care Provider Encounter Details Date Type Department Care Team (Late st Contact Info) Description 05/29/2019 Ancillary Orders [facility] Admitting [address] [address] Rhona Bang FNP [address] [facility] [address] [place] [address] Right knee pain Social History Tobacco Use Types Packs/Day Years Used Date Smoking Tobacco: Former Cigarettes Q uit: 11/11/1986 Smokeless Tobacco: Never Alcohol Use Standard Drinks/Week Comments Yes 0 (1 standard drink = 0.6 oz pur e alcohol) Very little Sex and Gender Information Value Date Recorded Sex Assigned at Not on file Legal Sex Male 4:44 AM IRON MINER BLASTING Gender Identity Not on file Sexual Orientation Not on file documented as of this encounter Plan of Treatment Not on file documented as of this encounter Results * XR KNEE 3 VW RIGHT (05/29/2019 4:46 PM CDT) Anatomical Region Laterality Modality Lower Extremity Computed Radiogr aphy 05/29/2019 4:46 PM CDT Impressions 06/01/2019 8:13 AM CDT IMPRESSION: Please see below. Exam: XR KNEE 3 VW RIGHT Date/Time of Exam: 05/29/2019 4:46 PM Reason For Exam: See Diagnosis. Diagnosis: Right knee pain. Findings: Mild diffuse degenerative changes. There is prepatellar soft tissue edema. There is no joint effusion. The joint spaces are maintained. There is no foreign body or intra-articular body. No chondrocalcinosis. No acute fracture. IMPRESSION: No acute bony abnormality is identified. Narrative Procedure Note Kimmie Dumont MD - 06/01/2019 IMPRESSION: Please see below. Exam: XR KNEE 3 VW RIGHT Date/Time of Exam: 05/29/2019 4:46 PM Reason For Exam: See Diagnosis. Diagnosis: Right knee pain. Findings: Mild diffuse degenerative changes. There is prepatellar soft tissue edema. There is no joint effusion. The joint spaces are maintained. There is no foreign body or intra-articular body. No chondrocalcinosis. No acute fracture. IMPRESSION: No acute bony abnormality is identified. Rhona Bang CARE NAVIGATOR DIAGNOSTIC IMAGING ORDERABL ES Final Result documented in this encounter Visit Diagnoses Diagnosis Right knee pain Pain in joint, lower leg Right knee pain Pain in joint, lower leg documented in this encounter Care Teams Ammunition Storage Superintendent Relationship Specialty Start Date End Date Shelley Browne MD [address] [phone] PCP - General Family Practice 08/15/16 documented as of this encounter
--- OUTSIDE RECORDS SUMMARY | 2025-09-19 10:52 | XMS_ITS | Encounter Summary ---
Author Organization [facility] Address [address] [place] [address] Care Team Providers Care Operating Room Registered Nurse Name Role Phone Shelley Browne MD Primary Care Provider Encounter Details Date Type Department Care Team (Latest Contact Info) Description 02/24/[address] [facility] General Surgery [address] [address] [address] [place] [address] Master Lopez DO NO ADDRESS ON FILE Benign Nazario Lg Bowel (Primary Dx) Social History Tobacco Use Types Packs/Day Years Used Date Smoking Tobacco: Never Assessed Sex and Gender Information Value Date Recorded Sex Assigned at Not on file Legal Sex Male 4:44 AM SHAPER HAND Gender Identity Not on file Sexual Orientation Not on file documented as of this encounter Plan of Treatment Not on file documented as of this encounter Visit Diagnoses Diagnosis Benign nazario lg bowel- Primary Benign neoplasm of colon documented in this encounter Care Teams Operating Room Registered Nurse Relationship Specialty Start Date End Date Shelley Browne MD [address] [address] PCP - General Family Practice 08/15/16 documented as of this encounter
--- OUTSIDE RECORDS SUMMARY | 2025-09-19 10:52 | XMS_ITS | Encounter Summary ---
Author Organization [facility] Address [address] Sen: Epic Prelude ADT [place] [address] Care Team Providers Care Yard Operator Name Role Phone Shelley Browne MD Primary Care Provider Encounter Details Date Type Department Care Team (Late st Contact Info) Description 02/24/2007 Outpatient Historical Master Lopez DO NO ADDRESS ON FILE Social History Tobacco Use Types Packs/Day Years Used Date Smoking Tobacco: Never Assessed Sex and Gender Information Value Date Recorded Sex Assigned at Not on file Legal Sex Male 4:44 AM SUBSTATION OPERATOR TRANSFORMING Gender Identity Not on file Sexual Orientation Not on file documented as of this encounter Plan of Treatment Not on file documented as of this encounter Visit Diagnoses Not on filedocumented in this encounter Care Teams Yard Operator Relationship Specialty Start Date End Date Shelley Browne MD [address] [facility] [address] [place] [address] PCP - General Family Practice 08/15/16 documented as of this encounter
--- OUTSIDE RECORDS SUMMARY | 2025-09-19 10:52 | XMS_ITS | Encounter Summary ---
Author Organization [facility] Address [address] [place] [address] Care Team Providers Care Livestock Showman Name Role Phone Shelley Browne MD Primary Care Provider [phone] Encounter Details Date Type Department Care Team (Latest Contact Info) Description 02/12/2007 Outpatient Historical [facility] General Surgery [address] [address] [address] [place] [address] Master Lopez DO NO ADDRESS ON FILE Other Specified Pre-Operative Examination (Primary Dx); Special Screening for Malignant Neoplasms, Colon Social History Tobacco Use Types Packs/Day Years Used Date Smoking Tobacco: Never Assessed Sex and Gender Information Value Date Recorded Sex Assigned at Not on file Legal Sex Male 4:44 AM HEEL WASHER STRINGING MACHINE OPERATOR Gender Identity Not on file Sexual Orientation Not on file documented as of this encounter Plan of Treatment Not on file documented as of this encounter Visit Diagnoses Diagnosis Other specified pre-operative examination- Primary Special screening for malignant neoplasms, colon documented in this encounter Care Teams Livestock Showman Relationship Specialty Start Date End Date Shelley Browne MD [address] [phone] PCP - General Family Practice 08/15/16 documented as of this encounter
--- OUTSIDE RECORDS SUMMARY | 2025-09-19 10:52 | XMS_ITS | Clinical Summary ---
Author Organization [facility] Address [address] [place] [address] Care Team Providers Care Fleet Operations Manager Name Role Phone Shelley Browne MD Primary Care Provider Allergies Active Allergy Reactions Criticality Noted Date Comments Erythromycin Other (See Comments) 01/16/2013 Medications SURE COMFORT INSULIN SYRINGE 1 mL 28 gauge x 1/2 Syringe USE UNDER SKIN ONCE PER WEEK DIRECTED 100 Syringe 1 8 Active fluticasone propionate (FLONASE) 50 mcg/spray Sikes, Suspension nasal inhaler Administer 1 Sikes in each nostril daily. 48 Gram 1 0 Active hydrALAZINE (APRESOLINE) 25 mg tablet Take 1 Tablet (25 mg) by mouth 3 times daily. 90 Tablet 5 0 Active levocetirizine (Xyzal) 5 mg tablet Take 5 mg by mouth late in the day. Active azelastine (OPTIVAR) 0.05 % solution 1 Drop 2 times daily. Active rivaroxaban (Xarelto) 20 mg Tablet Take 1 Tablet (20 mg) by mouth daily. 21 Tablet 0 Active Additional Information Patient taking differently: 10 mgOral DAILY, Reported on 03/28/2021 metoprolol tartrate (LOPRESSOR) 50 mg tablet TAKE 2 TABLETS BY MOUTH IN THE MORNING 180 Tablet 1 0 Active benazepriL (LOTENSIN) 20 mg tablet TAKE 1 TABLET(20 MG) BY MOUTH DAILY 90 Tablet 0 Active Additional Information Patient taking differently: 40 mg Oral DAILY, Reported on 09/29/2020 famotidine (PEPCID) 20 mg tablet TAKE 1 TABLET BY MOUTH TWICE DAILY 180 Tablet 1 1 Active finasteride (PROSCAR) 5 mg tablet TAKE 1 TABLET(5 MG) BY MOUTH DAILY 90 Tablet 1 1 Active HYDROCHLOROTHIA ZIDE 25 mg tablet TAKE 1 TABLET(25 MG) BY MOUTH DAILY FOR BLOOD PRESSURE 90 Tablet 1 1 Active amLODIPine (NORVASC) 10 mg tablet TAKE 1 TABLET(10 MG) BY MOUTH DAILY 90 Tablet 1 Active levocetirizine (Xyzal) 5 mg tablet Take 1 Tablet (5 mg) by mouth late in the day. 90 Tablet 1 1 Active predniSONE (DELTASONE) 20 mg tablet Take 1 Tablet (20 mg) by mouth daily. 7 Tablet 1 Active meloxicam (MOBIC) 7.5 mg tablet TAKE 1 TABLET(7.5 MG) BY MOUTH DAILY 90 Tablet 1 1 Active omeprazole (PriLOSEC) 20 mg Capsule, Delayed Release(E.C.) TAKE 1 CAPSULE(20 MG) BY MOUTH DAILY 90 Capsule 1 1 Active montelukast (SINGULAIR) 10 mg tablet TAKE 1 TABLET(10 MG) BY MOUTH DAILY 30 Tablet 1 Active tamsulosin (FLOMAX) 0.4 mg capsule TAKE 1 CAPSULE(0.4 MG) BY MOUTH DAILY 90 Capsule 1 1 Active Active Problems Problem Noted Date Diagnosed Date Paroxysmal atrial fibrillati on with rapid ventricular response 06/21/2020 Animal-rider injured by fall from or being thrown from horse in noncollision accident, initial encounter 05/17/2019 Traumatic hematoma of buttock right 05/17/2019 Peptic ulcer disease 12/26/2016 Overview (12/26/2016): With hemorrhage in the past, healing at present. Hx of adenomatous polyp of colon 12/18/2016 Diverticulosis of large intestine without hemorr ivette 12/18/2016 Overview (12/18/2016): Mild disease, and limited to the sigmoid. Dysphagia 11/06/2016 Hypertension 10/20/2014 BPH (benign prostatic hyperplasia) 10/20/2014 Enlarged prostate Resolved Problems Problem Noted Date Diagnosed Date Resolved Date Peptic ulcer disease with hemorrhage 11/06/2016 12/26/2016 Overview (11/06/2016): There was a fairly extensive amount of hemorrhagic residue in his stomach. No active bleeding noted at the time of endoscopy. Immunizations Immunization Administration Dates Next Due (PNEUMOVAX 23)(50 YRS UP) PN EUMOCOCCAL POLYSACCHARIDE [...] DOSE QUADRIVALENT 65 YR UP PF IM 09/29/2020 09/29/2021 Influenza Seasonal Unspecified Formulation IM Influenza Vaccine High Dose 65+ Yrs IM ,10/01/2018 PNEUMOVAX (PPSV23) pneumococ nika polysaccharide 23-valent Vaccine 10/01/2018 Family History Medical History Relation Name [...] Tobacco: Never Alcohol Use Standard Drinks/Week Comments Not Currently 0 (1 standard drink = 0.6 oz pur e alcohol) Very little Sex and Gender Information Value Date Recorded Sex Assigned at Not on file 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 Gender Identity Not on file Sexual Orientation Not on file Last Filed Vital Signs Vital Sign Reading Time Taken Comments Blood Pressure 110/70 03/28/2021 9:35 AM CDT Pulse 50 03/28/2021 9:35 AM CDT Temperature 35.8 C (96.5 F) 03/28/2021 9:35 AM CDT Respiratory Rate 13 03/28/2021 9:35 AM CDT Oxygen Saturation 97% 03/28/2021 9:35 AM CDT Inhaled Oxygen Concentration - - Weight 98 kg (216 lb) 03/28/2021 9:35 AM CDT Height 177.8 cm (5' 10 ) 03/28/2021 9:35 AM CDT Body Mass Index 30.99 03/28/2021 9:35 AM CDT Plan of Treatment Health Maintenance Due Date Last Done Comments FIT/ DNA Q 3 YEARS (AUTO ORDER) 1968 FIT/FOBT Q 1 YEAR (AUTO ORDER) 1968 FLEX SIG/CT COLONOGRAPHY Q 5 YEARS (AUTO ORDER) 1968 FIT-DNA Q 3 years 1995 FIT/FOBT Q 1 year 1995 Flex Sig/CT Colonography Q 5 years 1995 ZOSTER VACCINE (1 of 2) 2000 DTAP/TDAP/TD VACCINES (1 - Tdap) 08/22/2005 08/21/20 05, 03/16/1991 Traditional Medicare (ACO) A nnual Wellness Visit 04/29/2016 04/28/2015 RSV VACCINE (60+ or ) (1 - 1-dose 75+ series) 2025 INFLUENZA VACCINE (#1) 2025 , 09/09/2019, 10/01/2018, Additional history exists COVID-19 Vaccine (3 - 2024-2 6 season) 2025 02/07/2021, 02/07/2021 COLORECTAL CANCER SCREENING (AUTO ORDER) 12/18/2026 12/18/2016, 02/24/2007 COLORECTAL SCREENING 12/18/2026 12/18/2016, 02/25/20 07 Colorectal Cancer Screening (AUTO ORDER) 12/18/2026 Colorectal Cancer Screening 12/18/2026 PNEUMOCOCCAL VACCINE 50+ YEARS Completed 1 12/01/2017, 10/01/2017, 02/04/2017 (Previously completed), Additional history exists Insurance MEDICARE PART A AND B [employer] [place] Advance Directives For more information, please contact: [phone] * Full Code (Latest Code Status on File) Date Activated Date Inactivated Comments 05/17/2019 4:51 AM 05/19/2019 2:17 PM * Full Code Date Activated Date Inactivated Comments 12/18/2016 9:19 AM 12/18/2016 11:35 AM * Full Code Date Activated Date Inactivated Comments 12/18/2016 8:22 AM 12/18/2016 9:19 AM * Full Code Date Activated Date Inactivated Comments 11/06/2016 1:47 PM 11/06/2016 5:50 PM * Full Code Date Activated Date Inactivated Comments 11/06/2016 1:21 PM 11/06/2016 1:47 PM Care Teams Fleet Operations Manager Relationship Specialty Start Date End Date Shelley Browne MD [address] [phone] PCP - General Family Practice 08/15/16
--- OUTSIDE RECORDS SUMMARY | 2025-09-19 10:52 | XMS_ITS | Clinical Summary ---
Author Organization [facility] Address [address] [place] [address] Phone Care Team Providers Care Recruiting Administrator Name Role Phone Unavailable Primary Care Provider Unavailabl e Allergies No known active allergies Medications ipratropium (Atrovent) 0.03 % nasal spray every 12 (twelve) hours. Active meloxicam (Mobic) 7.5 mg tablet 1 tablet 1 (one) time each day at the same time. Active montelukast (Singulair) 10 mg tablet 1 tablet 1 (one) time each day at the same time. 08/23/20 15 Active syringe with needle (Allergy Syringe) 1 mL 27 x 1/2 syringe as directed SUBQUTANEOUSLY 1 A WEEK for 365 days 01/26/20 15 Active amLODIPine (Norvasc) 10 mg tablet 1 tablet 1 (one) time each day at the same time. Active fluticasone (Flonase) 50 mcg/actuation nasal spray 1 (one) time each day at the same time. Active latanoprost (Xalatan) 0.005 % ophthalmic solution 1 (one) time each day at the same time. Active omeprazole OTC (PriLOSEC OTC) 20 mg EC tablet 1 tablet. Active benazepriL (Lotensin) 20 mg tablet 1 tablet 1 (one) time each day at the same time. Active tamsulosin (Flomax) 0.4 mg 24 hr capsule 1 capsule 1 (one) time each day at the same time. Active fluticasone (Flonase) 50 mcg/actuation nasal spray INSTILL 2 SPRAYS IN EACH NOSTRIL DAILY for 30 Active hydroCHLOROthi azide (HYDRODiuril) 25 mg tablet 1 tablet 1 (one) time each day at the same time. Active finasteride (Proscar) 5 mg tablet 1 tablet 1 (one) time each day at the same time. Active metoprolol tartrate (Lopressor) 50 mg tablet 2 tablet with food every morning and 1 tab in evening Orally Active EPINEPHrine (Epipen) 0.3 mg/0.3 mL injection syringe INJECT ONE PEN INTRAMUSCULARLY DIRECTED. for 30 Active albuterol (Proventil;Greyson tolin) 90 mcg/actuation inhaler every 4 (four) hours. 01/26/20 20 Active fluticasone (Flovent) 220 mcg/actuation inhaler 1 puff every 12 (twelve) hours. 01/26/20 20 Active levocetirizine (Xyzal) 5 mg tablet 1 tablet 1 (one) time each day at the same time. 06/15/20 20 Active Immunizations Immunization Administration Dates Next Due Influenza, Quadrivalent, with Preservative 10/01 Pneumococcal Polysaccharide 10/01/2017 Social History Tobacco Use Types Packs/Day Years Used Date Smoking Tobacco: Never Assessed Sex and Gender Information Value Date Recorded Sex Assigned at Not on file Legal Sex Male 11:35 AM CDT Gender Identity Not on file Sexual Orientation Not on file Plan of Treatment Health Maintenance Due Date Last Done Comments CT Colonography 1950 Colonoscopy 1950 Colorectal Cancer Screening 1950 FIT-DNA 1950 FIT 1950 FOBT 1950 Lipid Panel 1950 Sigmoidoscopy 1950 MMR Vaccines (1 of 1 - Stand saray series) 1951 DTaP,Tdap,and Td Vaccines (1 - Tdap) 1957 Varicella Vaccines (1 of 2 - 13+ 2-dose series) 1963 Depression Screening 1968 Social Drivers of Health (SDoH) 1968 Zoster Vaccines (1 of 2) 2000 Complete Fall Risk Assessment 2015 Pneumococcal Vaccine: 50+ Ye ars (2 of 2 - PCV) 10/01/2018 10/01/2017 RSV Vaccines (1 - 1-dose 75+ series) 2025 COVID-19 Vaccine (1 - 2023-2 5 season) 2025 Influenza Vaccine (#1) 2025 10/01/2017 Pneumococcal Vaccine Aged Out 10/01/2017 No long er eligible based on patient's age to complete this topic HIB Vaccines Aged Out No longer eligi ble based on patient's age to complete this topic HPV Vaccines Aged Out No longer eligi ble based on patient's age to complete this topic Hepatitis A Vaccines Aged Out No long er eligible based on patient's age to complete this topic Hepatitis B Vaccines Aged Out No long er eligible based on patient's age to complete this topic IPV Vaccines Aged Out No longer eligi ble based on patient's age to complete this topic Meningococcal B Vaccine Aged Out No l onger eligible based on patient's age to complete this topic Meningococcal Vaccine Aged Out No torrie julia eligible based on patient's age to complete this topic Rotavirus Vaccines Aged Out No longer eligible based on patient's age to complete this topic
--- NOTE | 2025-09-19 10:59 | CTR_ITS ---
PROCEDURE INFORMATION: Exam: CT Lumbar Spine Without Contrast Exam date and time: 09/19/2025 11:11 AM Age: 75 years old Clinical indication: Injury or trauma; Fall; Blunt trauma (contusions or hematomas); Additional info: Severe pain, cant walk, fall 3 months ago TECHNIQUE: Imaging protocol: Computed tomography of the lumbar spine without contrast. Radiation optimization: All CT scans at this facility use at least one of these dose optimization techniques: automated exposure control; mA and/or kV adjustment per patient size (includes targeted exams where dose is matched to clinical indication); or iterative reconstruction. COMPARISON: CT thoracic spin wo con* [id number] 05/05/2020 1:17 AM RADIATION DOSE METRICS: Total DLP (mGy-cm): 913.8 FINDINGS: Bones/joints: There are mild degenerative changes of the sacroiliac joints. The lumbar spine demonstrates mild degenerative changes at multiple levels. Demineralization of the visualized bones, limiting sensitivity for nondisplaced fractures. No acute fracture, compression deformity or spondylolisthesis. Kidneys and ureters: Obstructing stone in the right proximal ureter measuring 8 mm. Mild right hydronephrosis. No left hydronephrosis. Vasculature: The vasculature demonstrates diffuse mild atherosclerotic calcification. Soft tissues: Unremarkable. CT/CT lumbar spine wo con* [id number] IMPRESSION: 1. No acute posttraumatic changes in the lumbar spine. 2. Right proximal ureter stone measuring 8 mm with mild right hydronephrosis.
--- NOTE | 2025-09-19 10:59 | CTR_ITS ---
PROCEDURE INFORMATION: Exam: CT Left Lower Extremity Without Contrast, Hip Exam date and time: 09/19/2025 11:11 AM Age: 75 years old Clinical indication: Injury or trauma; Fall; Blunt trauma; Hip; Left; Additional info: Severe pain, can't walk, fall 3 months ago TECHNIQUE: Imaging protocol: CT of the left lower extremity without contrast was performed. Exam focused on the hip. Radiation optimization: All CT scans at this facility use at least one of these dose optimization techniques: automated exposure control; mA and/or kV adjustment per patient size (includes targeted exams where dose is matched to clinical indication); or iterative reconstruction. COMPARISON: CT lumbar spine wo con* [id number] 09/19/2025 11:11 AM RADIATION DOSE METRICS: Total DLP (mGy-cm): 389.8 FINDINGS: Bones/joints: Mild degenerative disease of the left sacroiliac joint. There are mild degenerative changes in the left hip joint. Soft tissues: Mild fatty atrophy of the gluteus danyel muscle. Intestine: Moderate diverticulosis is present in the distal colon. CT/CT hip LT wo con* [id number] IMPRESSION: No acute fracture or dislocation.
--- NOTE | 2025-09-19 11:20 | W.ED.EXTPRO ---
Documented by User: [email or web address] Saab 09/19/25 13:53 HPI - Extremity Problem General: Chief complaint: Extremity Problem,Nontraumatic Stated complaint: left hip pain Time Seen by Provider: 09/19/25 10:50 Source: patient Mode of arrival: ambulatory Limitations: no limitations History of Present Illness: Patient is a 75-year-old male who presents the emergency department complaining of left low back and left hip pain for the past few months. States that in May he fell off of a tractor, has had worsening pain since. He notes that he has had rounds of physical therapy as well as seeing chiropractor, but that today the pain is gotten much worse. Radiates down the entirety of his left lower extremity all the way to his toes, states that right now primarily the pain is to the low back but also feels it in the left sanchez. Does not report taking any medications. He does report having an x-ray and an ultrasound back when the injury previously happened, but no further injury workup since. He has been ambulatory, though with pain. No bowel or bladder incontinence, saddle anesthesia, or any other red flag back symptoms. No history of cancer. No fevers. No redness or swelling to the left hip. His vitals are stable at this time, he is uncomfortable appearing secondary to pain but notably ambulatory. MD Complaint: joint pain (left hip) and other (back pain) Onset (ago): month(s) Pain Consistency: constant Location: left and lower extremity Associated symptoms: Deny chest pain, fever(s) or rash Related Data Home Medications ?Medication ?Instructions ?Recorded ?Confirmed amlodipine 10 mg tablet 10 mg PO DAILY 05/09/20 04/21/25 famotidine 40 mg tablet 40 mg PO DAILY 05/09/20 04/21/25 finasteride 5 mg tablet 5 mg PO DAILY 05/09/20 04/21/25 montelukast 10 mg tablet 10 mg PO DAILY 05/09/20 04/21/25 omeprazole 20 mg capsule,delayed 20 mg PO DAILY 05/09/20 04/21/25 release latanoprost 0.005 % eye drops 1 drp ophthalmic (eye) DAILY 10/10/20 04/21/25 diphenhydramine HCl 50 mg capsule 50 mg PO BEDTIME PRN Sleep 03/06/22 04/21/25 (Sleep Aid (diphenhydramine)) levocetirizine 5 mg tablet 5 mg PO DAILY 06/03/23 04/21/25 tamsulosin 0.4 mg capsule 0.4 mg PO BEDTIME 09/02/24 04/21/25 tramadol 50 mg tablet mg PO 04/21/25 04/21/25 Previous Rx's ?Medication ?Instructions ?Recorded hydrochlorothiazide 25 mg tablet 25 mg PO DAILY #0 tabs 05/10/20 aspirin 81 mg chewable tablet 81 mg PO DAILY #100 tabs 03/08/22 (Children's Aspirin) benazepril 40 mg tablet 40 mg PO DAILY #90 tabs 10/29/22 rivaroxaban 20 mg tablet 20 mg PO DAILY #180 tabs 01/23/23 Held on 09/02/24. Instructions: Resume on 09/04/24. atorvastatin 40 mg tablet 40 mg PO DAILY #90 tabs 03/03/24 metoprolol tartrate 50 mg tablet 50 mg PO BID #60 tabs 10/12/24 Allergies Allergy/AdvReac Type Severity Reaction Status Date / Time erythromycin base Allergy Unknown unknown Verified 04/21/25 13:21 Review of Systems General: Reports: 10 or more systems reviewed and unremarkable except in HPI and below Const: Reports: other (denies trauma); Denies: fever(s), change in weight or night sweats Card: Denies: chest pain, lightheadedness or syncope Resp: Denies: dyspnea GI: Denies: abdominal pain or fecal incontinence : Denies: urinary incontinence Musc: Reports: back pain, extremity pain (LLE) and joint pain (left hip); Denies: neck pain Skin/Breast: Denies: rash or skin pain Neuro: Denies: headache(s), numbness in extremities, weakness in extremities, sensory changes, lack of coordination, difficulty walking, frequent falls or involuntary movements PFSH ED PFSH: Medical History Chronic episodic atrial fibrillation Bradycardia Somnolence, daytime Was in the sleep lab but could not sleep. So he never had a sleep study Atrial fibrillation BPH (benign prostatic hyperplasia) History of adenomatous polyp of colon Diverticulosis Dyslipidemia Benign essential HTN Accelerated essential hypertension Stomach ulcer Arthritis Surgical History S/P CABG x 4 Family History Mother CAD (coronary artery disease), Onset Age: 60 Father Cancer Sister Cancer Denies family history of Diabetes Clotting disorder Dementia Chronic kidney disease (CKD) Suicide Anesthesia complication Bleeding disorder Lung disease Hypertension Stroke Social History Smoking and tobacco/nicotine status: former use of tobacco/nicotine Alcohol intake: never Substance/Drug Use: never Physical Exam Const: COMMON NORMALS: patient oriented x3, no limitations and alert ORIENTATION/CONSCIOUSNESS: Yes awake OTHER: uncomfortable appearing Resp: COMMON NORMALS: normal respiratory effort, No retractions, No use of accessory muscles and clear to auscultation bilaterally AUSCULTATION: clear to auscultation bilaterally Cardio: COMMON NORMALS: regular rate, regular rhythm, S1 normal heart sound present and S2 normal heart sound present RATE: regular rate RHYTHM: regular rhythm HEART SOUNDS: S1 normal heart sound present and S2 normal heart sound present Back/Pelvis: OTHER: Normal visual examination. No spinous process tenderness or paracervical, parathoracic, or paralumbar tenderness to palpation. Full active range of motion. Extremity: COMMON NORMALS: normal to inspection and full ROM NARRATIVE EXTREMITY EXAM: Pain with range of motion at the left hip. Negative tenderness to palpation. No joint erythema or warmth. Distal neurovascular is normal. Neuro: COMMON NORMALS: patient oriented x3, moves all extremities, no focal motor deficits, no sensory deficits noted, deep tendon reflexes 2+ bilaterally and gait normal SENSORIUM/ORIENTATION: Yes alert OTHER: L3, L4, L5, and S1 nerve sensations intact. Normal knee jerk and ankle jerk reflexes. Skin: COMMON NORMALS: no rashes or lesions noted GENERAL SKIN EXAM: no rashes or lesions noted Course Vital Signs: Vital signs: Vital Signs Temperature 98.3 F 09/19/25 10:51 Pulse Rate 71 09/19/25 12:32 Respiratory Rate 16 09/19/25 10:51 Blood Pressure 103/76 09/19/25 12:32 Pulse Oximetry 98 09/19/25 12:32 Oxygen Delivery Me thod Room Air 09/19/25 10:51 MDM - Extremity (Nontraumatic) Medical Decision Making This patient presented with chronic left lower back and left hip pain has been bothering him since May when he fell off a tractor. He tells me he has been to physical therapy, has seen chiropractor, and previously has had normal imaging yet he states the pain is too severe today where he has had trouble walking. However he has no red flag symptoms to report such as loss of bowel or bladder function or saddle anesthesia. Neurological status was intact, if seems to be that pain is his only symptom at this time. Due to him reporting that the pain is too severe to walk, CT was ordered which does not show any acute findings. Incidentally there is a right kidney stone, but he is asymptomatic from this I did tell him that if his pain worsens regardless to monitor his condition closely and specifically for any fevers or inability to urinate. He gets some relief here with pain medications, he chronically takes tramadol for pain so he is to continue taking this but he will be referred back to orthopedics for further evaluation. I do not see that he has ever had an MRI, he may benefit from this. Stable for discharge home. Lab Data Radiology Impressions Hip CT 09/19/25 10:59 IMPRESSION: No acute fracture or dislocation. Lumbar Spine CT 09/19/25 10:59 IMPRESSION: 1. No acute posttraumatic changes in the lumbar spine. 2. Right proximal ureter stone measuring 8 mm with mild right hydronephrosis. All radiology interpretation(s) finalized by discharge Discharge Plan Discharge Patient Disposition: Home Clinical Impression: Chronic low back pain Qualifiers: Back pain laterality: left Sciatica presence: with sciatica Sciatica laterality: sciatica of left side Qualified Code(s): M54.42 - Lumbago with sciatica, left side Condition: Stable Prescriptions: No Action omeprazole 20 mg capsule,delayed release(DR/EC) 20 mg PO DAILY montelukast 10 mg tablet 10 mg PO DAILY finasteride 5 mg tablet 5 mg PO DAILY amlodipine 10 mg tablet 10 mg PO DAILY famotidine 40 mg tablet 40 mg PO DAILY latanoprost 0.005 % drops 1 drp ophthalmic (eye) DAILY tramadol 50 mg tablet PO levocetirizine 5 mg tablet 5 mg PO DAILY benazepril 40 mg tablet 40 mg PO DAILY Qty: 90 3RF rivaroxaban 20 mg tablet 20 mg PO DAILY Qty: 180 3RF atorvastatin 40 mg tablet 40 mg PO DAILY Qty: 90 3RF metoprolol tartrate 50 mg tablet 50 mg PO BID Qty: 60 5RF hydrochlorothiazide 25 mg tablet 25 mg PO DAILY Qty: 0 0RF diphenhydramine HCl [Sleep Aid (diphenhydramine)] 50 mg Capsule 50 mg PO BEDTIME PRN (Reason: Sleep) aspirin [Children's Aspirin] 81 mg Tablet,Chewable 81 mg PO DAILY Qty: 100 4RF tamsulosin 0.4 mg Capsule 0.4 mg PO BEDTIME Discharge Orders: Discharge ED (Routine); Ordered 09/19/25 Ordered By: Los Stover Referrals: Sangeeta Vaughan NP [Primary Care Provider, Nurse Practitioner] Patient Instructions: Opioid Safety, Pain Management, Patient Portal & Cate Instructions Activity Restrictions/Additional Instructions: Please follow-up with orthopedics. Continue pain medications that have been prescribed to you at home. Follow-up with regular provider as well. Return any new or worsening. Print Language: Bulgarian Coding Level of Care Code ED Drill Sharpener for Chg Fwd Documented by User: Deandre Moseley DO 09/19/25 14:41 HPI - Extremity Problem General: Chief complaint: Extremity Problem,Nontraumatic Stated complaint: left hip pain Time Seen by Provider: 09/19/25 10:50 Related Data Home Medications ?Medication ?Instructions ?Recorded ?Confirmed amlodipine 10 mg tablet 10 mg PO DAILY 05/09/20 04/21/25 famotidine 40 mg tablet 40 mg PO DAILY 05/09/20 04/21/25 finasteride 5 mg tablet 5 mg PO DAILY 05/09/20 04/21/25 montelukast 10 mg tablet 10 mg PO DAILY 05/09/20 04/21/25 omeprazole 20 mg capsule,delayed 20 mg PO DAILY 05/09/20 04/21/25 release latanoprost 0.005 % eye drops 1 drp ophthalmic (eye) DAILY 10/10/20 04/21/25 diphenhydramine HCl 50 mg capsule 50 mg PO BEDTIME PRN Sleep 03/06/22 04/21/25 (Sleep Aid (diphenhydramine)) levocetirizine 5 mg tablet 5 mg PO DAILY 06/03/23 04/21/25 tamsulosin 0.4 mg capsule 0.4 mg PO BEDTIME 09/02/24 04/21/25 tramadol 50 mg tablet mg PO 04/21/25 04/21/25 Previous Rx's ?Medication ?Instructions ?Recorded hydrochlorothiazide 25 mg tablet 25 mg PO DAILY #0 tabs 05/10/20 aspirin 81 mg chewable tablet 81 mg PO DAILY #100 tabs 03/08/22 (Children's Aspirin) benazepril 40 mg tablet 40 mg PO DAILY #90 tabs 10/29/22 rivaroxaban 20 mg tablet 20 mg PO DAILY #180 tabs 01/23/23 Held on 09/02/24. Instructions: Resume on 09/04/24. atorvastatin 40 mg tablet 40 mg PO DAILY #90 tabs 03/03/24 metoprolol tartrate 50 mg tablet 50 mg PO BID #60 tabs 10/12/24 Allergies Allergy/AdvReac Type Severity Reaction Status Date / Time erythromycin base Allergy Unknown unknown Verified 04/21/25 13:21 PFSH ED PFSH: Medical History Chronic episodic atrial fibrillation Bradycardia Somnolence, daytime Was in the sleep lab but could not sleep. So he never had a sleep study Atrial fibrillation BPH (benign prostatic hyperplasia) History of adenomatous polyp of colon Diverticulosis Dyslipidemia Benign essential HTN Accelerated essential hypertension Stomach ulcer Arthritis Surgical History S/P CABG x 4 Family History Mother CAD (coronary artery disease), Onset Age: 60 Father Cancer Sister Cancer Denies family history of Diabetes Clotting disorder Dementia Chronic kidney disease (CKD) Suicide Anesthesia complication Bleeding disorder Lung disease Hypertension Stroke Social History Smoking and tobacco/nicotine status: former use of tobacco/nicotine Alcohol intake: never Substance/Drug Use: never Course Vital Signs: Vital signs: Vital Signs Temperature 98.3 F 09/19/25 10:51 Pulse Rate 71 09/19/25 12:32 Respiratory Rate 16 09/19/25 10:51 Blood Pressure 103/76 09/19/25 12:32 Pulse Oximetry 98 09/19/25 12:32 Oxygen Delivery Me thod Room Air 09/19/25 10:51 MDM - Extremity (Nontraumatic) Medical Decision Making This patient presented with chronic left lower back and left hip pain has been bothering him since May when he fell off a tractor. He tells me he has been to physical therapy, has seen chiropractor, and previously has had normal imaging yet he states the pain is too severe today where he has had trouble walking. However he has no red flag symptoms to report such as loss of bowel or bladder function or saddle anesthesia. Neurological status was intact, if seems to be that pain is his only symptom at this time. Due to him reporting that the pain is too severe to walk, CT was ordered which does not show any acute findings. Incidentally there is a right kidney stone, but he is asymptomatic from this I did tell him that if his pain worsens regardless to monitor his condition closely and specifically for any fevers or inability to urinate. He gets some relief here with pain medications, he chronically takes tramadol for pain so he is to continue taking this but he will be referred back to orthopedics for further evaluation. I do not see that he has ever had an MRI, he may benefit from this. Stable for discharge home. Chart reviewed and patient discussed with midlevel. Agree with assessment and plan. Lab Data Radiology Impressions Hip CT 09/19/25 10:59 IMPRESSION: No acute fracture or dislocation. Lumbar Spine CT 09/19/25 10:59 IMPRESSION: 1. No acute posttraumatic changes in the lumbar spine. 2. Right proximal ureter stone measuring 8 mm with mild right hydronephrosis. Discharge Plan Discharge Patient Disposition: Home Clinical Impression: Chronic low back pain Qualifiers: Back pain laterality: left Sciatica presence: with sciatica Sciatica laterality: sciatica of left side Qualified Code(s): M54.42 - Lumbago with sciatica, left side Condition: Stable Prescriptions: No Action omeprazole 20 mg capsule,delayed release(DR/EC) 20 mg PO DAILY montelukast 10 mg tablet 10 mg PO DAILY finasteride 5 mg tablet 5 mg PO DAILY amlodipine 10 mg tablet 10 mg PO DAILY famotidine 40 mg tablet 40 mg PO DAILY latanoprost 0.005 % drops 1 drp ophthalmic (eye) DAILY tramadol 50 mg tablet PO levocetirizine 5 mg tablet 5 mg PO DAILY benazepril 40 mg tablet 40 mg PO DAILY Qty: 90 3RF rivaroxaban 20 mg tablet 20 mg PO DAILY Qty: 180 3RF atorvastatin 40 mg tablet 40 mg PO DAILY Qty: 90 3RF metoprolol tartrate 50 mg tablet 50 mg PO BID Qty: 60 5RF hydrochlorothiazide 25 mg tablet 25 mg PO DAILY Qty: 0 0RF diphenhydramine HCl [Sleep Aid (diphenhydramine)] 50 mg Capsule 50 mg PO BEDTIME PRN (Reason: Sleep) aspirin [Children's Aspirin] 81 mg Tablet,Chewable 81 mg PO DAILY Qty: 100 4RF tamsulosin 0.4 mg Capsule 0.4 mg PO BEDTIME Discharge Orders: Discharge ED (Routine); Ordered 09/19/25 Ordered By: Los Stover Referrals: Sangeeta Vaughan NP [Primary Care Provider, Nurse Practitioner] Patient Instructions: Opioid Safety, Pain Management, Patient Portal & Cate Instructions Activity Restrictions/Additional Instructions: Please follow-up with orthopedics. Continue pain medications that have been prescribed to you at home. Follow-up with regular provider as well. Return any new or worsening. Print Language: Bulgarian Coding Level of Care Code ED Drill Sharpener for Israel Vitale
[2025-09-19] MEDS: HYDROcodone-acetaminophen 5-325 mg Tablet 1 TAB PO (11:22)
[2025-09-19] MEDS: orphenadrine 30 mg/mL Inj 2 mL 60 MG IM (11:22)
--- NOTE | 2025-09-19 11:31 | PC.NURSE ---
Verbal order per provider Jolanta, Dexamethasone was given 10mg IVP, Orphenadrine 60mg was given IVP, Ketorolac order was changed from 60mg to 30mg to be given IVP.
--- NOTE | 2025-09-19 11:50 | PC.NURSE ---
This nurse educated and asked pt to get into the bed, Pt refused and is sitting in chair at bedside.
[2025-09-19] MEDS: HYDROmorphone 0.5 MG/0.5 ML INJ IVP (12:28)
[2025-09-19 12:32] VITALS: BP 103/76; PULSE 71; O2SAT 98
--- NOTE | 2025-09-20 07:58 | DCPLANNER ---
messaged ortho for er f/u
== END 2025-09-19 12:42 | disposition home or self-care (01) ==
PROVIDERS: Emergency Provider Physician Assistant; PCP Nurse Practitioner Family
DX: M54.42 Lumbago with sciatica, left side (principal); Z79.82 Long term (current) use of aspirin; Z87.891 Personal history of nicotine dependence; Z95.1 Presence of aortocoronary bypass graft; E78.5 Hyperlipidemia, unspecified; I10 Essential (primary) hypertension
CPT/HCPCS: 72131; 73700; 96374; 96375; 99285; J1100; J1171; J1885; J2360; J9999

== ENCOUNTER → 2025-10-13 13:36 | Outpatient (BNVA) | payer MEDICARE, SELFPAY | PROVIDERS: PCP Nurse Practitioner Family; Visit Provider Internal Medicine Cardiovascular Disease | DX: I48.20 Chronic atrial fibrillation, unspecified (principal); Z79.01 Long term (current) use of anticoagulants; I25.10 Atherosclerotic heart disease of native coronary artery without angina pectoris; I10 Essential (primary) hypertension; E78.5 Hyperlipidemia, unspecified; M54.42 Lumbago with sciatica, left side; M54.41 Lumbago with sciatica, right side; Z95.1 Presence of aortocoronary bypass graft; Z87.891 Personal history of nicotine dependence | CPT/HCPCS: 99214 ==